=== PATIENT | female | born 1965 | race Caucasian/White ===

== ENCOUNTER 2022-08-04 10:36 | Outpatient (REF) | payer OTHER, SELFPAY ==
--- NOTE | ~2022-08-04 | XR_ITS ---
EXAMINATION: XR ELBOW, RIGHT XR ELBOW, LEFT CLINICAL INFORMATION: M06.9 - Rheumatoid arthritis, unspecified COMPARISON: None TECHNIQUE: Each elbow is imaged in 3 views. There are a total of 6 views. FINDINGS: Right: Bony mineralization within normal. No acute or healing fracture, dislocation, or elbow capsular effusion. No joint narrowing or erosive change. There is bulky spur from the lateral epicondyle. Left: Bony mineralization within normal. No acute or healing fracture, dislocation, or elbow capsular effusion. No joint narrowing or erosive change or chondrocalcinosis. Punctate epicondylar spurs. XR/XR elbow RT min 3V IMPRESSION: 1. No joint narrowing or erosive changes bilateral elbows. 2. Bulky right lateral epicondylar spur.
--- NOTE | ~2022-08-04 | XR_ITS ---
EXAMINATION: XR ELBOW, RIGHT XR ELBOW, LEFT CLINICAL INFORMATION: M06.9 - Rheumatoid arthritis, unspecified COMPARISON: None TECHNIQUE: Each elbow is imaged in 3 views. There are a total of 6 views. FINDINGS: Right: Bony mineralization within normal. No acute or healing fracture, dislocation, or elbow capsular effusion. No joint narrowing or erosive change. There is bulky spur from the lateral epicondyle. Left: Bony mineralization within normal. No acute or healing fracture, dislocation, or elbow capsular effusion. No joint narrowing or erosive change or chondrocalcinosis. Punctate epicondylar spurs. XR/XR elbow LT min 3V IMPRESSION: 1. No joint narrowing or erosive changes bilateral elbows. 2. Bulky right lateral epicondylar spur.
[2022-08-04 12:44] LABS: MANUAL DIFF FLAG NO
[2022-08-04 13:04] LABS: Basophils Absolute Auto 0.1 X10*3/uL (0.0-0.2); Basophils Percent Auto 0.6 % (0-2); Eosinophils Absolute Auto 0.3 X10*3/uL (0.0-0.4); Eosinophils Percent Auto 2.2 % (0-4); Hematocrit 43.1 % (37.0-47.0); Hemoglobin 13.7 g/dl (12.0-16.0); Imm Gran Abs Auto 0.09 X10*3/uL (0.00-0.03); Imm Gran Pct Auto 0.8 % (0.0-0.4); Lymphocytes Absolute Auto 1.8 X10*3/uL (1.2-4.9); Lymphocytes Percent Auto 16.1 % (20-40); Mean Corpuscular HGB Conc 31.8 g/dl (31.0-35.0); Mean Corpuscular Volume 91.1 fL (80.0-98.0); Mean Platelet Volume 11.1 fL (9.4-12.3); Monocytes Absolute Auto 0.6 X10*3/uL (0.1-1.2); Monocytes Percent Auto 5.1 % (2-11); Neutrophils Absolute Auto 8.5 x10*3/uL (2.0-8.3); Neutrophils Percent Auto 75.2 % (45-73); Platelet Count 244 X10*3/uL (160-400); Red Blood Count 4.73 X10*6/uL (4.20-5.50); Red Cell Distribution Width 14.6 % (11.0-16.0); White Blood Count 11.3 X10*3/uL (4.8-10.8)
[2022-08-04 13:48] LABS: Estimated Average Glucose 280 mg/dL; Hemoglobin A1c % 11.4 %
[2022-08-04 13:49] LABS: Erythrocyte Sedimentation Rate 34 MM/HR (0-20)
[2022-08-04 14:10] LABS: Alanine Aminotransferase 78 U/L (0-31); Albumin Level 4.1 g/dL (3.5-5.0); Blood Urea Nitrogen 12 mg/dL (9-16); Calcium 9.3 mg/dL (8.4-10.2); Chloride 101 mmol/L (96-108); Estimated Glomerular Filt Rate > 60; Potassium 3.9 mmol/L (3.3-5.1); Rheumatoid Factor < 13.0 IU/mL (<15.0); Sodium 138 mmol/L (135-145); Total Protein 7.1 g/dL (6.5-8.0); Uric Acid 4.2 mg/dL (2.4-5.7)
[2022-08-04 14:27] LABS: Alkaline Phosphatase 190 U/L (39-117); Anion Gap 18 (12-20); Aspartate Amino Transferase 85 U/L (5-31); Bilirubin Total 0.6 mg/dL (0.0-1.0); C Reactive Protein 3.48 mg/dL (< or = 0.50); Carbon Dioxide 23 mmol/L (22-29)
[2022-08-04 15:30] LABS: Glucose Random 404 mg/dL (60-115)
[2022-08-05 09:57] LABS: HBc Num1 0.17 S/CO (0.00-0.79); HBsAGNum1 0.26 S/CO (0.00-0.99); Hepatitis A Antibody IgM 0.57 Index (0-0.79); Hepatitis B Core Antibody Nonreactive (Nonreactive); Hepatitis B Surface Antigen Negative (Negative); ~Hepatitis A Antibody IgM Nonreactive (Nonreactive); ~Hepatitis B Surface Antibody REACTIVE (Nonreactive); ~Hepatitis C Antibody Nonreactive (Nonreactive)
[2022-08-07 05:49] LABS: TS Negative Control Passed; TS Panel A 0; TS Panel B 0; TS Positive Control Passed; TSpotTB Negative (Negative)
[2022-08-09 12:39] LABS: Cyclic Citrullinated Peptide <16 UNITS
[2022-08-09 13:39] LABS: Complement C3 227 mg/dL (83-193)
[2022-08-09 15:23] LABS: Anti Nuclear Antibody Screen NEGATIVE (NEGATIVE)
[2022-08-10 14:59] LABS: Prot Elec - Alpha1 0.3 g/dL (0.2-0.3); Prot Elec - Alpha2 0.8 g/dL (0.5-0.9); Prot Elec - Beta 1 0.5 g/dL (0.4-0.6); Prot Elec - Beta 2 0.4 g/dL (0.2-0.5); Prot Elec - Gamma 1.1 g/dL (0.8-1.7); Prot Elec - Total Protein 7.1 g/dL (6.1-8.1)
[2022-08-11 00:24] LABS: Beta-2 Glycoprotein IgA 2.7 U/mL (<20.0); Beta-2 Glycoprotein IgG 2.7 U/mL (<20.0); Beta-2 Glycoprotein IgM 12.9 U/mL (<20.0)
[2022-08-11 06:14] LABS: Hexagonal Phase Neutralization Negative (Negative); PTT (LAC) Screen 65 sec (<=40)
[2022-08-11 07:08] LABS: IgA 210 mg/dL (47-310); IgG 1153 mg/dL (600-1640); IgM 208 mg/dL (50-300)
[2022-08-11 13:13] LABS: Anti DNA DS Antibody 1 IU/mL; Antibody to SS-A Antigen <1.0 NEG AI (<1.0 NEG); Antibody to SS-B Antigen <1.0 NEG AI (<1.0 NEG); SM/Ribonucleoprotein Ab <1.0 NEG AI (<1.0 NEG); Smith Protein <1.0 NEG AI (<1.0 NEG)
[2022-08-12 22:24] LABS: HLA B27 Negative (Negative)
[2022-08-15 08:13] LABS: Cardiolipin IgG Ab 2.7 GPL-U/mL; Cardiolipin IgM Ab 8.5 MPL-U/mL
== END 2022-08-04 10:37 | disposition home or self-care (01) ==
LOC: HO.XRAY 10:36
PROVIDERS: PCP Internal Medicine; Visit Provider Student in an Organized Health Care Education/Training Program
DX: Z11.59 Encounter for screening for other viral diseases (principal); Z13.1 Encounter for screening for diabetes mellitus; Z11.7 Encounter for testing for latent tuberculosis infection; M06.9 Rheumatoid arthritis, unspecified; I82.409 Acute embolism and thrombosis of unspecified deep veins of unspecified lower extremity; M25.541 Pain in joints of right hand
CPT/HCPCS: 36415; 73080; 80053; 82784; 83036; 84165; 84550; 85025; 85597; 85613; 85652; 85730; 86038; 86039; 86140; 86146; 86147; 86160; 86200; 86225; 86235; 86334; 86431; 86481; 86704; 86706; 86709; 86803; 86812; 87340; 99202

== ENCOUNTER 2022-09-21 08:17 | Outpatient (REF) | payer OTHER, SELFPAY ==
[2022-09-21 08:57] LABS: Appearance Urine Clear; Color Urine Yellow; Glucose Urine UA Negative (Negative); Leukocyte Esterase Urine Trace (Negative); Nitrite Urine Negative (Negative); PH 5.5 (5.0-9.0); Specific Gravity - Urine <= 1.005 (1.005-1.025); UMIC TRIGGER UA YES; Urine Blood Negative (Negative); Urine Ketones Negative (Negative); Urine Protein 30 (1+) mg/dL (Neg-Trace)
[2022-09-21 09:00] LABS: Bacteria Urine None Seen (None Seen); Hyaline Casts Urine 0-2 /LPF (0-2)
[2022-09-21 09:30] LABS: Creatinine Urine 124.16 mg/dL; Total Protein Urine Random 37 mg/dL (<12)
== END 2022-09-21 08:18 | disposition home or self-care (01) ==
LOC: HO.LAB 08:17
PROVIDERS: PCP Internal Medicine; Visit Provider Student in an Organized Health Care Education/Training Program
DX: M06.9 Rheumatoid arthritis, unspecified (principal)
CPT/HCPCS: 81001; 84156

== ENCOUNTER 2024-05-20 14:32 | Outpatient (REF) | payer OTHER, SELFPAY ==
--- NOTE | ~2024-05-20 | XR_ITS ---
EXAMINATION: XR ANKLE LEFT 2 VIEWS CLINICAL INFORMATION: Rheumatoid arthritis, unspecified M06.9. COMPARISON: XR Left foot 05/20/2024 TECHNIQUE: AP, oblique views of the left ankle. FINDINGS: No fracture. Alignment is anatomic. No erosions. Joint spaces are maintained. Soft tissues are normal. There is moderate atherosclerotic disease. XR/XR ankle LT min 3V IMPRESSION: Moderate atherosclerotic disease. Electronically signed by: Suzy Razo MD 07/27/2024 12:06 PM [facility]
--- NOTE | ~2024-05-20 | XR_ITS ---
EXAMINATION: XR CHEST 2 VIEWS CLINICAL INFORMATION: Rheumatoid arthritis, unspecified M06.9. Hilar lymphadenopathy. COMPARISON: CT Abdomen and pelvis 02/18/2022 TECHNIQUE: 2 views of the chest were obtained. FINDINGS: No significant abnormality is noted involving the heart, lungs, mediastinum, bony thorax or soft tissues. XR/XR chest 2V IMPRESSION: Unremarkable examination. Electronically signed by: Suzy Razo MD 07/27/2024 12:04 PM [facility]
--- NOTE | ~2024-05-20 | XR_ITS ---
EXAMINATION: XR ANKLE RIGHT 2 VIEWS CLINICAL INFORMATION: Rheumatoid arthritis, unspecified M06.9. COMPARISON: XR Right foot 05/20/2024 TECHNIQUE: AP, oblique views of the right ankle. FINDINGS: No fracture. Alignment is anatomic. No erosions. Joint spaces are maintained. Soft tissues are normal. Post surgical changes in the mid foot. XR/XR ankle RT min 3V IMPRESSION: Normal right ankle. Electronically signed by: Suzy Razo MD 07/27/2024 02:04 PM [facility]
--- NOTE | ~2024-05-20 | XR_ITS ---
EXAMINATION: XR KNEE RIGHT 4 VIEWS CLINICAL INFORMATION: Rheumatoid arthritis, unspecified M06.9. COMPARISON: None available TECHNIQUE: Four views of the right knee. FINDINGS: Moderate joint effusion. There is lateral joint space narrowing with osteophyte formation. Alignment is anatomic. Joint spaces are maintained. Moderate atherosclerotic disease. XR/XR knee RT 4V IMPRESSION: Moderate joint effusion. Electronically signed by: Suzy Razo MD 07/27/2024 12:01 PM [facility]
--- NOTE | ~2024-05-20 | XR_ITS ---
EXAMINATION: XR FOOT RIGHT 3 VIEWS CLINICAL INFORMATION: Rheumatoid arthritis, unspecified M06.9. COMPARISON: XR Right ankle 05/20/2024 TECHNIQUE: AP, lateral, and oblique views of the right foot. FINDINGS: No acute fracture or dislocation. There is postsurgical change at the distal fifth metatarsal. There is mild overlying soft tissue swelling. Fusion of the tarsal-metatarsal joint at the first digit. XR/XR foot RT min 3V IMPRESSION: Postsurgical changes. Electronically signed by: Suzy Razo MD 07/27/2024 12:03 PM [facility]
--- NOTE | ~2024-05-20 | XR_ITS ---
EXAMINATION: XR KNEE LEFT 3 VIEWS CLINICAL INFORMATION: Rheumatoid arthritis, unspecified M06.9. COMPARISON: None available TECHNIQUE: Three views of the left knee. FINDINGS: No fracture or joint effusion. Alignment is anatomic. Joint spaces are maintained. Moderate atherosclerotic disease. XR/XR knee LT 4V IMPRESSION: Moderate atherosclerotic disease. Electronically signed by: Suzy Razo MD 07/27/2024 12:04 PM [facility]
--- NOTE | ~2024-05-20 | XR_ITS ---
EXAMINATION: XR HAND/WRIST RIGHT 3 VIEWS CLINICAL INFORMATION: Rheumatoid arthritis, unspecified M06.9. COMPARISON: None available TECHNIQUE: PA, lateral, and oblique views of the right hand and wrist. FINDINGS: The bones and soft tissues are normal. No fracture. Alignment is anatomic. There is a moderate joint space narrowing with osteophyte formation at the third metatarsal-phalangeal joint. No erosions or soft tissue calcifications. XR/XR hand wrist RT IMPRESSION: Moderate degenerative disease of the third metatarsal-phalangeal joint. Electronically signed by: Suzy Razo MD 07/27/2024 12:27 PM [facility]
--- NOTE | ~2024-05-20 | XR_ITS ---
EXAMINATION: XR FOOT LEFT 3 VIEWS CLINICAL INFORMATION: Rheumatoid arthritis, unspecified M06.9. COMPARISON: XR Left ankle 05/20/2024 TECHNIQUE: AP, lateral, and oblique views of the left foot. FINDINGS: There is moderate joint space narrowing with subluxation at the first metatarsal joint. Joint spaces are maintained. No acute fracture. XR/XR foot LT min 3V IMPRESSION: Moderate degenerative disease of the first metatarsophalangeal joint. Electronically signed by: Suzy Razo MD 07/27/2024 12:22 PM [facility]
--- NOTE | ~2024-05-20 | XR_ITS ---
EXAMINATION: XR HAND/WRIST LEFT 3 VIEWS CLINICAL INFORMATION: Rheumatoid arthritis, unspecified M06.9. COMPARISON: None available TECHNIQUE: PA, lateral, and oblique views of the left hand and wrist. FINDINGS: The bones and soft tissues are normal. No fracture. Alignment is anatomic. Joint space narrowing at the carpal-metacarpal joint. No erosions or soft tissue calcifications. XR/XR hand wrist LT IMPRESSION: Mild degenerative disease of the left wrist. Electronically signed by: Suzy Razo MD 07/27/2024 12:03 PM [facility]
[2024-05-20 15:36] LABS: MANUAL DIFF FLAG NO
[2024-05-20 17:04] LABS: Basophils Absolute Auto 0.1 X10*3/uL (0.0-0.2); Basophils Percent Auto 0.5 % (0-2); Eosinophils Absolute Auto 0.2 X10*3/uL (0.0-0.4); Eosinophils Percent Auto 1.8 % (0-4); Hematocrit 37.4 % (37.0-47.0); Hemoglobin 11.5 g/dl (12.0-16.0); Imm Gran Abs Auto 0.08 X10*3/uL (0.00-0.03); Imm Gran Pct Auto 0.7 % (0.0-0.4); Lymphocytes Absolute Auto 1.7 X10*3/uL (1.2-4.9); Lymphocytes Percent Auto 14.4 % (20-40); Mean Corpuscular HGB Conc 30.7 g/dl (31.0-35.0); Mean Corpuscular Hemoglobin 26.8 pg (27.0-33.0); Mean Corpuscular Volume 87.2 fL (80.0-98.0); Mean Platelet Volume 10.5 fL (9.4-12.3); Monocytes Absolute Auto 0.6 X10*3/uL (0.1-1.2); Monocytes Percent Auto 5.3 % (2-11); Neutrophils Absolute Auto 9.3 x10*3/uL (2.0-8.3); Neutrophils Percent Auto 77.3 % (45-73); Platelet Count 366 X10*3/uL (160-400); Red Blood Count 4.29 X10*6/uL (4.20-5.50); Red Cell Distribution Width 15.4 % (11.0-16.0)
[2024-05-20 17:31] LABS: Alanine Aminotransferase 19 U/L (0-31); Albumin Level 4.1 g/dL (3.5-5.0); Alkaline Phosphatase 113 U/L (39-117); Anion Gap 13 (12-20); Aspartate Amino Transferase 24 U/L (5-31); Bilirubin Total 0.4 mg/dL (0.0-1.0); Blood Urea Nitrogen 19 mg/dL (9-16); Calcium 9.3 mg/dL (8.4-10.2); Carbon Dioxide 26 mmol/L (22-29); Chloride 107 mmol/L (96-108); Estimated Glomerular Filt Rate 60; Glucose Random 149 mg/dL (60-115); Potassium 3.3 mmol/L (3.3-5.1); Sodium 143 mmol/L (135-145); Total Protein 7.6 g/dL (6.5-8.0)
[2024-05-21 04:41] LABS: HBc Num1 0.15 S/CO (0.00-0.79); HBsAGNum1 0.38 S/CO (0.00-0.99); Hepatitis A Antibody IgM 0.62 Index (0-0.79); Hepatitis B Core Antibody Nonreactive (Nonreactive); Hepatitis B Surface Antigen Negative (Negative); ~HepC Num1 0.09 S/CO (0.00-0.79); ~Hepatitis A Antibody IgM Nonreactive (Nonreactive); ~Hepatitis B Surface Antibody REACTIVE (Nonreactive); ~Hepatitis C Antibody Nonreactive (Nonreactive)
[2024-05-23 01:07] LABS: TS Negative Control Passed; TS Panel A 0; TS Panel B 0; TS Positive Control Passed; TSpotTB Negative (Negative)
[2024-05-23 16:34] LABS: Mitochondrial Antibodies NEGATIVE (NEGATIVE)
[2024-05-23 22:08] LABS: Liver Kidney Microsomal Ab <=20.0 U (<=20.0)
[2024-05-24 18:53] LABS: Angiotensin Converting Enzyme 32 U/L (9-67)
[2024-05-24 23:09] LABS: Smooth Muscle Antibody <20 U (<20)
[2024-05-26 02:14] LABS: HLA B27 Negative (Negative)
== END 2024-05-20 14:33 | disposition home or self-care (01) ==
LOC: HO.XRAY 14:32
PROVIDERS: PCP Internal Medicine; Visit Provider Student in an Organized Health Care Education/Training Program
DX: Z11.59 Encounter for screening for other viral diseases (principal); R74.01 Elevation of levels of liver transaminase levels; Z11.7 Encounter for testing for latent tuberculosis infection; M06.9 Rheumatoid arthritis, unspecified; M45.9 Ankylosing spondylitis of unspecified sites in spine; R06.9 Unspecified abnormalities of breathing
CPT/HCPCS: 36415; 71046; 73110; 73130; 73564; 73610; 73630; 80053; 82164; 85025; 86015; 86376; 86381; 86481; 86704; 86706; 86709; 86803; 86812; 87340; 99212

== ENCOUNTER 2024-05-20 14:32 | Outpatient (AMB) | payer OTHER, SELFPAY ==
--- NOTE | 2024-05-20 14:34 | A.OFFVIS_ITS ---
Vital Signs 05/20/24 14:41 Height 5 ft 2 in Weight 215 lb 9.793 oz BMI 39.4 BP 122/80 Blood Pressure Location Rt brachial Position Sitting Pulse 93 Pulse Source Pulse Oximeter Pulse Oximetry (%) 95 Oxygen Delivery Method Room Air Intake Visit Reasons: Rheumatoid Arthritis Intake Note: Patient presents for Rheumatoid Arthritis. Allergies No Known Allergies Allergy (Verified 05/20/24 14:37) Medication List - Last Reconciled 05/20/24 by Ilsa Ng MD albuterol sulfate 90 mcg/actuation (ProAir HFA) 2 puffs inhalation Q6H PRN calcium citrate-vitamin D3 200 mg-6.25 mcg (250 unit) 1 tab PO DAILY lansoprazole 30 mg PO DAILY levothyroxine 150 mcg PO DAILY HPI Comments Details: 59-year-old female with seronegative RA returns for follow-up. Patient was seen once by me 07/2022, diagnostic workup was ordered and patient did not return for follow-up. She states that she was evaluated by other specialists but it does not look like she was evaluated by a class a truck driver. She continues to have trouble joint pains including her hands, shoulders, knees, ankles. Over the last 2-3 weeks she has noticed painful reddish bumps in her right leg. Initial history: This is a 57-year-old morbidly obese female with complex past medical history including DVT and PE on warfarin who presents for evaluation of inflammatory arthritis. Condition started more than 5 years ago. Patient stated she used to see a class a truck driver in [place] but does not know their names. She stated that she was getting medications to treat pain and anxiety. She was most recently evaluated by Jose F Rainey last year. She used to get multiple courses of prednisone which help with joint pain. Patient mentions episodes of swelling of her wrists, knuckles, elbows which are improved with prednisone. About a month ago she had right foot bunionectomy and her right foot is currently in a cast. She develops intermittent bruising of her skin while on warfarin, she is currently taking duloxetine prescribed by Dr. Tapia for fibromyalgia which she mentions did help her symptoms. [facility] Medical History Bunion of right foot Esophageal dysmotility Hiatal hernia Constipation Dysphagia GERD (gastroesophageal reflux disease) DJD (degenerative joint disease) BPV (benign positional vertigo) Parathyroid adenoma Hx of thyroid cancer Rheumatoid arthritis G6PD deficiency Cholelithiases Hepatomegaly Liver cyst Pulmonary embolism DVT (deep venous thrombosis) LIN (obstructive sleep apnea) Depression Tension headache Sleep disturbance Fibromyalgia Migraines Obesity (BMI 30-39.9) Diverticulosis Surgical History S/P bunionectomy Stented coronary artery Hx of endoscopy Hx of tubal ligation H/O total thyroidectomy Hx of colonoscopy Family History Mother Glaucoma Father Glaucoma Cataract Diabetes Hypertension Myocardial infarct Maternal Grandmother Skin cancer Daughter Multiple sclerosis Social History Household Members: Spouse and Children Housing: House Patient Tobacco Use Status: Never used Tobacco service: No Current occupational status: employed Review of [employer] Reports arthralgias, Reports joint swelling and Reports stiffness Skin/Breast Reports new lesions and Reports skin pain Physical Exam Vital Signs: Last Vital Signs Pulse 93 05/20/24 14:41 BP 122/80 05/20/24 14:41 Pulse Ox 95 05/20/24 14:41 Oxygen Delivery Method Room Air 05/20/24 14:41 BMI result Body Mass Index 39.4 Const General: cooperative, healthy appearing, comfortable and no acute distress Nutritional Appearance: obese morbidly obese Orientation/consciousness: patient oriented x3 HEENT Head: Yes normocephalic and Yes atraumatic Resp Effort & Inspection: normal respiratory effort and able to speak in complete sentences Auscultation: clear to auscultation bilaterally Cardio Rate: regular rate Rhythm: regular rhythm GI Inspection: No distended Palpation (GI): Soft to palpation and nontender Neuro General: patient oriented x3 Extrem Other: Swelling and synovial thickening of right hand MCPs, right 3rd MCP swollen and tender Bilateral shoulder stiffness Bilateral knee swelling, more prominent on the right associated with warmth Bilateral ankle swelling and tenderness Multiple tender erythematous bumps on her right leg Results Reviewed Results Reviewed: X-RAY EXAM OF HAND, 3+ VIEWS ? Exam Date: 10/11/2016 ?4:09 PM Ordering Diagnosis: FibromyalgiaChronic pain of right knee ? ?? IMPRESSION: Degenerative change of the right hand. ? Unremarkable left hand.X-RAY EXAM OF ANKLE, COMPLETE Exam Date: 05/19/2022 11:26 AM Ordering Diagnosis: Right ankle swelling ? RIGHT ANKLE, 3 VIEWS ? HISTORY: Pain and swelling. ? PRIORS: None. ? FINDINGS: ? No fracture, malalignment, or foreign body is seen. ? There is mild soft tissue swelling overlying the ankle. ? The ankle mortise appears normally aligned. ? There is a moderate plantar spur. ? There is a tiny posterior calcaneal spur. ? There is advanced atherosclerosis. ? IMPRESSION IMPRESSION: Mild soft tissue swelling. ? Calcaneal spurs. X-RAY EXAM OF WRIST, COMPLETE Exam Date: 05/19/2022 11:26 AM Ordering Diagnosis: Pain and swelling of right wrist ? RIGHT WRIST ? VIEWS: 3 ? HISTORY: Pain and swelling. ? FINDINGS: There is mild degenerative change of the 1st MCP joint and 1st CMC joint. ? There is no acute fracture, malalignment, joint effusion, or radiopaque foreign body. ? There is soft tissue swelling overlying the dorsal aspect of the metacarpal heads. There is mild soft tissue swelling about the radial aspect of the wrist. ? The carpal bones are normally aligned. ? There is atherosclerosis. ? IMPRESSION IMPRESSION: Degenerative changes as described. ? Soft tissue swelling. ORTHO X-RAY FOOT (3 VIEWS) Exam Date: 01/19/2022 9:24 AM Ordering Diagnosis: Foot pain, bilateral ? Left foot weightbearing 3 views ? Findings Advanced bunion deformity of the left great toe with severe intermetatarsal angle greater than 18 degrees signs of sclerosis of second metatarsal consistent with hypermobility of the first ray and overloading of the second metatarsal head lateral view there is signs of increased dorsiflexion of the first ray tibial sesamoid position is in a 7 ? Impression Severe bunion deformity of the left foot with hypermobility based on thickening cortex of the second metatarsal ? Right foot weightbearing 3 views ? Findings Moderate to severe bunion deformity of the right great toe with increased mobility of the right great toe and elevatus of the first ray on lateral view ? Impression Moderate to severe bunion deformity of the right footX-RAY KNEE 3 VIEW - W/O INJURY Exam Date: 08/26/2020 11:18 AM Ordering Diagnosis: Chronic pain of right knee ? History: Bilateral knee pain. ? Bilateral knees, 3 views each: ? Prior: Bilateral knees 10/11/2016. ? FINDINGS: Bony structures are radiographically intact. ? There is spurring of the lateral femoral tibial compartment of the right knee.. ? There is no evidence of joint effusions. ? There is advanced atherosclerosis. ? IMPRESSION Mild osteoarthritis of the right knee. ? Unremarkable left knee. Assessment & Plan Assessment & Plan (1) Rheumatoid arthritis: Comment: -ve RF -ve CCP dx 07/2022 MTX not started due to transaminitis HCQ not tolerated Code(s): M06.9 - Rheumatoid arthritis, unspecified Category: Medical Qualifiers: Rheumatoid arthritis location: multiple sites Rheumatoid factor prese nce: unspecified presence Qualified Code(s): M06.9 - Rheumatoid arthritis, unspecified Plan: 59-year-old female with seronegative RA returns for follow-up. Patient initially came for consult 07/2022 and did not back for follow-up. On exam she continues to have active synovitis affecting multiple joints. We will need to start DMARDs Advised patient on the importance of compliance with medication and follow-up appointments. Methotrexate, leflunomide, sulfasalazine can not be started due to ongoing transaminitis. Hydroxychloroquine was not tolerated in the past and likely would not be effective given severity of her synovitis TNF inhibitors would be relatively contraindicated given positive family history of MS in her daughter. Interleukin 6 inhibitor such as Actemra and Kevzara would be relatively contraindicated due to ongoing transaminitis and her significant diverticular disease. Discussed risks and benefits of Orencia. Patient agreed to proceed. Will start prior authorization for Orencia Check labs and x-rays today The tender bumps on her right leg maybe erythema nodosum. I will check an SOL level and a chest x-ray Start prednisone 20 mg daily for 1 week then 10 mg daily for 1 week then stop Follow-up in 6-7 weeks Plan I spent 28 minutes reviewing patient's chart, evaluating patient, ordering diagnostic workup, counseling patient and documenting in the chart Orders: Orders Angiotensin Converting Enzyme Today M06.9 - Rheumatoid arthritis, unspecified Comprehensive Met. Panel Today M06.9 - Rheumatoid arthritis, unspecified Hepatitis A,B,C Profile Today Z11.59 - Encounter for screening for other viral diseases Liver Kidney Microsomal Ab Today R74.01 - Elevation of levels of liver transaminase levels XR ankle LT min 3V Today M06.9 - Rheumatoid arthritis, unspecified XR ankle RT min 3V Today M06.9 - Rheumatoid arthritis, unspecified XR foot LT min 3V Today M06.9 - Rheumatoid arthritis, unspecified Complete Blood Count Auto Diff Today M06.9 - Rheumatoid arthritis, unspecified T Spot TB Today Z11.7 - Encounter for testing for latent tuberculosis infection Mitochondrial Antibody Today R74.01 - Elevation of levels of liver transaminase levels Smooth Muscle Antibody Today R74.01 - Elevation of levels of liver transaminase levels HLA B27 Today M45.9 - Ankylosing spondylitis of unspecified sites in spine XR foot RT min 3V Today M06.9 - Rheumatoid arthritis, unspecified XR hand wrist LT Today M06.9 - Rheumatoid arthritis, unspecified XR hand wrist RT Today M06.9 - Rheumatoid arthritis, unspecified XR knee standing BI Today M06.9 - Rheumatoid arthritis, unspecified XR chest 2V Today M06.9 - Rheumatoid arthritis, unspecified Medications: New prednisone Take 2 tabs daily for 1 week then 1 tab daily for 1 week then stop 21 tabs 0RF Coding Level of Care Code Est Pt Level 5 (03397) Diagnoses Rheumatoid arthritis involving multiple sites, unspecified whether rheumatoid factor present M06.9 Rheumatoid arthritis location: multiple sites Rheumatoid factor presence: unspecified presence
[2024-05-20 14:41] VITALS: BP 122/80; PULSE 93; O2SAT 95; BMI 39.4
== END 2024-05-20 15:08 | disposition home or self-care (01) ==
PROVIDERS: PCP Internal Medicine; Visit Provider Student in an Organized Health Care Education/Training Program
DX: M06.9 Rheumatoid arthritis, unspecified (principal)
CPT/HCPCS: 99214

== ENCOUNTER 2024-07-03 12:21 | Outpatient (AMB) | payer OTHER, SELFPAY ==
--- NOTE | 2024-07-03 12:29 | A.OFFVIS_ITS ---
Vital Signs 07/03/24 12:33 Height 5 ft 2 in Weight 214 lb 11.684 oz BMI 39.3 BP 124/80 Blood Pressure Location Rt brachial Position Sitting Pulse 88 Pulse Source Pulse Oximeter Pulse Oximetry (%) 98 Oxygen Delivery Method Room Air Intake Visit Reasons: RA/sarcoid/CM APT Intake Note: Patient presents for RA. Allergies No Known Allergies Allergy (Verified 07/03/24 12:32) Medication List - Last Reconciled 07/03/24 by Ilsa Ng MD albuterol sulfate 90 mcg/actuation (ProAir HFA) 2 puffs inhalation Q6H PRN calcium citrate-vitamin D3 200 mg-6.25 mcg (250 unit) 1 tab PO DAILY lansoprazole 30 mg PO DAILY levothyroxine 150 mcg PO DAILY Orencia ClickJect (abatacept) 125 mg subcut QWEEK NS HPI Comments Details: 59-year-old female with seronegative RA returns for follow-up. She stated that the prednisone was quite helpful. It reduce the swelling of her joints. 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 She has diabetes. She states that she feels about the same. She continues to have pain and swelling in her hands, ankles, feet. Initial history: This is a 57-year-old morbidly obese female with complex past medical history including DVT and PE on warfarin who presents for evaluation of inflammatory arthritis. Condition started more than 5 years ago. Patient stated she used to see a peer specialist in [place] but does not know their names. She stated that she was getting medications to treat pain and anxiety. She was most recently evaluated by Jose F Rainey last year. She used to get multiple courses of prednisone which help with joint pain. Patient mentions episodes of swelling of her wrists, knuckles, elbows which are improved with prednisone. About a month ago she had right foot bunionectomy and her right foot is currently in a cast. She develops intermittent bruising of her skin while on warfarin, she is currently taking duloxetine prescribed by Dr. Tapia for fibromyalgia which she mentions did help her symptoms. [facility] Medical History Bunion of right foot Esophageal dysmotility Hiatal hernia Constipation Dysphagia GERD (gastroesophageal reflux disease) DJD (degenerative joint disease) BPV (benign positional vertigo) Parathyroid adenoma Hx of thyroid cancer Rheumatoid arthritis G6PD deficiency Cholelithiases Hepatomegaly Liver cyst Pulmonary embolism DVT (deep venous thrombosis) LIN (obstructive sleep apnea) Depression Tension headache Sleep disturbance Fibromyalgia Migraines Obesity (BMI 30-39.9) Diverticulosis Surgical History S/P bunionectomy Stented coronary artery Hx of endoscopy Hx of tubal ligation H/O total thyroidectomy Hx of colonoscopy Family History Mother Glaucoma Father Glaucoma Cataract Diabetes Hypertension Myocardial infarct Maternal Grandmother Skin cancer Daughter Multiple sclerosis Social History Household Members: Spouse and Children Housing: House Patient Tobacco Use Status: Never used Tobacco service: No Current occupational status: employed [employer] Reports arthralgias, Reports joint swelling and Reports stiffness Skin/Breast Reports new lesions and Reports skin pain Physical Exam Vital Signs: Last Vital Signs Pulse 88 07/03/24 12:33 BP 124/80 07/03/24 12:33 Pulse Ox 98 07/03/24 12:33 Oxygen Delivery Method Room Air 07/03/24 12:33 BMI result Body Mass Index 39.3 Const General: cooperative, healthy appearing, comfortable and no acute distress Nutritional Appearance: obese morbidly obese Orientation/consciousness: patient oriented x3 HEENT Head: Yes normocephalic and Yes atraumatic Resp Effort & Inspection: normal respiratory effort and able to speak in complete sentences Auscultation: clear to auscultation bilaterally Cardio Rate: regular rate Rhythm: regular rhythm GI Inspection: No distended Palpation (GI): Soft to palpation and nontender Neuro General: patient oriented x3 Extrem Other: Swelling and synovial thickening of right hand MCPs, right 3rd MCP swollen and tender Bilateral shoulder stiffness No knee swelling warmth or pain with full flexion-extension today Right ankle swelling and tenderness Multiple tender erythematous bumps on her right leg Results Reviewed Results Reviewed: X-RAY EXAM OF HAND, 3+ VIEWS ? Exam Date: 10/11/2016 ?4:09 PM Ordering Diagnosis: FibromyalgiaChronic pain of right knee ? ?? IMPRESSION: Degenerative change of the right hand. ? Unremarkable left hand.X-RAY EXAM OF ANKLE, COMPLETE Exam Date: 05/19/2022 11:26 AM Ordering Diagnosis: Right ankle swelling ? RIGHT ANKLE, 3 VIEWS ? HISTORY: Pain and swelling. ? PRIORS: None. ? FINDINGS: ? No fracture, malalignment, or foreign body is seen. ? There is mild soft tissue swelling overlying the ankle. ? The ankle mortise appears normally aligned. ? There is a moderate plantar spur. ? There is a tiny posterior calcaneal spur. ? There is advanced atherosclerosis. ? IMPRESSION IMPRESSION: Mild soft tissue swelling. ? Calcaneal spurs. X-RAY EXAM OF WRIST, COMPLETE Exam Date: 05/19/2022 11:26 AM Ordering Diagnosis: Pain and swelling of right wrist ? RIGHT WRIST ? VIEWS: 3 ? HISTORY: Pain and swelling. ? FINDINGS: There is mild degenerative change of the 1st MCP joint and 1st CMC joint. ? There is no acute fracture, malalignment, joint effusion, or radiopaque foreign body. ? There is soft tissue swelling overlying the dorsal aspect of the metacarpal heads. There is mild soft tissue swelling about the radial aspect of the wrist. ? The carpal bones are normally aligned. ? There is atherosclerosis. ? IMPRESSION IMPRESSION: Degenerative changes as described. ? Soft tissue swelling. ORTHO X-RAY FOOT (3 VIEWS) Exam Date: 01/19/2022 9:24 AM Ordering Diagnosis: Foot pain, bilateral ? Left foot weightbearing 3 views ? Findings Advanced bunion deformity of the left great toe with severe intermetatarsal angle greater than 18 degrees signs of sclerosis of second metatarsal consistent with hypermobility of the first ray and overloading of the second metatarsal head lateral view there is signs of increased dorsiflexion of the first ray tibial sesamoid position is in a 7 ? Impression Severe bunion deformity of the left foot with hypermobility based on thickening cortex of the second metatarsal ? Right foot weightbearing 3 views ? Findings Moderate to severe bunion deformity of the right great toe with increased mobility of the right great toe and elevatus of the first ray on lateral view ? Impression Moderate to severe bunion deformity of the right footX-RAY KNEE 3 VIEW - W/O INJURY Exam Date: 08/26/2020 11:18 AM Ordering Diagnosis: Chronic pain of right knee ? History: Bilateral knee pain. ? Bilateral knees, 3 views each: ? Prior: Bilateral knees 10/11/2016. ? FINDINGS: Bony structures are radiographically intact. ? There is spurring of the lateral femoral tibial compartment of the right knee.. ? There is no evidence of joint effusions. ? There is advanced atherosclerosis. ? IMPRESSION Mild osteoarthritis of the right knee. ? Unremarkable left knee. Assessment & Plan Assessment & Plan (1) Rheumatoid arthritis: Comment: -ve RF -ve CCP dx 07/2022 MTX not started due to transaminitis HCQ not tolerated Code(s): M06.9 - Rheumatoid arthritis, unspecified Category: Medical Qualifiers: Rheumatoid arthritis location: multiple sites Rheumatoid factor presence: unspecified presence Qualified Code(s): M06.9 - Rheumatoid arthritis, unspecified Plan: 59-year-old female with seronegative RA returns for follow-up. On exam she continues to have active synovitis affecting multiple joints. We will need to start DMARDs Advised patient on the importance of compliance with medication and follow-up appointments. Methotrexate, leflunomide, sulfasalazine can not be started due to ongoing transaminitis. Hydroxychloroquine was not tolerated in the past and likely would not be effective given severity of her synovitis TNF inhibitors would be relatively contraindicated given positive family history of MS in her daughter. Interleukin 6 inhibitor such as Actemra and Kevzara would be relatively contraindicated due to ongoing transaminitis and her significant diverticular disease. Discussed risks and benefits of Orencia. Patient agreed to proceed. Will start prior authorization for Orencia. It has been denied. The appeal is in process. Labs before next visit in 3 months (2) High risk medication use: Code(s): Z79.899 - Other group home (current) drug therapy Category: Medical Plan: Side effects of Orencia were discussed with the patient in detail including increased risk of infection, demyelinating disease, reactivation of latent TB, possible increased risk of solid and skin tumors. Patient fully aware. Advised patient to seek medical care [facility] if patient has an infection and advised patient to stop the medication until the infection is resolved. Plan I spent 28 minutes reviewing patient's chart, evaluating patient, ordering diagnostic workup, counseling patient and documenting in the chart Orders: Orders Comprehensive Met. Panel 3 Months M06.9 - Rheumatoid arthritis, unspecified C Reactive Protein 3 Months M06.9 - Rheumatoid arthritis, unspecified Erythrocyte Sedimentation Rate 3 Months M06.9 - Rheumatoid arthritis, unspecified Complete Blood Count Auto Diff 3 Months M06.9 - Rheumatoid arthritis, unspecified Coding Level of Care Code Est Pt Level 4 (35400) Diagnoses Rheumatoid arthritis involving multiple sites, unspecified whether rheumatoid factor present M06.9 Rheumatoid arthritis location: multiple sites Rheumatoid factor presence: unspecified presence High risk medication use Z79.899
[2024-07-03 12:33] VITALS: BP 124/80; PULSE 88; O2SAT 98; BMI 39.3
== END 2024-07-03 13:09 | disposition home or self-care (01) ==
PROVIDERS: PCP Internal Medicine; Visit Provider Student in an Organized Health Care Education/Training Program
DX: M06.9 Rheumatoid arthritis, unspecified (principal); Z79.899 Other long term (current) drug therapy
CPT/HCPCS: 99214

== ENCOUNTER → 2024-07-03 12:21 | Outpatient (BNVA) | payer OTHER, SELFPAY | PROVIDERS: PCP Internal Medicine; Visit Provider Student in an Organized Health Care Education/Training Program | DX: M06.9 Rheumatoid arthritis, unspecified (principal); E11.9 Type 2 diabetes mellitus without complications; M79.7 Fibromyalgia | CPT/HCPCS: 99212 ==

== ENCOUNTER 2024-08-06 11:37 | Outpatient (AMB) | payer OTHER, SELFPAY ==
[2024-08-06 11:38] VITALS: BP 126/74; PULSE 83; O2SAT 96; BMI 39.4
--- NOTE | 2024-08-06 11:38 | A.OFFVIS_ITS ---
Vital Signs 3 08/06/24 11:38 Height 5 ft 2 in Weight 215 lb 2.738 oz BMI 39.4 BP 126/74 Blood Pressure Location Lt brachial Position Sitting Pulse 83 Pulse Source Pulse Oximeter Pulse Oximetry (%) 96 Oxygen Delivery Method Room Air Intake Visit Reasons: RA Intake Note: Patient presents for follow up on RA. Allergies No Known Allergies Allergy (Verified 08/06/24 11:41) Medication List - Last Reconciled 08/06/24 by Ilsa Ng MD albuterol sulfate 90 mcg/actuation (ProAir HFA) 2 puffs inhalation Q6H PRN calcium citrate-vitamin D3 200 mg-6.25 mcg (250 unit) 1 tab PO DAILY lansoprazole 30 mg PO DAILY levothyroxine 150 mcg PO DAILY Orencia ClickJect (abatacept) 125 mg subcut QWEEK NS prednisone Take 2 tabs daily for 1 month then 1 tab daily for 1 month then stop HPI Comments Details: 59-year-old female with seronegative RA returns for follow-up. She has not been doing well recently. She started having painful bumps on both her legs about 10 days ago, this was associated with multiple joint pain and swelling especially her knees, ankles, hands. she went to the hospital and was prescribed a prednisone taper starting at 40 mg a day with significant relief. The bumps are significantly better now, the only joint pain that remains as her right ankle pain and swelling. Today is her last day of prednisone 10 mg once daily. Initial history: This is a 57-year-old morbidly obese female with complex past medical history including DVT and PE on warfarin who presents for evaluation of inflammatory arthritis. Condition started more than 5 years ago. Patient stated she used to see a director of materials management in [place] but does not know their names. She stated that she was getting medications to treat pain and anxiety. She was most recently evaluated by Jose F Rainey last year. She used to get multiple courses of prednisone which help with joint pain. Patient mentions episodes of swelling of her wrists, knuckles, elbows which are improved with prednisone. About a month ago she had right foot bunionectomy and her right foot is currently in a cast. She develops intermittent bruising of her skin while on warfarin, she is currently taking duloxetine prescribed by Dr. Tapia for fibromyalgia which she mentions did help her symptoms. [facility] Medical History Diabetes Hepatic steatosis Bunion of right foot Esophageal dysmotility Hiatal hernia Constipation Dysphagia GERD (gastroesophageal reflux disease) DJD (degenerative joint disease) BPV (benign positional vertigo) Parathyroid adenoma Hx of thyroid cancer Rheumatoid arthritis G6PD deficiency Cholelithiases Hepatomegaly Liver cyst Pulmonary embolism DVT (deep venous thrombosis) LIN (obstructive sleep apnea) Depression Tension headache Sleep disturbance Fibromyalgia Migraines Obesity (BMI 30-39.9) Diverticulosis Surgical History S/P bunionectomy Stented coronary artery Hx of endoscopy Hx of tubal ligation H/O total thyroidectomy Hx of colonoscopy Family History Mother Glaucoma Father Glaucoma Cataract Diabetes Hypertension Myocardial infarct Maternal Grandmother Skin cancer Daughter Multiple sclerosis Social History Household Members: Spouse and Children Housing: House Patient Tobacco Use Status: Never used Tobacco service: No Current occupational status: employed Review of Systems [facility] Reports arthralgias, Reports joint swelling and Reports stiffness Physical Exam Vital Signs: Last Vital Signs Pulse 83 08/06/24 11:38 BP 126/74 08/06/24 11:38 Pulse Ox 96 08/06/24 11:38 Oxygen Delivery Method Room Air 08/06/24 11:38 BMI result Body Mass Index 39.4 Const General: cooperative, healthy appearing, comfortable and no acute distress Nutritional Appearance: obese morbidly obese Orientation/consciousness: patient oriented x3 HEENT Head: Yes normocephalic and Yes atraumatic Resp Effort & Inspection: normal respiratory effort and able to speak in complete sentences Auscultation: clear to auscultation bilaterally Cardio Rate: regular rate Rhythm: regular rhythm GI Inspection: No distended Palpation (GI): Soft to palpation and nontender Neuro General: patient oriented x3 Extrem Other: synovial thickening of right hand MCPs Left 3rd MCP synovial thickening without swelling or tenderness Negative MCP squeeze test bilaterally Normal pain-free range of motion of elbows and shoulders No knee swelling warmth or pain with full flexion-extension today Right ankle swelling and tenderness Resolving erythematous subcutaneous bumps on left leg, on palpation she has rubbery nodular swelling subcutaneously Assessment & Plan Assessment & Plan (1) Rheumatoid arthritis: Comment: -ve RF -ve CCP dx 07/2022. Erythema nodisum started 05/2024 HCQ not tolerated Code(s): M06.9 - Rheumatoid arthritis, unspecified Category: Medical Qualifiers: Rheumatoid arthritis location: multiple sites Rheumatoid factor presence: unspecified presence Qualified Code(s): M06.9 - Rheumatoid arthritis, unspecified Plan: 59-year-old female with seronegative RA returns for follow-up. She continues to get flare-ups of RA, today she is doing better because she is on prednisone. We will need to start DMARDs. Methotrexate, leflunomide, sulfasalazine can not be started due to her history of fatty liver and intermittent transaminitis. Hydroxychloroquine was not tolerated in the past and likely would not be effective given severity of her synovitis TNF inhibitors would be relatively contraindicated given positive family history of MS in her daughter. Interleukin 6 inhibitor such as Actemra and Kevzara would be relatively contraindicated due to ongoing transaminitis and her history of diverticulitis. BRAYDON inhibitors such as Xeljanz, Rinvoq, Olumiant would all be contraindicated given her history of recurrent DVT, her atherosclerotic disease and multiple risk factors for cardiovascular events. It is also contraindicated given her history of diverticulitis. Last visit I discussed Orencia subcutaneous injections with patient, we discussed its risks and benefits. I tried to get a prior authorization, it was denied, I appeal the denial, it was denied again. Per patient's insurance company, patient has to try and fail to TNF inhibitors and 2 BRAYDON inhibitors. This response was despite me detailing all the contraindications associated with these 2 drugs We started prior authorization for Orencia infusions. Again it was denied. The response was patient was that patient has to try and fail Actemra, TNF inhibitors and BRAYDON inhibitors Patient keeps getting flare-ups of rheumatoid arthritis as well as flare-ups of erythema nodosum. I think given all of the above. It would be best to pick the DMARD which has the least likelihood of side effects. Demyelinating diseases have been linked with TNF inhibitors however the incidence is exceedingly rare. I think the benefit of treating her autoimmune condition with an effective DMARD such as a TNF inhibitor with very low risk of a demyelinating disorder outweighs the risks of poorly controlled rheumatoid arthritis which has multiple complications including joint damage, deformity, increased cardiovascular events and malignancy & may require repeated courses of prednisone which is known to cause numerous side effects especially in this patient who has diabetes mellitus & morbid obesity I discussed this with patient in detail and she is in agreement I will start the prior authorization for Enbrel injections Stay on prednisone 5 mg daily for 1 month then prednisone 2.5 mg daily then stop Labs before next visit in 2 months (2) High risk medication use: Code(s): Z79.899 - Other skilled nursing (current) drug therapy Category: Medical Plan: Side effects of Enbrel were discussed with the patient in detail including increased risk of infection, demyelinating disease, reactivation of latent TB, possible increased risk of solid and skin tumors. Patient fully aware. Advised patient to seek medical care [facility] if patient has an infection and advised patient to stop the medication until the infection is resolved. Plan I spent 28 minutes reviewing patient's chart, evaluating patient, ordering diagnostic workup, counseling patient and documenting in the chart Medications: New 2 prednisone Take 2 tabs daily for 1 month then 1 tab daily for 1 month then stop 90 tabs 0RF Coding Level of Care Code Est Pt Level 4 (71980) Diagnoses Rheumatoid arthritis involving multiple sites, unspecified whether rheumatoid factor present M06.9 Rheumatoid arthritis location: multiple sites Rheumatoid factor presence: unspecified presence High risk medication use Z79.899
== END 2024-08-06 12:05 | disposition home or self-care (01) ==
LOC: HO.RHE 11:37
PROVIDERS: PCP Internal Medicine; Visit Provider Student in an Organized Health Care Education/Training Program
DX: M06.9 Rheumatoid arthritis, unspecified (principal); Z79.899 Other long term (current) drug therapy
CPT/HCPCS: 99214

== ENCOUNTER → 2024-08-06 11:37 | Outpatient (BNVA) | payer OTHER, SELFPAY | PROVIDERS: PCP Internal Medicine; Visit Provider Student in an Organized Health Care Education/Training Program | DX: M06.9 Rheumatoid arthritis, unspecified (principal); Z79.899 Other long term (current) drug therapy | CPT/HCPCS: 99212 ==

== ENCOUNTER 2024-10-23 14:35 | Outpatient (REF) | payer OTHER, SELFPAY ==
[2024-10-23 16:16] LABS: MANUAL DIFF FLAG NO
[2024-10-23 17:14] LABS: Basophils Absolute Auto 0.1 X10*3/uL (0.0-0.2); Basophils Percent Auto 0.6 % (0-2); Eosinophils Absolute Auto 0.3 X10*3/uL (0.0-0.4); Hematocrit 37.7 % (37.0-47.0); Hemoglobin 11.5 g/dl (12.0-16.0); Imm Gran Abs Auto 0.07 X10*3/uL (0.00-0.03); Imm Gran Pct Auto 0.6 % (0.0-0.4); Lymphocytes Absolute Auto 1.6 X10*3/uL (1.2-4.9); Lymphocytes Percent Auto 12.6 % (20-40); Mean Corpuscular HGB Conc 30.5 g/dl (31.0-35.0); Mean Corpuscular Hemoglobin 26.9 pg (27.0-33.0); Mean Corpuscular Volume 88.1 fL (80.0-98.0); Mean Platelet Volume 10.5 fL (9.4-12.3); Monocytes Absolute Auto 0.7 X10*3/uL (0.1-1.2); Monocytes Percent Auto 5.5 % (2-11); Neutrophils Absolute Auto 9.7 x10*3/uL (2.0-8.3); Neutrophils Percent Auto 78.7 % (45-73); Platelet Count 350 X10*3/uL (160-400); Red Blood Count 4.28 X10*6/uL (4.20-5.50); White Blood Count 12.4 X10*3/uL (4.8-10.8)
[2024-10-23 17:19] LABS: Appearance Urine Clear; Color Urine Yellow; Glucose Urine UA Negative (Negative); Leukocyte Esterase Urine Trace (Negative); Nitrite Urine Negative (Negative); PH 5.5 (5.0-9.0); Specific Gravity - Urine 1.025 (1.005-1.025); UMIC TRIGGER UA YES; Urine Blood Negative (Negative); Urine Ketones Negative (Negative); Urine Protein Negative (Neg-Trace)
[2024-10-23 17:25] LABS: Bacteria Urine None Seen (None Seen); Hyaline Casts Urine 0-2 /LPF (0-2); RBC Urine 0-2 /HPF (0-2); Squamous Epithelial Cell Urine 0-2 /HPF (0-2); WBC Urine 0-5 /HPF (0-5)
[2024-10-23 17:53] LABS: Erythrocyte Sedimentation Rate 34 MM/HR (0-20)
[2024-10-23 17:54] LABS: Rheumatoid Factor < 13.0 IU/mL (<15.0)
[2024-10-23 17:56] LABS: Alanine Aminotransferase 34 U/L (0-31); Alkaline Phosphatase 118 U/L (39-117); Anion Gap 13 (12-20); Aspartate Amino Transferase 33 U/L (5-31); Bilirubin Total 0.2 mg/dL (0.0-1.0); Blood Urea Nitrogen 18 mg/dL (9-16); C Reactive Protein 2.81 mg/dL (< or = 0.50); Calcium 9.2 mg/dL (8.4-10.2); Carbon Dioxide 25 mmol/L (22-29); Chloride 108 mmol/L (96-108); Estimated Glomerular Filt Rate > 60; Glucose Random 111 mg/dL (60-115); Potassium 3.7 mmol/L (3.3-5.1); Sodium 142 mmol/L (135-145); Total Protein 7.9 g/dL (6.5-8.0)
--- OUTSIDE RECORDS SUMMARY | 2024-10-23 18:20 | XMS_ITS | Encounter Summary ---
Author Organization [facility] Address [address] [place] [address] Care Team Providers Care Land Surveyor Assistant Name Role Phone Wilner Murray MD Primary Care Provider Reason for Visit * Reason Onset Date Comments APPOINTMENT 01/04/2022 [facility] Encounter Details Date Type Department Care Team Description 01/04/2022 Telephone Vascular Surgery - [place] [address] [place] [phone] Jailyn Hong PA-C [address] [phone] APPOINTMENT ([facility]) Social History Tobacco [...] EDT All set * Telephone Encounter - Jasmyne Merchantnas Nicolea - 01/04/2022 11:01 AM EDT Please contact patient to inform them of their [facility] appointment on 02/09/2022@ 12:30PM Please schedule a follow up appointment in the office 1-2 weeks after images. documented in this encounter Plan of Treatment Not on file documented as of this encounter Visit Diagnoses Not on filedocumented in this encounter Care Teams Land Surveyor Assistant Relationship Specialty Start Date End Date Wilner Murray MD [address] [place] [address] PCP - General Internal Medicine 03/25/20 documented as of this encounter
--- OUTSIDE RECORDS SUMMARY | 2024-10-23 18:20 | XMS_ITS | Encounter Summary ---
Author Organization [facility] Address [address] [place] [address] Care Team Providers Care Production Line Solderer Name Role Phone Kevin Lechuga MD Primary Care Provider [facility] Wilner Murray MD Primary Care Provider [phone] Encounter Details Date Type Department Care Team Description 01/15/2018 Weathercaster Report Medical Records [address] [place] [address] Eliud Sherman NP Social History Tobacco Use [...] on filedocumented in this encounter Care Teams Production Line Solderer Relationship Specialty Start Date End Date Kevin Lechuga MD PCP - General 09/27/01 03/24/20 Wilner Murray MD [address] [place] [address] PCP - General Internal Medicine 03/25/20 documented as of this encounter
--- OUTSIDE RECORDS SUMMARY | 2024-10-23 18:20 | XMS_ITS | Encounter Summary ---
Author Organization [facility] Address [address] [place] [address] Care Team Providers Care Medical Biller Coder Name Role Phone Wilner Murray MD Primary Care Provider [phone] Reason for Visit * Reason Comments E-prescribe Rx Request Encounter Details Date Type Department Care Team Description 10/01/2022 Refill Gastroenterology - [address] [place] [phone] Amina Marte DScPAS E-prescribe Rx Request Social [...] on filedocumented in this encounter Care Teams Medical Biller Coder Relationship Specialty Start Date End Date Wilner Murray MD [address] [place] [address] PCP - General Internal Medicine 03/25/20 documented as of this encounter
--- OUTSIDE RECORDS SUMMARY | 2024-10-23 18:20 | XMS_ITS | Encounter Summary ---
Author Organization [facility] Address [address] [place] [address] Care Team Providers Care Drywall Sander Name Role Phone Wilner Murray MD Primary Care Provider [phone] Encounter Details Date Type Department Care Team Description 09/16/2022 SCAN [facility] [address] [phone] Ministerio Arora DPM [address] [address] Social History Tobacco Use Types Packs/Day Years [...] suspected to have Coronavirus/COVID-19? No / Unsure 09/19/2022 11:07 AM EST documented as of this encounter Plan of Treatment Not on file documented as of this encounter Visit Diagnoses Not on filedocumented in this encounter Care Teams Drywall Sander Relationship Specialty Start Date End Date Wilner Murray MD [address] [place] [address] PCP - General Internal Medicine 03/25/20 documented as of this encounter
--- OUTSIDE RECORDS SUMMARY | 2024-10-23 18:20 | XMS_ITS | Encounter Summary ---
Author Organization [facility] Address [address] [place] [address] Care Team Providers Care Industrial Gas Servicer Supervisor Name Role Phone Wilner Murray MD Primary Care Provider [phone] Encounter Details Date Type Department Care Team Description 08/11/2022 Chemistry Technician Report Medical Records [address] [place] [address] Abstract, Provider Social History Tobacco Use Types [...] on filedocumented in this encounter Care Teams Industrial Gas Servicer Supervisor Relationship Specialty Start Date End Date Wilner Murray MD [address] [place] [address] PCP - General Internal Medicine 03/25/20 documented as of this encounter
--- OUTSIDE RECORDS SUMMARY | 2024-10-23 18:20 | XMS_ITS | Encounter Summary ---
Author Organization [facility] Address [address] [place] [address] Care Team Providers Care Inventory Specialist Manager Name Role Phone Kevin Lechuga MD Primary Care Provider Unavail [facility] Wilner Murray MD Primary Care Provider [phone] Reason for Visit * Reason Onset Date Comments Form 06/26/2014 Encounter Details Date Type Department Care Team Description 06/26/2014 Telephone Podiatry - [place] [address] [place] [address] Ben Palacio DPM Form Social History Tobacco [...] for 2 different employers. Any questions call [phone] documented in this encounter Plan of Treatment Not on file documented as of this encounter Visit Diagnoses Not on filedocumented in this encounter Care Teams Inventory Specialist Manager Relationship Specialty Start Date End Date Kevin Lechuga MD PCP - General 09/27/01 03/24/20 Wilner Murray MD [address] [place] [address] PCP - General Internal Medicine 03/25/20 documented as of this encounter
--- OUTSIDE RECORDS SUMMARY | 2024-10-23 18:20 | XMS_ITS | Encounter Summary ---
Author Organization [facility] Address [address] [place] [address] Care Team Providers Care Leather Piece Inspector Name Role Phone Kevin Lechuga MD Primary Care Provider Unavail able Wilner Murray MD Primary Care Provider [phone] Encounter Details Date Type Department Care Team Description 11/30/2011 Release of Information Medical Records [address] [place] [address] Abstract, Provider Social History Tobacco Use Types [...] on filedocumented in this encounter Care Teams Leather Piece Inspector Relationship Specialty Start Date End Date Kevin Lechuga MD PCP - General 09/27/01 03/24/20 Wilner Murray MD [address] [place] [address] PCP - General Internal Medicine 03/25/20 documented as of this encounter
--- OUTSIDE RECORDS SUMMARY | 2024-10-23 18:20 | XMS_ITS | Encounter Summary ---
Author Organization [facility] Address [address] [place] [address] Care Team Providers Care Nursing Techn Name Role Phone Kevin Lechuga MD Primary Care Provider Unavail able Wilner Murray MD Primary Care Provider [phone] Encounter Details Date Type Department Care Team Description 09/19/2014 Mortgage Lender Report Medical Records [address] [place] [address] Paola Mathis MD Social History Tobacco Use [...] on filedocumented in this encounter Care Teams Nursing Techn Relationship Specialty Start Date End Date Kevin Lechuga MD PCP - General 09/27/01 03/24/20 Wilner Murray MD [address] [place] [address] PCP - General Internal Medicine 03/25/20 documented as of this encounter
--- OUTSIDE RECORDS SUMMARY | 2024-10-23 18:20 | XMS_ITS | Encounter Summary ---
Author Organization [facility] Address [address] [place] [address] Care Team Providers Care Table Games Manager Name Role Phone Kevin Lechuga MD Primary Care Provider Unavail able Wilner Murray MD Primary Care Provider [phone] Encounter Details Date Type Department Care Team Description 08/13/2018 Long Goods Drier Report Medical Records [address] [place] [address] Abstract, Provider Social History Tobacco Use Types [...] on filedocumented in this encounter Care Teams Table Games Manager Relationship Specialty Start Date End Date Kevin Lechuga MD PCP - General 09/27/01 03/24/20 Wilner Murray MD [address] [place] [address] PCP - General Internal Medicine 03/25/20 documented as of this encounter
--- OUTSIDE RECORDS SUMMARY | 2024-10-23 18:20 | XMS_ITS | Encounter Summary ---
Author Organization [facility] Address [address] [place] [address] Care Team Providers Care Fingerer Name Role Phone Kevin Lechuga MD Primary Care Provider Unavail able Wilner Murray MD Primary Care Provider [phone] Encounter Details Date Type Department Care Team Description 05/14/2018 [facility] Medical Records [address] [place], [place] [address] [place] [address] Social History Tobacco Use Types Packs/Day Years [...] on filedocumented in this encounter Care Teams Fingerer Relationship Specialty Start Date End Date Kevin Lechuga MD PCP - General 09/27/01 03/24/20 Wilner Murray MD [address] [place] [address] PCP - General Internal Medicine 03/25/20 documented as of this encounter
--- OUTSIDE RECORDS SUMMARY | 2024-10-23 18:20 | XMS_ITS | Encounter Summary ---
Author Organization [facility] Address [address] [place] [address] Care Team Providers Care Paint Stockman Name Role Phone Wilner Murray MD Primary Care Provider Encounter Details Date Type Department Care Team Description 07/06/2021 Functional Consultant Report Medical Records [address] [place] [address] Casey Solis MD Social History Tobacco Use [...] on filedocumented in this encounter Care Teams Paint Stockman Relationship Specialty Start Date End Date Wilner Murray MD [address] [place] [address] PCP - General Internal Medicine 03/25/20 documented as of this encounter
--- OUTSIDE RECORDS SUMMARY | 2024-10-23 18:20 | XMS_ITS | Encounter Summary ---
Author Organization [facility] Address [address] [place] [address] Care Team Providers Care Contamination Consultant Name Role Phone Wilner Murray MD Primary Care Provider [phone] Encounter Details Date Type Department Care Team Description 06/04/2021 [facility] Medical Records [address] [place] [address] Kayla Nichols NP Social History Tobacco Use Types Packs/Day [...] on filedocumented in this encounter Care Teams Contamination Consultant Relationship Specialty Start Date End Date Wilner Murray MD [address] [place] [address] PCP - General Internal Medicine 03/25/20 documented as of this encounter
--- OUTSIDE RECORDS SUMMARY | 2024-10-23 18:20 | XMS_ITS | Encounter Summary ---
Author Organization [facility] Address [address] [place] [address] Care Team Providers Care Kerrick Kleaner Operator Name Role Phone Kevin Lechuga MD Primary Care Provider [facility] Wilner Murray MD Primary Care Provider Encounter Details Date Type Department Care Team Description 05/24/2018 Wall Covering Contractor Report Medical Records [address] [place] [address] Eliud Sherman NP Social History Tobacco Use [...] on filedocumented in this encounter Care Teams Kerrick Kleaner Operator Relationship Specialty Start Date End Date Kevin Lechuga MD PCP - General 09/27/01 03/24/20 Wilner Murray MD [address] [place] [address] PCP - General Internal Medicine 03/25/20 documented as of this encounter
--- OUTSIDE RECORDS SUMMARY | 2024-10-23 18:20 | XMS_ITS | Encounter Summary ---
Author Organization [facility] Address [address] [place] [address] Care Team Providers Care Exhibits Coordinator Name Role Phone Kevin Lechuga MD Primary Care Provider [facility] Wilner Murray MD Primary Care Provider [phone] Encounter Details Date Type Department Care Team Description 04/18/2018 Lead Software Tester Report Medical Records [address] [place] [address] Tania Hinojosa MD Social History Tobacco Use [...] on filedocumented in this encounter Care Teams Exhibits Coordinator Relationship Specialty Start Date End Date Kevin Lechuga MD PCP - General 09/27/01 03/24/20 Wilner Murray MD [address] [place] [address] PCP - General Internal Medicine 03/25/20 documented as of this encounter
--- OUTSIDE RECORDS SUMMARY | 2024-10-23 18:20 | XMS_ITS | Encounter Summary ---
Author Organization [facility] Address [address] [place] [address] Care Team Providers Care Hazmat Technician Name Role Phone Wilner Murray MD Primary Care Provider [phone] Encounter Details Date Type Department Care Team Description 09/09/2022 SCAN [facility] [address] [phone] Ministerio Arora DPM [address] [address] Social History Tobacco Use Types Packs/Day Years [...] suspected to have Coronavirus/COVID-19? No / Unsure 09/07/2022 11:22 AM EST documented as of this encounter Plan of Treatment Not on file documented as of this encounter Visit Diagnoses Not on filedocumented in this encounter Care Teams Hazmat Technician Relationship Specialty Start Date End Date Wilner Murray MD [address] [place] [address] PCP - General Internal Medicine 03/25/20 documented as of this encounter
--- OUTSIDE RECORDS SUMMARY | 2024-10-23 18:20 | XMS_ITS | Encounter Summary ---
Author Organization [facility] Address [address] [place] [address] Care Team Providers Care Mechanical Shovel Operator Name Role Phone Wilner Murray MD Primary Care Provider [phone] Reason for Visit * Reason Onset Date Comments Form 10/07/2022 Encounter Details Date Type Department Care Team Description 10/07/2022 Telephone [facility] [address] [phone] Ministerio Arora DPM [address] [address] Form Social History Tobacco Use Types Packs/Day [...] encounter Miscellaneous Notes * Telephone Encounter - Lisa Cornejo - 10/07/2022 1:04 PM EST Patient's family member dropped off Disability paperwork. documented in this encounter Plan of Treatment Not on file documented as of this encounter Visit Diagnoses Not on filedocumented in this encounter Care Teams Mechanical Shovel Operator Relationship Specialty Start Date End Date Wilner Murray MD [address] [place] [address] PCP - General Internal Medicine 03/25/20 documented as of this encounter
--- OUTSIDE RECORDS SUMMARY | 2024-10-23 18:20 | XMS_ITS | Encounter Summary ---
Author Organization [facility] Address [address] [place] [address] Care Team Providers Care Linux Systems Administrator Name Role Phone Kevin Lechuga MD Primary Care Provider Unavail [facility] Wilner Murray MD Primary Care Provider Reason for Visit * Reason Onset Date Comments hospital follow up 05/15/2018 Encounter Details Date Type Department Care Team Description 05/15/2018 Telephone Adult Medicine [facility] [address] [place] [address] Kevin Lechuga MD hospital follow up Social History Tobacco Use Types Packs/Day Years [...] encounter Miscellaneous Notes * Telephone Encounter - Adia Rider M.A. - 05/16/2018 10:43 AM EDT Spoke with pt, appt booked for 05/28 @ 1:30pm with Dr Lechuga. * Telephone Encounter - Pavan Hernandez M.A. - 05/15/2018 2:19 PM EDT A message was left to have pt return call to [facility] #[phone] / or message can be routed to gardiner [phone] * Telephone Encounter - Devika Salcedo - 05/15/2018 12:49 PM EDT Hospital follow up appointment needed Hospital patient was treated at: [facility] Was this only an ER visit or was the patient admitted to the hospital? Admitted to hospital Date of visit if ER visit only: N/A If patient was admitted what was the date of discharge? 05/14/18 Reason/diagnosis for visit or stay: large intestine issues When was the patient told to follow up? Was visit or stay related to an injury? NO If yes, what was the date of injury (DOI)? N/A If yes, was the injury due to N/A documented in this encounter Plan of Treatment Not on file documented as of this encounter Visit Diagnoses Not on filedocumented in this encounter Care Teams Linux Systems Administrator Relationship Specialty Start Date End Date Kevin Lechuga MD PCP - General 09/27/01 03/24/20 Wilner Murray MD [address] [place] [address] PCP - General Internal Medicine 03/25/20 documented as of this encounter
--- OUTSIDE RECORDS SUMMARY | 2024-10-23 18:20 | XMS_ITS | Encounter Summary ---
Author Organization [facility] Address [address] [place] [address] Care Team Providers Care Design Teacher Name Role Phone Wilner Murray MD Primary Care Provider [phone] Reason for Visit * Reason Onset Date Comments Census Taker Feedback 06/29/2021 Rheumatology Encounter Details Date Type Department Care Team Description 06/29/2021 Telephone Rheumatology - [address] [address] Wilner Murray MD [address] [place] [address] Census Taker Feedback (Rheumatology ) Social History Tobacco Use [...] to arthritis treatment cent, appt booked 06/19 [facility] documented in this encounter Plan of Treatment Not on file documented as of this encounter Visit Diagnoses Not on filedocumented in this encounter Care Teams Design Teacher Relationship Specialty Start Date End Date Wilner Murray MD [address] [place] [address] PCP - General Internal Medicine 03/25/20 documented as of this encounter
--- OUTSIDE RECORDS SUMMARY | 2024-10-23 18:20 | XMS_ITS | Encounter Summary ---
Author Organization [facility] Address [address] [place] [address] Care Team Providers Care Control Electrician Name Role Phone Kevin Lechuga MD Primary Care Provider Unavail able Wilner Murray MD Primary Care Provider [phone] Encounter Details Date Type Department Care Team Description 11/30/2011 Orders Only OBGYN - [facility] [address] [place] [address] Galdino Horton MD Preoperative examination, unspecified; Screening [...] EDT) PT 13.1 12.7 - 15.7 [facility] INR 0.92 [facility] 01/27/2012 9:08 AM EDT 01/27/2012 9:09 AM EDT Galdino Horton MD LAB Performing Organization Address [facility] Co de Phone Number [address] * THROMBOPLASTIN TIME, PARTIAL (01/27/2012 9:08 AM EDT) PTT 26.3 21.6 - 34.6 [facility] Comment: Please note adjusted APTT (sec) reference range ?? effective 12/28/2009. 01/27/2012 9:08 AM EDT 01/27/2012 9:09 AM EDT Galdino Horton MD LAB Performing Organization Address [facility] de Phone Number [address] * (ABNORMAL) BASIC METABOLIC PANEL (01/27/2012 9:08 AM EDT) GLUCOSE 113(H) 70 - 100 mg/dL [facility] Comment: Reference range applicable to fasting specimens only Based on recommendations from the ADA and AACE, the fasting glucose reference range has been changed to 70-100 mg/dL. ??This change is effective December 28, 2009 BUN 11 5 - 25 mg/dL [facility] CREAT 0.6(L) 0.7 - 1.5 mg/dL [facility] GFR > 60 >60 [facility] Comment: If patient is -Lebanese, multiply result by 1.21 Chronic Kidney Disease: < 60 ml/min/1.73 square meters Kidney Failure: < 15 ml/min/1.73 square meters Sodium 139 133 - 145 mEq/L [facility] Potassium 4.1 3.5 - 5.2 mEq/L [facility] Chloride 105 96 - 108 mEq/L [facility] CO2 23.4 21.0 - 32.0 mEq/L [facility] CALCIUM 9.7 8.5 - 10.5 mg/dL [facility] 01/27/2012 9:08 AM EDT 01/27/2012 9:09 AM EDT Galdino Horton MD LAB Performing Organization Address [facility] de Phone Number [place] [address] [facility] * (ABNORMAL) CBC (AUTO DIFF PLATELET) (01/27/2012 9:08 AM EDT) WBC 8.7 4.8 - 10.8 x10-3 [facility] RBC 4.5 3.8 - 4.8 x10-6 [facility] HGB 13.5 11.5 - 16.0 g/dl [facility] HCT 42.1 35 - 47 % [facility] MCV 94.2 79 - 98 fl [facility] MCH 30.2 27 - 32 pg [facility] MCHC 32.1 32 - 37 g/dl [facility] RDW 13.7 11 - 15 % [facility] PLT COUNT 277 130 - 400 x10-3 [facility] MEAN PLATELET VOLUME 11.1(H) 7 [...] Galdino Horton MD LAB Performing Organization Address [facility] Co de Phone Number [id number] documented in this encounter Visit Diagnoses Diagnosis Preoperative examination, unspecified Screening for other and unspecified deficiency anemia half-way (current) use of anticoagulants Long-term (current) use of anticoagulants documented in this encounter Care Teams Control Electrician Relationship Specialty Start Date End Date Kevin Lechuga MD PCP - General 09/27/01 03/24/20 Wilner Murray MD [address] [place] [address] PCP - General Internal Medicine 03/25/20 documented as of this encounter
--- OUTSIDE RECORDS SUMMARY | 2024-10-23 18:20 | XMS_ITS | Encounter Summary ---
Author Organization [facility] Address [address] [place] [address] Care Team Providers Care Artillery Officer Name Role Phone Wilner Murray MD Primary Care Provider [phone] Encounter Details Date Type Department Care Team Description 10/25/2022 SCAN [facility] [address] [phone] Ministerio Arora DPM [address] [address] Social History Tobacco Use Types Packs/Day Years [...] on filedocumented in this encounter Care Teams Artillery Officer Relationship Specialty Start Date End Date Wilner Murray MD [address] [place] [address] PCP - General Internal Medicine 03/25/20 documented as of this encounter
--- OUTSIDE RECORDS SUMMARY | 2024-10-23 18:20 | XMS_ITS | Encounter Summary ---
Author Organization [facility] Address [address] [place] [address] Care Team Providers Care Injection Machine Operator Name Role Phone Wilner Murray MD Primary Care Provider [phone] Encounter Details Date Type Department Care Team Description 09/23/2022 SCAN [facility] [address] [phone] Ministerio Arora DPM [address] [address] Social History Tobacco Use Types Packs/Day Years [...] suspected to have Coronavirus/COVID-19? No / Unsure 09/21/2022 9:13 AM EST documented as of this encounter Plan of Treatment Not on file documented as of this encounter Visit Diagnoses Not on filedocumented in this encounter Care Teams Injection Machine Operator Relationship Specialty Start Date End Date Wilner Murray MD [address] [place] [address] PCP - General Internal Medicine 03/25/20 documented as of this encounter
--- OUTSIDE RECORDS SUMMARY | 2024-10-23 18:20 | XMS_ITS | Encounter Summary ---
Author Organization [facility] Address [address] [place] [address] Care Team Providers Care Phlebotomy Services Technician Name Role Phone Kevin Lechuga MD Primary Care Provider Unavail able Wilner Murray MD Primary Care Provider [phone] Encounter Details Date Type Department Care Team Description 05/24/2002 Orders Only Adult Medicine - [address] [address] Abril Finn Social History Tobacco Use Types Packs/Day Years Used Date Smoking Tobacco: Never Assessed Sex Assigned at Date Recorded Not on file Job Start Date Occupation Industry Not on file Not on file Not on file documented as of this encounter Plan of Treatment Not on file documented as of this encounter Visit Diagnoses Not on filedocumented in this encounter Care Teams Phlebotomy Services Technician Relationship Specialty Start Date End Date Kevin Lechuga MD PCP - General 09/27/01 03/24/20 Wilner Murray MD [address] [place] [address] PCP - General Internal Medicine 03/25/20 documented as of this encounter
--- OUTSIDE RECORDS SUMMARY | 2024-10-23 18:20 | XMS_ITS | Encounter Summary ---
Author Organization [facility] Address [address] [place] [address] Care Team Providers Care Lpn Or Medical Assistant Name Role Phone Kevin Lechuga MD Primary Care Provider Unavail [facility] Wilner Murray MD Primary Care Provider [phone] Reason for Visit * Reason Onset Date Comments Pre Op Visit 05/03/2018 Encounter Details Date Type Department Care Team Description 05/03/2018 Telephone Adult Medicine [address] [address] Kevin Lechuga MD Pre Op Visit Social History Tobacco Use Types Packs/Day Years [...] encounter Miscellaneous Notes * Telephone Encounter - Susanna Bustos - 05/03/2018 3:06 PM EDT Pre op appointment booked and letter sent to patient. * Telephone Encounter - Devika Salcedo - 05/03/2018 1:37 PM EDT Date of surgery:TBD What surgery is patient having (gall bladder, cataract, appendix, etc...)?: Eye lid surgery (eye lids are saggy) Surgeon's name: -[facility] [place] Office phone number of surgeon: [phone] Fax # for surgeons office: [phone] Where is surgery being performed? [place] Diagnosis/problem for surgery: Saggy eye lid PCP: Kevin Lechuga Did you verify that the insurance below is correct? YES Patients insurance: Payor: ASHN / Plan: CH/ASHN/$[id number]/F/PPO / Product Type: PPO [id number] documented in this encounter Plan of Treatment Not on file documented as of this encounter Visit Diagnoses Not on filedocumented in this encounter Care Teams Lpn Or Medical Assistant Relationship Specialty Start Date End Date Kevin Lechuga MD PCP - General 09/27/01 03/24/20 Wilner Murray MD [address] [place] [address] PCP - General Internal Medicine 03/25/20 documented as of this encounter
--- OUTSIDE RECORDS SUMMARY | 2024-10-23 18:20 | XMS_ITS | Encounter Summary ---
Author Organization [facility] Address [address] [place] [address] Care Team Providers Care Painter Plate Name Role Phone Kevin Lechuga MD Primary Care Provider [facility] Wilner Murray MD Primary Care Provider [phone] Encounter Details Date Type Department Care Team Description 10/09/2017 Corrugated Box Machine Operator Report Medical Records [address] [place] [address] Eliud Sherman NP Social History Tobacco Use [...] filedocumented in this encounter Care Teams Painter Plate Relationship Specialty Start Date End Date Kevin Lechuga MD PCP - General 09/27/01 03/24/20 Wilner Murray MD [address] [place] [address] PCP - General Internal Medicine 03/25/20 documented as of this encounter
--- OUTSIDE RECORDS SUMMARY | 2024-10-23 18:20 | XMS_ITS | Encounter Summary ---
Author Organization [facility] Address [address] [place] [address] Care Team Providers Care Data Reviewer Name Role Phone Kevin Lechuga MD Primary Care Provider Unavail able Wilner Murray MD Primary Care Provider [phone] Encounter Details Date Type Department Care Team Description 08/21/2014 Customs Port Director Report Medical Records [address] [place] [address] Paola Mathis MD Social History Tobacco Use [...] on filedocumented in this encounter Care Teams Data Reviewer Relationship Specialty Start Date End Date Kevin Lechuga MD PCP - General 09/27/01 03/24/20 Wilner Murray MD [address] [place] [address] PCP - General Internal Medicine 03/25/20 documented as of this encounter
--- OUTSIDE RECORDS SUMMARY | 2024-10-23 18:20 | XMS_ITS | Encounter Summary ---
Author Organization [facility] Address [address] [place] [address] Care Team Providers Care Topper Packer Name Role Phone Wilner Murray MD Primary Care Provider [phone] Reason for Visit * Reason Comments E-prescribe Rx Request Encounter Details Date Type Department Care Team Description 10/05/2021 Refill Gastroenterology [address] [place] [phone] Amina Marte DScPAS E-prescribe Rx Request Social [...] have Coronavirus / COVID-19? No / Unsure 10/06/2021 8:17 AM EST documented as of this encounter Plan of Treatment Not on file documented as of this encounter Visit Diagnoses Not on filedocumented in this encounter Care Teams Topper Packer Relationship Specialty Start Date End Date Wilner Murray MD [address] [place] [address] PCP - General Internal Medicine 03/25/20 documented as of this encounter
--- OUTSIDE RECORDS SUMMARY | 2024-10-23 18:20 | XMS_ITS | Encounter Summary ---
Author Organization [facility] Address [address] [place] [address] Care Team Providers Care High Worker Name Role Phone Wilner Murray MD Primary Care Provider [phone] Reason for Visit * Reason Onset Date Comments Work note 03/02/2021 Encounter Details Date Type Department Care Team Description 03/02/2021 Telephone Adult Medicine [address] [phone] Wilner Murray MD [address] [place] [address] Work note Social History Tobacco Use Types Packs/Day Years [...] have Coronavirus / COVID-19? No / Unsure 02/11/2021 2:20 PM EDT documented as of this encounter Miscellaneous Notes * Telephone Encounter - Kaitlin Moreno - 03/03/2021 12:02 PM EDT Vaccine list printed * Telephone Encounter - Diana Koch M.A. - 03/02/2021 4:15 PM EDT Letter is pended as requested NURSING; please print vaccine list to accompany this letter * Telephone Encounter - Leann Villarreal - 03/02/2021 4:06 PM EDT Letter requested for: Pt's work Reason for letter: Proof of vaccinations/what medication she is on, and her diagnosis's Specific notations needed in body of letter: Pt would like a letter for work stating what medications she is on and what diagnosis she has. Also a list of her vaccinations Date needed for completion: before 03/19/21 When completed: Will pickup driver-call when completed: documented in this encounter Plan of Treatment Not on file documented as of this encounter Visit Diagnoses Not on filedocumented in this encounter Care Teams High Worker Relationship Specialty Start Date End Date Wilner Murray MD [address] [place] [address] PCP - General Internal Medicine 03/25/20 documented as of this encounter
--- OUTSIDE RECORDS SUMMARY | 2024-10-23 18:21 | XMS_ITS | Encounter Summary ---
Author Organization [facility] Address [address] [place] [address] Care Team Providers Care Hand Glass Cutter Name Role Phone Wilner Murray MD Primary Care Provider [phone] Encounter Details Date Type Department Care Team Description 02/24/2022 Environmental Air Specialist Report Medical Records [address] [place] [address] Dar Amaya MD Social History Tobacco Use [...] on filedocumented in this encounter Care Teams Hand Glass Cutter Relationship Specialty Start Date End Date Wilner Murray MD [address] [place] [address] PCP - General Internal Medicine 03/25/20 documented as of this encounter
--- OUTSIDE RECORDS SUMMARY | 2024-10-23 18:21 | XMS_ITS | Encounter Summary ---
Author Organization [facility] Address [address] [place] [address] Care Team Providers Care College Counselor Name Role Phone Wilner Murray MD Primary Care Provider [phone] Encounter Details Date Type Department Care Team Description 09/21/2020 Telephone Adult Medicine [address] [phone] Wilner Murray MD [address] [place] [address] [id number] Social History Tobacco Use Types Packs/Day Years [...] on filedocumented in this encounter Care Teams College Counselor Relationship Specialty Start Date End Date Wilner Murray MD [address] [place] [address] PCP - General Internal Medicine 03/25/20 documented as of this encounter
--- OUTSIDE RECORDS SUMMARY | 2024-10-23 18:21 | XMS_ITS | Encounter Summary ---
Author Organization [facility] Address [address] [place] [address] Care Team Providers Care Microstrategy Developer Name Role Phone Wilner Murray MD Primary Care Provider Encounter Details Date Type Department Care Team Description 04/12/2022 Orders Only Medical Records [address] [place] [address] Kolton Justice MD [address] [place] [address] [place] [address] Social History Tobacco Use Types Packs/Day Years [...] suspected to have Coronavirus/COVID-19? No / Unsure 04/14/2022 1:47 PM EDT documented as of this encounter Plan of Treatment Not on file documented as of this encounter Procedures Procedure Name Priority Date/Time Associated Diagnosis Comments OUTSIDE PATHOLOGY Routine 04/06/2022 documented in this encounter Results * OUTSIDE PATHOLOGY (04/06/2022) Kolton Justice MD OUTSIDE LAB documented in this encounter Visit Diagnoses Not on filedocumented in this encounter Care Teams Microstrategy Developer Relationship Specialty Start Date End Date Wilner Murray MD [address] [place] [address] PCP - General Internal Medicine 03/25/20 documented as of this encounter
--- OUTSIDE RECORDS SUMMARY | 2024-10-23 18:21 | XMS_ITS | Encounter Summary ---
Author Organization [facility] Address [address] [place] [address] Care Team Providers Care Certified Detention Deputy Name Role Phone Wilner Murray MD Primary Care Provider [phone] Encounter Details Date Type Department Care Team Description 11/30/2020 Hospital Medical Records [address] [place] [address] Evelyn Trejo, DO [address] [place] [address] Social History Tobacco Use Types Packs/Day Years [...] on filedocumented in this encounter Care Teams Certified Detention Deputy Relationship Specialty Start Date End Date Wilner Murray MD [address] [place] [address] PCP - General Internal Medicine 03/25/20 documented as of this encounter
--- OUTSIDE RECORDS SUMMARY | 2024-10-23 18:21 | XMS_ITS | Encounter Summary ---
Author Organization [employer] Address [address] [place] [address] Care Team Providers Care Corduroy Cutter Operator Name Role Phone Wilner Murray MD Primary Care Provider [phone] Reason for Visit * Consultation (Routine) - Authorized Specialty Diagnoses / Procedures Referred By Delfino fernandez Referred To Contact Physical Therapy Diagnoses Benign paroxysmal positional vertigo, unspecified laterality Freida Lazo NP [address] [place] [address] Phone: tel: fax: Referral ID Status Reason Start Date Expiration Date Visits Requested Visits Authorized [id number] Authorized Specialty Services Required 08/30/2024 08/30/2025 21 21 Encounter Details Date Type Department Care Team (Latest Contact Info) Description 10/10/2024 4:00 PM EST Evaluation [facility] [address] [phone] Stephanie Javed PT Benign paroxysmal positional vertigo, [...] Javed PT - 10/10/2024 4:00 PM EST [facility] - Outpatient PHYSICAL THERAPY EVALUATION Date: 10/10/2024 Visit Number: 1 Patient Name: Vanessa Myers : 1965 Age: 59 y.o. Gender: female Diagnosis: ICD-10-CM ICD-9-CM 1. Benign paroxysmal positional vertigo, unspecified laterality H81.10 386.11 Ambulatory referral to Physical Therapy and Athletic Training Date of Onset/Surgery: 3-4 mo Referring Provider: Freida Lazo NP Insurance: Payor: Receept / Plan: infibond / Product Type: *No Product type* / Patient identified by: Stephanie Javed PT Language: Speaks and understands French as preferred language with no irb compliance coordinator required Chart Reviewed: Yes Medications: Current Outpatient [...] past medical history of Acute pulmonary embolism ([facility]), BPV (benign positional vertigo), BPV (benign positional vertigo) (01/08/2015), Cholelithiasis (03/15/2021), Class 3 severe obesity due to excess calories with serious comorbidity and body mass index (BMI) of 40.0 to 44.9 in adult ([facility]), Constipation, Constipation (05/28/2018), Depression, Depression (08/12/2008), Diabetes ([facility]) (08/26/2022), DJD (degenerative joint disease), DJD (degenerative joint disease) of knee (01/16/2015), DVT (deep venous thrombosis) ([facility]) (01/11/2021), Dysphagia (01/14/2016), Esophageal dysmotility ( 03/26/2018), Fibromyalgia, Fibromyalgia (08/12/2008), Former smoker (07/28/2011), GERD (gastroesophageal reflux disease), GERD (gastroesophageal reflux disease) (03/27/2015), Hepatomegaly (03/15/2021), Hiatal hernia, Hiatal hernia (03/26/2018), History of diverticulitis of colon (01/14/2006), History of thyroid cancer (07/04/2014), Hyperparathyroidism ([facility]) (09/12/2014), Migraine, Migraine (08/12/2008), Obesity (BMI 30-39.9) [...] saccades VOR x1 horizontal and vertical WNL Castor hallpike R: 2 trials completed. PT identifying [...] outcome Documentation completed by Stephanie Javed PT [facility] [address] [address] Dept: [phone] Dept PATIENT NAME: Vanessa Myers DOB: 1965 [...] 3:30 PM EDT Consult Vascular Surgery - [place] [address] [place] [phone] Rhona Egan PA 300 [facility] [address] [place] [address] 11/04/2024 4:00 PM EDT Treatment [facility] [place] 175 [facility] 350 [place] [phone] Stephanie Javed, PT 11/06/2024 3:20 PM EDT Office Visit Gastroenterology - [place] [address] [facility] [address] [place] [address] Amina Marte PA 175 [facility] 200 [place] [address] 11/28/2024 3:30 PM EDT Office Visit Orthopedic Surgery - [place] [address] [facility] 250 [place] [phone] Ministerio Arora, DPLidia [address] [place] [address] Scheduled Procedures Name Priority Associated Diagnoses Date/Ti [...] documented as of this encounter Care Teams Corduroy Cutter Operator Relationship Specialty Start Date End Date Wilner Murray MD [address] [place] [address] PCP - General Internal Medicine 03/25/20 documented as of this encounter
--- OUTSIDE RECORDS SUMMARY | 2024-10-23 18:21 | XMS_ITS | Encounter Summary ---
Author Organization [facility] Address [address] [place] [address] Care Team Providers Care Linen Room Houseperson Name Role Phone Wilner Murray MD Primary Care Provider Reason for Visit * Reason Onset Date Comments Prior Authorization 02/22/2024 Upper GI ruthy dy Encounter Details Date Type Department Care Team Description 02/22/2024 Telephone Adult Medicine [address] [address] Amina Marte DScPAS Prior Authorization (Upper GI [...] for her upper Gi study over at [facility] on - 03/04/2024 Arrival time is - 9:10am Patient is to have nothing to eat or drink after midnight, Patient is made aware we bumped up the appointment. * Telephone Encounter - Lety Celaya - 02/22/2024 10:03 AM EDT Wellsdonna bauman auth required Appt scheduled for 03/07/24 at 9:15 am at [facility]. Order faxed. Spoke to patient and gave appt details documented in this encounter Plan of Treatment Not on file documented as of this encounter Visit Diagnoses Not on filedocumented in this encounter Care Teams Linen Room Houseperson Relationship Specialty Start Date End Date Wilner Murray MD [address] [place] [address] PCP - General Internal Medicine 03/25/20 documented as of this encounter
--- OUTSIDE RECORDS SUMMARY | 2024-10-23 18:21 | XMS_ITS | Encounter Summary ---
Author Organization [facility] Address [address] [place] [address] Care Team Providers Care Service Desk Agent Name Role Phone Wilner Murray MD Primary Care Provider [phone] Encounter Details Date Type Department Care Team Description 04/12/2023 Race Board Attendant Report Medical Records [address] [place] [address] Reynaldo Mora PA-C Social History Tobacco Use [...] suspected to have Coronavirus/COVID-19? No / Unsure 04/11/2023 11:06 AM EDT documented as of this encounter Plan of Treatment Not on file documented as of this encounter Visit Diagnoses Not on filedocumented in this encounter Care Teams Service Desk Agent Relationship Specialty Start Date End Date Wilner Murray MD [address] [place] [address] PCP - General Internal Medicine 03/25/20 documented as of this encounter
--- OUTSIDE RECORDS SUMMARY | 2024-10-23 18:21 | XMS_ITS | Encounter Summary ---
Author Organization [facility] Address [address] [place] [address] Care Team Providers Care Dragger Out Name Role Phone Wilner Murray MD Primary Care Provider Reason for Visit * Reason Comments E-prescribe Rx Request Encounter Details Date Type Department Care Team Description 09/28/2023 Refill Endocrinology - [address] [address] [place]ly [place] PA-C [address] [place] [address] E-prescribe Rx Request Social History Tobacco Use [...] Primary documented in this encounter Care Teams Dragger Out Relationship Specialty Start Date End Date Wilner Murray MD [address] [place] [address] PCP - General Internal Medicine 03/25/20 documented as of this encounter
--- OUTSIDE RECORDS SUMMARY | 2024-10-23 18:21 | XMS_ITS | Encounter Summary ---
Author Organization [employer] Address [address] [place] [address] Care Team Providers Care Qual Field Manager Name Role Phone Wilner Murray MD Primary Care Provider [phone] Reason for Referral * Consultation (Routine) - Authorized Specialty Diagnoses / Procedures Referred By Delfino fernandez Referred To Contact Gastroenterology Diagnoses Esophageal dysmotility Wilner Murray MD [address] [place] [address] Phone: tel: fax: Amina Marte PA [address] [place] [address] Phone: tel: fax: Referral ID Status Reason Start Date Expiration Date Visits Requested Visits Authorized [id number] Authorized Specialty Services Required 10/01/2024 10/01/2025 1 1 Reason for Visit * Reason Onset Date Comments Referral 10/01/2024 Ambulatory / Gas to / [address] Encounter Details Date Type Department Care Team (Late Contact Info) Description 10/01/2024 [facility] [address] [place] [phone] Wilner Murray MD [address] [place] [address] Referral (Ambulatory / [place] / [address]) [...] care for your loved ones. For example, childcare provider or elderly care for an older adult? [...] being referred to: [facility] [address] FAX# [phone] Name of Specialist patient is seeing: Maurizio [...] 3:30 PM EDT Consult Vascular Surgery - [place] [address] [place] [phone] Rhoan Egan PA [address] [place] [address] 11/04/2024 4:00 PM EDT Treatment [facility] - [place] 175 [facility] [address] [place] [phone] Stephanie Javed, PT 11/06/2024 3:20 PM EDT Office Visit Gastroenterology - [place] [address] 175 [facility] [address] [place] [phone] Amina Marte PA [address] [place] [address] 11/28/2024 3:30 PM EDT Office Visit Orthopedic Surgery - [place] 250 175 [facility] 250 [place] [phone] Ministerio Arora, DPLidia 175 [facility] 250 [place] [address] Scheduled Procedures Name Priority Associated Diagnoses Date/Ti [...] documented as of this encounter Care Teams Qual Field Manager Relationship Specialty Start Date End Date Wilner Murray MD [address] [place] [address] PCP - General Internal Medicine 03/25/20 documented as of this encounter
--- OUTSIDE RECORDS SUMMARY | 2024-10-23 18:21 | XMS_ITS | Encounter Summary ---
Author Organization [facility] Address [address] [place] [address] Care Team Providers Care Lighting Equipment Operator Name Role Phone Wilner Murray MD Primary Care Provider Encounter Details Date Type Department Care Team Description 01/01/2024 [facility] Medical Records [address] [place], [place] [phone] [place] [address] Social History Tobacco Use Types Packs/Day Years [...] on filedocumented in this encounter Care Teams Lighting Equipment Operator Relationship Specialty Start Date End Date Wilner Murray MD [address] [place] [address] PCP - General Internal Medicine 03/25/20 documented as of this encounter
--- OUTSIDE RECORDS SUMMARY | 2024-10-23 18:21 | XMS_ITS | Clinical Summary ---
Author Organization [place] [address] Armand jules Formerly [facility] Building Address [address] [place] [address] Phone Care Team Providers Care Stenciler Name Role Phone Wilner Murray MD Primary Care Provider [phone] Allergies No known active allergies Medications levothyroxine [...] 10/21/2024 Telephone Internal Medicine - [facility] [place] [phone] Wilner Murray MD nodules 10/16/2024 3:30 PM EST Office Visit Orthopedic Surgery [facility] [address] [place] [address] [address] [place] [address] Ministerio Arora, DPLidia Soft tissue mass (Primary Dx); Peripheral venous insufficiency; Skin and subcutaneous tissue disease; Contracture of joint of right foot; Acquired hammer toe of right foot 10/14/2024 Telephone Internal Medicine - [facility] [address] [place], [place] [phone] Wilner Murray MD Migraine 10/10/2024 4:00 PM EST Evaluation [facility] [address] [phone] Stephanie Javed, PT Benign paroxysmal positional vertigo, unspecified laterality (Primary Dx) 10/01/2024 Telephone Endocrinology - [address] [phone] Heavenly [place] PA Medication Problem 10/01/2024 [facility]phone [facility] [address] [place], [place] [phone] Wilner Murray MD Referral (Ambulatory / [place]ast[place] / 299 [facility]) 09/16/2024 2:27 PM EST - 09/16/2024 11:59 PM EST Hospital Encounter [facility] Xray [address] [place] [phone] Calculus of kidney Discharge Disposition: Home or Self Care 09/09/2024 3:19 PM EST - 09/09/2024 11:59 PM EST Hospital Encounter Ultrasound - [address] [phone] Leg mass, left Discharge Disposition: Home or Self Care 09/07/2024 10:51 AM EST - 09/07/2024 11:59 PM EST Hospital Encounter [facility] MRI [address] [place] [phone] Soft tissue mass Discharge Disposition: Home or Self Care 09/03/2024 4:16 PM EST - 09/03/2024 11:59 PM EST Hospital Encounter Radiology Department - [address] [phone] Post-surgical hypothyroidism Discharge Disposition: Home or Self Care 09/03/2024 3:40 PM EST Office Visit Endocrinology - [address] [phone] Heavenly [place] PA Diabetes mellitus of other type without complication, unspecified whether detention insulin use ([facility]) (Primary Dx); Post-surgical hypothyroidism 08/31/2024 10:34 AM EST - 08/31/2024 11:59 PM EST Hospital Encounter [facility] [address] [place] [phone] Encounter for screening mammogram for breast cancer Discharge Disposition: Home or Self Care 08/30/2024 10:30 AM EST [facility] [phone] Freida Lazo NP Leg mass, left (Primary Dx); Chronic pain of right ankle; Benign paroxysmal positional vertigo, unspecified laterality 08/30/2024 Telephone Orthopedic Surgery [facility] [address] [phone] Ministerio Arora DPM 08/29/2024 3:30 PM EST Office Visit Orthopedic [facility] [address] [phone] Ministerio Arora, DPM Soft tissue mass (Primary Dx); Right ankle pain; Peripheral venous insufficiency 08/16/2024 2:33 PM EST - 08/16/2024 11:59 PM EST Hospital Encounter [facility] Ultrasound [address] [place] [phone] Calculus of kidney Discharge Disposition: Home or Self Care 07/25/2024 Telephone Endocrinology [address] [phone] Heavenly [place] PA Advice Only 07/25/2024 Telephone [facility] [phone] Wilner Murray MD Leg Pain from Last [...] TOTAL THYROIDECTOMY UPPER GASTROINTESTINAL ENDOSCOPY 03/07/2007 PROCEDURE: MA UPPER GI ENDOSCOPY PERFORMED; COMMENT: small hiatus hernia UPPER GASTROINTESTINAL ENDOSCOPY 10/29/2015 PROCEDURE: MA UPPER GI ENDOSCOPY PERFORMED; COMMENT: Hiatal hernia, ren erosions, duodenal polyp COLONOSCOPY 03/12/2010 PROCEDURE: HISTORICAL COLONOSCOPY; COMMENT: diverticulosis; repeat in 5 years OTHER SURGICAL HISTORY 02/01/2022 PROCEDURE: MA SLCTV CATH PLMT LINDA SYS 2ND ORDER/> SLCTV BRANC OTHER SURGICAL HISTORY 02/01/2022 PROCEDURE: MA INTRAVASCULAR US NONCORONARY RS&I INTIAL VESSEL OTHER SURGICAL HISTORY 02/01/2022 PROCEDURE: MA INTRAVASCULAR US NONCORONARY RS&I ADDL VESSEL; COMMENT: [...] 44.9 in adult (HCC) Acute pulmonary embolism ([facility]) DX:Acute pulmonary embolism (HCC) LIN (obstructive sleep [...] Brother Alive Daughter 1 Alive Daughter 2 Winona Alive Daughter 3 Alive Father Maternal Grandmother [...] for your loved ones. For example, child psychology teacher or elderly care for an older [...] 3:30 PM EDT Consult Vascular Surgery - [place] [address] [place] [address] Rhona Egan PA 300 [facility] [address] [place] [address] 11/04/2024 4:00 PM EDT Treatment [facility] - [place] 175 [facility] 350 [place] [phone] Stephanie Javed PT 11/06/2024 3:20 PM EDT Office Visit Gastroenterology - [place] [address] [place] [address] [facility] 200 [place] [phone] Amina Marte PA 175 [facility] 200 [place] [address] 11/28/2024 3:30 PM EDT Office Visit Orthopedic Surgery - [place] 250 175 [facility] 250 [place] [phone] Ministerio Arora DPM 175 [facility] 250 [place] [address] Scheduled Procedures Name Priority Associated Diagnoses Date/Ti [...] of other type without complication, unspecified whether medical terminologist insulin use (CMS/HCC) POC GLUCOSE Routine 09/03/2024 3:34 PM EST Diabetes mellitus of other type without complication, unspecified whether medical terminologist insulin use (CMS/HCC) MG MAMMO DIGITAL SCREENING [...] 1 mm left renal calculus. [place] PA ([id number]) -------- FINAL REPORT -------- Dictated By: Reba Adrian Dictated Date: 09/16/2024 16:11 ET Assigned Physician: Reba Adrian Reviewed and Electronically Signed By: Reba Adrian Signed Date: 09/16/2024 16:13 ET Workstation ID: [id number] Transcribed By: Self Edit Transcribed Date: 09/16/2024 [...] 1 mm left renal calculus. Teleeva FIGUEROA ([id number]) -------- FINAL REPORT -------- Dictated By: Reba Adrian Dictated Date: 09/16/2024 16:11 ET Assigned Physician: Reba Adrian Reviewed and Electronically Signed By: Reba Adrian Signed Date: 09/16/2024 16:13 ET Workstation ID: [id number] Transcribed By: Self Edit Transcribed Date: 09/16/2024 [...] Signed Date: 09/09/2024 16:27 ET Workstation ID: [id number] Transcribed By: Self Edit Transcribed Date: 09/09/2024 [...] Signed Date: 09/09/2024 16:27 ET Workstation ID: [id number] Transcribed By: Self Edit Transcribed Date: 09/09/2024 16:26 ET us Freida Lazo FRAME COVERER IMG US PROCEDURES Final Result * MR [...] Signed Date: 09/09/2024 10:35 ET Workstation ID: [id number] Transcribed By: Self Edit Transcribed Date: 09/09/2024 [...] signal abnormality and enhancement. ?? Procedure Note Rne Arora MD - 09/09/2024 PROCEDURE: MRI of [...] Signed Date: 09/09/2024 10:35 ET Workstation ID: [id number] Transcribed By: Self Edit Transcribed Date: 09/09/2024 10:19 ET us Ministerio Arora DPLidia IMG MRI PROCEDURES Final Result * US Head Neck Soft Tissue (09/03/2024 4:33 PM EST) Anatomical Region Laterality Modality Head and Neck Ultrasound 09/03/2024 7:11 PM EST Impressions 09/03/2024 7:17 PM EST Status post thyroidectomy. ??No abnormality in the thyroid bed. ??No cervical lymph nodes identified. POS - [id number] -------- FINAL REPORT -------- Dictated By: Patricia Estrada Dictated Date: 09/03/2024 19:11 ET Assigned Physician: Patricia Estrada Reviewed and Electronically Signed By: Patricia Estrada Signed Date: 09/03/2024 19:17 ET Workstation ID: [id number] Transcribed By: Self Edit Transcribed Date: 09/03/2024 [...] bed. Nocervical lymph nodes identified. POS - [id number] -------- FINAL REPORT -------- Dictated By: Patricia Estrada Dictated Date: 09/03/2024 19:11 ET Assigned Physician: Patricia Estrada Reviewed and Electronically Signed By: Patricia Estrada Signed Date: 09/03/2024 19:17 ET Workstation ID: [id number] Transcribed By: Self Edit Transcribed Date: 09/03/2024 19:11 ET us Heavenly FIGUEROA IMG US PROCEDURES Final Result * Thyroglobulin and thyroglobulin antibody panel (09/03/2024 4:12 PM EST) Thyroglobulin Antibody <2 <4 IU/mL 09/06/2024 3:25 PM EST [facility] Thyroglobulin 0.2 SeeBelow ng/mL 09/06/2024 3:[address] [facility] Comment: Thyroglobulin Reference Range: Intact thyroid: 1.6-50.0 ng/mL Athyrotic, post-thyroidectomy (tumor marker): <0.1 ng/mL Thyroglobulin antibodies can interfere with the determination of thyroglobulin. If the specimen contains thyroglobulin antibodies, please interpret the thyroglobulin result with caution. The Aveillant DXI chemiluminescent immunoassay is used. Results obtained with different assay methods or kits cannot be used interchangeably. Results cannot be interpreted as absolute evidence of the presence or absence of malignant disease. Test performed at [facility], [facility] [place], [place] ??[address] ? [phone] Mary Lou Ramirez MD, PhD - Tube Cutter Blood Venous blood specimen / Unknown Venipuncture / Unknown 09/03/2024 4:12 PM EST 09/03/2024 4:12 PM EST us Heavenly [facility] BLOOD ORDERABLES Final [place] [address] * Thyroid stimulating hormone (09/03/2024 4:12 PM EST) TSH 2.80 0.40 - 4.00 mcIU/mL LAB CHEMISTRY METHOD 09/03/2024 6:54 PM EST [facility] Blood Venous blood specimen / Unknown Venipuncture / Unknown 09/03/2024 4:12 PM EST 09/03/2024 4:12 PM EST us Heavenly FIGUEROA LAB BLOOD ORDERABLES Final Resul t Performing Organization Address [facility] [[email or web address]] de Phone Number [facility] [address] [place] [address], [place] [phone] * Thyroxine free (09/03/2024 4:12 PM EST) Free T4 1.15 0.70 - 1.80 ng/dL LAB CHEMISTRY METHOD 09/03/2024 6:53 PM EST [facility] Blood Venous blood specimen / Unknown Venipuncture / Unknown 09/03/2024 4:12 PM EST 09/03/2024 4:12 PM EST Heavenly FIGUEROA LAB BLOOD ORDERABLES Final Resul t Performing Organization Address City/[facility] [[email or web address]] de Phone Number [facility] [address] [place] [address], [place] [phone] * Hemoglobin A1c (09/03/2024 4:12 PM EST) Hemoglobin A1C 6.4 <6.5 % LAB CHEMISTRY METHOD 09/03/2024 9:39 PM EST [facility] Mean Bld Glu Estim. 137 mg/dL LAB CHEMISTRY METHOD 09/03/2024 9:39 PM EST [facility] Blood Venous blood specimen / Unknown Venipuncture / Unknown 09/03/2024 4:12 PM EST 09/03/2024 4:12 PM EST Heavenly [facility] BLOOD ORDERABLES Final Resul t [facility] [address] [place] [address], [place] [phone] * POC glucose manually resulted (09/03/2024 3:34 [...] for biopsy. PQRI CPT II 3342F Code 87620, 58201 PQRI 225 CPT II 7025F TISSUE DENSITY: The breasts are almost entirely fatty. (BI-RADS ??Category A) IMPRESSION: Benign. BI-RADS CATEGORY: 2 - BENIGN RECOMMENDATION: Screening bilateral mammogram is recommended in 1 year. Mammo Location: [facility], [address] [place] [address] -------- FINAL REPORT -------- Dictated By: Kev Olivarez Dictated Date: 09/03/2024 12:19 ET Assigned Physician: Kev Olivarez Reviewed and Electronically Signed By: Kev Olivarez Signed Date: 09/03/2024 12:28 ET Workstation ID: [id number] Transcribed By: Self Edit Transcribed Date: 09/03/2024 12:19 ET Narrative 09/03/2024 12:28 PM EST CLINICAL: The patient is a 59 years Female presenting for routine screening mammography. COMPARISON: Outside studies most recently 07/31/2023 and most remotely 11/15/2017 ?? TECHNIQUE: Full-field digital mammography of the breasts bilaterally consisting of tomosynthesis in MLO and CC projection is performed in the [employer] 2000-D unit. ??Computer aided detection utilizing the [...] MLO and CC projection is performed in theWemoLab 2000-D unit. Computer aided detection utilizing the [...] for biopsy. PQRI CPT II 3342F Code 97711, 19828 PQRI 225 CPT II 7025F TISSUE DENSITY: The breasts are almost entirely fatty. (BI-RADS CategoryA) IMPRESSION: Benign. BI-RADS CATEGORY: 2 - BENIGN RECOMMENDATION: Screening bilateral mammogram is recommended in 1 year. Mammo Location: [facility], [address] [place] [address] -------- FINAL REPORT -------- Dictated By: Kev Olivarez Dictated Date: 09/03/2024 12:19 ET Assigned Physician: Kev Olivarez Reviewed and Electronically Signed By: Kev Olivarez Signed Date: 09/03/2024 12:28 ET Workstation ID: [id number] Transcribed By: Self Edit Transcribed Date: 09/03/2024 [...] the absence of bladder perforation preparation. Code 96563 G9551 -------- FINAL REPORT -------- Dictated By: Kev Olivarez Dictated Date: 08/22/2024 11:15 ET Assigned Physician: Kev Olivarez Reviewed and Electronically Signed By: Kev Olivarez Signed Date: 08/22/2024 11:20 ET Workstation ID: [id number] Transcribed By: Self Edit Transcribed Date: 08/22/2024 [...] in the absence of bladderperforation preparation. Code 44653 G9551 -------- FINAL REPORT -------- Dictated By: Kev Olivarez Dictated Date: 08/22/2024 11:15 ET Assigned Physician: Kev Olivarez Reviewed and Electronically Signed By: Kev Olivarez Signed Date: 08/22/2024 11:20 ET Workstation ID: [id number] Transcribed By: Self Edit Transcribed Date: 08/22/2024 [...] mmol/L LAB CHEMISTRY METHOD 07/24/2024 11:[address] [facility] Potassium 4.0 3.5 - 5.5 mmol/L LAB CHEMISTRY METHOD 07/24/2024 11:[address] [facility] Chloride 105 96 - 110 mmol/L LAB CHEMISTRY METHOD 07/24/2024 11:[address] [facility] CO2 27 21 - 32 mmol/L LAB CHEMISTRY METHOD 07/24/2024 11:[address] [facility] Anion Gap 7 3 - 11 LAB CHEMISTRY METHOD 07/24/2024 11:[address] [facility] Glucose 116(H) 70 - 100 mg/dL LAB CHEMISTRY METHOD 07/24/2024 11:[address] [facility] BUN 16 5 - 25 mg/dL LAB CHEMISTRY METHOD 07/24/2024 11:[address] [facility] Creatinine 0.67 0.50 - 1.10 mg/dL LAB CHEMISTRY METHOD 07/24/2024 11:[address] [facility] eGFR 101 >=60 mL/min/1. 73m2 LAB CHEMISTRY METHOD 07/24/2024 11:[address] [facility] Comment:Calculation based on the??Chronic Kidney Disease Epidemiology Collaboration (CKD-EPI) equation refit??without adjustment for race. BUN/Creatinine Ratio 23.9 LAB CHEMISTRY METHOD 07/24/2024 11:[address] [facility] Calcium 9.6 8.5 - 10.5 mg/dL LAB CHEMISTRY METHOD 07/24/2024 11:[address] [facility] Blood Venous blood specimen / Unknown Venipuncture / Unknown 07/24/2024 10:40 AM EST 07/24/2024 11:16 AM EST us Dayanna FIG[facility]ER[facility] LAB BLOOD ORDERABLES Final Re sult [facility] [address] [place] [address], * (ABNORMAL) Lipid panel with reflex to direct LDL (07/15/2024 10:00 AM EST) Cholesterol 175 0 - 200 mg/dL LAB CHEMISTRY METHOD 07/15/2024 3:[address] [facility] Triglycerides 154(H) 0 - 150 mg/dL LAB CHEMISTRY METHOD 07/15/2024 3:[address] [facility] HDL 62 >=40 mg/dL LAB CHEMISTRY METHOD 07/15/2024 3:40 PM EST [facility] LDL Calculated 82 0 - 100 mg/dL LAB CHEMISTRY METHOD 07/15/2024 3:40 PM EST [facility] VLDL Cholesterol Molina 30.8 mg/dL LAB CHEMISTRY METHOD 07/15/2024 3:[address] [facility] Non HDL Chol. (LDL+VLDL) 113 <145 mg/dL LAB CHEMISTRY METHOD 07/15/2024 3:[address] [facility] Chol/HDL Ratio 2.8 0.0 - 4.4 LAB CHEMISTRY METHOD 07/15/2024 3:[address] [facility] Blood Venous blood specimen / Unknown Venipuncture / Unknown 07/15/2024 10:00 AM EST 07/15/2024 10:00 AM EST us Wilner Murray MD LAB BLOOD ORDERABLES Final Res ult [facility] [address] [place] [address], [place] [phone] * (ABNORMAL) Microalbumin creatinine urine ratio (07/15/2024 10:00 AM EST) Creatinine, Urine 138.0 mg/dL LAB CHEMISTRY METHOD 07/15/2024 3:[address] [facility] Microalb, Ur 61.7(H) 0.0 - 29.0 mg/L LAB CHEMISTRY METHOD 07/15/2024 3:[address] [facility] Microalb/Crea t Ratio 45(H) <30 mg/g creat LAB CHEMISTRY METHOD 07/15/2024 3:[address] [facility] Urine Urine specimen obtained by clean catch procedure / Unknown Non-blood Collection / Unknown 07/15/2024 10:00 AM EST 07/15/2024 10:00 AM EST us Wilner Murray MD LAB URINE ORDERABLES Final Res ult [facility] [address] [place] [address], [place] [phone] * Diabetes Eye Exam (12/25/2023) [facility] Diabetes: Annual Retina Eye Exam abstracted Historical Provider HEALTH MAINTENANCE Final Result * Depression Screening (05/31/2023) [facility] Depression Screening abstracted [facility] Provider MD HEALTH MAINTENANCE Final Result * Diabetes Foot Exam (05/31/2023) [facility] Diabetes: Annual Foot Exam abstracted [facility] Provider HEALTH MAINTENANCE Final Result * Colonoscopy (04/06/2022) [facility] Colonoscopy no interpretation , abstracted Anatomical Region Laterality Modality Other [facility] Provider HEALTH MAINTENANCE Final Result * Hepatitis C Screening (2021) [facility] Hepatitis C Screening abstracted [facility] Provider HEALTH MAINTENANCE Final Result * Pap smear (09/04/2020) 09/04/2020 Narrative HISTORICAL TESTING LAB RESULTING AGENCY - 09/08/2020 10:55 AM EST [id number] THINPREP PAP, IMAGED: NEGATIVE FOR SQUAMOUS INTRAEPITHELIAL [...] of Phone Billing Address Personal/Family Self 1965 [phone] (Work) [address] [place] [address] [facility] Advance Directives Documents on File Type Date Recorded Patient Tape Controlled Machine Stitcher Expl anation Health Care Decision (hx) 06/05/2021 [...] (hx) 06/05/2021 AD ZHAO DIRECTIVE Care Teams Stenciler Relationship Specialty Start Date End Date Wilner Murray MD [address] [place] [address] PCP - General Internal Medicine 03/25/20
--- OUTSIDE RECORDS SUMMARY | 2024-10-23 18:21 | XMS_ITS | Encounter Summary ---
Author Organization [facility] Address [address] [place] [address] Care Team Providers Care Plug Sorter Name Role Phone Wilner Murray MD Primary Care Provider [phone] Encounter Details Date Type Department Care Team Description 06/10/2022 SCAN [facility] [address] [phone] Ministerio Arora DPM [address] [address] Social History Tobacco Use Types Packs/Day Years [...] on filedocumented in this encounter Care Teams Plug Sorter Relationship Specialty Start Date End Date Wilner Murray MD [address] [place] [address] PCP - General Internal Medicine 03/25/20 documented as of this encounter
--- OUTSIDE RECORDS SUMMARY | 2024-10-23 18:21 | XMS_ITS | Encounter Summary ---
Author Organization [email or web address] Address [address] [place] [address] Care Team Providers Care Director Of Veterans Affairs Name Role Phone Wilner Murray MD Primary Care Provider [phone] Encounter Details Date Type Department Care Team Description 12/18/2023 Orders Only Gastroenterology - [address] [place] [phone] Amina Marte DScPAS History of diverticulitis; Diverticulosis; [...] obstruction documented in this encounter Care Teams Director Of Veterans Affairs Relationship Specialty Start Date End Date Wilner Murray MD [address] [place] [address] PCP - General Internal Medicine 03/25/20 documented as of this encounter
--- OUTSIDE RECORDS SUMMARY | 2024-10-23 18:21 | XMS_ITS | Encounter Summary ---
Author Organization [facility] Address [address] [place] [address] Care Team Providers Care Precision Grinder Name Role Phone Wilner Murray MD Primary Care Provider [phone] Reason for Visit * Reason Onset Date Comments TEST RESULTS 08/29/2020 Encounter Details Date Type Department Care Team Description 08/29/2020 Telephone Adult Urgent Care - [address] [address] Wilner Murray MD [address] [place] [address] TEST RESULTS Social History Tobacco Use Types [...] I would wait and see what the duty engineer says about the bruises tomorrow. If she [...] to wait * Telephone Encounter - Wilton Bneito MD - 08/29/2020 2:21 PM EST Ok to wait * Telephone Encounter - Rubia Kaur R.N. - 08/29/2020 2:13 PM EST Labs have not been reviewed yet Please advise * Telephone Encounter - Christel Sanchez - 08/29/2020 2:00 PM EST Inform patient: ANY URGENT OR ABNORMAL RESULTS WIILL RESULT IN A CALL BACK TO THE PATIENT WINSTON. Type of test: :blood and xrays Date [...] on filedocumented in this encounter Care Teams Precision Grinder Relationship Specialty Start Date End Date Wilner Murray MD [address] [place] [address] PCP - General Internal Medicine 03/25/20 documented as of this encounter
--- OUTSIDE RECORDS SUMMARY | 2024-10-23 18:21 | XMS_ITS | Encounter Summary ---
Author Organization [facility] Address [address] [place] [address] Care Team Providers Care Transportation Engineering Technician Name Role Phone Kevin Lechuga MD Primary Care Provider [facility] Wilner Murray MD Primary Care Provider [phone] Encounter Details Date Type Department Care Team Description 09/19/2016 Vp Of Product Report Medical Records [address] [place] [address] Shabbir Mcnamara MD Social History Tobacco Use Types Packs/Day [...] on filedocumented in this encounter Care Teams Transportation Engineering Technician Relationship Specialty Start Date End Date Kevin Lechuga MD PCP - General 09/27/01 03/24/20 Wilner Murray MD [address] [place] [address] PCP - General Internal Medicine 03/25/20 documented as of this encounter
--- OUTSIDE RECORDS SUMMARY | 2024-10-23 18:21 | XMS_ITS | Encounter Summary ---
Author Organization [facility] Address [address] [place] [address] Care Team Providers Care Software Configuration Engineer Name Role Phone Wilner Murray MD Primary Care Provider Reason for Visit * Reason Comments E-prescribe Rx Request Encounter Details Date Type Department Care Team Description 11/11/2020 Refill Gastroenterology - [address] [place] [phone] Amina Marte DScPAS E-prescribe Rx Request Social [...] have Coronavirus / COVID-19? No / Unsure 11/10/2020 10:25 AM EDT documented as of this encounter Miscellaneous Notes * Telephone Encounter - Adriana Lewis M.A. - 11/11/2020 8:46 AM EDT [place]ant[place] - 08/20/2020 documented in this encounter Plan of Treatment Not on file documented as of this encounter Visit Diagnoses Not on filedocumented in this encounter Care Teams Software Configuration Engineer Relationship Specialty Start Date End Date Wilner Murray MD [address] [place] [address] PCP - General Internal Medicine 03/25/20 documented as of this encounter
--- OUTSIDE RECORDS SUMMARY | 2024-10-23 18:21 | XMS_ITS | Encounter Summary ---
Author Organization [facility] Address [address] [place] [address] Care Team Providers Care Process Supervisor Name Role Phone Wilner Murray MD Primary Care Provider [phone] Encounter Details Date Type Department Care Team Description 08/04/2023 Rn Eligibility Report Medical Records [address] [place] [address] Renan Tapia DO Social History Tobacco Use [...] on filedocumented in this encounter Care Teams Process Supervisor Relationship Specialty Start Date End Date Wilner Murray MD [address] [place] [address] PCP - General Internal Medicine 03/25/20 documented as of this encounter
--- OUTSIDE RECORDS SUMMARY | 2024-10-23 18:21 | XMS_ITS | Clinical Summary ---
Author Organization [facility] Address [address] [place] [address] Care Team Providers Care Racebook Writer Name Role Phone Wilner Murray MD Primary Care Provider [phone] Allergies No known active allergies Medications Medication [...] age to complete this topic Care Teams Racebook Writer Relationship Specialty Start Date End Date Wilner Murray MD PCP - General Internal Medicine 02/02/21
--- OUTSIDE RECORDS SUMMARY | 2024-10-23 18:21 | XMS_ITS | Encounter Summary ---
Author Organization [facility] Address [address] [place] [address] Care Team Providers Care Hazard Mitigation Officer Name Role Phone Wilner Murray MD Primary Care Provider [phone] Reason for Visit * Reason Onset Date Comments Medication Problem 10/01/2024 Encounter Details Date Type Department Care Team (Late st Contact Info) Description 10/01/2024 Telephone Endocrinology - [place] [address] [place] [phone] [facility] PA [address] [place] [address] Medication Problem Social History Tobacco Use Types [...] for your loved ones. For example, child and family therapist or elderly care for an older adult? [...] Who prescribed this medication for the patient? [facility] Who is patients PCP?: Wilner Murray MD Payor: [employer] PLAN / [facility] / Product Type: *No Product type* / documented in this encounter Plan of Treatment Upcoming Encounters Date Type Department Care Team (Late st Contact Info) Description 10/30/2024 3:30 PM EDT Consult Vascular Surgery - [place] [address] [place] [address] Rhona Egan PA [address] [place] [address] 11/04/2024 4:00 PM EDT Treatment [facility] Outpatient Rehabilitation - [place] 175 [facility] 350 [place] [phone] Stephanie Javed PT 11/06/2024 3:20 PM EDT Office Visit Gastroenterology - [place] [address] 175 [facility] [address] [place] [phone] Amina Marte PA 175 [facility] 200 [place], [place] [phone] 11/28/2024 3:30 PM EDT Office Visit Orthopedic Surgery - [place] 250 175 [facility] 250 [place] [phone] Ministerio Arora DPM 175 [facility] 250 [place] [address] Scheduled Procedures Name Priority Associated Diagnoses Date/Ti [...] documented as of this encounter Care Teams Hazard Mitigation Officer Relationship Specialty Start Date End Date Wilner Murray MD [address] [place] [address] PCP - General Internal Medicine 03/25/20 documented as of this encounter
--- OUTSIDE RECORDS SUMMARY | 2024-10-23 18:21 | XMS_ITS | Encounter Summary ---
Author Organization [facility] Address [address] [place] [address] Care Team Providers Care Medical Science Liaison Name Role Phone Wilner Murray MD Primary Care Provider [phone] Reason for Visit * Reason Onset Date Comments Scientist Electronics Feedback 05/27/2024 [facility] Encounter Details Date Type Department Care Team Description 05/27/2024 Telephone Adult Medicine [address] [address] Wilner Murray MD [address] [place] [address] Scientist Electronics Feedback ([facility] Network) Social History Tobacco Use Types Packs/Day Years [...] encounter Miscellaneous Notes * Telephone Encounter - Diana Correia - 05/29/2024 10:50 AM EDT Please complete smart text (referral request) and send msg back to [facility] once all information is obtained. Unable to submit a out of network authorization with info provided below, not sufficient. * Telephone Encounter - Diana Correia - 05/27/2024 4:51 PM EDT I actually believe this is for a out of network authorization. [place] dept please disregard msg. * Telephone Encounter - Diana Correia - 05/27/2024 4:49 PM EDT [facility] dept does not handle sleep studies, fowarding to PA dept. Thanks. * Telephone Encounter - Clover Cash R.N. - 05/27/2024 4:07 PM EDT Spoke with Rubi, pt was seen at sleep study clinic today she has been going therm Rubi states they received an email last week and [facility] with [facility] need a prior authorization to be seen a sleep clinic. Fax authorization to above number If not the correct pool , please forward to correct pool * Telephone Encounter - Naya Mcclure - 05/27/2024 3:46 PM EDT Caller requesting call back from provider: Is the caller the patient? NO If caller is not the patient, what is the callers name? Miranda Callers relationship to patient? [facility] If person calling is not the patient themselves, is there a verbal release in FYI or permanent comments for this person: NO Reason for call back: Needs a prior auth for next visit on 08-27-24 for Neuro Diagnostic and Sleep f/u. Caller offered to speak with the nurse for assistance: NO Response: Patient offered to speak with nurse for assistance and patient agreed. Message forwarded to nurse. documented in this encounter Plan of Treatment Not on file documented as of this encounter Visit Diagnoses Not on filedocumented in this encounter Care Teams Medical Science Liaison Relationship Specialty Start Date End Date Wilner Murray MD [address] [place] [address] PCP - General Internal Medicine 03/25/20 documented as of this encounter
--- OUTSIDE RECORDS SUMMARY | 2024-10-23 18:21 | XMS_ITS | Encounter Summary ---
Author Organization [facility] Address [address] [place] [address] Care Team Providers Care Distribution Tech Name Role Phone Kevin Lechuga MD Primary Care Provider Unavail able Wilner Murray MD Primary Care Provider [phone] Reason for Visit * Reason Onset Date Comments Prior Authorization 10/09/2015 Encounter Details Date Type Department Care Team Description 10/09/2015 Telephone Gastroenterology - [address] [address] Kit Ibarra MD Prior Authorization Social History [...] for an Endoscopy on 10/29/15 Patients insurance: [facility] PPO/POS and MEDICAID Appointment is with Kit Ibarra MD Code to process pre-auth for: [id number] Location of procedure: [facility] documented in this encounter Plan of Treatment Not on file documented as of this encounter Visit Diagnoses Not on filedocumented in this encounter Care Teams Distribution Tech Relationship Specialty Start Date End Date Kevin Lechuga MD PCP - General 09/27/01 03/24/20 Wilner Murray MD [address] [place] [address] PCP - General Internal Medicine 03/25/20 documented as of this encounter
--- OUTSIDE RECORDS SUMMARY | 2024-10-23 18:21 | XMS_ITS | Encounter Summary ---
Author Organization [facility] Address [address] [place] [address] Care Team Providers Care Physicist Solid State Name Role Phone Wilner Murray MD Primary Care Provider [phone] Reason for Visit * Reason Onset Date Comments Medication 03/23/2022 Encounter Details Date Type Department Care Team Description 03/23/2022 Refill Gastroenterology - [place] 175 [facility] [address] [place] [phone] Kolton Justice MD 175 [facility] [address] [place] [address] Medication Social History Tobacco Use Types Packs/Day [...] suspected to have Coronavirus/COVID-19? No / Unsure 03/23/2022 10:12 AM EDT documented as of this encounter Plan of Treatment Not on file documented as of this encounter Visit Diagnoses Not on filedocumented in this encounter Care Teams Physicist Solid State Relationship Specialty Start Date End Date Wilner Murray MD [address] [place] [address] PCP - General Internal Medicine 03/25/20 documented as of this encounter
--- OUTSIDE RECORDS SUMMARY | 2024-10-23 18:21 | XMS_ITS | Encounter Summary ---
Author Organization [facility] Address [address] [place] [address] Care Team Providers Care Reactor Fueling Supervisor Name Role Phone Kevin Lechuga MD Primary Care Provider Unavail [facility] Wilner Murray MD Primary Care Provider [phone] Reason for Visit * Reason Onset Date Comments Provider Call Back 07/21/2014 Encounter Details Date Type Department Care Team Description 07/21/2014 Telephone Adult Medicine [facility] [address] [place] [address] Kevin Lechuga MD Provider Call Back Social [...] on filedocumented in this encounter Care Teams Reactor Fueling Supervisor Relationship Specialty Start Date End Date Kevin Lechuga MD PCP - General 09/27/01 03/24/20 Wilner Murray MD [address] [place] [address] PCP - General Internal Medicine 03/25/20 documented as of this encounter
--- OUTSIDE RECORDS SUMMARY | 2024-10-23 18:21 | XMS_ITS | Encounter Summary ---
Author Organization [facility] Address [address] [place] [address] Care Team Providers Care Acetone Recovery Worker Name Role Phone Wilner Murray MD Primary Care Provider [phone] Reason for Visit * Reason Onset Date Comments Provider Call Back 12/20/2023 Encounter Details Date Type Department Care Team Description 12/20/2023 Telephone [facility] [address] [address] Ministerio Arora DPM [address] [address] Provider Call Back Social History Tobacco Use [...] Please advise. Please call patient back @ [phone]. Thanks. documented in this encounter Plan of Treatment Not on file documented as of this encounter Visit Diagnoses Not on filedocumented in this encounter Care Teams Acetone Recovery Worker Relationship Specialty Start Date End Date Wilner Murray MD [address] [place] [address] PCP - General Internal Medicine 03/25/20 documented as of this encounter
--- OUTSIDE RECORDS SUMMARY | 2024-10-23 18:21 | XMS_ITS | Clinical Summary ---
Author Organization [facility] Address [address] [place] [address] Care Team Providers Care Director Of Enterprise Strategy Name Role Phone Wilner Murray MD Primary Care Provider [phone] Allergies No known active allergies Medications Medication Sig Dispensed Refills Start Date End Date Status Calcium Citrate-Vitamin D (CALCIUM CITRATE + D3) 200-250 MG-UNIT Tab 200-250 Each. 0 12/25/2017 Active glucose monitoring kit (FREESTYLE) monitoring kitIndications:Type 2 diabetes mellitus with hyperglycemia, without long-term current use of insulin ([facility]) To check sugars twice daily. E11.65 1 Kit 0 08/30/2022 Active FreeStyle Lancets MiscIndications:Type 2 diabetes mellitus with hyperglycemia, without long-term current use of insulin ([facility]) To check sugars twice daily. E11.65 100 Each 2 08/30/2022 Active Blood Glucose Calibration (FreeStyle Control Solution) LiquidIndications:Ty pe 2 diabetes mellitus with hyperglycemia, without long-term current use of insulin ([facility]) E11.65. to use with glucometer. 1 [...] History of pulmonary embolism 05/31/2023 Overview: S/p [employer] PROFESSIONAL procedure; on AC for 3y (only shouldve [...] done, negative for malignant cells. Following with [facility] endocrinology. Class 2 obesity 05/25/2022 05/31/2023 Obstructive [...] 03/02/2021 COVID-19 (Pfizer) Pt Reported 02/05/2021 Hepatitis C-Zavun-Vfaiyvun + 10/05/2009 Influenza (> 6 Months) 06/04/2024,2016,05/14/2011,05/15 Influenza Flu (PT Reported) 05/14/2020 Influenza H1N1 Pandemic Flu Vaccine 06/26/2009 Influenza Vaccine-preservati ve Free-quadrivalent 4 Years 05/31/2023,05/19/2022,04/24/2018 Pneumoccoccal(Adult) Polysac charide PPSV23 09/17/2020 TETANUS/DIPTHERIA (ADULT) 03/02/2005 Tdap 05/31/2023,02/07/2013 Family History Medical History Relation Name Comments [place] Breast Aunt m. aunt mother's side Thyroid Disorder Brother No Known Problems Daughter 1 Multiple Sclerosis Daughter 2 [place] diverticulosis Daughter 2 [place] No Known Problems Daughter 3 Cataract Father Diabetes Father Glaucoma Father Hypertension Father MS Father Dementia Maternal Grandmother Other Dermatoloical Disorders Maternal Grandmother skin cancer on face x 3 ...... specifics unknown Glaucoma Mother No Known Problems Sister Relation Name Status Comments Aunt m. aunt Alive Brother Alive Daughter 1 Alive Daughter 2 [place] Alive Daughter 3 Alive Father Maternal Grandmother [...] 05/14, 05/19/2022, Additional history exists Care Teams Director Of Enterprise Strategy Relationship Specialty Start Date End Date Wilner Murray MD [address] [place] [address] PCP - General Internal Medicine 03/25/20
--- OUTSIDE RECORDS SUMMARY | 2024-10-23 18:21 | XMS_ITS | Encounter Summary ---
Author Organization [facility] Address [address] [place] [address] Care Team Providers Care Cushion Filler Name Role Phone Wilner Murray MD Primary Care Provider [phone] Reason for Visit * Reason Onset Date Comments Migraine 10/14/2024 Encounter Details Date Type Department Care Team (Late st Contact Info) Description 10/14/2024 Telephone Internal Medicine - [place] [address] [place] [phone] Wilner Murray MD [address] [place] [address] Migraine Social History Tobacco Use Types Packs/Day [...] your loved ones. For example, child care supervisor or elderly care for an older adult? [...] traveled recently to another state outside of [place], [place], [place], [place], [place], [place], [place]? no o If yes, did you quarantine [...] of accident/Injury: No If yes, gather 3rd constitution party insurance information Third Green Party Information: not applicable PCP: Wilner Murray MD Payor: [employer] PLAN / Plan: [employer] / Product Type: *No Product type* / documented in this encounter Plan of Treatment Upcoming Encounters Date Type Department Care Team (Late st Contact Info) Description 10/30/2024 3:30 PM EDT Consult Vascular Surgery - [place] [address] [place] [address] Rhona Egan PA [address] [facility] 210 [address] 11/04/2024 4:00 PM EDT Treatment [facility] Outpatient Rehabilitation - [place] 175 [facility] 350 [place] [phone] Stephanie Javed PT 11/06/2024 3:20 PM EDT Office Visit Gastroenterology - [place] [address] 175 [facility] 200 [phone] Amina Marte PA 175 [facility] 200 [place] [address] 11/28/2024 3:30 PM EDT Office Visit Orthopedic Surgery - [place] 250 175 [facility] 250 [place] [phone] Ministerio Arora, DPM 175 [facility] 250 [place] [address] Scheduled Procedures Name Priority Associated Diagnoses Date/Ti me REVISION SCAR Skin and subcutaneous tissue disease 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 hammer toe of right foot documented as of this encounter Visit Diagnoses Not on filedocumented in this encounter Additional Health Concerns Assessment Noted Time PHQ-9 Depression Total Score: 12 025 6:12 PM EST documented as of this encounter Care Teams Cushion Filler Relationship Specialty Start Date End Date Wilner Murray MD [address] [place] [address] PCP - General Internal Medicine 03/25/20 documented as of this encounter
--- OUTSIDE RECORDS SUMMARY | 2024-10-23 18:21 | XMS_ITS | Encounter Summary ---
Author Organization [facility] Address [address] [place] [address] Care Team Providers Care Interface Developer Name Role Phone Wilner Murray MD Primary Care Provider [phone] Encounter Details Date Type Department Care Team Description 11/09/2023 Security Business Analyst Report Medical Records [address] [place] [address] Sepideh Morales PA-C Social History Tobacco Use [...] on filedocumented in this encounter Care Teams Interface Developer Relationship Specialty Start Date End Date Wilner Murray MD [address] [place] [address] PCP - General Internal Medicine 03/25/20 documented as of this encounter
--- OUTSIDE RECORDS SUMMARY | 2024-10-23 18:21 | XMS_ITS | Encounter Summary ---
Author Organization [facility] Address [address] [place] [address] Care Team Providers Care Web Press Operator Assistant Name Role Phone Wilner Murray MD Primary Care Provider [phone] Encounter Details Date Type Department Care Team Description 07/14/2023 Contractor Buyer Report Medical Records [address] [place] [address] Renan Tapia DO Social History Tobacco Use [...] on filedocumented in this encounter Care Teams Web Press Operator Assistant Relationship Specialty Start Date End Date Wilner Murray MD [address] [place] [address] PCP - General Internal Medicine 03/25/20 documented as of this encounter
--- OUTSIDE RECORDS SUMMARY | 2024-10-23 18:21 | XMS_ITS | Encounter Summary ---
Author Organization [facility] Address [address] [place] [address] Care Team Providers Care Oil Recovery Unit Operator Name Role Phone Wilner Murray MD Primary Care Provider Encounter Details Date Type Department Care Team Description 05/20/2024 Business Lawyer Report Medical Records [address] [place] [address] Ilsa Ng MD Social History Tobacco Use [...] on filedocumented in this encounter Care Teams Oil Recovery Unit Operator Relationship Specialty Start Date End Date Wilner Murray MD [address] [place] [address] PCP - General Internal Medicine 03/25/20 documented as of this encounter
--- OUTSIDE RECORDS SUMMARY | 2024-10-23 18:21 | XMS_ITS | Encounter Summary ---
Author Organization [facility] Address [address] [place] [address] Care Team Providers Care Shoe Maker Name Role Phone Wilner Murray MD Primary Care Provider [phone] Encounter Details Date Type Department Care Team Description 06/05/2024 Orders Only Medical Records [address] [place] [address] Marino Garrett PA-C Social History Tobacco Use Types Packs/Day [...] Name Priority Date/Time Associated Diagnosis Comments OUTSIDE ULTRASOUND Routine 06/04/2024 documented in this encounter Results * OUTSIDE ULTRASOUND (06/04/2024) Marino Garrett PA-C RADIOLOGY documented in this encounter Visit Diagnoses Not on filedocumented in this encounter Care Teams Shoe Maker Relationship Specialty Start Date End Date Wilner Murray MD [address] [place] [address] PCP - General Internal Medicine 03/25/20 documented as of this encounter
--- OUTSIDE RECORDS SUMMARY | 2024-10-23 18:21 | XMS_ITS | Encounter Summary ---
Author Organization [facility] Address [address] [place] [address] Care Team Providers Care Plumbing Manager Name Role Phone Wilner Murray MD Primary Care Provider [phone] Encounter Details Date Type Department Care Team Description 2024 Orders Only Medical Records [address] [place], [place] [address] [place] [address] Social History Tobacco Use Types Packs/Day Years [...] Date/Time Associated Diagnosis Comments OUTSIDE CT Routine 03/10/2024 documented in this encounter Results * OUTSIDE CT (03/10/2024) [facility] RADIOLOGY documented in this encounter Visit Diagnoses Not on filedocumented in this encounter Care Teams Plumbing Manager Relationship Specialty Start Date End Date Wilner Murray MD [address] [place] [address] PCP - General Internal Medicine 03/25/20 documented as of this encounter
--- OUTSIDE RECORDS SUMMARY | 2024-10-23 18:21 | XMS_ITS | Clinical Summary ---
Author Organization [facility] Address [address] [place] [address] Care Team Providers Care Bundle Breaker Name Role Phone Wilner Murray MD Primary [...] age to complete this topic Care Teams Bundle Breaker Relationship Specialty Start Date End Date Wilner Murray MD PCP - General
--- OUTSIDE RECORDS SUMMARY | 2024-10-23 18:21 | XMS_ITS | Encounter Summary ---
Author Organization [facility] Address [address] [place] [address] Care Team Providers Care Solar Energy System Installer Name Role Phone Wilner Murray MD Primary Care Provider [phone] Reason for Visit * Reason Onset Date Comments Medication 07/22/2020 Encounter Details Date Type Department Care Team Description 07/22/2020 Refill Gastroenterology - [place] 175 [facility] [address] [place] [address] Kolton Justice MD 175 [facility] [address] [place] [address] Medication Social History Tobacco Use Types Packs/Day [...] on filedocumented in this encounter Care Teams Solar Energy System Installer Relationship Specialty Start Date End Date Wilner Murray MD [address] [place] [address] PCP - General Internal Medicine 03/25/20 documented as of this encounter
--- OUTSIDE RECORDS SUMMARY | 2024-10-23 18:21 | XMS_ITS | Encounter Summary ---
Author Organization [facility] Address [address] [place] [address] Care Team Providers Care Steam Table Worker Name Role Phone Kevin Lechuga MD Primary Care Provider Unavail able Wilner Murray MD Primary Care Provider [phone] Encounter Details Date Type Department Care Team Description 12/25/2014 Electronic Prepress System Operator Report Medical Records [address] [place] [address] Paola Mathis MD Social History Tobacco Use [...] on filedocumented in this encounter Care Teams Steam Table Worker Relationship Specialty Start Date End Date Kevin Lechuga MD PCP - General 09/27/01 03/24/20 Wilner Murray MD [address] [place] [address] PCP - General Internal Medicine 03/25/20 documented as of this encounter
--- OUTSIDE RECORDS SUMMARY | 2024-10-23 18:21 | XMS_ITS | Encounter Summary ---
Author Organization [facility] Address [address] [place] [address] Care Team Providers Care Chemical Plant Technical Director Name Role Phone Wilner Murray MD Primary Care Provider [phone] Encounter Details Date Type Department Care Team Description 06/17/2022 [facility] [address] [phone] Ministerio Arora DPM [address] [address] Social History Tobacco Use Types Packs/Day Years [...] on filedocumented in this encounter Care Teams Chemical Plant Technical Director Relationship Specialty Start Date End Date Wilner Murray MD [address] [place] [address] PCP - General Internal Medicine 03/25/20 documented as of this encounter
--- OUTSIDE RECORDS SUMMARY | 2024-10-23 18:21 | XMS_ITS | Encounter Summary ---
Author Organization [facility] Address [address] [place] [address] Care Team Providers Care Baggagemaster Name Role Phone Kevin Lechuga MD Primary Care Provider Unavail [facility] Wilner Murray MD Primary Care Provider [phone] Reason for Visit * Reason Onset Date Comments Hand Tool Lapper Feedback 12/10/2015 Barium Swallow Encounter Details Date Type Department Care Team Description 12/10/2015 Telephone Adult Medicine [address] [address] Kevin Lechuga MD Hand Tool Lapper Feedback (Barium Swallow) Social History Tobacco Use [...] PM EDT Order faxed to Jm at [phone], notification letter mailed to patient. documented in this encounter Plan of Treatment Not on file documented as of this encounter Visit Diagnoses Not on filedocumented in this encounter Care Teams Baggagemaster Relationship Specialty Start Date End Date Kevin Lechuga MD PCP - General 09/27/01 03/24/20 Wilner Murray MD [address] [place] [address] PCP - General Internal Medicine 03/25/20 documented as of this encounter
--- OUTSIDE RECORDS SUMMARY | 2024-10-23 18:21 | XMS_ITS | Encounter Summary ---
Author Organization [facility] Address [address] [place] [address] Care Team Providers Care Senior Design Engineering Specialist Name Role Phone Wilner Murray MD Primary Care Provider [phone] Encounter Details Date Type Department Care Team Description 12/10/2020 Telephone Adult Medicine [address] [address] Wilner Murray MD [address] [place] [address] [phone] Social History Tobacco Use Types Packs/Day Years [...] have Coronavirus / COVID-19? No / Unsure 12/11/2020 12:51 PM EDT documented as of this encounter Plan of Treatment Not on file documented as of this encounter Visit Diagnoses Not on filedocumented in this encounter Care Teams Senior Design Engineering Specialist Relationship Specialty Start Date End Date Wilner Murray MD [address] [place] [address] PCP - General Internal Medicine 03/25/20 documented as of this encounter
--- OUTSIDE RECORDS SUMMARY | 2024-10-23 18:21 | XMS_ITS | Encounter Summary ---
Author Organization [facility] Address [address] [place] [address] Care Team Providers Care Kraft Digester Operator Name Role Phone Wilner Murray MD Primary Care Provider [phone] Encounter Details Date Type Department Care Team Description 08/24/2023 Orders Only Medical Records [address] [place] [address] Ron Murrieta MD Social History Tobacco Use [...] Date/Time Associated Diagnosis Comments OUTSIDE ULTRASOUND Routine 10/10/2022 documented in this encounter Results * OUTSIDE ULTRASOUND (10/10/2022) Ron Murrieta MD RADIOLOGY documented in this encounter Visit Diagnoses Not on filedocumented in this encounter Care Teams Kraft Digester Operator Relationship Specialty Start Date End Date Wilner Murray MD [address] [place] [address] PCP - General Internal Medicine 03/25/20 documented as of this encounter
--- OUTSIDE RECORDS SUMMARY | 2024-10-23 18:21 | XMS_ITS | Encounter Summary ---
Author Organization [facility] Address [address] [place] [address] Care Team Providers Care Terminal Make Up Operator Name Role Phone Kevin Lechuga MD Primary Care Provider [facility] Wilner Murray MD Primary Care Provider [phone] Encounter Details Date Type Department Care Team Description 06/13/2017 [facility] Medical Records [address] [place] [id number] Abstract, Provider Social History Tobacco Use Types [...] on filedocumented in this encounter Care Teams Terminal Make Up Operator Relationship Specialty Start Date End Date Kevin Lechuga MD PCP - General 09/27/01 03/24/20 Wilner Murray MD [address] [place] [address] PCP - General Internal Medicine 03/25/20 documented as of this encounter
--- OUTSIDE RECORDS SUMMARY | 2024-10-23 18:21 | XMS_ITS | Encounter Summary ---
Author Organization [facility] Address [address] [place] [address] Care Team Providers Care Research Pharmacist Name Role Phone Wilner Murray MD Primary Care Provider [phone] Encounter Details Date Type Department Care Team Description 06/17/2022 Hospital Medical Records [address] [place] [address] Ministerio Arora, TALIAT [address] [address] Social History Tobacco Use Types Packs/Day Years [...] on filedocumented in this encounter Care Teams Research Pharmacist Relationship Specialty Start Date End Date Wilner Murray MD [address] [place] [address] PCP - General Internal Medicine 03/25/20 documented as of this encounter
--- OUTSIDE RECORDS SUMMARY | 2024-10-23 18:21 | XMS_ITS | Encounter Summary ---
Author Organization [facility] Address [address] [place] [address] Care Team Providers Care Chemistry Specialist Name Role Phone Wilner Murray MD Primary Care Provider Unavail able Reason for Visit * Reason Comments Medication Refill Encounter Details Date Type Department Care Team (Late st Contact Info) Description 04/14/2022 Refill [facility] Endocrinology [address] [address] Kelly Frost MD [address] [address] Social History Tobacco Use Types Packs/Day Years [...] on filedocumented in this encounter Care Teams Chemistry Specialist Relationship Specialty Start Date End Date Wilner Murray MD PCP - General documented as of this encounter
--- OUTSIDE RECORDS SUMMARY | 2024-10-23 18:21 | XMS_ITS | Encounter Summary ---
Author Organization [facility] Address [address] [place] [address] Care Team Providers Care Appliance Worker Name Role Phone Wilner Murray MD Primary Care Provider [phone] Encounter Details Date Type Department Care Team Description 02/01/2022 [facility] Vascular Surgery [facility] [address] [facility] [address] [place] [phone] Ramy Clinton MD [address] [address] Social History Tobacco Use Types [...] on filedocumented in this encounter Care Teams Appliance Worker Relationship Specialty Start Date End Date Wilner Murray MD [address] [place] [address] PCP - General Internal Medicine 03/25/20 documented as of this encounter
--- OUTSIDE RECORDS SUMMARY | 2024-10-23 18:21 | XMS_ITS | Encounter Summary ---
Author Organization [facility] Address [address] [place] [address] Care Team Providers Care Junior Qa Analyst Name Role Phone Kevin Lechuga MD Primary Care Provider Unavail [facility] Wilner Murray MD Primary Care Provider [phone] Encounter Details Date Type Department Care Team Description 09/23/2016 [facility] Report Medical Records [address] [place] [address] Sarina Rivero PA-C Social History Tobacco Use [...] on filedocumented in this encounter Care Teams Junior Qa Analyst Relationship Specialty Start Date End Date Kevin Lechuga MD PCP - General 09/27/01 03/24/20 Wilner Murray MD [address] [place] [address] PCP - General Internal Medicine 03/25/20 documented as of this encounter
--- OUTSIDE RECORDS SUMMARY | 2024-10-23 18:21 | XMS_ITS | Encounter Summary ---
Author Organization [facility] Address [address] [place] [address] Care Team Providers Care Journalism Teacher Name Role Phone Wilner Murray MD Primary Care Provider [phone] Encounter Details Date Type Department Care Team Description 03/21/2023 Bolt Maker Report Medical Records [address] [place] [phone] [place] [address] Social History Tobacco Use Types Packs/Day Years [...] on filedocumented in this encounter Care Teams Journalism Teacher Relationship Specialty Start Date End Date Wilner Murray MD [address] [place] [address] PCP - General Internal Medicine 03/25/20 documented as of this encounter
--- OUTSIDE RECORDS SUMMARY | 2024-10-23 18:21 | XMS_ITS | Encounter Summary ---
Author Organization [facility] Address [address] [place] [address] Care Team Providers Care Voice Engineer Name Role Phone Wilner Murray MD Primary Care Provider [phone] Reason for Visit * Reason Comments Follow-up Bump right ankle Encounter Details Date Type Department Care Team (Late st Contact Info) Description 10/16/2024 3:30 PM EST Office Visit Orthopedic Surgery [facility] [address] [phone] Ministerio Arora, DPM [address] [address] Soft tissue mass (Primary Dx); Peripheral venous [...] for your loved ones. For example, children's program coordinator or elderly care for an older adult? [...] 3:30 PM EDT Consult Vascular Surgery - [place] [address] [place] [address] Rhona Egan PA 300 [facility] [address] [place] [address] 11/04/2024 4:00 PM EDT Treatment [facility] [place] [address] [facility] 350 [place] [phone] Stephanie Javed PT 11/06/2024 3:20 PM EDT Office Visit Gastroenterology - [place] [address] 175 [facility] 200 [place] [phone] Amina Marte PA [address] [facility] 200 [place] [address] 11/28/2024 3:30 PM EDT Office Visit Orthopedic Surgery - [place] 250 175 [facility] 250 [place] [phone] Ministerio Arora DPM 175 [facility] 250 [place] [address] Scheduled Procedures Name Priority Associated Diagnoses Date/Ti [...] documented as of this encounter Care Teams Voice Engineer Relationship Specialty Start Date End Date Wilner Murray MD [address] [place] [address] PCP - General Internal Medicine 03/25/20 documented as of this encounter
--- OUTSIDE RECORDS SUMMARY | 2024-10-23 18:21 | XMS_ITS | Encounter Summary ---
Author Organization [facility] Address [address] [place] [address] Care Team Providers Care Rehabilitation Services Coordinator Name Role Phone Kevin Lechuga MD Primary Care Provider Unavail able Wilner Murray MD Primary Care Provider [phone] Encounter Details Date Type Department Care Team Description 02/18/2015 Applications Programmer Report Medical Records [address] [place] [address] Abstract, Provider Social History Tobacco Use Types [...] on filedocumented in this encounter Care Teams Rehabilitation Services Coordinator Relationship Specialty Start Date End Date Kevin Lechuga MD PCP - General 09/27/01 03/24/20 Wilner Murray MD [address] [place] [address] PCP - General Internal Medicine 03/25/20 documented as of this encounter
--- OUTSIDE RECORDS SUMMARY | 2024-10-23 18:21 | XMS_ITS | Encounter Summary ---
Author Organization [facility] Address [address] [place] [address] Care Team Providers Care Metal Work Duct Installer Name Role Phone Wilner Murray MD Primary Care Provider [phone] Reason for Referral * Consultation (Urgent) - Authorized Specialty Diagnoses / Procedures Referred By Delfino fernandez Referred To Contact Dermatology Diagnoses Leg mass, left Freida Lazo NP [address] [place] [address] Phone: tel: fax: Adriel Amato MD [address] [place] [phone] Phone: tel: fax: Referral ID Status Reason Start Date Expiration Date Visits Requested Visits Authorized [id number] Authorized Specialty Services Required 10/21/2024 10/21/2025 1 1 Reason for Visit * Reason Onset Date Comments nodules 10/21/2024 Encounter Details Date Type Department Care Team ([facility] Contact Info) Description 10/21/2024 Telephone Internal Medicine - [address] [phone] Wilner Murray MD [address] [place] [address] nodules Social History Tobacco Use Types Packs/Day [...] care for your loved ones. For example, director of child welfare services or elderly care for an older adult? [...] is a skin concern and that the circulating process inspector can better help her. She is asking [...] traveled recently to another state outside of [place], [place], [place], [place], [place], [place], [place]? no o If yes, did you [...] of accident/Injury: No If yes, gather 3rd alliance party insurance information Third Democrat Information: not applicable PCP: Wilner Murray MD Payor: [employer] PLAN / Plan: ByRead [facility] / Product Type: *No Product type* / documented in this encounter Plan of Treatment Upcoming Encounters Date Type Department Care Team (Late st Contact Info) Description 10/30/2024 3:30 PM EDT Consult Vascular Surgery - [place] [address] [place] [address] Rhona Egan PA [address] [place] [address] 11/04/2024 4:00 PM EDT Treatment [facility] Outpatient Rehabilitation - [place] [address] [place] [phone] Stephanie Javed PT 11/06/2024 3:20 PM EDT Office Visit Gastroenterology - [place] [address] [facility] [address] [place] [phone] Amina Marte PA [address] [facility] [address] [place] [address] 11/28/2024 3:30 PM EDT Office Visit Orthopedic Surgery - [place] [address] [facility] [address] [place] [phone] Ministerio Arora, DPM [address] [facility] [address] [place] [address] Scheduled Procedures Name Priority Associated Diagnoses Date/Ti [...] as of this encounter Care Teams Metal Work Duct Installer Relationship Specialty Start Date End Date Wilner Murray MD [address] [place] [address] PCP - General Internal Medicine 03/25/20 documented as of this encounter
--- OUTSIDE RECORDS SUMMARY | 2024-10-23 18:21 | XMS_ITS | Encounter Summary ---
Author Organization [facility] Address [address] [place] [address] Care Team Providers Care Audio Production Engineer Name Role Phone Wilner Murray MD Primary Care Provider [phone] Encounter Details Date Type Department Care Team Description 10/16/2020 Tie Cutter Report Medical Records [address] [place] [address] Cathi Holland Social History Tobacco Use Types Packs/Day Years [...] have Coronavirus / COVID-19? No / Unsure 10/16/2020 10:51 AM EST documented as of this encounter Plan of Treatment Not on file documented as of this encounter Visit Diagnoses Not on filedocumented in this encounter Care Teams Audio Production Engineer Relationship Specialty Start Date End Date Wilner Murray MD [address] [place] [address] PCP - General Internal Medicine 03/25/20 documented as of this encounter
--- OUTSIDE RECORDS SUMMARY | 2024-10-23 18:22 | XMS_ITS | Encounter Summary ---
Author Organization [facility] Address [address] [place] [address] Care Team Providers Care Structural Steel Detailer Name Role Phone Kevin Lechuga MD Primary Care Provider [facility] Wilner Murray MD Primary Care Provider Encounter Details Date Type Department Care Team Description 06/07/2017 Rail Grinder Report Medical Records [address] [place] [address] Ginny Rincon Social History Tobacco Use Types Packs/Day Years [...] on filedocumented in this encounter Care Teams Structural Steel Detailer Relationship Specialty Start Date End Date Kevin Lechuga MD PCP - General 09/27/01 03/24/20 Wilner Murray MD [address] [place] [address] PCP - General Internal Medicine 03/25/20 documented as of this encounter
--- OUTSIDE RECORDS SUMMARY | 2024-10-23 18:22 | XMS_ITS | Encounter Summary ---
Author Organization [facility] Address [address] [place] [address] Care Team Providers Care Audiovisual Production Specialist Name Role Phone Wilner Murray MD Primary Care Provider [phone] Reason for Visit * Reason Comments E-prescribe Rx Request Encounter Details Date Type Department Care Team Description 02/19/2024 Refill Adult Medicine [facility] [address] [place] [address] Heavenly [place] PA-C [address] [place] [address] E-prescribe Rx Request Social History Tobacco Use [...] ear documented in this encounter Care Teams Audiovisual Production Specialist Relationship Specialty Start Date End Date Wilner Murray MD [address] [place] [address] PCP - General Internal Medicine 03/25/20 documented as of this encounter
[2024-10-23 18:57] LABS: Creatinine Urine 85.81 mg/dL; Protein/Creatinine Ratio, Ur 0.16 (<0.2); Total Protein Urine Random 14 mg/dL (<12)
[2024-10-24 04:13] LABS: HBc Num1 0.11 S/CO (0.00-0.79); HBsAGNum1 0.24 S/CO (0.00-0.99); Hepatitis A Antibody IgM 0.45 Index (0-0.79); Hepatitis B Core Antibody Nonreactive (Nonreactive); Hepatitis B Surface Antigen Negative (Negative); ~HepC Num1 0.11 S/CO (0.00-0.79); ~Hepatitis A Antibody IgM Nonreactive (Nonreactive); ~Hepatitis B Surface Antibody REACTIVE (Nonreactive); ~Hepatitis C Antibody Nonreactive (Nonreactive)
[2024-10-24 13:24] LABS: Immunoglobulin G Subclass 1 707 mg/dL (382-929); Immunoglobulin G Subclass 2 376 mg/dL (241-700); Immunoglobulin G Subclass 3 54 mg/dL (22-178); Immunoglobulin G Subclass 4 18.3 mg/dL (4-86); Immunoglobulin G Total 1106 mg/dL (600-1640)
[2024-10-24 16:09] LABS: Myeloperoxidase Antibody <1.0 AI
[2024-10-24 22:27] LABS: Complement C3 200 mg/dL (83-193); IgA 171 mg/dL (47-310); IgG 1287 mg/dL (600-1640); IgM 207 mg/dL (50-300)
[2024-10-25 21:19] LABS: TS Negative Control Passed; TS Panel A 0; TS Panel B 0; TS Positive Control Passed; TSpotTB Negative (Negative)
[2024-10-27 05:24] LABS: Angiotensin Converting Enzyme 33 U/L (9-67)
[2024-10-28 13:19] LABS: Neutrophil Cyto Ab Screen NEGATIVE (NEGATIVE)
== END 2024-10-23 14:36 | disposition home or self-care (01) ==
LOC: HO.LAB 14:35
PROVIDERS: PCP Internal Medicine; Visit Provider Student in an Organized Health Care Education/Training Program
DX: L95.8 Other vasculitis limited to the skin (principal); M06.9 Rheumatoid arthritis, unspecified
CPT/HCPCS: 36415; 80053; 81001; 82164; 82570; 82595; 82784; 84156; 85025; 85652; 86021; 86036; 86140; 86160; 86334; 86431; 86481; 86704; 86706; 86709; 86803; 87340; 99212

== ENCOUNTER 2024-10-23 14:35 | Outpatient (AMB) | payer OTHER, SELFPAY ==
[2024-10-23 14:39] VITALS: BP 126/72; PULSE 98; O2SAT 98; BMI 40.1
--- NOTE | 2024-10-23 14:39 | A.OFFVIS_ITS ---
Vital Signs 3 10/23/24 14:39 Height 5 ft 2 in Weight 219 lb 2.232 oz BMI 40.1 BP 126/72 Blood Pressure Location Lt brachial Position Sitting Pulse 98 Pulse Source Pulse Oximeter Pulse Oximetry (%) 98 Oxygen Delivery Method Room Air Intake Visit Reasons: leg nodules/ per MD approval Intake Note: Patient presents today for Enbrel shot possible side effect with nodules(?) on her legs since she has been injecting herself, on the second day after the shot, she gets a huge welt on her arm. Allergies No Known Allergies Allergy (Verified 10/23/24 14:45) Medication List - Last Reconciled 10/23/24 by Lindsey Onofre MD albuterol sulfate 90 mcg/actuation (ProAir HFA) 2 puffs inhalation Q6H PRN calcium citrate-vitamin D3 200 mg-6.25 mcg (250 unit) 1 tab PO DAILY etanercept (Enbrel SureClick) 50 mg subcut QWEEK lansoprazole 30 mg PO DAILY levothyroxine 150 mcg PO DAILY HPI Comments Details: Patient is a 59-year-old female with hypothyroidism, history of DVT, fibromyalgia, polyarticular osteoarthritis and rheumatoid arthritis here today for an urgent visit Interval History: Patient last seen 08/06/[address] Ng. At that time she was following up for her seronegative rheumatoid arthritis. She was also complaining of having painful bumps on her both her legs that started about 2 weeks prior to that visit which was associated with joint pain and swelling. This responded to prednisone taper. She was started on Enbrel injections after the last visit. Today she is here for an urgent visit for painful nodules. 1-2 months of painful nodules on the legs associated with bilateral LE swelling Rheumatologic History: Initial history: This is a 57-year-old morbidly obese female with complex past medical history including DVT and PE on warfarin who presents for evaluation of inflammatory arthritis. Condition started more than 5 years ago. Patient stated she used to see a barker peeler in [place] but does not know their names. She stated that she was getting medications to treat pain and anxiety. She was most recently evaluated by Jose F Rainey last year. She used to get multiple courses of prednisone which help with joint pain. Patient mentions episodes of swelling of her wrists, knuckles, elbows which are improved with prednisone. About a month ago she had right foot bunionectomy and her right foot is currently in a cast. She develops intermittent bruising of her skin while on warfarin, she is currently taking duloxetine prescribed by Dr. Tapia for fibromyalgia which she mentions did help her symptoms. Current Rheumatology Medication(s): Enbrel 50mg SC weekly PFSH Medical History Diabetes Hepatic steatosis Bunion of right foot Esophageal dysmotility Hiatal hernia Constipation Dysphagia GERD (gastroesophageal reflux disease) DJD (degenerative joint disease) BPV (benign positional vertigo) Parathyroid adenoma Hx of thyroid cancer Rheumatoid arthritis G6PD deficiency Cholelithiases Hepatomegaly Liver cyst Pulmonary embolism DVT (deep venous thrombosis) LIN (obstructive sleep apnea) Depression Tension headache Sleep disturbance Fibromyalgia Migraines Obesity (BMI 30-39.9) Diverticulosis Surgical History S/P bunionectomy Stented coronary artery Hx of endoscopy Hx of tubal ligation H/O total thyroidectomy Hx of colonoscopy Family History Mother Glaucoma Father Glaucoma Cataract Diabetes Hypertension Myocardial infarct Maternal Grandmother Skin cancer Daughter Multiple sclerosis Social History Household Members: Spouse and Children Housing: House Patient Tobacco Use Status: Never used Tobacco service: No Current occupational status: employed Review of Systems Const Details: Review of Systems Constitutional: Denies fever, chills, weight loss ENT: Denies vision changes, eye pain or eye redness, dental caries, dry mouth GI: Denies nausea, vomiting, diarrhea, abdominal pain, change in BM Pulm: Denies SOB, MOREIRA, hemoptysis, wheezing Cards: Denies chest pain, palpitations Skin: Denies Raynaud's, nail changes, photosensitivity, FURNACE REPAIR MECHANIC: Denies headaches, weakness, paresthesias, recurrent falls MSK: as per HPI All other systems reviewed and are unremarkable except noted above Physical Exam Vital Signs: Last Vital Signs Pulse 98 10/23/24 14:39 BP 126/72 10/23/24 14:39 Pulse Ox 98 10/23/24 14:39 Oxygen Delivery Method Room Air 10/23/24 14:39 BMI result Body Mass Index 40.1 Vital signs reviewed Physical Examination CONSTITUITIONAL Patient alert and cooperative. Well appearing and in no apparent painful distress HEENT Conjunctiva and sclera clear. ?Pupils equal round and reactive to light. ?No lymphadenopathy. ? CHEST/RESPIRATORY SYSTEM Normal respiratory effort and able to speak in complete sentences. ?Clear to auscultation bilaterally. ?No crackles, rales, rhonchi, wheezes heard. CARDIAC SYSTEM Regular rate and rhythm. ?S1 and S2 heard no murmurs. ?Radial pulses intact bilaterally SKIN Scattered nodules over bilateral lower extremities. Some areas were blanching other areas were nonblanching. No ulcerating lesions noted. The nodules were firm but exquisitely tender. 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 Differentials for this include nodular vasculitis in the setting of Enbrel use (reference 1), infectious causes such as TB, malignancy, erythema nodosum Patient without any other symptoms such as fever, weight loss, respiratory symptoms or abdominal pain. We will send for an urgent dermatology referral for biopsy. Prednisone taper prescribed however told patient to hold off on starting the prednisone until after the Dermatology visit and biopsy. Stop Enbrel Plan - Stop Enbrel - Urgent Derm Referral for biopsy - Prednisone taper: 40 mg for 7 days then 30 mg for 7 days then 20 mg for 7 days then 15 mg for 7 days then 10 mg for 7 days then 5 mg for 7 days then stop - Labs today: CBC, CMP, ESR, CRP, cryo, rheumatoid factor, CCP, IgG subclasses, UA, upc, ANCA titers, SPEP, hepatitis panel, T spot, immunoglobulins - RTC 4 weeks Plan I spent 45 minutes reviewing the record and labs, taking a history, examining the patient, discussing the treatment plan, ordering diagnostic work up, contacting derm for urgent appt and documenting in the medical record Orders: Orders 2 Complete Blood Count Auto Diff Today . - Other vasculitis limited to the skin Complement C3 Today .8 - Other vasculitis limited to the skin Cryoglobulin Today .8 - Other vasculitis limited to the skin Rheumatoid Factor Today .8 - Other vasculitis limited to the skin Immunoglobulin G Subclasses Today .8 - Other vasculitis limited to the skin Angiotensin Converting Enzyme Today .8 - Other vasculitis limited to the skin Protein Creatinine Ratio, Ur Today .8 - Other vasculitis limited to the skin Comprehensive Met. Panel Today .8 - Other vasculitis limited to the skin C Reactive Protein Today .8 - Other vasculitis limited to the skin Erythrocyte Sedimentation Rate Today .8 - Other vasculitis limited to the skin Neutrophil Cytoplasma Ab Today .8 - Other vasculitis limited to the skin Complement C4 Today .8 - Other vasculitis limited to the skin Myeloperoxidase Antibody Today .8 - Other vasculitis limited to the skin Hepatitis A,B,C Profile Today .8 - Other vasculitis limited to the skin UA w Microscopic Today .8 - Other vasculitis limited to the skin Immunofixation Pnl, Serum Today .8 - Other vasculitis limited to the skin Immunoglobulins,IgG IgA IgM Today .8 - Other vasculitis limited to the skin T Spot TB Today M06.9 - Rheumatoid arthritis, unspecified Referrals 2 Dermatology Referral .8 - Other vasculitis limited to the skin Medications: New 2 prednisone Take 2 tablets in the AM 2 tablets in the PM for 7 days then 2 tablets in the AM 1 tablet in the PM for 7 days, then 1 tablet in the AM 1 tablet in the PM for 7 days then 1 tablet in the AM 1/2 tablet in the PM for 7 days then 1/2 tablet in the AM 1/2 tablet in the PM for 7 days, then 1/2 tablet daily for 7 days then stop 10 mg PO DIRECTED 90 tabs 0RF 5.8 - Other vasculitis limited to the skin Discontinued 2 prednisone Discontinued Reason: Doctor's Order Take 2 tabs daily for 1 month then 1 tab daily for 1 month then stop 90 tabs 0RF etanercept (Enbrel SureClick) Discontinued Reason: Doctor's Order 50 mg subcut QWEEK 4 mL 2RF M06.9 - Rheumatoid arthritis, unspecified Coding Level of Care Code Est Pt Level 5 (47518) Complex EM visit Add On G2211 Diagnoses Nodular vasculitis L95.8
--- OUTSIDE RECORDS SUMMARY | 2024-10-23 17:12 | XMS_ITS | Encounter Summary ---
Author Organization [facility] Address [address] [place] [address] Care Team Providers Care Fixed Income Manager Name Role Phone Kevin Lechuga MD Primary Care Provider Unavail Wilner Quan MD Primary Care Provider [phone] Reason for Referral * Non LOREE (Routine) - Closed Specialty Diagnoses / Procedures Referred By Contgia t Referred To Contact Oncology/Hematology Procedures REFERRAL TO ONCOLOGY/HEMATOLOGY Kaitlin Galindo PA-C [address] [place] [address] Onc/[address] [address] Referral ID Status Reason Start Date Expiration Date Visits Re quested Visits Authorized [id number] Closed 09/21/2017 09/21/2018 1 1 Encounter Details Date Type Department Care Team Description 09/21/2017 Orders Only Adult Medicine [address] [address] Kaitlin Galindo PA-C Social History Tobacco Use Types Packs/Day Years Used Date Smoking Tobacco: Former Cigarettes 15 0 1996 - 08/14/2010 Smokeless Tobacco: Former Comments:1 cig twice a mo Alcohol Use Standard Drinks/Week Comments Yes 0 (1 standard drink = 0.6 oz pur e alcohol) 3-4 drinks per yr Sex Assigned at Date Recorded Not on file Job Start Date Occupation Industry Not on file Not on file Not on file documented as of this encounter Plan of Treatment Not on file documented as of this encounter Visit Diagnoses Not on filedocumented in this encounter Care Teams Fixed Income Manager Relationship Specialty Start Date End Date Kevin Lechuga MD PCP - General 09/27/01 03/24/20 Wilner Murray MD [address] [place] [address] PCP - General Internal Medicine 03/25/20 documented as of this encounter
--- OUTSIDE RECORDS SUMMARY | 2024-10-23 17:12 | XMS_ITS | Encounter Summary ---
Author Organization [facility] Address [address] [place] [address] Care Team Providers Care Bioinformatics Analyst Name Role Phone Wilner Murray MD Primary Care Provider [phone] Reason for Visit * Reason Comments E-prescribe Rx Request Encounter Details Date Type Department Care Team Description 03/31/2021 Refill Gastroenterology - [address] [place] [phone] Amina Marte DScPAS E-prescribe Rx Request Social History Tobacco Use Types Packs/Day Years Used Date Smoking Tobacco: Former Cigarettes 15 0 1996 - 08/14/2010 Smokeless Tobacco: Never Comments:1 cig twice a mo Alcohol Use Standard Drinks/Week Comments No 0 (1 standard drink = 0.6 oz pur e alcohol) Sex Assigned at Date Recorded Not on file Job Start Date Occupation Industry Not on file Not on file Not on file COVID-19 Exposure Response Date Recorded In the last month, have you been in contact with someone who was confirmed or suspected to have Coronavirus / COVID-19? No / Unsure 03/19/2021 12:13 PM EDT documented as of this encounter Miscellaneous Notes * Telephone Encounter - Adriana Lewis M.A. - 03/31/2021 1:30 PM EDT [place] 01/13/2021 documented in this encounter Plan of Treatment Not on file documented as of this encounter Visit Diagnoses Not on filedocumented in this encounter Care Teams Bioinformatics Analyst Relationship Specialty Start Date End Date Wilner Murray MD [address] [place] [id number] PCP - General Internal Medicine 03/25/20 documented as of this encounter
--- OUTSIDE RECORDS SUMMARY | 2024-10-23 17:12 | XMS_ITS | Encounter Summary ---
Author Organization [facility] Address [address] [place] [address] Care Team Providers Care Diesel Power Mechanic Name Role Phone Wilner Murray MD Primary Care Provider [phone] Reason for Visit * Reason Comments E-prescribe Rx Request Encounter Details Date Type Department Care Team Description 10/01/2022 Refill Gastroenterology - [address] [place] [address] [phone] Amina Marte DScPAS E-prescribe Rx Request Social [...] Exposure Response Date Recorded In the last 10 days, have yo u been in contact with someone who was confirmed or suspected to have Coronavirus/COVID-19? No / Unsure 10/04/2022 1:53 PM EST documented as of this encounter Miscellaneous Notes * Telephone Encounter - Libby Groves M.A. - 10/03/2022 1:19 PM EST I don't see this med on meds list. Is she to be taking it? documented in this encounter Plan of Treatment Not on file documented as of this encounter Visit Diagnoses Not on filedocumented in this encounter Care Teams Diesel Power Mechanic Relationship Specialty Start Date End Date Wilner Murray MD [address] [place] [phone] PCP - General Internal Medicine 03/25/20 documented as of this encounter
--- OUTSIDE RECORDS SUMMARY | 2024-10-23 17:12 | XMS_ITS | Encounter Summary ---
Author Organization [facility] Address [address] [place] [address] Care Team Providers Care Brush Filler Hand Name Role Phone Kevin Lechuga MD Primary Care Provider [facility] Wilner Murray MD Primary Care Provider [phone] Encounter Details Date Type Department Care Team Description 10/16/2017 Aerodynamicist Report Medical Records [address] [place] [address] Rehab., [place] Social History Tobacco Use Types Packs/Day Years [...] on filedocumented in this encounter Care Teams Brush Filler Hand Relationship Specialty Start Date End Date Kevin Lechuga MD PCP - General 09/27/01 03/24/20 Wilner Murray MD [address] [place] [address] PCP - General Internal Medicine 03/25/20 documented as of this encounter
--- OUTSIDE RECORDS SUMMARY | 2024-10-23 17:12 | XMS_ITS | Encounter Summary ---
Author Organization [facility] Address [address] [place] [address] Care Team Providers Care Card Hanger Name Role Phone Wilner Murray MD Primary Care Provider [phone] Reason for Visit * Reason Onset Date Comments Executive Legal Secretary Feedback 06/29/2021 Rheumatology Encounter Details Date Type Department Care Team Description 06/29/2021 Telephone Rheumatology - [address] [address] Wilner Murray MD [address] [place] [address] Executive Legal Secretary Feedback (Rheumatology ) Social History Tobacco Use Types Packs/Day Years [...] have Coronavirus / COVID-19? No / Unsure 06/30/2021 9:59 AM EST documented as of this encounter Miscellaneous Notes * Telephone Encounter - Leslie Mcclure - 06/29/2021 2:07 PM EST No problem I have documented on the referral and Auth/Booked it as well. * Telephone Encounter - Libby Wan - 06/29/2021 2:02 PM EST Yes today and yes she is aware * Telephone Encounter - Leslie Mcclure - 06/29/2021 10:38 AM EST I can document on the pt's referral. Does the patient have an appointment and are they aware? * Telephone Encounter - Libby Wan - 06/29/2021 10:24 AM EST Kenneth signed and sent to scanning All records/demos sent to [facility] treatment cent, appt booked 06/19 [facility] documented in this encounter Plan of Treatment Not on file documented as of this encounter Visit Diagnoses Not on filedocumented in this encounter Care Teams Card Hanger Relationship Specialty Start Date End Date Wilner Murray MD [address] [place] [id number] PCP - General Internal Medicine 03/25/20 documented as of this encounter
--- OUTSIDE RECORDS SUMMARY | 2024-10-23 17:12 | XMS_ITS | Encounter Summary ---
Author Organization [facility] Address [address] [place] [address] Care Team Providers Care Dev Ops Engineer Name Role Phone Wilner Murray MD Primary Care Provider [phone] Encounter Details Date Type Department Care Team Description 10/25/2022 SCAN [facility] [address] [phone] Ministerio Arora DPM [address] [address] Social History Tobacco Use Types Packs/Day Years [...] suspected to have Coronavirus/COVID-19? No / Unsure 10/26/2022 8:05 AM EDT documented as of this encounter Plan of Treatment Not on file documented as of this encounter Visit Diagnoses Not on filedocumented in this encounter Care Teams Dev Ops Engineer Relationship Specialty Start Date End Date Wilner Murray MD [address] [place] [address] PCP - General Internal Medicine 03/25/20 documented as of this encounter
--- OUTSIDE RECORDS SUMMARY | 2024-10-23 17:12 | XMS_ITS | Encounter Summary ---
Author Organization [facility] Address [address] [place] [address] Care Team Providers Care Forestry Technical Officer Name Role Phone Wilner Murray MD Primary Care Provider [phone] Encounter Details Date Type Department Care Team Description 06/08/2021 [facility] Medical Records [address] [place] [address] Laura Cisse MD Social History Tobacco Use Types Packs/Day Years Used Date Smoking Tobacco: Former Cigarettes 15 0 1996 - 08/14/2010 Smokeless Tobacco: Never Alcohol Use Standard Drinks/Week Comments No 0 [...] have Coronavirus / COVID-19? No / Unsure 06/10/2021 9:16 AM EDT documented as of this encounter Plan of Treatment Not on file documented as of this encounter Visit Diagnoses Not on filedocumented in this encounter Care Teams Forestry Technical Officer Relationship Specialty Start Date End Date Wilner Murray MD [address] [place] [phone] PCP - General Internal Medicine 03/25/20 documented as of this encounter
--- OUTSIDE RECORDS SUMMARY | 2024-10-23 17:12 | XMS_ITS | Encounter Summary ---
Author Organization [facility] Address [address] [place] [address] Care Team Providers Care Dominatrix Name Role Phone Wilner Murray MD Primary Care Provider [phone] Reason for Visit * Reason Onset Date Comments Provider Call Back 12/20/2021 Encounter Details Date Type Department Care Team Description 12/20/2021 Telephone Gastroenterology - [address] [place] [phone] Amina Marte DScPAS Provider Call Back Social History Tobacco Use Types Packs/Day Years [...] suspected to have Coronavirus/COVID-19? No / Unsure 12/22/2021 10:51 AM EDT documented as of this encounter Miscellaneous Notes * Telephone Encounter - Tim Quiñonez - 12/21/2021 9:33 AM EDT I already send it. TY * Telephone Encounter - Martha Quiles M.A. - 12/21/2021 9:30 AM EDT Patient would like abx. * Telephone Encounter - Tim Quiñonez - 12/20/2021 1:25 PM EDT If experiencing flare now, I will be more than happy to give her more antibiotics ,so I will send it now to her pharmacy. TY * Telephone Encounter - Amrita Branch - 12/20/2021 12:59 PM EDT Patient states she is a patient of [employer] and is experiencing a diverticulitis flare. She is on Coumadin and knows a colonoscopy cannot be done now, but is wondering what course of treatment she would suggest. Vanessa can be reached at [phone]. documented in this encounter Plan of Treatment Not on file documented as of this encounter Visit Diagnoses Not on filedocumented in this encounter Care Teams Dominatrix Relationship Specialty Start Date End Date Wilner Murray MD [address] [place] [id number] PCP - General Internal Medicine 03/25/20 documented as of this encounter
--- OUTSIDE RECORDS SUMMARY | 2024-10-23 17:12 | XMS_ITS | Encounter Summary ---
Author Organization [facility] Address [address] [place] [address] Care Team Providers Care Cloth Cutting Inspector Name Role Phone Kevin Lechuga MD Primary Care Provider Unavail able Wilner Murray MD Primary Care Provider [phone] Encounter Details Date Type Department Care Team Description 05/11/2018 [facility] Medical Records [address] [place] [address] Willy Ames PA-C Social History Tobacco Use Types Packs/Day [...] on filedocumented in this encounter Care Teams Cloth Cutting Inspector Relationship Specialty Start Date End Date Kevin Lechuga MD PCP - General 09/27/01 03/24/20 Wilner Murray MD [address] [place] [id number] PCP - General Internal Medicine 03/25/20 documented as of this encounter
--- OUTSIDE RECORDS SUMMARY | 2024-10-23 17:12 | XMS_ITS | Encounter Summary ---
Author Organization [facility] Address [address] [place] [address] Care Team Providers Care Radio Frequency Design Engineer Name Role Phone Wilner Murray MD Primary Care Provider Encounter Details Date Type Department Care Team Description 06/05/2021 [facility] Medical Records [address] [place] [address] Sharee Christianson MD [address] [phone] Social History Tobacco Use Types Packs/Day Years [...] on filedocumented in this encounter Care Teams Radio Frequency Design Engineer Relationship Specialty Start Date End Date Wilner Murray MD [address] [place] [address] PCP - General Internal Medicine 03/25/20 documented as of this encounter
--- OUTSIDE RECORDS SUMMARY | 2024-10-23 17:12 | XMS_ITS | Encounter Summary ---
Author Organization [facility] Address [address] [place] [address] Care Team Providers Care Retail Sales Director Name Role Phone Wilner Murray MD Primary Care Provider [phone] Reason for Visit * Reason Onset Date Comments refill request 08/10/2022 Encounter Details Date Type Department Care Team Description 08/10/2022 Refill Adult Medicine [address] [address] Wilner Murray MD [address] [place] [address] refill request Social History Tobacco Use Types Packs/Day Years [...] suspected to have Coronavirus/COVID-19? No / Unsure 08/09/2022 12:41 PM EST documented as of this encounter Miscellaneous Notes * Telephone Encounter - Melvi Gutierrez PA-C - 08/11/2022 3:31 PM EST Okay to wait for PCP review upon return to office. Please forward for review. * Telephone Encounter - Sugar Griffin - 08/11/2022 3:12 PM EST Pt states she was getting this script drom Dr PASTRANA who no longer is in the practice, she was advised to call PCP for a refill. Pt was getting this med for fibromyalgia. * Telephone Encounter - Melvi Gutierrez PA-C - 08/11/2022 3:05 PM EST Listed as historic med. I do not see that it has been filled by PCP/team before. It was also not listed on last visit with PCP 05/24/22 in medication list in progress note. * Telephone Encounter - Adia Rider M.A. - 08/11/2022 1:47 PM EST Last office visit: 05.24.22 Lab Results Component Value Date NA 139 11/26/2020 K 3.9 11/26/2020 CO2 30 11/26/2020 CL 103 11/26/2020 BUN 11 11/26/2020 CREAT 0.76 2021 GLU 71 11/26/2020 CA 9.3 11/26/2020 GFR > 60 2021 * Telephone Encounter - Catarina Boothe - 08/10/2022 12:22 PM EST Patient would like script to be: E-PRESCRIBED/FAXED TO PHARMACY ?? WHEN WAS THE PATIENT'S LAST APPOINTMENT IN ADULT MEDICINE? 05/24/2022 ?? WHEN WAS THE LAST TIME THE PATIENT SAW THEIR PCP? Same as above ?? Does patient have an upcoming appointment? No ?? (THE MEDICATION REQUESTED IS ON THE MED LIST ABOVE) All of the medications requested were on the CURRENT MEDS list ?? Did you check the Pharmacy information above?: YES ?? Patient wants: 90 -day supply ?? Is this a mail order prescription request ? NO ?? If the refill is from a FAXED refill request what is the RX # listed on the fax? N/A ?? Patients current insurance carrier is: Payor: [facility] / Plan: [employer] / Product Type: OTHER ?? documented in this encounter Plan of Treatment Not on file documented as of this encounter Visit Diagnoses Not on filedocumented in this encounter Care Teams Retail Sales Director Relationship Specialty Start Date End Date Wilner Murray MD [address] [place] [address] PCP - General Internal Medicine 03/25/20 documented as of this encounter
--- OUTSIDE RECORDS SUMMARY | 2024-10-23 17:12 | XMS_ITS | Encounter Summary ---
Author Organization [facility] Address [address] [place] [address] Care Team Providers Care Garland Maker Name Role Phone Kevin Lechuga MD Primary Care Provider Unavail able Wilner Murray MD Primary Care Provider [phone] Encounter Details Date Type Department Care Team Description 11/30/2011 Release of Information Medical Records [address] [place] [id number] Abstract, Provider Social History Tobacco Use Types Packs/Day Years Used Date Smoking Tobacco: Some Days Cigarettes Last attempted to quit: 06/10/2010 Smokeless Tobacco: Never Alcohol Use Standard Drinks/Week Comments Yes 0 (1 standard drink = 0.6 oz pur e alcohol) socially Sex Assigned at Date Recorded Not on file Job Start Date Occupation Industry Not on file Not on file Not on file documented as of this encounter Plan of Treatment Not on file documented as of this encounter Visit Diagnoses Not on filedocumented in this encounter Care Teams Garland Maker Relationship Specialty Start Date End Date Kevin Lechuga MD PCP - General 09/27/01 03/24/20 Wilner Murray MD [address] [place] [address] PCP - General Internal Medicine 03/25/20 documented as of this encounter
--- OUTSIDE RECORDS SUMMARY | 2024-10-23 17:12 | XMS_ITS | Encounter Summary ---
Author Organization [facility] Address [address] [place] [address] Care Team Providers Care Lead Programmer Analyst Name Role Phone Wilner Murray MD Primary Care Provider [phone] Reason for Visit * Reason Onset Date Comments refill request 10/20/2022 Encounter Details Date Type Department Care Team Description 10/20/2022 Refill Endocrinology - [address] [address] Heavenly East PA-C [address] [place] [address] refill request Social History Tobacco Use Types [...] suspected to have Coronavirus/COVID-19? No / Unsure 10/12/2022 8:59 AM EST documented as of this encounter Miscellaneous Notes * Telephone Encounter - Heavenly East PA-C - 10/20/2022 2:19 PM EST No records of thyroid labs in the last 2 years. Refill needs to come from [facility] endocrinology. * Telephone Encounter - Indra Schaefer - 10/20/2022 1:30 PM EST [place] 09/19/22 Ov 11/22/22 Lab Results Component Value Date TSH 0.30 09/17/2020 * Telephone Encounter - Dameon Rodriguez - 10/20/2022 12:23 PM EST Patient would like script to be: E-PRESCRIBED/FAXED TO PHARMACY All of the medications requested were on the CURRENT MEDS list Did you check the Pharmacy information above?: YES Patient wants: 90 -day supply Is this a mail order prescription request ? NO If the refill is from a FAXED refill request what is the RX # listed on the fax? N/A Patients current insurance carrier is: Payor: [facility] / Plan: [facility] / Product Type: MEDICAID RISK documented in this encounter Plan of Treatment Not on file documented as of this encounter Visit Diagnoses Not on filedocumented in this encounter Care Teams Lead Programmer Analyst Relationship Specialty Start Date End Date Wilner Murray MD [address] [place] [address] PCP - General Internal Medicine 03/25/20 documented as of this encounter
--- OUTSIDE RECORDS SUMMARY | 2024-10-23 17:12 | XMS_ITS | Encounter Summary ---
Author Organization [facility] Address [address] [place] [address] Care Team Providers Care Water Purifier Operator Name Role Phone Wilner Murray MD Primary Care Provider [phone] Reason for Visit * Reason Comments E-prescribe Rx Request Encounter Details Date Type Department Care Team Description 11/04/2022 Refill Adult Medicine - [address] [address] Gautam Bravo, [place] [address] [place] [address] E-prescribe Rx Request Social History Tobacco Use [...] encounter Miscellaneous Notes * Telephone Encounter - Kinga Zambrano M.A. - 11/04/2022 2:10 PM EDT Last Office Visit 10/26/2022, no pending appt Lab Results Component Value Date TSH 0.30 09/17/2020 * Telephone Encounter - Petrona Hong - 11/04/2022 2:08 PM EDT Patient would like script to be: E-PRESCRIBED/FAXED TO PHARMACY WHEN WAS THE PATIENT'S LAST APPOINTMENT IN ADULT MEDICINE? 10/26/22 WHEN WAS THE LAST TIME THE PATIENT SAW THEIR PCP? 08/24/22 Does patient have an upcoming appointment? No (THE MEDICATION REQUESTED IS ON THE MED [...] N/A Patients current insurance carrier is: Payor: [facility] FFS / Plan: [facility] / Product Type: MEDICAID RISK documented in this encounter Plan of Treatment Not on file documented as of this encounter Visit Diagnoses Diagnosis Benign paroxysmal positional vertigo, unspecified laterality documented in this encounter Care Teams Water Purifier Operator Relationship Specialty Start Date End Date Wilner Murray MD [address] [place] [address] PCP - General Internal Medicine 03/25/20 documented as of this encounter
--- OUTSIDE RECORDS SUMMARY | 2024-10-23 17:12 | XMS_ITS | Encounter Summary ---
Author Organization [facility] Address [address] [place] [address] Care Team Providers Care Moisture Conditioner Operator Name Role Phone Wilner Murray MD Primary Care Provider [phone] Encounter Details Date Type Department Care Team Description 09/15/2022 Hydrogen Braze Furnace Operator Report Medical Records [address] [place] [address] Ron Murrieta MD Social History Tobacco Use Types Packs/Day [...] Recorded In the last 10 days, have orlin alcocer been in contact with someone who was confirmed or suspected to have Coronavirus/COVID-19? No / Unsure 09/14/2022 11:37 AM EST documented as of this encounter Plan of Treatment Not on file documented as of this encounter Visit Diagnoses Not on filedocumented in this encounter Care Teams Moisture Conditioner Operator Relationship Specialty Start Date End Date Wilner Murray MD [address] [place] [address] PCP - General Internal Medicine 03/25/20 documented as of this encounter
--- OUTSIDE RECORDS SUMMARY | 2024-10-23 17:12 | XMS_ITS | Encounter Summary ---
Author Organization [facility] Address [address] [place] [address] Care Team Providers Care Retrimmer Name Role Phone Kevin Lechuga MD Primary Care Provider Unavail able Wilner Murray MD Primary Care Provider [phone] Encounter Details Date Type Department Care Team Description 02/21/2011 Refill OBGYN - [address] [address] Galdino Horton MD Social History Tobacco Use Types Packs/Day [...] on filedocumented in this encounter Care Teams Retrimmer Relationship Specialty Start Date End Date Kevin Lechuga MD PCP - General 09/27/01 03/24/20 Wilner Murray MD [address] [place] [address] PCP - General Internal Medicine 03/25/20 documented as of this encounter
--- OUTSIDE RECORDS SUMMARY | 2024-10-23 17:12 | XMS_ITS | Encounter Summary ---
Author Organization [facility] Address [address] [place] [address] Care Team Providers Care Acquisition Associate Name Role Phone Wilner Murray MD Primary Care Provider [phone] Reason for Visit * Reason Comments E-prescribe Rx Request Encounter Details Date Type Department Care Team Description 10/01/2022 Refill Endocrinology - [address] [address] Heavenly East PA-C [address] [place] [address] E-prescribe Rx Request Social History Tobacco Use [...] encounter Miscellaneous Notes * Telephone Encounter - Bethany Del Cid M.A. - 10/01/2022 8:10 PM EST Last ov 09/19/22 Upcoming mark 11/22/22 with endo Last ref 09/19/22 Lab Results Component Value Date HGB 12.9 05/19/2022 HGB 13.2 2021 HGB 13.5 11/26/2020 HGB 14.1 11/10/2020 HGB 13.4 09/17/2020 documented in this encounter Plan of Treatment Not on file documented as of this encounter Visit Diagnoses Not on filedocumented in this encounter Care Teams Acquisition Associate Relationship Specialty Start Date End Date Wilner Murray MD [address] [place] [address] PCP - General Internal Medicine 03/25/20 documented as of this encounter
--- OUTSIDE RECORDS SUMMARY | 2024-10-23 17:12 | XMS_ITS | Encounter Summary ---
Author Organization [facility] Address [address] [place] [address] Care Team Providers Care Biostatistics Teacher Name Role Phone Wilner Murray MD Primary Care Provider [phone] Reason for Visit * Reason Comments E-prescribe Rx Request Encounter Details Date Type Department Care Team Description 11/04/2022 Refill Gastroenterology [address] [place] [phone] Amina Marte DScPAS E-prescribe Rx Request Social [...] on filedocumented in this encounter Care Teams Biostatistics Teacher Relationship Specialty Start Date End Date Wilner Murray MD [address] [place] [address] PCP - General Internal Medicine 03/25/20 documented as of this encounter
--- OUTSIDE RECORDS SUMMARY | 2024-10-23 17:12 | XMS_ITS | Encounter Summary ---
Author Organization [facility] Address [address] [place] [address] Care Team Providers Care Cab Driver Name Role Phone Wilner Murray MD Primary Care Provider [phone] Encounter Details Date Type Department Care Team Description 07/28/2021 Hat Brusher Machine Report Medical Records [address] [place] [address] Casey Solis MD Social History Tobacco Use Types Packs/Day [...] have Coronavirus / COVID-19? No / Unsure 07/14/2021 10:02 AM EST documented as of this encounter Plan of Treatment Not on file documented as of this encounter Visit Diagnoses Not on filedocumented in this encounter Care Teams Cab Driver Relationship Specialty Start Date End Date Wilner Murray MD [address] [place] [address] PCP - General Internal Medicine 03/25/20 documented as of this encounter
--- OUTSIDE RECORDS SUMMARY | 2024-10-23 17:12 | XMS_ITS | Encounter Summary ---
Author Organization [facility] Address [address] [place] [address] Care Team Providers Care Human Resources Talent Manager Name Role Phone Kevin Lechuga MD Primary Care Provider Unavail able Wilner Murray MD Primary Care Provider [phone] Encounter Details Date Type Department Care Team Description 02/24/2012 [facility] Medical Records [address] [place] [address] Galdino Horton MD Social History Tobacco Use [...] on filedocumented in this encounter Care Teams Human Resources Talent Manager Relationship Specialty Start Date End Date Kevin Lechuga MD PCP - General 09/27/01 03/24/20 Wilner Murray MD [address] [place] [address] PCP - General Internal Medicine 03/25/20 documented as of this encounter
--- OUTSIDE RECORDS SUMMARY | 2024-10-23 17:12 | XMS_ITS | Encounter Summary ---
Author Organization [facility] Address [address] [place] [address] Care Team Providers Care Environmental Health Technician Name Role Phone Kevin Lechuga MD Primary Care Provider [facility] Wilner Murray MD Primary Care Provider [phone] Encounter Details Date Type Department Care Team Description 05/24/2018 Director Market Intelligence Report Medical Records [address] [place] [address] Eliud Sherman NP Social History Tobacco Use Types Packs/Day Years [...] on filedocumented in this encounter Care Teams Environmental Health Technician Relationship Specialty Start Date End Date Kevin Lechuga MD PCP - General 09/27/01 03/24/20 Wilner Murray MD [address] [place] [address] PCP - General Internal Medicine 03/25/20 documented as of this encounter
--- OUTSIDE RECORDS SUMMARY | 2024-10-23 17:12 | XMS_ITS | Encounter Summary ---
Author [facility] Address [address] [place] [address] Care Team Providers Care Plaster Mechanic Name Role Phone Wilner Murray MD Primary Care Provider [phone] Encounter Details Date Type Department Care Team Description 07/06/2021 Dining Host Report Medical Records [address] [place] [address] Casey Solis MD Social History Tobacco Use [...] on filedocumented in this encounter Care Teams Plaster Mechanic Relationship Specialty Start Date End Date Wilner Murray MD [address] [place] [address] PCP - General Internal Medicine 03/25/20 documented as of this encounter
--- OUTSIDE RECORDS SUMMARY | 2024-10-23 17:12 | XMS_ITS | Encounter Summary ---
Author Organization [facility] Address [address] [place] [address] Care Team Providers Care Renal Nurse Name Role Phone Wilner Murray MD Primary Care Provider [phone] Reason for Visit * Reason Comments E-prescribe Rx Request Encounter Details Date Type Department Care Team Description 11/04/2022 Refill Adult Medicine B - [address] [address] José Manuel Townsend PA-C E-prescribe Rx Request Social History Tobacco Use [...] Encounter - Kinga Zambrano M.A. - 11/04/2022 2:08 PM EDT Last Office Visit: 10/26/2022, no pending appt Lab Results Component Value Date INR 3.0 10/26/2022 INR 2.3 10/12/2022 INR 1.6 10/05/2022 INR 2.0 09/21/2022 INR 2.0 09/14/2022 * Telephone Encounter - Petrona Hong - 11/04/2022 2:06 PM EDT Patient would like script to [...] N/A Patients current insurance carrier is: Payor: [facility] FFS / Plan: [facility] / Product Type: MEDICAID RISK documented in this encounter Plan of Treatment Not on file documented as of this encounter Visit Diagnoses Not on filedocumented in this encounter Care Teams Renal Nurse Relationship Specialty Start Date End Date Wilner Murray MD [address] [place] [address] PCP - General Internal Medicine 03/25/20 documented as of this encounter
--- OUTSIDE RECORDS SUMMARY | 2024-10-23 17:12 | XMS_ITS | Encounter Summary ---
Author Organization [facility] Address [address] [place] [address] Care Team Providers Care Supervisor Wet Room Name Role Phone Wilner Murray MD Primary Care Provider [phone] Encounter Details Date Type Department Care Team Description 08/04/2022 Ec Teacher Report Medical Records [address] [place] [address] Ilsa Ng MD Social History Tobacco Use Types Packs/Day [...] suspected to have Coronavirus/COVID-19? No / Unsure 08/02/2022 1:55 PM EST documented as of this encounter Plan of Treatment Not on file documented as of this encounter Visit Diagnoses Not on filedocumented in this encounter Care Teams Supervisor Wet Room Relationship Specialty Start Date End Date Wilner Murray MD [address] [place] [address] PCP - General Internal Medicine 03/25/20 documented as of this encounter
--- OUTSIDE RECORDS SUMMARY | 2024-10-23 17:13 | XMS_ITS | Encounter Summary ---
Author Organization [facility] Address [address] [place] [address] Care Team Providers Care Dance Historian Name Role Phone Kevin Lechuga MD Primary Care Provider Unavail able Wilner Murray MD Primary Care Provider [phone] Encounter Details Date Type Department Care Team Description 08/21/2014 Metal Burnisher Report Medical Records [address] [place] [address] Paola Mathis MD Social History Tobacco Use Types Packs/Day Years Used Date Smoking Tobacco: Former Cigarettes Smokeless Tobacco: Never Alcohol Use Standard Drinks/Week [...] on filedocumented in this encounter Care Teams Dance Historian Relationship Specialty Start Date End Date Kevin Lechuga MD PCP - General 09/27/01 03/24/20 Wilner Murray MD [address] [place] [address] PCP - General Internal Medicine 03/25/20 documented as of this encounter
--- OUTSIDE RECORDS SUMMARY | 2024-10-23 17:13 | XMS_ITS | Clinical Summary ---
Author Organization [place] [address] [address] [facility] Address [address] [place] [address] Phone Care Team Providers Care Day Care Supervisor Name Role Phone Wilner Murray MD Primary Care Provider [phone] Allergies No known active allergies Medications levothyroxine (SYNTHROID, LEVOTHROID) 150 mcg tablet Take 1 tablet (150 mcg total) by mouth 1 (one) time each day before breakfast. 02/19/20 24 Active blood sugar diagnostic (FreeStyle Lite Strips) test strip USE TWICE A DAY 07/04/20 23 Active lansoprazole (PREVACID) [address] capsule Take 1 Capsule by mouth daily. 12/08/19 23 Active blood-glucose meter kit To check sugars twice daily. E11.65 08/30/19 23 Active FREESTYLE LANCETS MISC To check sugars twice daily. E11.65 08/30/19 23 Active blood glucose control high,low (FreeStyle Control) solution E11.65. to use with glucometer. 08/30/19 23 Active predniSONE (DELTASONE) 2.5 mg tablet Take 1 tablet (2.5 mg total) by mouth 1 (one) time each day. 08/06/20 24 Active etanercept (ENBREL) 25 mg/0.5 mL (0.5) injection Inject 0.5 mL (25 mg total) under the skin 1 (one) time per week. Active Ventolin HFA 90 mcg/actuation inhaler INHALE 2 PUFFS INTO THE LUNGS EVERY 6 HOURS NEEDED FOR COUGH OR WHEEZING. 18 each 1 09/24/19 25 Active calcium citrate-vitami n D3 200 mg-6.25 mcg (250 unit) tablet Take 1 tablet by mouth 1 (one) time each day. 90 tablet 1 10/01/19 25 Active metFORMIN XR (GLUCOPHAGE-XR ) 500 mg 24 hr tablet Do not crush, chew, or split.TAKE 1 TABLETS TWICE DAILY WITH FOOD. 60 tablet 3 10/01/19 25 Active metFORMIN XR (GLUCOPHAGE-XR ) 500 mg 24 hr tablet TAKE 1 TABLETS TWICE DAILY WITH FOOD. 01/10/20 24 025 Discontinued(Re order) albuterol HFA (PROAIR HFA ; PROVENTIL HFA ; VENTOLIN HFA) 90 mcg/actuation inhaler Inhale 2 Puffs into the lungs every 6 hours as needed for Cough or Wheezing. 03/21/20 23 025 Discontinued calcium citrate-vitami n D3 200 mg-6.25 mcg (250 unit) tablet 200-250 Each. 12/26/19 18 025 Discontinued(Re order) Hospital, Clinic, or Other Facility Administered Medication Ordered Dose Route Frequency Start Date End Date Status lidocaine (PF) (XYLOCAINE-MPF) 1 % injection 0.5 mLIndications:Soft tissue mass .5 mL inj Once PRN Procedure 10/16/2024 10/16/2024 Ended triamcinolone acetonide (KENALOG-40) 40 mg/mL injection 20 mgIndications:Soft tissue mass 20 mg IAtc Once PRN Procedure 10/16/2024 10/16/2024 Ended Active Problems Problem Noted Date Diagnosed Date Skin and subcutaneous tissue disease 10/16/2024 Contracture of joint of right foot 10/16/2024 Acquired hammer toe of right foot 10/16/2024 Post-surgical hypothyroidism 09/03/2024 Stress incontinence (female) (male) 05/31/2023 Diabetes 08/26/2022 Rheumatoid arthritis involvi ng right hand with positive rheumatoid factor 06/23/2021 G6PD deficiency 03/15/2021 Liver cyst 03/15/2021 Overview (05/29/2024): 03/2021-previously incidental finding on chest CT, abdominal ultrasound confirmed presence of multiple septated cysts, MRI with contrast recommended and ordered, already following with gastroenterology. Hepatomegaly 03/15/2021 Overview (05/29/2024): 03/2021-incidental finding on sono abdomen, likely related to hepatic steatosis, following with gastroenterology Cholelithiasis 03/15/2021 Overview (05/29/2024): 03/2021-incidental finding on sono abdomen, no abdominal pain, no evidence of obstruction. Declined general surgery. LIN (obstructive sleep apnea) 05/23/2019 Right-sided low back pain without sciatica 08/28 Constipation 05/28/2018 Esophageal dysmotility 03/26/2018 Hiatal hernia 03/26/2018 Dysphagia 01/14/2016 Overview (05/29/2024): Ba swallow and speech pathology evaluation completed. Swallow and lifestyle modifications recommended. GERD (gastroesophageal reflux disease) 5 DJD (degenerative joint disease) of knee 015 BPV (benign positional vertigo) 01/08/2015 Parathyroid adenoma 11/27/2014 Overview (05/29/2024): Right and left superior--s/p excision 12/2014 Hyperparathyroidism 09/12/2014 Migraine 08/12/2008 Fibromyalgia 08/12/2008 Sleep disturbance 08/12/2008 Tension headache 08/12/2008 Depression 08/12/2008 Obesity (BMI 30-39.9) 10/13/2006 Encounters Date Type Department Care Team Description 10/21/2024 Telephone Internal Medicine - [facility] [address] [facility] [place] [phone] Wilner Murray MD nodules 10/16/2024 3:30 PM EST Office Visit Orthopedic Surgery [facility] [address] [place] [address] [address] [place] [address] Ministerio Arora, DPLidia Soft tissue mass (Primary Dx); Peripheral venous insufficiency; Skin and subcutaneous tissue disease; Contracture of joint of right foot; Acquired hammer toe of right foot 10/14/2024 Telephone Internal Medicine - [facility] [address] [facility] [place], [place] [phone] Wilner Murray MD Migraine 10/10/2024 4:00 PM EST Evaluation [facility] [address] [phone] Stephanie Javed, PT Benign paroxysmal positional vertigo, unspecified laterality (Primary Dx) 10/01/2024 Telephone Endocrinology - [address] [phone] [facility] [place] Medication Problem 10/01/2024 [facility]phone [facility] [address] [place], [place] [phone] Wilner Murray MD Referral (Ambulatory / [place] / [address] [facility]) 09/16/2024 2:27 PM EST - 09/16/2024 11:59 PM EST Hospital Encounter [facility] Xray [address] [place] [phone] Calculus of kidney Discharge Disposition: Home or Self Care 09/09/2024 3:19 PM EST - 09/09/2024 11:59 PM EST Hospital Encounter Ultrasound - [address] [phone] Leg mass, left Discharge Disposition: Home or Self Care 09/07/2024 10:51 AM EST - 09/07/2024 11:59 PM EST Hospital Encounter [facility] MRI [address] [place] [phone] Soft tissue mass Discharge Disposition: Home or Self Care 09/03/2024 4:16 PM EST - 09/03/2024 11:59 PM EST Hospital Encounter Radiology Department - [address] [phone] Post-surgical hypothyroidism Discharge Disposition: Home or Self Care 09/03/2024 3:40 PM EST Office Visit Endocrinology - [address] [phone] [facility] [place] Diabetes mellitus of other type without complication, unspecified whether fdc insulin use ([facility]) (Primary Dx); Post-surgical hypothyroidism 08/31/2024 10:34 AM EST - 08/31/2024 11:59 PM EST Hospital Encounter [facility] [address] [place] [phone] Encounter for screening mammogram for breast cancer Discharge Disposition: Home or Self Care 08/30/2024 10:30 AM EST [facility] [phone] Freida Lazo NP Leg mass, left (Primary Dx); Chronic pain of right ankle; Benign paroxysmal positional vertigo, unspecified laterality 08/30/2024 Telephone Orthopedic Surgery [facility] [address] [phone] Ministerio Arora DPM 08/29/2024 3:30 PM EST Office Visit Orthopedic [facility] [address] [phone] Ministerio Arora, DPM Soft tissue mass (Primary Dx); Right ankle pain; Peripheral venous insufficiency 08/16/2024 2:33 PM EST - 08/16/2024 11:59 PM EST Hospital Encounter [facility] Ultrasound [address] [place] [phone] Calculus of kidney Discharge Disposition: Home or Self Care 07/25/2024 Telephone Endocrinology [address] [phone] [facility] Advice Only 07/25/2024 [facility] [phone] Wilner Murray MD Leg Pain from Last 3 Months Immunizations Name Administration Dates Next Due H1N1 Inj Preservative Free 06/26/2009 Influenza Quadravalent, MDCK , 0.5ml, preservative free (Flucelvax) 6mo and older 05/31/2023,05/19/2022,04/24/2018 Influenza trivalent, 0.5mL, preservative free (Fluarix; FluLaval; Fluzone) ages 6mo and older (Afluria) 3 years and older 05/28/2017,05/14/2011,05/15/2010 Influenza, Unspecified 05/14/2020 Pfizer SARS-CoV-2 COVID-19, mRNA, LNP-S, preservative free 03/02/2021,02/05/2021 Pneumococcal polysaccharide 23 valent (Pneumovax 23) 2yo and older 09/17/2020 Td, Unspecified 03/02/2005 Tdap Tetanus diptheria acell ular pertussis (Boostrix; Adacel) 7yo and older 05/31/2023,02/07/2013 Surgical History Surgery Date Site/Laterality Comments COLONOSCOPY 03/07/2007 PROCEDURE:COLONOSCOPY COLONOSCOPY 04/24/2015 PROCEDURE:COLONOSCOPY COLONOSCOPY 03/12/2010 PROCEDURE:COLONOSCOPY TOTAL THYROIDECTOMY 02/2015 PROCEDURE:TOTAL THYROIDECTOMY TUBAL LIGATION 2020 PROCEDURE:TUBAL LIGATION UPPER GASTROINTESTINAL ENDOSCOPY 10/29/2015 PROCEDURE:UPPER GASTROINTESTINAL ENDOSCOPY COLONOSCOPY 03/07/2007 PROCEDURE: HISTORICAL COLONOSCOPY; COMMENT: adenoma; repeat in three years. TUBAL LIGATION 2011 PROCEDURE: HISTORICAL TUBAL LIGATION COLONOSCOPY 04/24/2015 PROCEDURE: HISTORICAL COLONOSCOPY; COMMENT: Diverticulosis, otherwise normal. RPt in 10 years THYROIDECTOMY 02/2015 PROCEDURE: HISTORICAL TOTAL THYROIDECTOMY UPPER GASTROINTESTINAL ENDOSCOPY 03/07/2007 PROCEDURE: AL UPPER GI ENDOSCOPY PERFORMED; COMMENT: small hiatus hernia UPPER GASTROINTESTINAL ENDOSCOPY 10/29/2015 PROCEDURE: AL UPPER GI ENDOSCOPY PERFORMED; COMMENT: Hiatal hernia, ren erosions, duodenal polyp COLONOSCOPY 03/12/2010 PROCEDURE: HISTORICAL COLONOSCOPY; COMMENT: diverticulosis; repeat in 5 years OTHER SURGICAL HISTORY 02/01/2022 PROCEDURE: AL SLCTV CATH PLMT LINDA SYS 2ND ORDER/> SLCTV BRANC OTHER SURGICAL HISTORY 02/01/2022 PROCEDURE: AL INTRAVASCULAR US NONCORONARY RS&I INTIAL VESSEL OTHER SURGICAL HISTORY 02/01/2022 PROCEDURE: AL INTRAVASCULAR US NONCORONARY RS&I ADDL VESSEL; COMMENT: x3 iliocaval venogram with vascular SECTION PROCEDURE: HISTORICAL DELIVERY; COMMENT: x1 Medical History Medical History Date Comments DVT (deep venous thrombosis) (CMS/HCC) DX:DVT (deep venous thrombosis) (HCC) Class 3 severe obesity due t o excess calories with serious comorbidity and body mass index (BMI) of 40.0 to 44.9 in adult (CMS/HCC) DX:Class 3 severe obesity du e to excess calories with serious comorbidity and body mass index (BMI) of 40.0 to 44.9 in adult (HCC) Acute pulmonary embolism ([facility]) DX:Acute pulmonary embolism (HCC) LIN (obstructive sleep apnea) DX :LIN (obstructive sleep apnea) Right low back pain DX:Right low back pain Constipation DX:Constipation Hiatal hernia DX:Hiatal hernia GERD (gastroesophageal reflux disease) DX:GERD (gastroesophageal reflux disease) DJD (degenerative joint disease) DX:DJD (degenerative joint disease) BPV (benign positional vertigo) DX:BPV (benign positional vertigo) Migraine DX:Migraine Fibromyalgia DX:Fibromyalgia Depression DX:Depression BPV (benign positional vertigo) 01/08/2015 DX:BPV (benign positional vertigo) Constipation 05/28/2018 DX:Constipation Depression 08/12/2008 DX:Depression DJD (degenerative joint dise ase) of knee 01/16/2015 DX:DJD (degenerative joint d isease) of knee Dysphagia 01/14/2016 DX:Dysphagia; CO MMENT: Ba swallow and speech pathology evaluation completed. Swallow and lifestyle modifications recommended. Esophageal dysmotility 03/26/2018 DX:Esopha geal dysmotility Fibromyalgia 08/12/2008 DX:Fibromyalgia Former smoker 07/28/2011 DX:Former smoker GERD (gastroesophageal reflux disease) 03/27/2015 DX:GERD (gastroesophageal reflux disease) Hiatal hernia 03/26/2018 DX:Hiatal hernia History of diverticulitis of colon 01/14/2006 DX:History of diverticulitis of colon; COMMENT: With abscess 05/2018, did not require surgery History of thyroid cancer 07/04/2014 DX:His tory of thyroid cancer; COMMENT: Papillary cancer, S/p thyroidectomy 12/2014 Migraine 08/12/2008 DX:Migraine Obesity (BMI 30-39.9) 10/13/2006 DX:Obesity (BMI 30-39.9) Parathyroid adenoma 11/27/2014 DX:Parathyro id adenoma; COMMENT: Right and left superior--s/p excision 12/2014 Sleep disturbance 08/12/2008 DX:Sleep distu rbance Tension headache 08/12/2008 DX:Tension head ache Diabetes (CMS/HCC) 08/26/2022 DX:Diabetes ( HCC) Hyperparathyroidism (CMS/HCC) 09/12/2014 DX :Hyperparathyroidism (HCC) Cholelithiasis 03/15/2021 DX:Cholelithiasi s; COMMENT: 03/2021-incidental finding on sono abdomen, no abdominal pain, no evidence of obstruction. Declined general surgery. Hepatomegaly 03/15/2021 DX:Hepatomegaly; COMMENT: 03/2021-incidental finding on sono abdomen, likely related to hepatic steatosis, following with gastroenterology Family History Medical History Relation Name Comments Breast cancer Aunt m. aunt mother's side Thyroid disease Brother No Known Problems Daughter 1 Multiple sclerosis Daughter 2 Marquita Other: diverticulosis Daughter 2 Marquita No Known Problems Daughter 3 Cataracts Father Diabetes Father Glaucoma Father Heart attack Father Hypertension Father Cancer Maternal Grandmother Dementia Maternal Grandmother Other Dermatological Disorders Maternal Grandmother skin cancer on face x 3 ...... specifics unknown Glaucoma Mother Cancer Mother's Sister No Known Problems Sister Relation Name Status Comments Aunt m. aunt Alive Brother Alive Daughter 1 Alive Daughter 2 [place] Alive Daughter 3 Alive Father Maternal Grandmother Mother Alive Mother's Sister Sister Alive Social History Tobacco Use Types Packs/Day Years Used Date Smoking Tobacco: Former Cigarettes 0 1996 - 08/14/2010 Smokeless Tobacco: Never Tobacco Cessation:Counseling Given: Not Answered Alcohol Use Standard Drinks/Week Comments No 0 (1 standard drink = 0.6 oz pur e alcohol) Housing Instability Answer Date Recorde d Are you worried that in the next 2 months you may not have stable housing? No 08/28/2024 Food Access & Nutrition Answer Date Rec orded Do you have access to a vari ety of food including fruits and vegetables? No 08/28/2024 Access to Healthcare Answer Date Record ed Within the last 3 months, ho w many times did you visit the emergency department for your medical care? 2 08/28/2024 Health Literacy Answer Date Recorded How often do you need to hav e someone help you when you read instructions, pamphlets, or other written material from your doctor or pharmacy? Rarely 08/28/2024 Caregiver: How often do you need to have someone help you when you read instructions, pamphlets, or other written material from your doctor or pharmacy? Not on file 08/28/2024 Financial Risk Answer Date Recorded How hard is it for you to pa y for the very basics like food, housing, medical care, and air conditioning / heating? Hard 08/28/2024 Transportation Answer Date Recorded Has the lack of transportati on kept you from meetings, work, or from getting things needed for daily living? No Has the lack of transportati on kept you from medical appointments or from getting medications? No 08/28/2024 Social Isolation Answer Date Recorded How often do you feel lonely or isolated from th ose around you? Never 08/28/2024 Food Risk Answer Date Recorded Within the past 12 months we worried whether our food would run out before we got money to buy more. Often true 025 Within the past 12 months th e food we bought just didn't last and we didn't have money to get more. Sometimes true 08/28/2024 Dependent Care Answer Date Recorded Do you need help finding or paying for care for your loved ones. For example, child abuse worker or elderly care for an older adult? No 08/28/2024 Education Answer Date Recorded Do you think completing more education or training, like finishing a GED, going to college, or learning a trade, would be helpful for you? No 08/28/2024 Employment and Income Answer Date Recor ded During the last four weeks, have you been actively looking for work? No 08/28/2024 Living Situation Answer Date Recorded What is your living situation? 0 08/28/2024 Comments No Sex and Gender Information Value Date Recorded Sex Assigned at Female 06/17/2024 10:07 AM EST Legal Sex Female 3:13 PM EST Gender Identity Female 06/17/2024 10:07 AM EST Sexual Orientation Straight 06/17/2024 10 :07 AM EST Obstetrics History Para Term AB IAB SAB Ectopic Multiple Livin g Live Births 3 Last Filed Vital Signs Vital Sign Reading Time Taken Comments Blood Pressure 132/86 09/03/2024 3:26 PM EST Pulse 80 09/03/2024 3:26 PM EST Temperature 36.2 ??C (97.2 ??F) 09/03/2024 3:26 PM ES T Respiratory Rate 16 07/24/2024 2:13 PM EST Oxygen Saturation 98% 09/03/2024 3:26 PM EST Inhaled Oxygen Concentration - - Weight 97.1 kg (214 lb) 10/16/2024 3:21 PM EST Height 157.5 cm (5' 2.01 ) 10/16/2024 3:21 PM ES T Body Mass Index 39.13 10/16/2024 3:21 PM EST Plan of Treatment Upcoming Encounters Date Type Department Care Team (Late st Contact Info) Description 10/30/2024 3:30 PM EDT Consult Vascular Surgery - [place] [address] [place] [phone] Rhona Egan PA 300 [facility] [address] [place] [address] 11/04/2024 4:00 PM EDT Treatment [facility] Outpatient Rehabilitation - [place] 175 [facility] [address] [place] [phone] Stephanie Javed PT 11/06/2024 3:20 PM EDT Office Visit Gastroenterology - [place] 175 [place] [address] [facility] [address] [place] [phone] Amina Marte PA 175 [facility] 200 [place] [address] 11/28/2024 3:30 PM EDT Office Visit Orthopedic Surgery - [place] [address] 175 [facility] 250 [place] [phone] Ministerio Arora DPM 175 [facility] 250 [place] [address] Scheduled Procedures Name Priority Associated Diagnoses Date/Ti me REVISION SCAR Skin and subcutaneous tissue disease 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 hammer toe of right foot Health Maintenance Due Date Last Done Comments Hepatitis B Vaccines (1 of 3 - 19+ 3-dose series) 1985 Zoster Vaccines (1 of 2) 1985 COVID-19 Vaccine (3 - Pfizer risk series) 03/30/2021 03/02/2021, 02/05/2021 Pneumococcal Vaccine: 50+ Years (2 of 2 - PCV) 09/17/2021 09/17/2020 Pneumococcal Vaccine: Pediatrics (0 to 5 Years) and At-Risk Patients (6 to 64 Years) (2 of 2 - PCV) 09/17/2021 09/17/2020 HIV Screening 07/22/2022 Cervical Cancer Screening: Pap Smear 09/04/2023 09/04/2020, 09/04/2020, 03/17/2016 Diabetes: Annual Foot Exam 05/31/2024 05/31/2023 Diabetes: Annual Retina Eye Exam 12/24/2024 12/25/2023 Diabetes: Blood Sugar Control Test (HGBA1C) 03/03/2025 09/03/2024, 07/15/2024, 01/10/2024, Additional history exists Diabetes: Annual Urine Albumin-Creatinine Ratio (uACR) 07/15/2025 07/15/2024, 01/10/2024 Diabetes: Annual GFR (Glomerular Filtration Rate) 07/24/2025 07/24/2024, 07/15/2024, 01/10/2024, Additional history exists Depression Screening 08/28/2025 08/28/2024, 05/31/20 23 Social Influencers of Health Screening 08/28/2025 08/28/2024 Breast Cancer Screening 08/31/2026 08/31/19, 07/31/2023, 12/18/2021, Additional history exists Colorectal Cancer Screening: Colonoscopy 04/06/2027 04/06/2022 Cholesterol Screening (Lipid Panel) 07/15/2029 07/15/2024, 01/10/2024, 01/10/2024 DTaP,Tdap,and Td Vaccines (4 - Td or Tdap) 05/31/2033 05/31/2023, 02/07/2013, 03/02/2005 Hepatitis C Screening Completed 2021 Influenza Vaccine Completed 06/04/2024, , 05/19/2022, Additional history exists HIB Vaccines Aged Out No longer eligi ble based on patient's age to complete this topic HPV Vaccines Aged Out No longer eligi ble based on patient's age to complete this topic Hepatitis A Vaccines Aged Out No long er eligible based on patient's age to complete this topic IPV Vaccines Aged Out No longer eligi ble based on patient's age to complete this topic MMR Vaccines Aged Out No longer eligi ble based on patient's age to complete this topic Meningococcal ACWY Vaccine Aged Out N o longer eligible based on patient's age to complete this topic Meningococcal B Vacine Aged Out No lo nger eligible based on patient's age to complete this topic RSV Immunization Patients Under 20 months Aged Out No longer eligible based on patient's age to complete this topic Varicella Vaccines Aged Out No longer eligible based on patient's age to complete this topic Procedures Procedure Name Priority Date/Time Associated Diagnosis Comments INJECTION TENDON OR LIGAMENT Routine 10/16/2024 3:30 PM EST Soft tissue mass XR ABDOMEN 1 VIEW Routine 09/16/2024 2:3 8 PM EST Calculus of kidney US EXTREMITY NONVASCULAR LIMITED LEFT Routine 09/09/2024 3:42 PM EST Leg mass, left MR ANKLE WO AND W CONTRAST RIGHT Routine 09/07/2024 12:54 PM EST Soft tissue mass US HEAD NECK SOFT TISSUE Routine 09/03/2024 4:33 PM EST Post-surgical hypothyroidism THYROGLOBULIN AND THYROGLOBULIN ANTIBODY PANEL Routine 09/03/2024 4:12 PM EST Post-surgical hypothyroidism THYROXINE FREE Routine 09/03/2024 4:12 PM EST Post-surgical hypothyroidism THYROID STIMULATING HORMONE Routine 09/03/2024 4:12 PM EST Post-surgical hypothyroidism HEMOGLOBIN A1C Routine 09/03/2024 4:12 PM EST Diabetes mellitus of other type without complication, 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 (CMS/HCC) POC GLUCOSE Routine 09/03/2024 3:34 PM EST Diabetes mellitus of other type without complication, 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 (CMS/HCC) MG MAMMO DIGITAL SCREENING W SANTOS BILAT Routine 08/31/2024 10:50 AM EST Encounter for screening mammogram for breast cancer XR ANKLE 3+ VIEWS RIGHT Routine 08/29/2024 4:28 PM EST Right ankle pain US RETROPERITONEAL COMPLETE Routine 08/16/2024 3:11 PM EST Calculus of kidney EXTERNAL XRAY REPORT 07/27/2024 EXTERNAL XRAY REPORT 07/27/2024 EXTERNAL XRAY REPORT 07/27/2024 EXTERNAL XRAY REPORT 07/27/2024 EXTERNAL XRAY REPORT 07/27/2024 EXTERNAL XRAY REPORT 07/27/2024 EXTERNAL XRAY REPORT 07/27/2024 EXTERNAL XRAY REPORT 07/27/2024 EXTERNAL XRAY REPORT 07/27/2024 BASIC METABOLIC PANEL STAT 07/24/2024 10:40 AM EST MICROALBUMIN CREATININE URINE RATIO Routine 07/15/2024 10:00 AM EST Type 2 diabetes mellitus with other specified complication, without long-term current use of insulin (CMS/HCC) LIPID PANEL WITH REFLEX TO DIRECT LDL Routine 07/15/2024 10:00 AM EST Type 2 diabetes mellitus with other specified complication, without long-term current use of insulin (CMS/HCC) DIABETES EYE EXAM Routine 12/25/2023 DEPRESSION SCREENING Routine 05/31/2023 DIABETES FOOT EXAM Routine 05/31/2023 COLONOSCOPY Routine 04/06/2022 HEPATITIS C SCREENING Routine 2021 PAP SMEAR Routine 09/04/2020 from Last 3 Months or Most Recently Relevant to Health Maintenance Results * Injection tendon or ligament (10/16/2024 3:30 PM EST) Narrative Ministerio Arora DPM - 10/16/2024 3:30 PM EST Ministerio Arora DPM ? 10/16/2024 ??5:21 PM Injection tendon or ligament Indications: pain Details: 25 G needle Medications: 0.5 mL lidocaine (PF) 1 %; 20 mg triamcinolone acetonide 40 mg/mL Informed Consent: ??Site: ??Foot ligament tendon us Ministerio Arora DPM IN CLINIC/BEDSIDE ORDERAB LES Final Result * XR Abdomen 1 View (09/16/2024 2:38 PM EST) Anatomical Region Laterality Modality Body Radiographic Kailey ging 09/16/2024 4:11 PM EST Impressions 09/16/2024 4:13 PM EST Impression: 1 mm left renal calculus[place] ([id number]) -------- FINAL REPORT -------- Dictated By: Reba Adrian Dictated Date: 09/16/2024 16:11 ET Assigned Physician: Reba Adrian Reviewed and Electronically Signed By: Reba Adrian Signed Date: 09/16/2024 16:13 ET Workstation ID: [id number] Transcribed By: Self Edit Transcribed Date: 09/16/2024 16:11 ET Narrative 09/16/2024 4:13 PM EST History: Calculus of kidney. Comparison: CT abdomen/pelvis 03/10/24 Findings: AP supine views of abdomen and pelvis. A 1 mm calcification projects over the left renal shadow suspicious for nonobstructing calculus, with CT correlation. The right renal shadow is largely obscured by overlying bowel contents. Cholecystectomy clips are demonstrated. Arterial and venous calcifications are seen within the pelvis. High attenuation material along the course of the distal colon may represent inspissated barium. The regional skeleton is intact. Procedure Note Reba Adrian MD - 09/16/2024 History: Calculus of kidney. Comparison: CT abdomen/pelvis 03/10/24 Findings: AP supine views of abdomen and pelvis. A 1 mm calcification projects overthe left renal shadow suspicious for nonobstructing calculus, with CTcorrelation. The right renal shadow is largely obscured by overlying bowelcontents. Cholecystectomy clips are demonstrated. Arterial and venous calcificationsare seen within the pelvis. High attenuation material along the course ofthe distal colon may represent inspissated barium. The regional skeleton is intact. IMPRESSION: Impression: 1 mm left renal calculus. Teleeva FIGUEROA ([id number]) -------- FINAL REPORT -------- Dictated By: Reba Adrian Dictated Date: 09/16/2024 16:11 ET Assigned Physician: Reba Adrian Reviewed and Electronically Signed By: Reba Adrian Signed Date: 09/16/2024 16:13 ET Workstation ID: [id number] Transcribed By: Self Edit Transcribed Date: 09/16/2024 16:11 ET us Marino FIGUEROA IMG XR PROCEDURES Final Result * US Extremity Nonvascular Limited Left (09/09/2024 3:42 PM EST) Anatomical Region Laterality Modality Extremity Left Ultrasound 09/09/2024 4:26 PM EST Narrative 09/09/2024 4:27 PM EST Limited ultrasound of the left lower extremity. History 2 soft tissue lumps. Examination was directed by the patient to the area of concern in the medial leg. No cystic or solid masses or focal fluid collections were identified. CONCLUSIONS: No ultrasonographic abnormalities in the region of concern. Please correlate clinically. -------- FINAL REPORT -------- Dictated By: Naa Bhatia Dictated Date: 09/09/2024 16:26 ET Assigned Physician: Naa Bhatia Reviewed and Electronically Signed By: Naa Bhatia Signed Date: 09/09/2024 16:27 ET Workstation ID: [id number] Transcribed By: Self Edit Transcribed Date: 09/09/2024 16:26 ET Procedure Note Naa Bhatia MD - 09/09/2024 Limited ultrasound of the left lower extremity. History 2 soft tissue lumps. Examination was directed by the patient to the area of concern in themedial leg. No cystic or solid masses or focal fluid collections were identified. CONCLUSIONS: No ultrasonographic abnormalities in the region of concern.Please correlate clinically. -------- FINAL REPORT -------- Dictated By: Naa Bhatia Dictated Date: 09/09/2024 16:26 ET Assigned Physician: Naa Bhatia Reviewed and Electronically Signed By: Naa Bhatia Signed Date: 09/09/2024 16:27 ET Workstation ID: [id number] Transcribed By: Self Edit Transcribed Date: 09/09/2024 16:26 ET us Freida Lazo ANIMAL CARE GIVER IMG US PROCEDURES Final Result * MR Ankle wo and w Contrast Right (09/07/2024 12:54 PM EST) Anatomical Region Laterality Modality Lower Extremities Right Magnetic Reson ance 09/09/2024 10:1 9 AM EST Impressions 09/09/2024 10:35 AM EST Ill-defined enhancement, edema, and thickening of the subcutaneous fat at the site of palpable concern and pain along the anterolateral upper ankle without a discrete mass or fluid collection. ??The findings are suggestive of an inflammatory process, likely a rheumatoid nodule given the patient's history of rheumatoid arthritis. -------- FINAL REPORT -------- Dictated By: Ren Arora Dictated Date: 09/09/2024 10:19 ET Assigned Physician: Ren Arora Reviewed and Electronically Signed By: Ren Arora Signed Date: 09/09/2024 10:35 ET Workstation ID: [id number] Transcribed By: Self Edit Transcribed Date: 09/09/2024 10:19 ET Narrative 09/09/2024 10:35 AM EST PROCEDURE: MRI of the right ankle with intravenous contrast. HISTORY: Ankle pain, neg xray. ??Right ankle soft tissue mass overlying the lateral ankle ligament ATFL. ??History of rheumatoid arthritis. COMPARISON: Radiographs dated 07/24/2024. TECHNIQUE: Multiplanar multisequence MRI of the right ankle with and without intravenous contrast administration. IV contrast dose: 19.5 mm Dotarem from a 20 mL vial with 0.5 mL discarded. FINDINGS: Tendons: The Achilles tendon is normal in caliber, contour, and signal. ??The peroneal tendons are normal. ??There is a small amount of fluid in the tibialis posterior tendon sheath. ??The tibialis posterior, flexor hallucis longus, and flexor digitorum tendons are normal. ??The extensor tendons are normal. Ligaments: The anterior and posterior tibiofibular and talofibular ligaments are normal. ??Calcaneofibular ligament is normal. ??Deltoid complex and spring ligaments are normal. Plantar fascia: Normal. Bones: Mild diffuse degenerative changes of the midfoot and the tarsometatarsal articulations. ??Fusion of the 1st tarsometatarsal joint with susceptibility artifact from sideplate and fixation screw hardware. ??Bony irregularity at the tip of the lateral malleolus. ??Moderate plantar calcaneal spur. Soft tissues: A marker was placed on the skin surface overlying the high anterolateral ankle to indicate a site of palpable concern. ??There is prominence of the underlying subcutaneous fat, with ill-defined T2 signal abnormality and enhancement. ?? Procedure Note Ren Arora MD - 09/09/2024 PROCEDURE: MRI of the right ankle with intravenous contrast. HISTORY: Ankle pain, neg xray. Right ankle soft tissue mass overlying thelateral ankle ligament ATFL. History of rheumatoid arthritis. COMPARISON: Radiographs dated 07/24/2024. TECHNIQUE: Multiplanar multisequence MRI of the right ankle with andwithout intravenous contrast administration. IV contrast dose: 19.5 mm Dotarem from a 20 mL vial with 0.5 mLdiscarded. FINDINGS: Tendons: The Achilles tendon is normal in caliber, contour, and signal.The peroneal tendons are normal. There is a small amount of fluid in thetibialis posterior tendon sheath. The tibialis posterior, flexor hallucislongus, and flexor digitorum tendons are normal. The extensor tendons arenormal. Ligaments: The anterior and posterior tibiofibular and talofibularligaments are normal. Calcaneofibular ligament is normal. Deltoidcomplex and spring ligaments are normal. Plantar fascia: Normal. Bones: Mild diffuse degenerative changes of the midfoot and thetarsometatarsal articulations. Fusion of the 1st tarsometatarsal jointwith susceptibility artifact from sideplate and fixation screw hardware.Bony irregularity at the tip of the lateral malleolus. Moderate plantarcalcaneal spur. Soft tissues: A marker was placed on the skin surface overlying the highanterolateral ankle to indicate a site of palpable concern. There isprominence of the underlying subcutaneous fat, with ill-defined T2 signalabnormality and enhancement. IMPRESSION: Ill-defined enhancement, edema, and thickening of the subcutaneous fat atthe site of palpable concern and pain along the anterolateral upper anklewithout a discrete mass or fluid collection. The findings are suggestiveof an inflammatory process, likely a rheumatoid nodule given the patient'shistory of rheumatoid arthritis. -------- FINAL REPORT -------- Dictated By: Ren Arora Dictated Date: 09/09/2024 10:19 ET Assigned Physician: Ren Arroa Reviewed and Electronically Signed By: Ren Arora Signed Date: 09/09/2024 10:35 ET Workstation ID: [id number] Transcribed By: Self Edit Transcribed Date: 09/09/2024 10:19 ET us Ministerio Arora DPLidia IMG MRI PROCEDURES Final Result * US Head Neck Soft Tissue (09/03/2024 4:33 PM EST) Anatomical Region Laterality Modality Head and Neck Ultrasound 09/03/2024 7:11 PM EST Impressions 09/03/2024 7:17 PM EST Status post thyroidectomy. ??No abnormality in the thyroid bed. ??No cervical lymph nodes identified. POS - [id number] -------- FINAL REPORT -------- Dictated By: Patricia Estrada Dictated Date: 09/03/2024 19:11 ET Assigned Physician: Patricia Estrada Reviewed and Electronically Signed By: Patricia Estrada Signed Date: 09/03/2024 19:17 ET Workstation ID: [id number] Transcribed By: Self Edit Transcribed Date: 09/03/2024 19:11 ET Narrative 09/03/2024 7:17 PM EST EXAM: Thyroid ultrasound HISTORY: Postsurgical hypothyroidism. ??History of thyroid cancer status post thyroidectomy in 2014. COMPARISON: 07/31/2023 FINDINGS: Thyroid gland is surgically absent. ??No abnormality identified in the thyroid bed. ??No cervical lymph nodes identified. Procedure Note Patricia Estrada MD - 09/03/2024 EXAM: Thyroid ultrasound HISTORY: Postsurgical hypothyroidism. History of thyroid cancer statuspost thyroidectomy in 2014. COMPARISON: 07/31/2023 FINDINGS: Thyroid gland is surgically absent. No abnormality identified in thethyroid bed. No cervical lymph nodes identified. IMPRESSION: Status post thyroidectomy. No abnormality in the thyroid bed. Nocervical lymph nodes identified. POS - [id number] -------- FINAL REPORT -------- Dictated By: Patricia Estrada Dictated Date: 09/03/2024 19:11 ET Assigned Physician: Patricia Estrada Reviewed and Electronically Signed By: Patricia Estrada Signed Date: 09/03/2024 19:17 ET Workstation ID: [id number] Transcribed By: Self Edit Transcribed Date: 09/03/2024 19:11 ET us Heavenly FIGUEROA IMG US PROCEDURES Final Result * Thyroglobulin and thyroglobulin antibody panel (09/03/2024 4:12 PM EST) Thyroglobulin Antibody <2 <4 IU/mL 09/06/2024 3:25 PM EST [facility] Thyroglobulin 0.2 SeeBelow ng/mL 09/06/2024 3:25 PM EST [facility] Comment: Thyroglobulin Reference Range: Intact thyroid: 1.6-50.0 ng/mL Athyrotic, post-thyroidectomy (tumor marker): <0.1 ng/mL Thyroglobulin antibodies can interfere with the determination of thyroglobulin. If the specimen contains thyroglobulin antibodies, please interpret the thyroglobulin result with caution. The [employer] DXI chemiluminescent immunoassay is used. Results obtained with different assay methods or kits cannot be used interchangeably. Results cannot be interpreted as absolute evidence of the presence or absence of malignant disease. Test performed at [facility], [facility] [place] ??[address] ? [phone] Mary Lou Ramirez MD, PhD - Transport Medic Blood Venous blood specimen / Unknown Venipuncture / Unknown 09/03/2024 4:12 PM EST 09/03/2024 4:12 PM EST us Heavenly FIGUEROA LAB BLOOD ORDERABLES Final Resul [place] [address] * Thyroid stimulating hormone (09/03/2024 4:12 PM EST) TSH 2.80 0.40 - 4.00 mcIU/mL LAB CHEMISTRY METHOD 09/03/2024 6:54 PM EST [facility] Blood Venous blood specimen / Unknown Venipuncture / Unknown 09/03/2024 4:12 PM EST 09/03/2024 4:12 PM EST us Heavenly FIGUEROA LAB BLOOD ORDERABLES Final Resul t Performing Organization Address [facility] de Phone Number [facility] [address] [place] [address], [place] [phone] * Thyroxine free (09/03/2024 4:12 PM EST) Free T4 1.15 0.70 - 1.80 ng/dL LAB CHEMISTRY METHOD 09/03/2024 6:53 PM EST [facility] Blood Venous blood specimen / Unknown Venipuncture / Unknown 09/03/2024 4:12 PM EST 09/03/2024 4:12 PM EST Heavenly FIGUEROA LAB BLOOD ORDERABLES Final Resul t Performing Organization Address City/[facility] de Phone Number [facility] [address] [place] [address], [place] [phone] * Hemoglobin A1c (09/03/2024 4:12 PM EST) Hemoglobin A1C 6.4 <6.5 % LAB CHEMISTRY METHOD 09/03/2024 9:39 PM EST [facility] Mean Bld Glu Estim. 137 mg/dL LAB CHEMISTRY METHOD 09/03/2024 9:39 PM EST [facility] Blood Venous blood specimen / Unknown Venipuncture / Unknown 09/03/2024 4:12 PM EST 09/03/2024 4:12 PM EST Heavenly FIGUEROA LAB BLOOD ORDERABLES Final Resul t [facility] [address] [place] [address], [place] [phone] * POC glucose manually resulted (09/03/2024 3:34 PM EST) Glucose POC 131 mg/dL Comment:non fasting Blood Capillary blood specimen / Unknown 09/03/2024 3:34 PM EST Heavenly FIGUEROA POINT OF CARE TEST ENTER/EDIT OR DERABLES Final Result * MG Mammo Digital Screening w Santos bilat (08/31/2024 10:50 AM EST) Anatomical Region Laterality Modality Breast Bilateral Mammography 09/03/2024 12:1 9 PM EST Impressions 09/03/2024 12:28 PM EST No mammographic evidence of malignancy. A negative mammogram in the presence of a clinically suspicious palpable abnormality does not preclude the possibility of malignancy or alter the indications for biopsy. PQRI CPT II 3342F Code 84091, 91080 PQRI 225 CPT II 7025F TISSUE DENSITY: The breasts are almost entirely fatty. (BI-RADS ??Category A) IMPRESSION: Benign. BI-RADS CATEGORY: 2 - BENIGN RECOMMENDATION: Screening bilateral mammogram is recommended in 1 year. Mammo Location: [facility], [address] [place] [id number] -------- FINAL REPORT -------- Dictated By: Kev Olivarez Dictated Date: 09/03/2024 12:19 ET Assigned Physician: Kev Olivarez Reviewed and Electronically Signed By: Kev Olivarez Signed Date: 09/03/2024 12:28 ET Workstation ID: [id number] Transcribed By: Self Edit Transcribed Date: 09/03/2024 12:19 ET Narrative 09/03/2024 12:28 PM EST CLINICAL: The patient is a 59 years Female presenting for routine screening mammography. COMPARISON: Outside studies most recently 07/31/2023 and most remotely 11/15/2017 ?? TECHNIQUE: Full-field digital mammography of the breasts bilaterally consisting of tomosynthesis in MLO and CC projection is performed in the [employer] 2000-D unit. ??Computer aided detection utilizing the iCAD system was utilized. FINDINGS: The breasts are again seen to be largely fatty replaced. ??Multiple rim calcifications in the axillae bilaterally, likely representing calcified lymph nodes, are present on previous outside mammograms dating back to 11/15/2017. ??A few scattered benign punctate calcifications are again seen bilaterally. ??An 1.3 x 0.7 cm nodular density anteriorly in the upper outer quadrant of the right breast is stable over many years and is therefore again regarded as being benign. ??There is no suspicious cluster of microcalcifications, suspicious mass, or area of architectural distortion. There is no skin thickening or nipple retraction. Procedure Note Kev Olivarez MD - 09/03/2024 CLINICAL: The patient is a 59 years Female presenting for routinescreening mammography. COMPARISON: Outside studies most recently 07/31/2023 and most remotely11/15/2017 TECHNIQUE: Full-field digital mammography of the breasts bilaterallyconsisting of tomosynthesis in MLO and CC projection is performed in the[employer] 2000-D unit. Computer aided detection utilizing the [employer]CADsystem was utilized. FINDINGS: The breasts are again seen to be largely fatty replaced.Multiple rim calcifications in the axillae bilaterally, likelyrepresenting calcified lymph nodes, are present on previous outsidemammograms dating back to 11/15/2017. A few scattered benign punctatecalcifications are again seen bilaterally. An 1.3 x 0.7 cm nodulardensity anteriorly in the upper outer quadrant of the right breast isstable over many years and is therefore again regarded as being benign.There is no suspicious cluster of microcalcifications, suspicious mass, orarea of architectural distortion. There is no skin thickening or nippleretraction. IMPRESSION: No mammographic evidence of malignancy. A negative mammogram in the presence of a clinically suspicious palpableabnormality does not preclude the possibility of malignancy or alter theindications for biopsy. PQRI CPT II 3342F Code 63590, 76429 PQRI 225 CPT II 7025F TISSUE DENSITY: The breasts are almost entirely fatty. (BI-RADS CategoryA) IMPRESSION: Benign. BI-RADS CATEGORY: 2 - BENIGN RECOMMENDATION: Screening bilateral mammogram is recommended in 1 year. Mammo Location: [facility], [address] [place] [id number] -------- FINAL REPORT -------- Dictated By: Kev Olivarez Dictated Date: 09/03/2024 12:19 ET Assigned Physician: Kev Olivarez Reviewed and Electronically Signed By: Kev Olivarez Signed Date: 09/03/2024 12:28 ET Workstation ID: [id number] Transcribed By: Self Edit Transcribed Date: 09/03/2024 12:19 ET us Self Referral Sppl IMG BI PROCEDURES Final Resul t * XR Ankle 3+ Views Right (08/29/2024 4:28 PM EST) Anatomical Region Laterality Modality Lower Extremities, Ankle Right Compute d Radiography Narrative 08/29/2024 5:25 PM EST Right ankle 3 views Normal ankle radiographs us Ministerio Arora DPLidia IMG XR PROCEDURES Final R esult * US Retroperitoneal Complete (08/16/2024 3:11 PM EST) Anatomical Region Laterality Modality Body Ultrasound 08/22/2024 11:1 5 AM EST Impressions 08/22/2024 11:20 AM EST Normal examination the kidneys. None of the renal calculi seen on CT scan of the abdomen and pelvis performed 03/10/2024 are visualized. Mild right hydronephrosis seen at that time is not demonstrated currently. Evaluation of the urinary bladder is extremely limited in the absence of bladder perforation preparation. Code 57093 G9551 -------- FINAL REPORT -------- Dictated By: Kev Olivarez Dictated Date: 08/22/2024 11:15 ET Assigned Physician: Kev Olivarez Reviewed and Electronically Signed By: Kev Olivarez Signed Date: 08/22/2024 11:20 ET Workstation ID: [id number] Transcribed By: Self Edit Transcribed Date: 08/22/2024 11:15 ET Narrative 08/22/2024 11:20 AM EST HISTORY: The patient is a 59-year-old female. CT scan of the abdomen and pelvis performed 03/10/2024 demonstrated an obstructing calculus in the distal right ureter, as well is small bilateral nonobstructing renal calculi. The patient now presents for follow-up. FINDINGS: Real-time ultrasonography of the kidneys is performed. The right kidney is normal in size and appearance, measuring 11.9 cm in length. There is normal cortical thickness and no mass, calculus, or hydronephrosis is seen. Mild right hydronephrosis seen on the CT scan performed 03/10/2024 has resolved. The left kidney is also normal in size and appearance, measuring 11.6 cm in length. There is normal cortical thickness and no mass, calculus, or hydronephrosis is seen. Evaluation of the urinary bladder is quite limited as it is nearly collapsed in the absence of preparation. Neither ureteral jet was unable to be visualized. Procedure Note Kev Olivarez MD - 08/22/2024 HISTORY: The patient is a 59-year-old female. CT scan of the abdomen andpelvis performed 03/10/2024 demonstrated an obstructing calculus in thedistal right ureter, as well is small bilateral nonobstructing renalcalculi. The patient now presents for follow-up. FINDINGS: Real-time ultrasonography of the kidneys is performed. The rightkidney is normal in size and appearance, measuring 11.9 cm in length.There is normal cortical thickness and no mass, calculus, orhydronephrosis is seen. Mild right hydronephrosis seen on the CT scanperformed 03/10/2024 has resolved. The left kidney is also normal in sizeand appearance, measuring 11.6 cm in length. There is normal corticalthickness and no mass, calculus, or hydronephrosis is seen. Evaluation of the urinary bladder is quite limited as it is nearlycollapsed in the absence of preparation. Neither ureteral jet was unableto be visualized. IMPRESSION: Normal examination the kidneys. None of the renal calculi seen on CT scanof the abdomen and pelvis performed 03/10/2024 are visualized. Mild righthydronephrosis seen at that time is not demonstrated currently. Evaluationof the urinary bladder is extremely limited in the absence of bladderperforation preparation. Code 44969 G9551 -------- FINAL REPORT -------- Dictated By: Kev Olivarez Dictated Date: 08/22/2024 11:15 ET Assigned Physician: Kev Olivarez Reviewed and Electronically Signed By: Kev Olivarez Signed Date: 08/22/2024 11:20 ET Workstation ID: [id number] Transcribed By: Self Edit Transcribed Date: 08/22/2024 11:15 ET us Marino FIGUEROA IMG US PROCEDURES Final Result * External Xray Report (07/27/2024) Only the most recent of9 resultswithin the time period is included. Anatomical Region Laterality Modality Radiographic Kailey ging us Provider [facility] IMG XR PROCEDURES Final Result * (ABNORMAL) Basic metabolic panel (07/24/2024 10:40 AM EST) Sodium 139 133 - 145 mmol/L LAB CHEMISTRY METHOD 07/24/2024 11:50 AM [facility] Potassium 4.0 3.5 - 5.5 mmol/L LAB CHEMISTRY METHOD 07/24/2024 11:50 AM [facility] Chloride 105 96 - 110 mmol/L LAB CHEMISTRY METHOD 07/24/2024 11:50 AM [facility] CO2 27 21 - 32 mmol/L LAB CHEMISTRY METHOD 07/24/2024 11:50 AM [facility] Anion Gap 7 3 - 11 LAB CHEMISTRY METHOD 07/24/2024 11:50 AM [facility] Glucose 116(H) 70 - 100 mg/dL LAB CHEMISTRY METHOD 07/24/2024 11:50 AM [facility] BUN 16 5 - 25 mg/dL LAB CHEMISTRY METHOD 07/24/2024 11:50 AM [facility] Creatinine 0.67 0.50 - 1.10 mg/dL LAB CHEMISTRY METHOD 07/24/2024 11:50 AM [facility] eGFR 101 >=60 mL/min/1. 73m2 LAB CHEMISTRY METHOD 07/24/2024 11:50 AM [facility] Comment:Calculation based on the??Chronic Kidney Disease Epidemiology Collaboration (CKD-EPI) equation refit??without adjustment for race. BUN/Creatinine Ratio 23.9 LAB CHEMISTRY METHOD 07/24/2024 11:50 AM [facility] Calcium 9.6 8.5 - 10.5 mg/dL LAB CHEMISTRY METHOD 07/24/2024 11:50 AM [facility] Blood Venous blood specimen / Unknown Venipuncture / Unknown 07/24/2024 10:40 AM EST 07/24/2024 11:16 AM EST us Dayanna FIGUEROA LAB BLOOD ORDERABLES Final Re sult [facility] [address] [place] [address], * (ABNORMAL) Lipid panel with reflex to direct LDL (07/15/2024 10:00 AM EST) Cholesterol 175 0 - 200 mg/dL LAB CHEMISTRY METHOD 07/15/2024 3:40 PM [facility] Triglycerides 154(H) 0 - 150 mg/dL LAB CHEMISTRY METHOD 07/15/2024 3:40 PM [facility] HDL 62 >=40 mg/dL LAB CHEMISTRY METHOD 07/15/2024 3:40 PM EST [facility] LDL Calculated 82 0 - 100 mg/dL LAB CHEMISTRY METHOD 07/15/2024 3:40 PM EST [facility] VLDL Cholesterol Molina 30.8 mg/dL LAB CHEMISTRY METHOD 07/15/2024 3:40 PM [facility] Non HDL Chol. (LDL+VLDL) 113 <145 mg/dL LAB CHEMISTRY METHOD 07/15/2024 3:40 PM [facility] Chol/HDL Ratio 2.8 0.0 - 4.4 LAB CHEMISTRY METHOD 07/15/2024 3:40 PM [facility] Blood Venous blood specimen / Unknown Venipuncture / Unknown 07/15/2024 10:00 AM EST 07/15/2024 10:00 AM EST us Wilner Murray MD LAB BLOOD ORDERABLES Final Res ult [facility] [address] [place] [address], [place] [phone] * (ABNORMAL) Microalbumin creatinine urine ratio (07/15/2024 10:00 AM EST) Creatinine, Urine 138.0 mg/dL LAB CHEMISTRY METHOD 07/15/2024 3:04 PM [facility] Microalb, Ur 61.7(H) 0.0 - 29.0 mg/L LAB CHEMISTRY METHOD 07/15/2024 3:04 PM [facility] Microalb/Crea t Ratio 45(H) <30 mg/g creat LAB CHEMISTRY METHOD 07/15/2024 3:04 PM [facility] Urine Urine specimen obtained by clean catch procedure / Unknown Non-blood Collection / Unknown 07/15/2024 10:00 AM EST 07/15/2024 10:00 AM EST us Wilner Murray MD LAB URINE ORDERABLES Final Res ult [facility] ([facility]) [facility] [address] [place] [address], [place] [phone] * Diabetes Eye Exam (12/25/2023) [facility] Diabetes: Annual Retina Eye Exam abstracted Historical Provider HEALTH MAINTENANCE Final Result * Depression Screening (05/31/2023) [facility] Depression Screening abstracted [facility] Provider MD HEALTH MAINTENANCE Final Result * Diabetes Foot Exam (05/31/2023) [facility] Diabetes: Annual Foot Exam abstracted [facility] Provider HEALTH MAINTENANCE Final Result * Colonoscopy (04/06/2022) [facility] Colonoscopy no interpretation , abstracted Anatomical Region Laterality Modality Other [facility] Provider HEALTH MAINTENANCE Final Result * Hepatitis C Screening (2021) [facility] Hepatitis C Screening abstracted [facility] Provider HEALTH MAINTENANCE Final Result * Pap smear (09/04/2020) 09/04/2020 Narrative HISTORICAL TESTING LAB RESULTING AGENCY - 09/08/2020 10:55 AM EST [id number] THINPREP PAP, IMAGED: NEGATIVE FOR SQUAMOUS INTRAEPITHELIAL LESION AND MALIGNANCY . ABUNDANT PARTIALLY OBSCURING ACUTE INFLAMMATORY CELLS ARE PRESENT. GAYLE COE(ASCP) (CASE ELECTRONICALLY SIGNED 09 08 2020) RESULT OF APTIMA HIGH RISK HPV ASSAY: HIGH RISK HPV: ??NEGATIVE (SEROTYPES 16,18,31,33,35,39,45,51,52,56,58,59,66,68) COMPLETED ON 2020-09-08 ADEQUACY: SATISFACTORY ENDOCERVICAL/TRANSFORMATION ZONE COMPONENT PRESENT. SOURCE: THINPREP PAP HPV ANY DX: ??REFLEX 16 AND 18, CERVICAL, IMAGED CLINICAL INFORMATION: HPV ANY DIAGNOSIS. HORMONES, PAP HX NEG, LMP 11/26/2008 [Z12.4, Z01.419] Trini Kennedy DO LAB CYTOLOGY ORDERABLES Final Result HISTORICAL TESTING LAB RESULTING AGENCY from Last 3 Months or Most Recently Relevant to Health Maintenance Insurance * Guarantor: Vanessa Myers Account Type Relation to Patient Date of Phone Billing Address Personal/Family Self 1965 [phone] (Work) [address] [place] [address] [facility] Advance Directives Documents on File Type Date Recorded Patient Electrolysis Investigator Expl anation Health Care Decision (hx) 06/05/2021 AD ZHAO DIRECTIVE Health Care Decision (hx) 06/05/2021 AD ZHAO DIRECTIVE Health Care Decision (hx) 06/05/2021 AD ZHAO DIRECTIVE Health Care Decision (hx) 06/05/2021 AD ZHAO DIRECTIVE Health Care Decision (hx) 06/05/2021 AD ZHAO DIRECTIVE Health Care Decision (hx) 06/05/2021 AD ZHAO DIRECTIVE Health Care Decision (hx) 06/05/2021 AD ZHAO DIRECTIVE Health Care Decision (hx) 06/05/2021 AD ZHAO DIRECTIVE Health Care Decision (hx) 06/05/2021 AD ZHAO DIRECTIVE Health Care Decision (hx) 06/05/2021 AD ZHAO DIRECTIVE Health Care Decision (hx) 06/05/2021 AD ZHAO DIRECTIVE Health Care Decision (hx) 06/05/2021 AD ZHAO DIRECTIVE Health Care Decision (hx) 06/05/2021 AD ZHAO DIRECTIVE Health Care Decision (hx) 06/05/2021 AD ZHAO DIRECTIVE Health Care Decision (hx) 06/05/2021 AD ZHAO DIRECTIVE Health Care Decision (hx) 06/05/2021 AD ZHAO DIRECTIVE Health Care Decision (hx) 06/05/2021 AD ZHAO DIRECTIVE Health Care Decision (hx) 06/05/2021 AD ZHAO DIRECTIVE Health Care Decision (hx) 06/05/2021 AD ZHAO DIRECTIVE Health Care Decision (hx) 06/05/2021 AD ZHAO DIRECTIVE Health Care Decision (hx) 06/05/2021 AD ZHAO DIRECTIVE Care Teams Day Care Supervisor Relationship Specialty Start Date End Date Wilner Murray MD [address] [place] [address] PCP - General Internal Medicine 03/25/20
--- OUTSIDE RECORDS SUMMARY | 2024-10-23 17:13 | XMS_ITS | Encounter Summary ---
Author Organization [employer] Address [address] [place] [address] Care Team Providers Care Scheduling Coordinator Name Role Phone Wilner Murray MD Primary Care Provider [phone] Reason for Visit * Consultation (Routine) - Authorized Specialty Diagnoses / Procedures Referred By Delfino fernandez Referred To Contact Physical Therapy Diagnoses Benign paroxysmal positional vertigo, unspecified laterality Freida Lazo NP [address] [place] [address] Phone: tel: fax: Referral ID Status Reason Start Date Expiration Date Visits Requested Visits Authorized [id number] Authorized Specialty Services Required 08/30/2024 08/30/2025 21 21 Encounter Details Date Type Department Care Team (Latest Contact Info) Description 10/10/2024 4:00 PM EST Evaluation [facility] [address] [phone] Stephanie Javed PT Benign paroxysmal positional vertigo, unspecified laterality (Primary Dx) Social History Tobacco Use Types Packs/Day Years [...] care for your loved ones. For example, children teacher or elderly care for an older adult? [...] Orientation Straight 06/17/2024 10 :07 AM EST documented as of this encounter Progress Notes * Stephanie Javed PT - 10/10/2024 4:00 PM EST [facility] - Outpatient PHYSICAL THERAPY EVALUATION Date: 10/10/2024 Visit Number: 1 Patient Name: Vanessa Myers : 1965 Age: 59 y.o. Gender: female Diagnosis: ICD-10-CM ICD-9-CM 1. Benign paroxysmal positional vertigo, unspecified laterality H81.10 386.11 Ambulatory referral to Physical Therapy and Athletic Training Date of Onset/Surgery: 3-4 mo Referring Provider: Freida Lazo NP Insurance: Payor: [employer] / Plan: [place] / Product Type: *No Product type* / Patient identified by: Stephanie Javed PT Language: Speaks and understands Dutch as preferred language with no electric meter repairer apprentice required Chart Reviewed: Yes Medications: Current Outpatient Medications on File Prior to Visit Medication Sig Dispense Refill blood glucose control high,low (FreeStyle Control) solution E11.65. to use with glucometer. blood sugar diagnostic (FreeStyle Lite Strips) test strip USE TWICE A DAY blood-glucose meter kit To check sugars twice daily. E11.65 calcium citrate-vitamin D3 200 mg-6.25 mcg (250 unit) tablet Take 1 tablet by mouth 1 (one) time each day. 90 tablet 1 etanercept (ENBREL) 25 mg/0.5 mL (0.5) injection Inject 0.5 mL (25 mg total) under the skin 1 (one)time per week. FREESTYLE LANCETS MISC To check sugars twice daily. E11.65 lansoprazole (PREVACID) [address] capsule Take 1 Capsule by mouth daily. levothyroxine (SYNTHROID, LEVOTHROID) 150 mcg tablet Take 1 tablet (150 mcg total) by mouth 1 (one)time each day before breakfast. metFORMIN XR (GLUCOPHAGE-XR) 500 mg 24 hr tablet Do not crush, chew, or split.TAKE 1 TABLETS TWICE DAILY WITH FOOD. 60 tablet 3 predniSONE (DELTASONE) 2.5 mg tablet Take 1 tablet (2.5 mg total) by mouth 1 (one) time each day. Ventolin HFA 90 mcg/actuation inhaler INHALE 2 PUFFS INTO THE LUNGS EVERY 6 HOURS NEEDED FOR COUGH OR WHEEZING. 18 each 1 No current facility-administered medications on file prior to visit. Discussed current medications that may impact therapy. Medication list obtained and reviewed. Referto document in medical record. Advised Patient to contact MD with any questions regarding medications and importance of managing medication information. has a past medical history of Acute pulmonary embolism ([facility]), BPV (benign positional vertigo), BPV (benign positional vertigo) (01/08/2015), Cholelithiasis (03/15/2021), Class 3 severe obesity due to excess calories with serious comorbidity and body mass index (BMI) of 40.0 to 44.9 in adult ([facility]), Constipation, Constipation (05/28/2018), Depression, Depression (08/12/2008), Diabetes ([facility]) (08/26/2022), DJD (degenerative joint disease), DJD (degenerative joint disease) of knee (01/16/2015), DVT (deep venous thrombosis) ([facility]) (01/11/2021), Dysphagia (01/14/2016), Esophageal dysmotility ( 03/26/2018), Fibromyalgia, Fibromyalgia (08/12/2008), Former smoker (07/28/2011), GERD (gastroesophageal reflux disease), GERD (gastroesophageal reflux disease) (03/27/2015), Hepatomegaly (03/15/2021), Hiatal hernia, Hiatal hernia (03/26/2018), History of diverticulitis of colon (01/14/2006), History of thyroid cancer (07/04/2014), Hyperparathyroidism ([facility]) (09/12/2014), Migraine, Migraine (08/12/2008), Obesity (BMI 30-39.9) (10/13/2006), LIN (obstructive sleep apnea), Parathyroid adenoma (11/27/2014), Right low back pain, Sleep disturbance (08/12/2008), and Tension headache (08/12/2008). has a past surgical history that includes Colonoscopy (03/07/2007); Colonoscopy (04/24/2015); Colonoscopy (03/12/2010); Total thyroidectomy (02/2015); Tubal ligation (2020); Upper gastrointestinal endoscopy (10/29/2015); Colonoscopy (03/07/2007); Tubal ligation (2011); Colonoscopy (04/24/2015); Thyroidectomy (02/2015); Upper gastrointestinal endoscopy (03/07/2007); Upper gastrointestinal endoscopy (10/29/2015); Colonoscopy (03/12/2010); Other surgical history (02/01/2022); Other surgical history (02/01/2022); Other surgical history (02/01/2022); and Section. has No Known Allergies. Precautions: History of low back pain, history of blood clots. Concurrent Services: No Concurrent Services Previous Medical Care/Therapy: referred by PCP. SUBJECTIVE History of Present Illness/Subjective Report: Pt notes 3-4 mo history of dizziness with getting up too fast, looking down to adjust burner on stove, rolling in bed, sitting up on edge of bed. Pt however then noted some instances in which she can be sitting still with emergence of dizziness, (pt unclear if she may have moved her head). Pt notes the dizziness feels like spinning . Pt notes the dizziness lasts < 30 seconds in duration. Pt reports nausea during instances. Pt denies vomiting. Pt denies vision changes. Pt does however note occasional ear ringing (unclear if its bilateral or unilateral) that is high pitch. Pt denying all other neuro symptoms. Of note, pt noting history of BPPV in the past. Current Functional Limitations: Reported by Patient able to carry out normal activities however dizziness noted. Is the patient at Risk for Falls: No Pain: VAS: 0/10 OBJECTIVE General Observations/Comments: pleasant and agreeable to participate. Vitals: BP: sitting 144/84, standin/81, post in sitting 124/80 Cervical with 10 second holds Rotation: WNL Ext: 55 Flexion: 50 Sidebend R : 40 Sidebend L: 35 No dizziness noted Vision Intact neri WNL saccades WNL smooth pursuits WNL saccades VOR x1 horizontal and vertical WNL [place] hallpike R: 2 trials completed. PT identifying very slight and brief moment of counterclockwiserotary nystagmus with (+) vertigo noted by pt on first trial. This lasted approximately 5 seconds and again nystagmus very subtle. No nystagmus noted on second trial in position. However it is worth noting nystagmus noted with return to sitting position on both trials. Nystagmus was rotary in counterclockwise direction (did not reverse directions), lasting <10 seconds Dixhallpike L: no dizziness or nystagmus identified. Mild dizziness with return to upright. Supine roll test: (-) ASSESSMENT/Response to Treatment: Vanessa Myers is a 59 y.o. female presenting for outpatient physical therapy evaluation with complaints of intermittent vertigo lasting seconds with nausea associated. Significant clinical findings include: ? Positive david hallpike to R side with more apparent symptoms with return to upright. Patients progress may be limited by none. Skilled Physical therapy is medically necessary to reduce dizziness. Rehabilitation Potential: Rehab Potential: Condition Has Potential to Improve Motivation for Rehab: Good Support Structure: Good Learning Needs: Were Patient Learning needs assessed: Yes Learning Preferences: Explanation Barriers to Learning: No Barriers to Learning Patient Education: [x] Discussed, with patient and/or caregiver, the recommended plan of care/goals, the importance oftherapy and appointment compliance in order to achieve goals in a timely manner. Education provided: HEP: educated on and completed 1 repetition of antony daroff exercise. Education Provided To: Patient utilizing Explanation as mode(s) of education. Response to Education: Applied Knowledge, Verbal Understanding, and Demonstrated Skills GOALS Resolution in dizziness PLAN POC Development/Review: Initial Evaluation; Participants: Patient Skilled Therapy Plan Required: YES- Reasons for Rehab and Medical Necessity -- Additional Comments:reduce dizziness Planned Therapy Interventions: Neuromuscular Re-education and Patient / Family Education Recommended Consults: none Equipment Recommended: none; Equipment Provided: none Frequency/Duration: 3 visits. BILLING TOTAL TREATMENT TIME: 50 Minutes Evaluation Medium Complexity Justification ::: A history of present problem with 1 - 2 personal factors and/or co-morbidities that impact the plan of care, An examination of body systems using standardized tests and measures in addressing a total of 3 or more elements from any of the following bodystructures and functions, activity limitations, and/or participation restrictions, and Clinical decision making of moderate complexity using standardized patient assessment instrument and/or measurable assessment of functional outcome Documentation completed by Stephanie Javed PT [facility] [address] [address] Dept: [phone] Dept PATIENT NAME: Vanessa Myers DOB: 1965 Certification: This is to certify that the above named patient, who is under my care, requires skilled Therapy services as described in the above treatment plan. I further certify that the services outlined in this plan are skilled and medically necessary. I have reviewed this plan for rehabilitation services, and I recommend that these services continue to meet the above stated goals and plan. SIGNATURE: DATE Freida Lazo NP Referring provider documented in this encounter Plan of Treatment Upcoming Encounters Date Type Department Care Team (Late st Contact Info) Description 10/30/2024 3:30 PM EDT Consult Vascular Surgery - [place] [address] [place] [phone] Rhona Egan PA [address] [facility] [address] [place] [address] 11/04/2024 4:00 PM EDT Treatment [facility] [place] 175 [facility] 350 [place] [phone] Stephanie Javed, PT 11/06/2024 3:20 PM EDT Office Visit Gastroenterology - [place] [address] [facility] [address] [place] [address] Amina Marte PA 175 [facility] 200 [place] [address] 11/28/2024 3:30 PM EDT Office Visit Orthopedic Surgery - [place] 250 175 [facility] 250 [place] [phone] Ministerio Arora, DPLidia [address] [place] [address] Scheduled Procedures Name Priority Associated Diagnoses Date/Ti me REVISION SCAR Skin and subcutaneous tissue disease 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 hammer toe of right foot documented as of this encounter Visit Diagnoses Diagnosis Benign paroxysmal positional vertigo, unspecified laterality- Primary documented in this encounter Orders Outpatient Referral Count Last Ordered Date Fir st Ordered Date AMB REFERRAL TO [facility]ICAL [facility] 1 10/10/2024 documented in this encounter Additional Health Concerns Assessment Noted Time PHQ-9 Depression Total Score: 12 025 6:12 PM EST documented as of this encounter Care Teams Scheduling Coordinator Relationship Specialty Start Date End Date Wilner Murray MD [address] [place] [address] PCP - General Internal Medicine 03/25/20 documented as of this encounter
--- OUTSIDE RECORDS SUMMARY | 2024-10-23 17:13 | XMS_ITS | Encounter Summary ---
Author Organization [facility] Address [address] [place] [address] Care Team Providers Care Utility System Operator Name Role Phone Wilner Murray MD Primary Care Provider [phone] Encounter Details Date Type Department Care Team Description 09/12/2023 Stock Preparation Supervisor Report Medical Records [address] [place] [address] Renan Tapia DO Social History Tobacco Use Types Packs/Day Years [...] on filedocumented in this encounter Care Teams Utility System Operator Relationship Specialty Start Date End Date Wilner Murray MD [address] [place] [address] PCP - General Internal Medicine 03/25/20 documented as of this encounter
--- OUTSIDE RECORDS SUMMARY | 2024-10-23 17:13 | XMS_ITS | Encounter Summary ---
Author Organization [facility] Address [address] [place] [address] Care Team Providers Care Turfgrass Management Professor Name Role Phone Kevin Lechuga MD Primary Care Provider [facility] Wilner Murray MD Primary Care Provider [phone] Encounter Details Date Type Department Care Team Description 04/18/2018 Buildings And Grounds Director Report Medical Records [address] [place] [address] Tania Hinojosa MD Social History Tobacco Use Types Packs/Day [...] on filedocumented in this encounter Care Teams Turfgrass Management Professor Relationship Specialty Start Date End Date Kevin Lechuga MD PCP - General 09/27/01 03/24/20 Wilner Murray MD [address] [place] [address] PCP - General Internal Medicine 03/25/20 documented as of this encounter
--- OUTSIDE RECORDS SUMMARY | 2024-10-23 17:13 | XMS_ITS | Encounter Summary ---
Author Organization [facility] Address [address] [place] [address] Care Team Providers Care Digital Strategy Manager Name Role Phone Kevin Lechuga MD Primary Care Provider [facility] Wilner Murray MD Primary Care Provider [phone] Reason for Visit * Reason Onset Date Comments Provider Call Back 07/21/2014 Encounter Details Date Type Department Care Team Description 07/21/2014 Telephone Adult Medicine [facility] [address] [place] [address] Kevin Lechuga MD Provider Call Back Social History Tobacco Use Types Packs/Day Years Used Date Smoking Tobacco: Former Cigarettes Smokeless Tobacco: Never Alcohol Use Standard Drinks/Week Comments Yes 0 (1 standard drink = 0.6 oz pur e alcohol) socially Sex Assigned at Date Recorded Not on file Job Start Date Occupation Industry Not on file Not on file Not on file documented as of this encounter Miscellaneous Notes * Telephone Encounter - Elizabeth Mackay - 07/21/2014 3:06 PM EST Spoke with pt advised that we will call her if we receive any consults cancellations and also patient to call as well, patient understands and agree's * Telephone Encounter - Dian Rice L.P.N. - 07/21/2014 2:20 PM EST Spoke to pt ,states she is very anxious,crying all the time and worried about her abnormal stress test,cannot get in to see Cardiology until 08/15/14 (Dr Guzman). Pt is asking for a sooner appt.I called Cardiology and they are going to call pt this afternoon . They are very booked and do not have anything much sooner except 08/13. They are going to put her on a cancellation list.FYI to Dr Lechuga. * Telephone Encounter - Dian Rice L.P.N. - 07/21/2014 1:11 PM EST Called above number,rang several times and no answer,no machine. * Telephone Encounter - Ibeth Palacios - 07/21/2014 10:14 AM EST Caller requesting call back from provider: Is the caller the patient? YES If caller is not the patient, what is the callers name? N/A Callers relationship to patient? N/A If person calling is not the patient themselves, is there a verbal release in FYI or permanent comments for this person: NO Reason for call back: PT WAS GIVEN AN APPT IN CARDIOLOGY ON 08/15/14, SHE STATES SHE IS NOT DOING WELL, VERY STRESSED, CRYING CANNOT SLEEP, SHE WANTS TO KNOW IF PCP CAN CALL TO GET A SOONER APPT? PLEASE ADVISE. Caller offered to speak with the nurse for assistance: YES Response: Patient offered to speak with nurse for assistance and patient agreed. Message forwarded to nurse. documented in this encounter Plan of Treatment Not on file documented as of this encounter Visit Diagnoses Not on filedocumented in this encounter Care Teams Digital Strategy Manager Relationship Specialty Start Date End Date Kevin Lechuga MD PCP - General 09/27/01 03/24/20 Wilner Murray MD [address] [place] [address] PCP - General Internal Medicine 03/25/20 documented as of this encounter
--- OUTSIDE RECORDS SUMMARY | 2024-10-23 17:13 | XMS_ITS | Encounter Summary ---
Author Organization [facility] Address [address] [place] [address] Care Team Providers Care Taximeter Repairer Name Role Phone Wilner Murray MD Primary Care Provider [phone] Reason for Visit * Reason Onset Date Comments refill request 02/10/2023 Encounter Details Date Type Department Care Team Description 02/10/2023 Telephone Adult Medicine [address] [address] Wilner Murray MD [address] [place] [address] refill request Social History Tobacco Use Types [...] suspected to have Coronavirus/COVID-19? No / Unsure 01/31/2023 3:33 PM EDT documented as of this encounter Miscellaneous Notes * Telephone Encounter - Saranya Wilfredo - 02/10/2023 11:47 AM EDT .Message below was given to patient. NORAH RMA * Telephone Encounter - Diana Wan - 02/10/2023 10:32 AM EDT Last office visit 01/18/23 See pt message Lab Results Component Value Date NA 143 12/14/2022 K 4.0 12/14/2022 CO2 29 12/14/2022 CL 107 12/14/2022 BUN 16 12/14/2022 CREAT 0.58 12/14/2022 GLU 99 12/14/2022 CA 8.9 12/14/2022 GFR 106 12/14/2022 * Telephone Encounter - Adia Hayes - 02/10/2023 10:09 AM EDT Who is calling? The patient Name of the medication Tramadol What is the specific problem or interaction? Pt saw lithograph press feeder yesterday who told her to ask for a refill of the tramadol since that was working and that he would also get in touch with Dr. Murray to discuss refilling the prescription. Please advise. If the patient is having a problem with taking the med - how long has the problem been going on? N/A documented in this encounter Plan of Treatment Not on file documented as of this encounter Visit Diagnoses Not on filedocumented in this encounter Care Teams Taximeter Repairer Relationship Specialty Start Date End Date Wilner Murray MD [address] [place] [address] PCP - General Internal Medicine 03/25/20 documented as of this encounter
--- OUTSIDE RECORDS SUMMARY | 2024-10-23 17:13 | XMS_ITS | Encounter Summary ---
Author Organization [facility] Address [address] [place] [address] Care Team Providers Care Laundry Manager Name Role Phone Wilner Murray MD Primary Care Provider [phone] Encounter Details Date Type Department Care Team Description 03/21/2023 Goat Driver Report Medical Records [address] [place] [phone] [place] [address] Social History Tobacco Use Types Packs/Day Years [...] In the last 10 days, have orlin u been in contact with someone who was confirmed or suspected to have Coronavirus/COVID-19? No / Unsure 03/22/2023 3:37 PM EDT documented as of this encounter Plan of Treatment Not on file documented as of this encounter Visit Diagnoses Not on filedocumented in this encounter Care Teams Laundry Manager Relationship Specialty Start Date End Date Wilner Murray MD [address] [place] [address] PCP - General Internal Medicine 03/25/20 documented as of this encounter
--- OUTSIDE RECORDS SUMMARY | 2024-10-23 17:13 | XMS_ITS | Encounter Summary ---
Author Organization [employer] Address [address] [place] [address] Care Team Providers Care Carbon Blocks Press Operator Name Role Phone Wilner Murray MD Primary Care Provider [phone] Reason for Visit * Reason Onset Date Comments Medication Problem 10/01/2024 Encounter Details Date Type Department Care Team (Late st Contact Info) Description 10/01/2024 Telephone Endocrinology - [place] [address] [place] [phone] [facility] [address] [place] [address] Medication Problem Social History Tobacco Use Types Packs/Day Years [...] Record ed Within the last 3 months, derick w many times did you visit the [...] care for your loved ones. For example, exceptional children teacher or elderly care for an [...] AM EST documented as of this encounter Ordered Prescriptions Prescription Sig Dispense Quantity Refills Last Filled Start Date End Date metFORMIN XR (GLUCOPHAGE-XR) 500 mg 24 hr tablet Do not crush, chew, or split.TAKE 1 TABLETS TWICE DAILY WITH FOOD. 60 tablet 3 10/01/2024 documented in this encounter Progress Notes * Clare Quinones MA - 10/01/2024 3:48 PM EST Called pt to inform her no answer made. * HENRY Bazan - 10/01/2024 3:42 PM EST Current dose is 500 mg twice daily: Please inform patient. * Clare Quinones MA - 10/01/2024 3:35 PM EST Re message below, how should the pt really be taking her metformin, maybe we should re send with the dosage it should be so pt isnt throwing out pills * Dameon Rodriguez - 10/01/2024 12:13 PM EST Medication Problem: What is the name of the medication patient is having a problem with?: Metformin What is the problem?: Pt says pharmacy gave her too many pills, she had to throw multiple bottles of medication away because they , on their end the dose says take 2 pills 2 times a day. Pt advised on our end it says TAKE 1 TABLETS TWICE DAILY WITH FOOD. Who is calling about the problem? : The patient Is this a NEW medication?: no How long has the patient been taking this medication? N/A Who prescribed this medication for the patient? [facility] Who is patients PCP?: Wilner Murray MD Payor: [employer] PLAN / [facility] [facility] Product Type: *No Product type* / documented in this encounter Plan of Treatment Upcoming Encounters Date Type Department Care Team (Late st Contact Info) Description 10/30/2024 3:30 PM EDT Consult Vascular Surgery - [place] [address] [place] [address] Rhona Egan PA [address] [place] [address] 11/04/2024 4:00 PM EDT Treatment [facility] - [facility] 175 [facility] 350 [place] [phone] Stephanie Javed PT 11/06/2024 3:20 PM EDT Office Visit Gastroenterology - [facility] [address] [place] 175 [facility] [address] [place] [phone] Amina Marte PA 175 [facility] 200 [place], [place] [phone] 11/28/2024 3:30 PM EDT Office Visit Orthopedic Surgery - [facility] 250 175 [facility] 250 [place] [phone] Ministerio Arora DPM 175 [facility] 250 [place] [address] Scheduled Procedures Name Priority Associated Diagnoses Date/Ti me REVISION SCAR Skin and subcutaneous tissue disease 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 hammer toe of right foot documented as of this encounter Visit Diagnoses Not on filedocumented in this encounter Discontinued Medications Medication Sig Discontinue Reason Start Date End Da te metFORMIN XR (GLUCOPHAGE-XR) 500 mg 24 hr tablet TAKE 1 TABLETS TWICE DAILY WITH FOOD. Reorder 01/10/2024 10/01/2024 documented as of this encounter Additional Health Concerns Assessment Noted Time PHQ-9 Depression Total Score: 12 025 6:12 PM EST documented as of this encounter Care Teams Carbon Blocks Press Operator Relationship Specialty Start Date End Date Wilner Murray MD [address] [place] [address] PCP - General Internal Medicine 03/25/20 documented as of this encounter
--- OUTSIDE RECORDS SUMMARY | 2024-10-23 17:13 | XMS_ITS | Encounter Summary ---
Author Organization [facility] Address [address] [place] [address] Care Team Providers Care Charge Rn Name Role Phone Kevin Lechuga MD Primary Care Provider Unavail able Wilner Murray MD Primary Care Provider [phone] Encounter Details Date Type Department Care Team Description 04/13/2015 Zyglo Technician Report Medical Records [address] [place] [address] Tonya Ness MD [address] [place] [address] Diabetes [place] [address] Social History Tobacco Use Types Packs/Day Years Used Date Smoking Tobacco: Former Cigarettes Smokeless Tobacco: Former Alcohol Use Standard Drinks/Week Comments Yes 0 [...] on filedocumented in this encounter Care Teams Charge Rn Relationship Specialty Start Date End Date Kevin Lechuga MD PCP - General 09/27/01 03/24/20 Wilner Murray MD [address] [place] [address] PCP - General Internal Medicine 03/25/20 documented as of this encounter
--- OUTSIDE RECORDS SUMMARY | 2024-10-23 17:13 | XMS_ITS | Encounter Summary ---
Author Organization [facility] Address [address] [place] [address] Care Team Providers Care Acid Patroller Name Role Phone Wilner Murray MD Primary Care Provider [phone] Encounter Details Date Type Department Care Team Description 07/31/2023 [employer] Dried Salt Report Medical Records [address] [place] [address] Reynaldo Mora PA-C Social History Tobacco Use Types Packs/Day [...] on filedocumented in this encounter Care Teams Acid Patroller Relationship Specialty Start Date End Date Wilner Murray MD [address] [place] [address] PCP - General Internal Medicine 03/25/20 documented as of this encounter
--- OUTSIDE RECORDS SUMMARY | 2024-10-23 17:13 | XMS_ITS | Encounter Summary ---
Author Organization [facility] Address [address] [place] [address] Care Team Providers Care Viscosity Tester Name Role Phone Wilner Murray MD Primary Care Provider [phone] Encounter Details Date Type Department Care Team Description 02/24/2022 Committee Member Report Medical Records [address] [place] [address] Dar Amaya MD Social History Tobacco Use Types Packs/Day [...] suspected to have Coronavirus/COVID-19? No / Unsure 02/25/2022 2:34 PM EDT documented as of this encounter Plan of Treatment Not on file documented as of this encounter Visit Diagnoses Not on filedocumented in this encounter Care Teams Viscosity Tester Relationship Specialty Start Date End Date Wilner Murray MD [address] [place] [address] PCP - General Internal Medicine 03/25/20 documented as of this encounter
--- OUTSIDE RECORDS SUMMARY | 2024-10-23 17:13 | XMS_ITS | Encounter Summary ---
Author Organization [facility] Address [address] [place] [address] Care Team Providers Care Intern Name Role Phone Kevin Lechuga MD Primary Care Provider Unavail able Wilner Murray MD Primary Care Provider [phone] Encounter Details Date Type Department Care Team Description 07/12/2018 Transfer Records Medical Records [address] [place] [address] Abstract, Provider Social History Tobacco Use Types [...] on filedocumented in this encounter Care Teams Intern Relationship Specialty Start Date End Date Kevin Lechuga MD PCP - General 09/27/01 03/24/20 Wilner Murray MD [address] [place] [address] PCP - General Internal Medicine 03/25/20 documented as of this encounter
--- OUTSIDE RECORDS SUMMARY | 2024-10-23 17:13 | XMS_ITS | Encounter Summary ---
Author Organization [employer] Address [address] [place] [address] Care Team Providers Care Machine Fixer Name Role Phone Wilner Murray MD Primary Care Provider [phone] Reason for Referral * Consultation (Routine) - Authorized Specialty Diagnoses / Procedures Referred By Delfino fernandez Referred To Contact Gastroenterology Diagnoses Esophageal dysmotility Wilner Murray MD [address] [place] [address] Phone: tel: fax: Amina Marte PA [address] [place] [address] Phone: tel: fax: Referral ID Status Reason Start Date Expiration Date Visits Requested Visits Authorized [id number] Authorized Specialty Services Required 10/01/2024 10/01/2025 1 1 Reason for Visit * Reason Onset Date Comments Referral 10/01/2024 Ambulatory / Gas to / [address] Encounter Details Date Type Department Care Team (Late Contact Info) Description 10/01/2024 [facility] [address] [place] [phone] Wilner Murray MD [address] [place] [address] Referral (Ambulatory / [facility] / [address]) Social History Tobacco Use Types Packs/Day Years [...] care for your loved ones. For example, school childcare attendant or elderly care for an older adult? [...] as of this encounter Progress Notes * Cesar Krause - 10/01/2024 11:53 AM EST Request for a referral to a [facility] Specialist for a patient with a [facility] PCP. If patient does NOT have a [facility] PCP they must obtain a referral from their PCP before being seen-do not submit request to Referrals department-contact patient. Specialty patient is being referred to: [facility] [address] FAX# [phone] Name of Specialist patient is seeing: Maurizio Salamanca MD Reason/diagnosis for visit: Pt received letter that it was time to schedule routine colonoscopy Date of appoinment: TBD If retro, date referral needs to start: n/a Dr Murray Payor: Javier documented in this encounter Plan of Treatment Upcoming Encounters Date Type Department Care Team (Late st Contact Info) Description 10/30/2024 3:30 PM EDT Consult Vascular Surgery - [place] [address] [place] [phone] hRona Egan PA [address] [place] [address] 11/04/2024 4:00 PM EDT Treatment [facility] - [place] [address] [facility] [address] [place] [phone] Stephanie Javed, PT 11/06/2024 3:20 PM EDT Office Visit Gastroenterology - [place] [address] [facility] [address] [place] [phone] Amina Marte PA [address] [place] [address] 11/28/2024 3:30 PM EDT Office Visit Orthopedic Surgery - [place] 250 175 [facility] 250 [place] [phone] Ministerio Arora, DPLidia 175 [facility] [address] [place] [address] Scheduled Procedures Name Priority Associated Diagnoses Date/Ti me REVISION SCAR Skin and subcutaneous tissue disease 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 hammer toe of right foot Scheduled Referrals Name Type Priority Associated Diagnoses Order Schedule Ambulatory referral to Gastroenterology Outpatient Referral Routine Esophageal dysmotility Expected: 10/01/2024, Expires: 10/01/2025 documented as of this encounter Visit Diagnoses Diagnosis Esophageal dysmotility- Primary Dyskinesia of esophagus documented in this encounter Additional Health Concerns Assessment Noted Time PHQ-9 Depression Total Score: 12 025 6:12 PM EST documented as of this encounter Care Teams Machine Fixer Relationship Specialty Start Date End Date Wilner Murray MD [address] [place] [address] PCP - General Internal Medicine 03/25/20 documented as of this encounter
--- OUTSIDE RECORDS SUMMARY | 2024-10-23 17:13 | XMS_ITS | Encounter Summary ---
Author Organization [facility] Address [address] [place] [address] Care Team Providers Care Computerized Table Cutter Name Role Phone Kevin Lechuga MD Primary Care Provider Unavail able Wilner Murray MD Primary Care Provider [phone] Encounter Details Date Type Department Care Team Description 05/24/2002 Orders Only Adult Medicine - [address] [address] Abril Finn Social History Tobacco Use Types Packs/Day Years Used Date Smoking Tobacco: Never Assessed Sex Assigned at Date Recorded Not on file Job Start Date Occupation Industry Not on file Not on file Not on file documented as of this encounter Plan of Treatment Not on file documented as of this encounter Visit Diagnoses Not on filedocumented in this encounter Care Teams Computerized Table Cutter Relationship Specialty Start Date End Date Kevin Lechuga MD PCP - General 09/27/01 03/24/20 Wilner Murray MD [address] [place] [address] PCP - General Internal Medicine 03/25/20 documented as of this encounter
--- OUTSIDE RECORDS SUMMARY | 2024-10-23 17:13 | XMS_ITS | Encounter Summary ---
Author Organization [facility] Address [address] [place] [address] Care Team Providers Care Quality Assurance Supervisor Name Role Phone Wilner Murray MD Primary Care Provider Unavail able Reason for Visit * Reason Comments Medication Refill Encounter Details Date Type Department Care Team (Late st Contact Info) Description 04/14/[address] [facility] Endocrinology [address] [address] Kelly Frost MD [address] [address] Social History Tobacco Use Types Packs/Day Years Used Date Smoking Tobacco: Never Assessed Sex and Gender Information Value Date Recorded Sex Assigned at Not on file Gender Identity Not on file Sexual Orientation Not on file documented as of this encounter Miscellaneous Notes * Telephone Encounter - Kelly Frost MD - 04/14/2022 1:22 PM EDT Lansoprazole as prescribed by PCP I believe. documented in this encounter Plan of Treatment Not on file documented as of this encounter Visit Diagnoses Not on filedocumented in this encounter Care Teams Quality Assurance Supervisor Relationship Specialty Start Date End Date Wilner Murray MD PCP - General documented as of this encounter
--- OUTSIDE RECORDS SUMMARY | 2024-10-23 17:13 | XMS_ITS | Encounter Summary ---
Author Organization [facility] Address [address] [place] [address] Care Team Providers Care Painter Airbrush Name Role Phone Wilner Murray MD Primary Care Provider [phone] Reason for Visit * Reason Onset Date Comments Anticoagulation 01/25/2022 Colonoscopy 04/06 Dr Justice @ [facility] Encounter Details Date Type Department Care Team Description 01/25/2022 Telephone Gastroenterology - [place] 175 [facility] [address] [place] [phone] Kolton Justice MD 175 [facility] [address] [place] [address] Anticoagulation (Colonoscopy 04/06/2022 Dr Justice @ [facility]) Social History Tobacco Use Types Packs/Day Years [...] suspected to have Coronavirus/COVID-19? No / Unsure 01/26/2022 10:39 AM EDT documented as of this encounter Miscellaneous Notes * Telephone Encounter - May Nazario L.P.N. - 02/15/2022 2:46 PM EDT 02/15/2022 Called patient message left with instructions & letter mailed./dg * Telephone Encounter - Jailyn Hong PA-C - 02/15/2022 10:25 AM EDT Her most recent DVT was in May 2021, > 6 months ago. She can hold coumadin and no bridging is indicated leading up to colonoscopy * Telephone Encounter - May Nazario L.P.N. - 01/25/2022 9:43 AM EDT Patient scheduled for Colonoscopy Monday04/06/[address] @ [facility]. Patient is on Coumadin. Jailyn Alegria, Please determine if this patient can hold her coumadin for 5 days prior to her colonoscopy and is Lovenox Bridge needed? Please advise. Thanks./dayan documented in this encounter Plan of Treatment Not on file documented as of this encounter Visit Diagnoses Not on filedocumented in this encounter Care Teams Painter Airbrush Relationship Specialty Start Date End Date Wilner Murray MD [address] [place] [address] PCP - General Internal Medicine 03/25/20 documented as of this encounter
--- OUTSIDE RECORDS SUMMARY | 2024-10-23 17:13 | XMS_ITS | Encounter Summary ---
Author Organization [facility] Address [address] [place] [address] Care Team Providers Care Tire Buffer Name Role Phone Wilner Murray MD Primary Care Provider [phone] Encounter Details Date Type Department Care Team Description 06/01/2023 Orders Only Adult Medicine [address] [address] Rachel Cowan NP [address] [place], [place] Social History Tobacco Use Types Packs/Day Years [...] suspected to have Coronavirus/COVID-19? No / Unsure 05/31/2023 3:36 PM EDT documented as of this encounter Plan of Treatment Not on file documented as of this encounter Visit Diagnoses Not on filedocumented in this encounter Care Teams Tire Buffer Relationship Specialty Start Date End Date Wilner Murray MD [address] [place] [phone] PCP - General Internal Medicine 03/25/20 documented as of this encounter
--- OUTSIDE RECORDS SUMMARY | 2024-10-23 17:13 | XMS_ITS | Encounter Summary ---
Author Organization [facility] Address [address] [place] [address] Care Team Providers Care Lumber Trimmer Name Role Phone Kevin Lechuga MD Primary Care Provider [facility] Wilner Murray MD Primary Care Provider [phone] Encounter Details Date Type Department Care Team Description 01/15/2018 Service Station Helper Report Medical Records [address] [place] [address] Eliud Sherman NP Social History Tobacco Use [...] on filedocumented in this encounter Care Teams Lumber Trimmer Relationship Specialty Start Date End Date Kevin Lechuga MD PCP - General 09/27/01 03/24/20 Wilner Murray MD [address] [place] [address] PCP - General Internal Medicine 03/25/20 documented as of this encounter
--- OUTSIDE RECORDS SUMMARY | 2024-10-23 17:13 | XMS_ITS | Encounter Summary ---
Author Organization [facility] Address [address] [place] [address] Care Team Providers Care Crotch Piece Baster Name Role Phone Wilner Murray MD Primary Care Provider [phone] Reason for Visit * Reason Onset Date Comments Medication 07/22/2020 Encounter Details Date Type Department Care Team Description 07/22/2020 Refill Gastroenterology - [place] 175 [facility] [address] [place] [address] Kolton Justice MD 175 [facility] [address] [place] [address] Medication Social History Tobacco Use Types Packs/Day Years [...] on filedocumented in this encounter Care Teams Crotch Piece Baster Relationship Specialty Start Date End Date Wilner Murray MD [address] [place] [address] PCP - General Internal Medicine 03/25/20 documented as of this encounter
--- OUTSIDE RECORDS SUMMARY | 2024-10-23 17:13 | XMS_ITS | Encounter Summary ---
Author Organization [facility] Address [address] [place] [address] Care Team Providers Care Compounder Helper Name Role Phone Kevin Lechuga MD Primary Care Provider [facility] Wilner Murray MD Primary Care Provider [phone] Reason for Visit * Reason Onset Date Comments Form 06/26/2014 Encounter Details Date Type Department Care Team Description 06/26/2014 Telephone Podiatry - [place] [address] [place] [address] Ben Palacio DPM Form Social History Tobacco Use Types Packs/Day Years [...] encounter Miscellaneous Notes * Telephone Encounter - Linette Bonner - 06/26/2014 12:43 PM EST Patient dropped off 2 forms for fml works for 2 different employers. Any questions call [phone] documented in this encounter Plan of Treatment Not on file documented as of this encounter Visit Diagnoses Not on filedocumented in this encounter Care Teams Compounder Helper Relationship Specialty Start Date End Date Kevin Lechuga MD PCP - General 09/27/01 03/24/20 Wilner Murray MD [address] [place] [address] PCP - General Internal Medicine 03/25/20 documented as of this encounter
--- OUTSIDE RECORDS SUMMARY | 2024-10-23 17:13 | XMS_ITS | Encounter Summary ---
Author Organization [facility] Address [address] [place] [address] Care Team Providers Care Lobster Catcher Name Role Phone Wilner Murray MD Primary Care Provider [phone] Encounter Details Date Type Department Care Team Description 02/01/2022 [facility] Vascular Surgery [facility] [address] [facility] [address] [place] [address] Ramy Clinton MD [address] [address] Social History Tobacco Use Types Packs/Day [...] suspected to have Coronavirus/COVID-19? No / Unsure 01/31/2022 3:31 PM EDT documented as of this encounter Plan of Treatment Not on file documented as of this encounter Visit Diagnoses Not on filedocumented in this encounter Care Teams Lobster Catcher Relationship Specialty Start Date End Date Wilner Murray MD [address] [place] [address] PCP - General Internal Medicine 03/25/20 documented as of this encounter
--- OUTSIDE RECORDS SUMMARY | 2024-10-23 17:13 | XMS_ITS | Encounter Summary ---
Author Organization [facility] Address [address] [place] [address] Care Team Providers Care Real Estate Job Titles Name Role Phone Wilner Murray MD Primary Care Provider [phone] Encounter Details Date Type Department Care Team Description 08/17/2023 Button Buttonhole Marker Report Medical Records [address] [place] [address] Sepideh Morales PA-C Social History Tobacco Use Types Packs/Day [...] on filedocumented in this encounter Care Teams Real Estate Job Titles Relationship Specialty Start Date End Date Wilner Murray MD [address] [place] [address] PCP - General Internal Medicine 03/25/20 documented as of this encounter
--- OUTSIDE RECORDS SUMMARY | 2024-10-23 17:13 | XMS_ITS | Encounter Summary ---
Author Organization [facility] Address [address] [place] [address] Care Team Providers Care Farm Machine Tender Name Role Phone Wilner Murray MD Primary Care Provider [phone] Reason for Visit * Reason Onset Date Comments APPOINTMENT 01/04/2022 [facility] Encounter Details Date Type Department Care Team Description 01/04/2022 Telephone Vascular Surgery - [place] [address] [place] [phone] Jailyn Hong PA-C [address] [address] APPOINTMENT ([facility]) Social History Tobacco Use Types Packs/Day Years [...] suspected to have Coronavirus/COVID-19? No / Unsure 01/03/2022 3:31 PM EDT documented as of this encounter Miscellaneous Notes * Telephone Encounter - Edgar Dent - 01/17/2022 11:29 AM EDT All set * Telephone Encounter - Jasymne Merchantnas Nicolea - 01/04/2022 11:01 AM EDT Please contact patient to inform them of their [facility] appointment on 02/09/2022@ 12:30PM Please schedule a follow up appointment in the office 1-2 weeks after images. documented in this encounter Plan of Treatment Not on file documented as of this encounter Visit Diagnoses Not on filedocumented in this encounter Care Teams Farm Machine Tender Relationship Specialty Start Date End Date Wilner Murray MD [address] [place] [address] PCP - General Internal Medicine 03/25/20 documented as of this encounter
--- OUTSIDE RECORDS SUMMARY | 2024-10-23 17:13 | XMS_ITS | Encounter Summary ---
Author Organization [facility] Address [address] [place] [address] Care Team Providers Care Food Photographer Name Role Phone Kevin Lechuga MD Primary Care Provider Unavail able Wilner Murray MD Primary Care Provider [phone] Reason for Visit * Reason Onset Date Comments Prior Authorization 10/09/2015 Encounter Details Date Type Department Care Team Description 10/09/2015 Telephone Gastroenterology - [address] [address] Kit Ibarra MD Prior Authorization Social History Tobacco Use Types Packs/Day Years Used Date Smoking Tobacco: Former Cigarettes 1 0 1996 - 08/14/2010 Smokeless Tobacco: Never Alcohol Use Standard Drinks/Week Comments Yes 0 (1 standard drink = 0.6 oz pur e alcohol) 3 -4 drinks per yr Sex Assigned at Date Recorded Not on file Job Start Date Occupation Industry Not on file Not on file Not on file documented as of this encounter Miscellaneous Notes * Telephone Encounter - Erica Long - 10/09/2015 3:11 PM EST BCBS No auth Required * Telephone Encounter - Stacey Koch - 10/09/2015 1:48 PM EST Pre-auth needed Patient is scheduled for an Endoscopy on 10/29/15 Patients insurance: [facility] PPO/POS and MEDICAID Appointment is with Kit Ibarra MD Code to process pre-auth for: [id number] Location of procedure: [facility] documented in this encounter Plan of Treatment Not on file documented as of this encounter Visit Diagnoses Not on filedocumented in this encounter Care Teams Food Photographer Relationship Specialty Start Date End Date Kevin Lechuga MD PCP - General 09/27/01 03/24/20 Wilner Murray MD [address] [place] [address] PCP - General Internal Medicine 03/25/20 documented as of this encounter
--- OUTSIDE RECORDS SUMMARY | 2024-10-23 17:13 | XMS_ITS | Encounter Summary ---
Author Organization [facility] Address [address] [place] [address] Care Team Providers Care Frame Nailer Name Role Phone Wilner Murray MD Primary Care Provider [phone] Encounter Details Date Type Department Care Team Description 11/09/2023 Hot Die Press Operator Report Medical Records [address] [place] [id number] Sepideh Morales PA-C Social History Tobacco Use [...] on filedocumented in this encounter Care Teams Frame Nailer Relationship Specialty Start Date End Date Wilner Murray MD [address] [place] [address] PCP - General Internal Medicine 03/25/20 documented as of this encounter
--- OUTSIDE RECORDS SUMMARY | 2024-10-23 17:13 | XMS_ITS | Clinical Summary ---
Author Organization [facility] Address [address] [place] [address] Care Team Providers Care Rn Triage Name Role Phone Wilner Murray MD Primary Care Provider [phone] Allergies No known active allergies Medications Medication Sig Dispensed Refills Start Date End Date Status lansoprazole (PREVACID) 30 MG capsule Take 1 capsule (30 mg total) by mouth daily. 0 Active Calcium Citrate-Vitamin D (Calcium Citrate Petite/Vit D) 200-250 MG-UNIT TABS Take by mouth. 0 Active levothyroxine (SYNTHROID) tablet 150 mcg Take 1 tablet (150 mcg total) by mouth every morning on an empty stomach. 0 Active hydroxychloroquine (PLAQUENIL) 200 MG tablet Take 200 mg by mouth daily. 0 Active Eliquis 5 MG TABS tablet TAKE 1 TABLET BY MOUTH EVERY 12 HOURS 60 tablet 2 06/17/2021 Active senna (SENOKOT) 8.6 MG tablet Take 1 tablet by mouth 3 (three) times a day. 0 Active warfarin (COUMADIN) 5 MG tablet Take 1 tablet (5 mg total) by mouth daily. 0 Active metFORMIN (GLUCOPHAGE) tablet 500 mg Take 1 tablet (500 mg total) by mouth 2 (two) times a day with meals. 0 Active Active Problems No known active problems Family History Medical History Relation Name Comments Cancer Maternal Aunt Cancer Maternal Grandmother Relation Name Status Comments Father Maternal Aunt Maternal Grandmother Mother Alive Social History Tobacco Use Types Packs/Day Years Used Date Smoking Tobacco: Former Cigarettes 15 Smokeless Tobacco: Never Alcohol Use Standard Drinks/Week Comments Not Currently 0 (1 standard drink = 0.6 oz pur e alcohol) Sex and Gender Information Value Date Recorded Sex Assigned at Not on file Gender Identity Not on file Sexual Orientation Not on file Job Start Date Occupation Industry Not on file Not on file Not on file Last Filed Vital Signs Vital Sign Reading Time Taken Comments Blood Pressure 125/69 02/28/2023 3:56 PM EDT Pulse 85 02/28/2023 3:56 PM EDT Temperature 36.5 ??C (97.7 ??F) 02/28/2023 3:56 PM ED T Respiratory Rate - - Oxygen Saturation 94% 02/28/2023 3:56 PM EDT Inhaled Oxygen Concentration - - Weight 90.4 kg (199 lb 6.4 oz) 02/28/2023 3:56 P M EDT Height 157.5 cm (5' 2 ) 02/28/2023 3:56 PM EDT Body Mass Index 36.47 02/28/2023 3:56 PM EDT Plan of Treatment Health Maintenance Due Date Last Done Comments Hepatitis B Vaccines (1 of 3 - 3-dose series) 1966 Hepatitis C Screening 1966 Depression Screening 1978 Preventative Health Evaluation 1984 Cervical Cancer Screening (Pap Smear) 1987 Colon Cancer Screening (Colonoscopy) 2011 Breast Cancer Screening (Mammogram) 2016 Shingrix-Zoster Vaccine (1 of 2) 2016 DTap / Tdap / Td (2 - Td or Tdap) 02/07/2023 02/07/2013 COVID-19 Vaccine ( season) 2024 03/02/2021, 02/05/2021 Influenza Vaccine (#1) 2024 2, 04/24/2018, 05/28/2017, Additional history exists Pneumococcal Vaccine Aged Out 09/17/2020 No long er eligible based on patient's age to complete this topic RSV Ped < 20 months Aged Out No longe r eligible based on patient's age to complete this topic Care Teams Rn Triage Relationship Specialty Start Date End Date Wilner Murray MD PCP - General Internal Medicine 02/02/21
--- OUTSIDE RECORDS SUMMARY | 2024-10-23 17:13 | XMS_ITS | Encounter Summary ---
Author Organization [facility] Address [address] [place] [address] Care Team Providers Care Loans Officer Name Role Phone Wilner Murray MD Primary Care Provider [phone] Reason for Visit * Reason Comments E-prescribe Rx Request Encounter Details Date Type Department Care Team Description 06/15/2022 Refill Gastroenterology - [address] [place] [phone] Amina Marte DScPAS E-prescribe Rx Request Social [...] suspected to have Coronavirus/COVID-19? No / Unsure 06/09/2022 3:22 PM EDT documented as of this encounter Miscellaneous Notes * Telephone Encounter - Adriana Lewis M.A. - 06/15/2022 10:24 AM EDT RASHAD 04/27/22 NOV 08/22/2022 documented in this encounter Plan of Treatment Not on file documented as of this encounter Visit Diagnoses Not on filedocumented in this encounter Care Teams Loans Officer Relationship Specialty Start Date End Date Wilner Murray MD [address] [place] [address] PCP - General Internal Medicine 03/25/20 documented as of this encounter
--- OUTSIDE RECORDS SUMMARY | 2024-10-23 17:13 | XMS_ITS | Encounter Summary ---
Author Organization [facility] Address [address] [place] [address] Care Team Providers Care Marriage And Family Social Worker Name Role Phone Wilner Murray MD Primary Care Provider Encounter Details Date Type Department Care Team Description 12/18/2023 Orders Only Gastroenterology - [address] [place] [phone] Amina Marte DScPAS History of diverticulitis; Diverticulosis; Calculus of gallbladder without cholecystitis without obstruction Social History Tobacco Use Types Packs/Day Years [...] as of this encounter Visit Diagnoses Diagnosis History of diverticulitis Diverticulosis Diverticulosis of colon (without mention of hemorrhage) Calculus of gallbladder without cholecystitis without obstruction Calculus of gallbladder without mention of cholecystitis or obstruction documented in this encounter Care Teams Marriage And Family Social Worker Relationship Specialty Start Date End Date Wilner Murray MD [address] [place] [address] PCP - General Internal Medicine 03/25/20 documented as of this encounter
--- OUTSIDE RECORDS SUMMARY | 2024-10-23 17:13 | XMS_ITS | Encounter Summary ---
Author Organization [facility] Address [address] [place] [address] Care Team Providers Care Lead Radiation Therapist Name Role Phone Wilner Murray MD Primary Care Provider [phone] Reason for Visit * Reason Comments Follow-up Bump right ankle Encounter Details Date Type Department Care Team (Late st Contact Info) Description 10/16/2024 3:30 PM EST Office Visit Orthopedic Surgery [facility] [address] [phone] Ministerio Arora, DPM [address] [address] Soft tissue mass (Primary Dx); Peripheral venous insufficiency; Skin and subcutaneous tissue disease; Contracture of joint of right foot; Acquired hammer toe of right foot Social History Tobacco Use Types Packs/Day Years [...] ed Within the last 3 months, derick morton many times did you visit the emergency [...] care for your loved ones. For example, children's ministry director or elderly care for an older adult? [...] AM EST documented as of this encounter Last Filed Vital Signs Vital Sign Reading Time Taken Comments Blood Pressure - - Pulse - - Temperature - - Respiratory Rate - - Oxygen Saturation - - Inhaled Oxygen Concentration - - Weight 97.1 kg (214 lb) 10/16/2024 3:21 PM EST Height 157.5 cm (5' 2.01 ) 10/16/2024 3:21 PM ES T Body Mass Index 39.13 10/16/2024 3:21 PM EST documented in this encounter Progress Notes * Ministerio Arora DPM - 10/16/2024 3:30 PM ESTAssociated Order(s): Injection tendon or ligament Post-Procedure Diagnose(s): Soft tissue mass S Presents today multiple complaints that she has intense right ankle pain is gone for last 2 months she feels like she has a swelling soft tissue mass growing in that area states that she is not because it is a 7-10 out of 10 also she has left calf pain she states she has 2 areas that are very firm swollen and distended has been for months 6 months or longer patient to get MRI prior to his appointment does not her pain is slowly been improving she does note that her right fifth toe still bothersher and she is wonder if it can be fixed she has pain discomfort is chronic achy she states had a recent surgery with a contractural pulled the digit out ROS: GENERAL: Pt denies nausea, fever, vomiting, chills, or shortness of breath. Pt in NAD. CARDIOLOGY: pt denies chest pain, palpitations LUNGS: pt denies shortness of breath MUSCULOSKELETAL: See HPI, otherwise no joint pain or swelling, back pain, or muscle pain. SKIN: see HPI, otherwise no lesions, rash or itching NEURO: No persistent headache, weakness or numbness The remainder of the review of systems is noncontributory PAST MEDICAL HISTORY: Patient Active Problem List Diagnosis Obesity (BMI 30-39.9) Migraine Fibromyalgia Sleep disturbance Tension headache Depression Parathyroid adenoma BPV (benign positional vertigo) DJD (degenerative joint disease) of knee G6PD deficiency Dysphagia Constipation Esophageal dysmotility Hiatal hernia Right-sided low back pain without sciatica LIN (obstructive sleep apnea) Liver cyst Hepatomegaly Cholelithiasis GERD (gastroesophageal reflux disease) 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 18 each 1 ALLERGIES: No Known Allergies PHYSICAL EXAM: Visit Vitals Ht 1.575 m (62.01 ) Wt 97.1 kg (214 lb) BMI 39.13 kg/m?? OB Status Postmenopausal Smoking Status Former BSA 1.97 m?? PODIATRIC EXAMINATION: GENERAL: Patient appears well nourished, with NAD. VASCULAR: Dorsalis pedis pulses are 2/4 bilaterally and Posterior tibial pulses are 2/4 bilaterally. Capillary filling time within normal limits the digits. No pallor on elevation or rubor on dependency. Positive hair growth. No varicosities. Denies rest pain or claudication pain. NEUROLOGICAL: Sharp/dull sensation intact, protective sensation intact 10/10 with 5.07 semmes matthias bilaterally, vibratory sensation with tuning fork intact to the tibial tuberosity. ORTHOPEDIC: Good muscle strength 5/5 of all flexors and extensors. Dorsi flexion of ankle ,10 degrees, plantar flexion WNL. No muscle atrophy. Sharp pain palpation of the right lateral ankle ATFL andlocalized area with swelling irritation of the right ankle Left leg has varicose distended veins with 2 palpable nodules DERMATOLOGICAL:.No masses or skin lesions noted. Normal skin temperature, normal skin turgor. BIOMECHANICS: Ankle ROM WNL, STJ ROM wnl, MTJ ROM wnl, 1st MPJ ROM wnl. Residual contracture of right fifth digit with skin contracture proximal to the MPJ metatarsophalangeal contracture as well as hammertoe contracture deformity right fifth IMAGING: IMPRESSION: 1. Soft tissue mass 2. Peripheral venous insufficiency 3. Skin and subcutaneous tissue disease 4. Contracture of joint of right foot PLAN: Pt was seen and examined, history reviewed. Referral placed to vascular surgery evaluation of left leg varicosities with palpable nodules right ankle discussed and reviewed and soft tissue mass x-rays reviewed patient negative for Acute findings Given the patient having significant pain no history of trauma uncertain diagnosis been going for 2months with history of rheumatoid MRI reviewed consistent with rheumatoid nodule discussed treatment options given chronic pain discomfort including steroid injection patient would like to pursue Severe soft tissue contracture deformity of the right fifth digit discussed and reviewed treatment options including contracture release with soft tissue rearrangement discussed and reviewed patient states like to pursue X-ray ordered right foot 3 views Injection of right ankle soft tissue mass was performed after consent was obtained. Risks and benefits discussed in detail with patient and include but are not limited to risk of infection risk of recurrence . Injection given of half cc 1% lidocaine half cc of Kenalog 40 During today???s visit we discussed at great length the etiology, prognosis, and treatment options for the patient???s condition. Risks and benefits of operative and non operative treatment options were discussed. Treatment options for right fifth digit skin rearrangement contracture release hammertoe repair correction were discussed, non-operative treatment would involve tapping, strapping, adjustments in shoe gear, orthotics insoles, rest, bracing and edema control. There is potential for the deformities to stabilize without surgery yet there may still be a need for delayed surgery and distructive procedures. There is potential for non-union with surgery and non- operative care would avoid incision problems and anesthesia risks. Surgery has added risks including but not limited to infection, incision pain, neuritis or numbness reoccurance of deformity, scar tissue contracture, worsening of deformityand loss of limb or life. right fifth digit skin rearrangement contracture release hammertoe repairhealing was discussed in relation to operative treatment. Recovery and post operative immobilization was discussed based on the various treatment options. A decision was made to pursue right fifth digit skin rearrangement contracture release hammertoe repair surgery. Patient voices understanding of the risks and benefits and would like to proceed with surgery. Weight bearing status: NWB x 2 weeks followed by progressive WB x 10 weeks in a below the knee boot. Work&Activity restrictions: Impact of undergoing surgery to work and daily activity was discussed today Pain management: Postoperative pain regiment were discussed in great detail with the patient. The patient was also encouraged to aggressively elevate and ice postoperatively to help with swelling andpain control. The patient was in agreement with this plan. The patient will be prescribed Tylenol Oxycodone for postoperative pain management. VTE Risk assessment: Risk of DVT/ PE were discussed in relation to immobilization, inactivity, injury, surgery, medication and personal risk factors. Signs and symptoms of a blood clot were discussedincluding action plan if the patient experiences these signs or symptoms. Methods of prevention and risk reduction were explained. Mechanical prophylaxis including ROM and mobilization is encouraged as much as possible. The patient???s risk for deep vein thrombosis was also assessed today. In regards to major risk factors they: Do not have personal history of DVT Do not have known active cancer Do not have known clotting disorder Do not have family history of DVT Pending foot surgery and current level of immobilization are risk factors. Measure taken to decrease their risk of deep vein thrombosis will consist of detailed education, as well as lower extremity range of motion. Chemical prophylaxis is not recommended based on patients history, procedure and postoperative plan. Planned procedure(s): right fifth digit skin rearrangement contracture release hammertoe repair surgery WB status: NWB x 2 weeks followed by progressive WB x 10 weeks in a below the knee boot. Pain medication: Tylenol Oxycodone Injection tendon or ligament Indications: pain Details: 25 G needle Medications: 0.5 mL lidocaine (PF) 1 %; 20 mg triamcinolone acetonide 40 mg/mL Informed Consent: Site: Foot ligament tendon Ministerio Arora DPM documented in this encounter Plan of Treatment Upcoming Encounters Date Type Department Care Team (Late st Contact Info) Description 10/30/2024 3:30 PM EDT Consult Vascular Surgery - [place] [address] [place] [address] Rhona Egan PA [address] [facility] [address] [place] [address] 11/04/2024 4:00 PM EDT Treatment [facility] [place] 175 [facility] [address] [place] [phone] Stephanie Javed PT 11/06/2024 3:20 PM EDT Office Visit Gastroenterology - [place] [address] 175 [facility] [address] [place] [phone] Amina Marte PA 175 [facility] 200 [place] [address] 11/28/2024 3:30 PM EDT Office Visit Orthopedic Surgery - [place] [address] [facility] [address] [place] [phone] Ministerio Arora DPM 175 [facility] [address] [place] [address] Scheduled Procedures Name Priority Associated Diagnoses Date/Ti me REVISION SCAR Skin and subcutaneous tissue disease 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 hammer toe of right foot documented as of this encounter Procedures Procedure Name Priority Date/Time Associated Diagnosis Comments INJECTION TENDON OR LIGAMENT Routine 10/16/2024 3:30 PM EST Soft tissue mass documented in this encounter Results * Injection tendon or ligament (10/16/2024 3:30 PM EST) Narrative Ministerio Arora DPM - 10/16/2024 3:30 PM EST Ministerio Arora DPM ? 10/16/2024 ??5:21 PM Injection tendon or ligament Indications: pain Details: 25 G needle Medications: 0.5 mL lidocaine (PF) 1 %; 20 mg triamcinolone acetonide 40 mg/mL Informed Consent: ??Site: ??Foot ligament tendon Ministerio Arora DPM IN CLINIC/BEDSIDE ORDERAB LES Final Result documented in this encounter Visit Diagnoses Diagnosis Soft tissue mass- Primary Disorders of soft tissue, unspecified Peripheral venous insufficiency Unspecified venous (peripheral) insufficiency Skin and subcutaneous tissue disease Unspecified disorder of skin and subcutaneous tissue 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 hammer toe of right foot documented in this encounter Administered Medications Inactive Administered Medications - up to 3 most recent administrations Medication Order MAR Action Action Date Dose Rate Site lidocaine (PF) (XYLOCAINE-MPF) 1 % injection 0.5 mL 0.5 mL, injection, Once PRN Procedure, Starting on Mon10/16/24 at 1530, For 1 doseIndications:Soft tissue mass Given 10/16/2024 3:30 PM EST 0.5 mL triamcinolone acetonide (KENALOG-40) 40 mg/mL injection 20 mg 20 mg, intra-articular, Once PRN Procedure, Starting on Mon10/16/24 at 1530, For 1 doseIndications:Soft tissue mass Given 10/16/2024 3:30 PM EST 20 mg documented in this encounter Orders Case Request Count Last Ordered Date First Orde red Date CASE REQUEST OPERATING ROOM 1 10/16/2024 documented in this encounter Additional Health Concerns Assessment Noted Time PHQ-9 Depression Total Score: 12 025 6:12 PM EST documented as of this encounter Care Teams Lead Radiation Therapist Relationship Specialty Start Date End Date Wilner Murray MD [address] [place] [address] PCP - General Internal Medicine 03/25/20 documented as of this encounter
--- OUTSIDE RECORDS SUMMARY | 2024-10-23 17:13 | XMS_ITS | Encounter Summary ---
Author Organization [employer] Address [address] [place] [address] Care Team Providers Care Metal Furniture Repairer Name Role Phone Wilner Murray MD Primary Care Provider [phone] Reason for Referral * Consultation (Urgent) - Authorized Specialty Diagnoses / Procedures Referred By Delfino fernandez Referred To Contact Dermatology Diagnoses Leg mass, left Freida Lazo NP [address] [place] [address] Phone: tel: fax: Adriel Amato MD [address] [place] [phone] Phone: tel: fax: Referral ID Status Reason Start Date Expiration Date Visits Requested Visits Authorized [id number] Authorized Specialty Services Required 10/21/2024 10/21/2025 1 1 Reason for Visit * Reason Onset Date Comments nodules 10/21/2024 Encounter Details Date Type Department Care Team ([facility] [address] Contact Info) Description 10/21/2024 Telephone Internal Medicine - [address] [phone] Wilner Murray MD [address] [place] [address] nodules Social History Tobacco Use Types Packs/Day Years [...] for your loved ones. For example, child care team lead or elderly care for an older adult? [...] as of this encounter Progress Notes * Mercy Kerr RN - 10/21/2024 11:32 AM EDT Spoke to pt-reports of needing a sooner appt with Dr Lima rincon. clinic for ongoing bilat. inner calf nodules x few mos. Recent 09/09/24 u/s is unremarkable for cyst/mass or focal fluid collecns./ She has coming appt with him in 03/2025.Pt also has coming vasc.surg. appt next wk but kept on saying that she knows her body and feels it is not related to it but that it is a skin concern and that the program aide can better help her. She is asking if the office can make the ref. more immed. The ref placed was urgent. That way she can have a sooner appt. fyi * Jessica Camacho - 10/21/2024 9:41 AM EDT Patient call requires triage: Symptoms patient is presenting: nodules on both leg getting worse. State she has one that is black and painful. How long has patient had these symptoms?: 6 months For ALL patients calling to schedule any appointment (routine, sick visit, follow up, consult, etc.) in the outpatient setting please ask the following questions: Do you have fever of higher than 101, sore throat with difficulty swallowing or severe shortness ofbreath? no If YES to any of these above symptoms, send a message to triage and do not book. Red dot. If no, an audio or video visit should be booked. Have you had close contact with someone with Coronavirus in the last 14 days? no Have you traveled abroad? no Have you traveled recently to another state outside of [place], [place], [place], [place], [place], [place], [place]? no o If yes, did you quarantine for 14 days or have a negative covid test? no If yes to any of the above, patient is not to be scheduled in office until after 14 day quarantine or negative covid test. If pain or injury related was it due to an accident at work or from a motor vehicle accident? If yes, date of accident/Injury: No If yes, gather 3rd libertarian insurance information Third Green Party Information: not applicable PCP: Wilner Murray MD Payor: [employer] PLAN / Plan: [employer] [facility] / Product Type: *No Product type* / documented in this encounter Plan of Treatment Upcoming Encounters Date Type Department Care Team (Late st Contact Info) Description 10/30/2024 3:30 PM EDT Consult Vascular Surgery - [place] [address] [place] [address] Rhona Egan PA [address] [place] [address] 11/04/2024 4:00 PM EDT Treatment [facility] - [place] [address] [place] [phone] Stephanie Javed PT 11/06/2024 3:20 PM EDT Office Visit Gastroenterology - [place] [address] [facility] [address] [place] [phone] Amina Marte PA [address] [facility] [address] [place] [address] 11/28/2024 3:30 PM EDT Office Visit Orthopedic Surgery - [place] [address] [facility] [address] [place] [phone] Ministerio Arora, DPM [address] [facility] [address] [place] [address] Scheduled Procedures Name Priority Associated Diagnoses Date/Ti me REVISION SCAR Skin and subcutaneous tissue disease 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 hammer toe of right foot Scheduled Referrals Name Type Priority Associated Diagnoses Order Schedule Ambulatory referral to Dermatology Outpatient Referral Routine Leg mass, left 1 Occurrences starting 10/21/2024 until 10/21/2025 documented as of this encounter Visit Diagnoses Diagnosis Leg mass, left- Primary documented in this encounter Additional Health Concerns Assessment Noted Time PHQ-9 Depression Total Score: 12 025 6:12 PM EST documented as of this encounter Care Teams Metal Furniture Repairer Relationship Specialty Start Date End Date Wilner Murray MD [address] [place] [address] PCP - General Internal Medicine 03/25/20 documented as of this encounter
--- OUTSIDE RECORDS SUMMARY | 2024-10-23 17:13 | XMS_ITS | Encounter Summary ---
Author Organization [facility] Address [address] [place] [address] Care Team Providers Care Taximeter Repairer Name Role Phone Kevin Lechuga MD Primary Care Provider Unavail able Wilner Murray MD Primary Care Provider [phone] Encounter Details Date Type Department Care Team Description 11/30/2011 Orders Only [facility]BGYN - [facility] [address] [place] [address] Galdino Horton MD Preoperative examination, unspecified; Screening for other and unspecified deficiency anemia; Encounter for long-term (current) use of anticoagulants Social History Tobacco Use Types Packs/Day Years [...] on file documented as of this encounter Results * PROTHROMBIN TIME (01/27/2012 9:08 AM EDT) PT 13.1 12.7 - 15.7 SEC [facility] INR 0.92 [facility] 01/27/2012 9:08 AM EDT 01/27/2012 9:09 AM EDT Galdino Horton MD LAB Performing Organization Address [facility] Co de Phone Number [address] * THROMBOPLASTIN TIME, PARTIAL (01/27/2012 9:08 AM EDT) PTT 26.3 21.6 - 34.6 SEC [facility] Comment: Please note adjusted APTT (sec) reference range ?? effective 12/28/2009. 01/27/2012 9:08 AM EDT 01/27/2012 9:09 AM EDT Galdino Horton MD LAB Performing Organization Address [facility] de Phone Number [address] * (ABNORMAL) BASIC METABOLIC PANEL (01/27/2012 9:08 AM EDT) GLUCOSE 113(H) 70 - 100 mg/dL [facility] Comment: Reference range applicable to fasting specimens only Based on recommendations from the ADA and AACE, the fasting glucose reference range has been changed to 70-100 mg/dL. ??This change is effective December 28, 2009 BUN 11 5 - 25 mg/dL [facility] CREAT 0.6(L) 0.7 - 1.5 mg/dL [facility] GFR > 60 >60 [facility] Comment: If patient is -Kittitian, multiply result by 1.21 Chronic Kidney Disease: < 60 ml/min/1.73 square meters Kidney Failure: < 15 ml/min/1.73 square meters Sodium 139 133 - 145 mEq/L [facility] Potassium 4.1 3.5 - 5.2 mEq/L [facility] Chloride 105 96 - 108 mEq/L [facility] CO2 23.4 21.0 - 32.0 mEq/L [facility] CALCIUM 9.7 8.5 - 10.5 mg/dL [facility] 01/27/2012 9:08 AM EDT 01/27/2012 9:09 AM EDT Galdino Horton MD LAB Performing Organization Address [facility] de Phone Number [place] [id number] [facility] * (ABNORMAL) CBC (AUTO DIFF PLATELET) (01/27/2012 9:08 AM EDT) WBC 8.7 4.8 - 10.8 x10-3 [facility] RBC 4.5 3.8 - 4.8 x10-6 [facility] HGB 13.5 11.5 - 16.0 g/dl [facility] HCT 42.1 35 - 47 % [facility] MCV 94.2 79 - 98 fl [facility] MCH 30.2 27 - 32 pg [facility] MCHC 32.1 32 - 37 g/dl [facility] RDW 13.7 11 - 15 % [facility] PLT COUNT 277 130 - 400 x10-3 [facility] MEAN PLATELET VOLUME 11.1(H) 7 - 11 fl [facility] NEUT % 74.8 41 - 85 % [facility] LYMPH % 16.9 15 - 48 % [facility] MONO % 6.4 0 - 12 % [facility] EOS % 1.6 0 - 5 % [facility] BASO % 0.3 0 - 2 % [facility] 01/27/2012 9:08 AM EDT 01/27/2012 9:09 AM EDT Galdino Horton MD LAB Performing Organization Address [facility] Co de Phone Number [id number] documented in this encounter Visit Diagnoses Diagnosis Preoperative examination, unspecified Screening for other and unspecified deficiency anemia senior living (current) use of anticoagulants Long-term (current) use of anticoagulants documented in this encounter Care Teams Taximeter Repairer Relationship Specialty Start Date End Date Kevin Lechuga MD PCP - General 09/27/01 03/24/20 Wilner Murray MD [address] [place] [address] PCP - General Internal Medicine 03/25/20 documented as of this encounter
--- OUTSIDE RECORDS SUMMARY | 2024-10-23 17:13 | XMS_ITS | Encounter Summary ---
Author Organization [facility] Address [address] [place] [address] Care Team Providers Care Office Manager Receptionist Name Role Phone Wilner Murray MD Primary Care Provider [phone] Encounter Details Date Type Department Care Team Description 03/17/2023 Orders Only Medical Records [address] [place] [address] Abstract, Provider Social History Tobacco Use Types [...] suspected to have Coronavirus/COVID-19? No / Unsure 03/20/2023 1:26 PM EDT documented as of this encounter Plan of Treatment Not on file documented as of this encounter Procedures Procedure Name Priority Date/Time Associated Diagnosis Comments OUTSIDE VASCULAR STUDY Routine 03/16/2023 OUTSIDE PLAIN FILM Routine 03/16/2023 documented in this encounter Results * OUTSIDE PLAIN FILM (03/16/2023) Provider Abstract RADIOLOGY * OUTSIDE VASCULAR STUDY (03/16/2023) Provider Abstract CARDIOLOGY documented in this encounter Visit Diagnoses Not on filedocumented in this encounter Care Teams Office Manager Receptionist Relationship Specialty Start Date End Date Wilner Murray MD [address] [place] [address] PCP - General Internal Medicine 03/25/20 documented as of this encounter
--- OUTSIDE RECORDS SUMMARY | 2024-10-23 17:13 | XMS_ITS | Encounter Summary ---
Author Organization [facility] Address [address] [place] [address] Care Team Providers Care Pattern Shop Supervisor Name Role Phone Wilner Murray MD Primary Care Provider [phone] Reason for Visit * Reason Onset Date Comments Provider Call Back 12/20/2023 Encounter Details Date Type Department Care Team Description 12/20/2023 Telephone [facility] [address] [address] Ministerio Arora DPM [address] [address] Provider Call Back Social History Tobacco Use [...] encounter Miscellaneous Notes * Telephone Encounter - Freida Lisa Estrada - 12/20/2023 10:13 AM EDT Tried calling patient back to get some more information and schedule appt with Dr. Arora. If she calls back- There are two openings in Dr. Arora's schedule for tomorrow 12/20 in the afternoon. * Telephone Encounter - Lisa M Clemente - 12/20/2023 9:53 AM EDT Received call from patient stating that she has 2 Hard Lumps that are Hot and Red, one in her Rightankle area, the other just above her ankle .She states they are painful and getting bigger. She first noticed them on Monday.She was last seen 04/12/23 had Sx for a Bunionectomy and hammertoe with Leanne. Please advise. Please call patient back @ [phone]. Thanks. documented in this encounter Plan of Treatment Not on file documented as of this encounter Visit Diagnoses Not on filedocumented in this encounter Care Teams Pattern Shop Supervisor Relationship Specialty Start Date End Date Wilner Murray MD [address] [place] [address] PCP - General Internal Medicine 03/25/20 documented as of this encounter
--- OUTSIDE RECORDS SUMMARY | 2024-10-23 17:13 | XMS_ITS | Encounter Summary ---
Author Organization [employer] Address [address] [place] [address] Care Team Providers Care Associate Principal Name Role Phone Wilner Murray MD Primary Care Provider [phone] Reason for Visit * Reason Onset Date Comments Migraine 10/14/2024 Encounter Details Date Type Department Care Team (Late st Contact Info) Description 10/14/2024 Telephone Internal Medicine - [facility] [address] [place] [phone] Wilner Murray MD [address] [place] [address] Migraine Social History Tobacco Use Types Packs/Day Years [...] as of this encounter Progress Notes * Zulema Borrero RN - 10/14/2024 4:52 PM EST Spoke with the patient stated she has been experiencing migraines, thought it was her eyes but was seen today by eye doctor and told it wasn't from her eyes but got drops , had migraines in the past this is different. Unable to book appt in the office or UC gave number to call UC in the am to see if she can get an appt . * Maciel Lucas - 10/14/2024 4:23 PM EST Patient call requires triage: Symptoms patient is presenting: migraines, entire right side of face pain How long has patient had these symptoms?: 2 weeks For ALL patients calling to schedule any [...] traveled recently to another state outside of [place], [place], [place], [place], [place], [place], [place]? no o If yes, did you quarantine [...] of accident/Injury: No If yes, gather 3rd democrat insurance information Third Republican Information: not applicable PCP: Wilner Murray MD Payor: [employer] PLAN / Plan: [employer] / Product Type: *No Product type* / documented in this encounter Plan of Treatment Upcoming Encounters Date Type Department Care Team (Late st Contact Info) Description 10/30/2024 3:30 PM EDT Consult Vascular Surgery - [place] [address] [place] [address] Rhona Egan PA [address] [facility] [address] [place] [address] 11/04/2024 4:00 PM EDT Treatment [facility] - [place] 175 [facility] [address] [place] [phone] Stephanie Jaevd PT 11/06/2024 3:20 PM EDT Office Visit Gastroenterology - [place] [address] [facility] [address] [place] [phone] Amina Marte PA 175 [facility] 200 [place] [address] 11/28/2024 3:30 PM EDT Office Visit Orthopedic Surgery - [place] [address] 175 [facility] [address] [place] [phone] Ministerio Arora, DPM 175 [facility] [address] [place] [address] Scheduled Procedures Name Priority Associated Diagnoses Date/Ti me REVISION SCAR Skin and subcutaneous tissue disease 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 hammer toe of right foot documented as of this encounter Visit Diagnoses Not on filedocumented in this encounter Additional Health Concerns Assessment Noted Time PHQ-9 Depression Total Score: 12 025 6:12 PM EST documented as of this encounter Care Teams Associate Principal Relationship Specialty Start Date End Date Wilner Murray MD [address] [place] [address] PCP - General Internal Medicine 03/25/20 documented as of this encounter
--- OUTSIDE RECORDS SUMMARY | 2024-10-23 17:13 | XMS_ITS | Encounter Summary ---
Author Organization [facility] Address [address] [place] [address] Care Team Providers Care Manufacturing Quality Manager Name Role Phone Wilner Murray MD Primary Care Provider [phone] Reason for Visit * Reason Comments E-prescribe Rx Request Encounter Details Date Type Department Care Team Description 09/28/2023 Refill Endocrinology - [address] [address] [place] PA-C [address] [place] [address] E-prescribe Rx Request Social History Tobacco Use [...] as of this encounter Visit Diagnoses Diagnosis Type 2 diabetes mellitus with hyperglycemia, without long-term current use of insulin (HCC)- Primary documented in this encounter Care Teams Manufacturing Quality Manager Relationship Specialty Start Date End Date Wilner Murray MD [address] [place] [address] PCP - General Internal Medicine 03/25/20 documented as of this encounter
--- OUTSIDE RECORDS SUMMARY | 2024-10-23 17:13 | XMS_ITS | Encounter Summary ---
Author Organization [employer] [facility] Address [address] [place] [address] Care Team Providers Care Back Hoe Operator Name Role Phone Wilner Murray MD Primary Care Provider [phone] Encounter Details Date Type Department Care Team Description 12/01/2023 Orders Only Medical Records [address] [place] [address] Freida Blackmon PA-C Social History Tobacco Use Types Packs/Day [...] Name Priority Date/Time Associated Diagnosis Comments OUTSIDE CT Routine 11/30/2023 documented in this encounter Results * OUTSIDE CT (11/30/2023) Freida Blackmon PA-C RADIOLOGY documented in this encounter Visit Diagnoses Not on filedocumented in this encounter Care Teams Back Hoe Operator Relationship Specialty Start Date End Date Wilner Murray MD [address] [place] [address] PCP - General Internal Medicine 03/25/20 documented as of this encounter
--- OUTSIDE RECORDS SUMMARY | 2024-10-23 17:13 | XMS_ITS | Clinical Summary ---
Author Organization [facility] Address [address] [place] [address] Care Team Providers Care Business Education Teacher Name Role Phone Wilner Murray MD Primary Care Provider Unavail able Social History Tobacco Use Types Packs/Day Years Used Date Smoking Tobacco: Never Assessed Sex and Gender Information Value Date Recorded Sex Assigned at Not on file Gender Identity Not on file Sexual Orientation Not on file Plan of Treatment Health Maintenance Due Date Last Done Comments Hepatitis C Virus Screening 1966 HIV Screening 1979 DTaP/Tdap/Td Vaccines (1 - Tdap) 1985 Hepatitis B Vaccines (1 of 3 - 19+ 3-dose series) 1985 Pneumococcal Vaccines 50+ (1 of 1 - PCV) 2016 Zoster (Shingles) Vaccine (1 of 2) 2016 COVID-19 Vaccine (2023-2 5 season) 2024 Pneumococcal Vaccine: Pediat michelle (0-5 Years) and At-Risk Patients (6 to 49 Years) Aged Out No longer eligible b ased on patient's age to complete this topic Care Teams Business Education Teacher Relationship Specialty Start Date End Date Wilner Murray MD PCP - General
--- OUTSIDE RECORDS SUMMARY | 2024-10-23 17:14 | XMS_ITS | Clinical Summary ---
Author Organization [facility] Address [address] [place] [address] Care Team Providers Care Solderer Assembly Repair Name Role Phone Wilner Murray MD Primary Care Provider [phone] Allergies No known active allergies Medications Medication Sig Dispensed Refills Start Date End Date Status Calcium Citrate-Vitamin D (CALCIUM CITRATE + D3) 200-250 MG-UNIT Tab 200-250 Each. 0 12/25/2017 Active glucose monitoring kit (FREESTYLE) monitoring kitIndications:Type 2 diabetes mellitus with hyperglycemia, without long-term current use of insulin ([facility]) To check sugars twice daily. E11.65 1 Kit 0 08/30/2022 Active FreeStyle Lancets MiscIndications:Type 2 diabetes mellitus with hyperglycemia, without long-term current use of insulin ([facility]) To check sugars twice daily. E11.65 100 Each 2 08/30/2022 Active Blood Glucose Calibration (FreeStyle Control Solution) LiquidIndications:Ty pe 2 diabetes mellitus with hyperglycemia, without long-term current use of insulin ([facility]) E11.65. to use with glucometer. 1 Each 0 08/30/2022 Active ALBUTEROL SULFATE (Ventolin HFA) 108 (90 Base) MCG/ACT Aero Soln Inhale 2 Puffs into the lungs every 6 hours as needed for Cough or Wheezing. 18.5 g 0 03/21/2023 Active Glucose Blood (FREESTYLE LITE) StripIndications:Typ e 2 diabetes mellitus with hyperglycemia, without long-term current use of insulin ([facility]) USE TWICE A DAY 100 Strip 2 07/04/2023 Active docusate sodium (COLACE) 100 MG capsule 2 times daily. 0 12/01/2023 Active metformin (GLUCOPHAGE-XR) 500 MG 24 hr tabletIndications:Ty pe 2 diabetes mellitus with hyperglycemia, without long-term current use of insulin (HCC) TAKE 1 TABLETS TWICE DAILY WITH FOOD. 360 Tablet 2 01/10/2024 Active Sennosides (Senna) 8.6 MG Cap Take 8.6 mg by mouth 2 times daily. 180 Capsule 1 01/10/2024 Active levothyroxine (SYNTHROID, LEVOTHROID) 150 MCG tabletIndications:Be nign paroxysmal vertigo, unspecified ear TAKE 1 TABLET BY MOUTH DAILY. TAKE 2 TABLETS ON SUNDAYS. 102 Tablet 1 02/19/2024 Active lansoprazole (PREVACID) 30 MG capsuleIndications:G astroesophageal reflux disease, unspecified whether esophagitis present Take 1 Capsule by mouth daily. 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 Hepatomegaly 03/15/2021 Overview: 03/2021-incidental finding on sono abdomen, likely related to hepatic steatosis, following with gastroenterology Cholelithiasis 03/15/2021 Overview: 03/2021-incidental finding on sono abdomen, no abdominal pain, no evidence of obstruction. Declined general surgery. G6PD deficiency 03/15/2021 LIN (obstructive sleep apnea) 05/23/2019 Right-sided low back pain without sciati ca 08/28/2018 Constipation 05/28/2018 Esophageal dysmotility 03/26/2018 Hiatal hernia 03/26/2018 Dysphagia 01/14/2016 Overview: Ba swallow and speech pathology evaluation completed. Swallow and lifestyle modifications recommended. GERD (gastroesophageal reflux disease) 0 03/27/2015 DJD (degenerative joint disease) of knee 01/16/2015 BPV (benign positional vertigo) 01/09/20 Parathyroid adenoma 11/27/2014 Overview: Right and left superior--s/p excision 12/2014 Hyperparathyroidism 09/12/2014 History of thyroid cancer 07/04/2014 Overview: Papillary cancer, S/p thyroidectomy 12/2014 Former smoker 07/28/2011 Migraine 08/12/2008 Fibromyalgia 08/12/2008 Sleep disturbance 08/12/2008 Tension headache 08/12/2008 Depression 08/12/2008 Obesity (BMI 30-39.9) 10/13/2006 History of diverticulitis of colon 01/14 Overview: With abscess 05/2018, did not require surgery. Recurrence 06/2018 without abscess. Resolved Problems Problem Noted Date Resolved Date Malignant neoplasm of thyroid gland 05/25/2022 05/31/2023 Overview: Incidental finding of thyroid nodule 2 cm in 2014. FNA revealed papillary thyroid cancer, underwent total thyroidectomy. 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 Patient did not have any extrathyroidal invasion. Lymph nodes were negative. Given her mutation, she underwent radioactive ablation in 2014 now on levothyroxine. She had a whole-body nuclear uptake scan in December 2017 which did not reveal any metastatic disease. She had a neck ultrasound in September 2021 which showed some irregular lymph nodes at level 4. FNA biopsy was done, negative for malignant cells. Following with [facility] endocrinology. Class 2 obesity 05/25/2022 05/31/2023 Obstructive sleep apnea syndrome 05/25/2022 05/31/2023 Class 3 severe obesity due t o excess calories with serious comorbidity and body mass index (BMI) of 40.0 to 44.9 in adult 01/11/2021 05/31/2023 DVT, lower extremity, distal, acute, left 202005/31/2023 Acute pulmonary embolism without acute cor pulmo nale 01/11/2021 05/31/2023 Overweight 08/12/2008 06/15/2010 Encounters Date Type Specialty Care Team Description 08/09/2024 Orders Only Ilsa Ng MD from Last 3 Months Immunizations Name Administration Dates Next Due COVID-19 (Pfizer) 03/02/2021 COVID-19 (Pfizer) Pt Reported 02/05/2021 Hepatitis U-Wikwo-Hycwqaug + 10/05/2009 Influenza (> 6 Months) 06/04/2024,2016,05/14/2011,05/15 Influenza Flu (PT Reported) 05/14/2020 Influenza H1N1 Pandemic Flu Vaccine 06/26/2009 Influenza Vaccine-preservati ve Free-quadrivalent 4 Years 05/31/2023,05/19/2022,04/24/2018 Pneumoccoccal(Adult) Polysac charide PPSV23 09/17/2020 TETANUS/DIPTHERIA (ADULT) 03/02/2005 Tdap 05/31/2023,02/07/2013 Family History Medical History Relation Name Comments CA Breast Aunt m. aunt mother's side Thyroid Disorder Brother No Known Problems Daughter 1 Multiple Sclerosis Daughter 2 Real diverticulosis Daughter 2 Real No Known Problems Daughter 3 Cataract Father Diabetes Father Glaucoma Father Hypertension Father [place] Father Dementia Maternal Grandmother Other Dermatoloical Disorders Maternal Grandmother skin cancer on face x 3 ...... specifics unknown Glaucoma Mother No Known Problems Sister Relation Name Status Comments Aunt m. aunt Alive Brother Alive Daughter 1 Alive Daughter 2 Real Alive Daughter 3 Alive Father Maternal Grandmother Mother Alive Sister Alive Social History Tobacco Use Types [...] Sign Reading Time Taken Comments Blood Pressure 126/78 06/04/2024 8:45 AM EDT Pulse 92 06/04/2024 8:45 AM EDT Temperature 36.8 ??C (98.3 ??F) 02/12/2024 1 0:25 AM EDT Respiratory Rate 14 07/03/2023 3:29 PM EST Oxygen Saturation 96% 02/21/2024 9:11 AM EDT Inhaled Oxygen Concentration - - Weight 94.8 kg (208 lb 14.4 oz) 06/04/2024 8:45 AM EDT Height 157.5 cm (5' 2 ) 04/02/2024 9:51 AM EDT Body Mass Index 38.21 04/02/2024 9:51 AM EDT Plan of Treatment Health Maintenance Due Date Last Done Comments SHINGLES VACCINE (1 of 2) 2016 CERVICAL CANCER SCREENING 09/04/20232020, 03/17/2016, 02/07/2013, Additional history exists DIABETES: BLOOD SUGAR CONTRO L TEST (HGBA1C) 04/11/2024 01/10/2024, 07/24/2023, 03/20/2023, Additional history exists Covid-19 Vaccine (2022-2 4 season) 2024 03/02/2021, 02/05/2021 DIABETES: ANNUAL FOOT EXAM 05/31/2024 05/31/2023 MAMMOGRAM 07/31/2024 07/31/2023, 05/02/2022, 09/08/2020, Additional history exists BMI CHECK/ADVISE 08/14/2024 01/10/2024, 06/2023, 05/31/2023, Additional history exists DEPRESSION SCREENING/FOLLOWUP 08/14/2024 (Completed), 07/13/2022, 03/10/2021 (Completed), Additional history exists SOCIAL NEEDS SCREENING 08/14/2024 (Completed), 03/10/2021 (Completed) DIABETES: ANNUAL EYE EXAM 12/24/20242023 (External Completion of test per patient (Patient reports normal results)), 11/18/2022, 12/13/2017 DIABETES/HEART DISEASE: JULIAN MAYORGA CHOLESTEROL (LDL) 01/09/2025 01/10/2024, 03/20/2023, 08/24/2022, Additional history exists DIABETES: ANNUAL URINE PROTE IN TEST (MICROALBUMIN) 01/09/2025 01/10/2024, 03/20/2023, 12/14/2022, Additional history exists BASELINE HEALTH EXAM 40-64 05/31/202505/31, 05/31/2023, 03/10/2021, Additional history exists COLON CANCER SCREENING 04/06/2027 , 07/28/2020, 04/24/2015, Additional history exists PNEUMOCOCCAL VACCINE FOR HIG H RISK PATIENTS (#2) 2031 09/17/2020 DTAP/TDAP/TD (3 - Td or Tdap) 05/31/2033 05/31/2023, 02/07/2013 HEPATITIS C SCREENING Completed 2021, 015 INFLUENZA Completed 06/04/2024, 05/14, 05/19/2022, Additional history exists Care Teams Solderer Assembly Repair Relationship Specialty Start Date End Date Wilner Murray MD [address] [place] [address] PCP - General Internal Medicine 03/25/20
--- OUTSIDE RECORDS SUMMARY | 2024-10-23 17:14 | XMS_ITS | Encounter Summary ---
Author Organization [facility] Address [address] [place] [address] Care Team Providers Care High Pressure Kettle Operator Name Role Phone Wilner Murray MD Primary Care Provider [phone] Encounter Details Date Type Department Care Team Description 11/26/2020 Telephone Internal Medicine [address], [address] [place] [address] Amina Marte DScPAS Social History Tobacco Use Types Packs/Day Years [...] have Coronavirus / COVID-19? No / Unsure 11/26/2020 1:47 PM EDT documented as of this encounter Plan of Treatment Not on file documented as of this encounter Visit Diagnoses Not on filedocumented in this encounter Care Teams High Pressure Kettle Operator Relationship Specialty Start Date End Date Wilner Murray MD [address] [place] [address] PCP - General Internal Medicine 03/25/20 documented as of this encounter
--- OUTSIDE RECORDS SUMMARY | 2024-10-23 17:14 | XMS_ITS | Encounter Summary ---
Author Organization [facility] Address [address] [place] [address] Care Team Providers Care Pediatric Acute Care Unit Nurse Name Role Phone Wilner Murray MD Primary Care Provider [phone] Reason for Visit * Reason Onset Date Comments Swelling 03/07/2024 Joint Pain 03/07/2024 Encounter Details Date Type Department Care Team Description 03/07/2024 Telephone Adult Medicine [address] [address] Wilner Murray MD [address] [place] [address] Swelling; Joint Pain Social History Tobacco Use Types Packs/Day Years [...] encounter Miscellaneous Notes * Telephone Encounter - Rain Langford M.A. - 03/07/2024 4:44 PM EDT Spoke with pt, pt stated if symptoms gets worse will go to ER, other elizabeth she will keep appt for 03/26 * Telephone Encounter - Tami Bahena NP - 03/07/2024 4:31 PM EDT Please schedule with pcp only and request [facility] consult notes for that appt for his review. * Telephone Encounter - Mercy Kerr R.N. - 03/07/2024 4:16 PM EDT Pls advise Spoke to pt (denies any difficulty breathing and is talking in sentences)-reports of bilat. feet/leg/ankle swelling recurring for few wks. Pt feels sl tightness/ very sl. swelling to her lips as well. Advised to go to the ER if having much swelling to lips/throat/tongue. She [facility] and there was only conversation but was told they cant prescribe anything; and to reach out to her PCP. She states the prednisone ordered fr o.v. on 02/12/24 resolved the s/x after completing tx. * Telephone Encounter - Cesar Krause - 03/07/2024 3:56 PM EDT Symptoms patient is presenting: pt was c/o swollen and painful joints. [facility] was told by treating provoder that notes and recommended meds would be sent to Dr Murray. Pt was on predniSONE (DELTASONE) 20 MG tablet, which privided some relief butnow pain & swelling is back For ALL patients calling to schedule any appointment (routine, sick visit, follow up, consult, etc.) in the outpatient setting please ask the following questions: ?? Do you have fever of higher than 101, sore throat with difficulty swallowing or severe shortnessof breath? NO If YES to any of these above symptoms, send a message to triage and do not book. Red dot. If no, an audio or video visit should be booked. ?? Have you had close contact with someone with Coronavirus in the last 14 days? NO ?? Have you traveled abroad? NO ?? Have you traveled recently to another state outside of [place], [place], [place], [place], [place], [place], [place]? NO o If yes, did you quarantine for 14 days or have a negative covid test? NO If yes to any of the above, patient is not to be scheduled in office until after 14 day quarantine or negative covid test. If pain or injury related was it due to an accident at work or from a motor vehicle accident? NO If yes, gather 3rd republican insurance information Date of accident/Injury: n/a How long has patient had these symptoms?: n/a PCP: Wilner Murray Payor: [facility] [employer] [facility] FFS / Plan: [facility] / Product Type: MEDICAID RISK documented in this encounter Plan of Treatment Not on file documented as of this encounter Visit Diagnoses Not on filedocumented in this encounter Care Teams Pediatric Acute Care Unit Nurse Relationship Specialty Start Date End Date Wilner Murray MD [address] [place] [id number] PCP - General Internal Medicine 03/25/20 documented as of this encounter
--- OUTSIDE RECORDS SUMMARY | 2024-10-23 17:14 | XMS_ITS | Encounter Summary ---
Author Organization [facility] Address [address] [place] [address] Care Team Providers Care Reworker Name Role Phone Wilner Murray MD Primary Care Provider [phone] Encounter Details Date Type Department Care Team Description 08/09/2024 Orders Only Medical Records [address] [place] [address] Ilsa Ng MD Social History Tobacco Use [...] Name Priority Date/Time Associated Diagnosis Comments OUTSIDE LAB Routine 05/20/2024 documented in this encounter Results * OUTSIDE LAB (05/20/2024) Ilsa Ng MD LAB documented in this encounter Visit Diagnoses Not on filedocumented in this encounter Care Teams Reworker Relationship Specialty Start Date End Date Wilner Murray MD [address] [place] [address] PCP - General Internal Medicine 03/25/20 documented as of this encounter
--- OUTSIDE RECORDS SUMMARY | 2024-10-23 17:14 | XMS_ITS | Encounter Summary ---
Author Organization [facility] Address [address] [place] [address] Care Team Providers Care Glue Sprayer Name Role Phone Kevin Lechuga MD Primary Care Provider Unavail Wilner Quan MD Primary Care Provider [phone] Reason for Visit * Reason Onset Date Comments refill request 07/28/2016 Encounter Details Date Type Department Care Team Description 07/28/2016 Refill Gastroenterology - [address] [address] Tan Swartz MD refill request Social History Tobacco Use Types Packs/Day Years Used Date Smoking Tobacco: Former Cigarettes 1 0 1996 - 08/14/2010 Smokeless Tobacco: Former [...] encounter Miscellaneous Notes * Telephone Encounter - Gypsy Landaverde - 07/29/2016 10:20 AM EST Message relayed to patient, she will contact her pcp going forward to get refills. * Telephone Encounter - Gypsy Landaverde - 07/29/2016 8:38 AM EST Called pt and got her daughter on the line instead, she will let her mother know to call us back. * Telephone Encounter - Tan Swartz MD - 07/28/2016 4:44 PM EST Prescribed. Please tell patient that in the future this would need to be prescribed with Dr. Lechuga, as she is not actively following with GI. * Telephone Encounter - Gypsy Landaverde - 07/28/2016 4:33 PM EST Pharmacy calling for a refill request, can it be filled or does pt need to be seen? She was last seen on 02/04/[address] Ibarra, please advise, thank you! documented in this encounter Plan of Treatment Not on file documented as of this encounter Visit Diagnoses Not on filedocumented in this encounter Care Teams Glue Sprayer Relationship Specialty Start Date End Date Kevin Lechuga MD PCP - General 09/27/01 03/24/20 Wilner Murray MD [address] [place] [id number] PCP - General Internal Medicine 03/25/20 documented as of this encounter
--- OUTSIDE RECORDS SUMMARY | 2024-10-23 17:14 | XMS_ITS | Encounter Summary ---
Author Organization [facility] Address [address] [place] [address] Care Team Providers Care Director Payer Name Role Phone Kevin Lechuga MD Primary Care Provider Unavail able Wilner Murray MD Primary Care Provider [phone] Encounter Details Date Type Department Care Team Description 12/09/2014 [facility] Medical Records [address] [place] [address] Paola Mathis MD Social History Tobacco Use [...] on filedocumented in this encounter Care Teams Director Payer Relationship Specialty Start Date End Date Kevin Lechuga MD PCP - General 09/27/01 03/24/20 Wilner Murray MD [address] [place] [id number] PCP - General Internal Medicine 03/25/20 documented as of this encounter
--- OUTSIDE RECORDS SUMMARY | 2024-10-23 17:14 | XMS_ITS | Encounter Summary ---
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
--- OUTSIDE RECORDS SUMMARY | 2024-10-23 17:14 | XMS_ITS | Encounter Summary ---
Author Organization [facility] Address [address] [place] [address] Care Team Providers Care Cartography Supervisor Name Role Phone Wilner Murray MD Primary Care Provider [phone] Reason for Visit * Reason Onset Date Comments TEST RESULTS 08/29/2020 Encounter Details Date Type Department Care Team Description 08/29/2020 Telephone Adult Urgent Care - [address] [address] Wilner Murray MD [address] [place] [id number] TEST RESULTS Social History Tobacco Use Types Packs/Day Years [...] have Coronavirus / COVID-19? No / Unsure 08/26/2020 9:24 AM EST documented as of this encounter Miscellaneous Notes * Telephone Encounter - Rivera Johnson M.A. - 09/04/2020 9:14 AM EST 2x Left voicemail asking to return call. * Telephone Encounter - Rivera Johnson M.A. - 09/02/2020 9:28 AM EST Left voicemail asking to return call. * Telephone Encounter - Jose F Tee PA-C - 09/01/2020 5:26 PM EST She should not be taking the nabumetone and ibuprofen together. It would be okay for her to take the nabumetone and Tylenol together. She should follow-up with dermatology, they may consider biopsying one of the bruises to better define what is causing it. Her recent red blood cell counts and platelet levels were normal. She had some mild elevation in 2 of the inflammatory markers, we can monitor this for now. Her x-rays did not suggest any erosive disease, which is reassuring, only osteoarthritis. I would wait and see what the manager floral says about the bruises tomorrow. If she continues to experience ongoing bruising symptoms, I would recommend follow- up with the PCP care team to address this. * Telephone Encounter - Rivera Johnson M.A. - 09/01/2020 2:51 PM EST Patient has been notified. Patient states she has been brusing easily for years. Patient states her leg pain is not getting any better. She is seeing derm tomorrow for the bump on the leg . She'd like to know if anything elsecan be given. She has been taking Nabumetone BID, Ibuprofen, Tylenol. She admits stopping Tylenol due to not liking to take medications. Please advise. Last seen 08/26/20. * Telephone Encounter - Rivera Johnson M.A. - 08/31/2020 1:21 PM EST Left voicemail asking to return call. * Telephone Encounter - Jose F Tee PA-C - 08/31/2020 12:47 PM EST Please let patient know that her inflammatory markers remain slightly elevated. She has a borderline iron deficiency, please make sure she is not having any easy bleeding or bruising. She does not have an anemia. It looks like she is up-to-date with her colonoscopy last done in 2014. She is also following with gastroenterology and should continue to do so. The remaining blood work was satisfactory. We can continue to monitor for now. We can review further at her scheduled follow-up visit with me on 09/28/2020. * Telephone Encounter - Wilner Murray MD - 08/31/2020 12:32 PM EST Ok to wait * Telephone Encounter - Wilton Benito MD - 08/29/2020 2:21 PM EST Ok to wait * Telephone Encounter - Rubia Kaur R.N. - 08/29/2020 2:13 PM EST Labs have not been reviewed yet Please advise * Telephone Encounter - Christel Sanchez - 08/29/2020 2:00 PM EST Inform patient: ANY URGENT OR ABNORMAL RESULTS WIILL RESULT IN A CALL BACK TO THE PATIENT [place]. Type of test: :blood and xrays Date test was performed: 08/26/2020 Where was the test performed: Who ordered this test?: Wilner Murray Is the doctor here today?: NO Can the message wait until the doctor returns?: NO IF PATIENT'S PCP IS NOT IN INSTRUCT PATIENT THAT THEY WILL RECEIVE A CALL BACK WHEN THE PCP IS IN THE OFFICE NEXT. documented in this encounter Plan of Treatment Not on file documented as of this encounter Visit Diagnoses Not on filedocumented in this encounter Care Teams Cartography Supervisor Relationship Specialty Start Date End Date Wilner Murray MD [address] [place] [id number] PCP - General Internal Medicine 03/25/20 documented as of this encounter
--- OUTSIDE RECORDS SUMMARY | 2024-10-23 17:14 | XMS_ITS | Encounter Summary ---
Author Organization [facility] Address [address] [place] [address] Care Team Providers Care Reinforcing Rod Layer Name Role Phone Kevin Lechuga MD Primary Care Provider [facility] Wilner Murray MD Primary Care Provider [phone] Encounter Details Date Type Department Care Team Description 12/25/2016 Release of Information Medical Records [address] [place] [id number] Abstract, Provider Social History Tobacco Use Types [...] on filedocumented in this encounter Care Teams Reinforcing Rod Layer Relationship Specialty Start Date End Date Kevin Lechuga MD PCP - General 09/27/01 03/24/20 Wilner Murray MD [address] [place] [phone] PCP - General Internal Medicine 03/25/20 documented as of this encounter
--- OUTSIDE RECORDS SUMMARY | 2024-10-23 17:14 | XMS_ITS | Encounter Summary ---
Author Organization [facility] Address [address] [place] [address] Care Team Providers Care Almond Cutting Machine Tender Name Role Phone Wilner Mruray MD Primary Care Provider [phone] Encounter Details Date Type Department Care Team Description 09/21/2020 Telephone Adult Medicine [address] [id number] Wilner Murray MD [address] [place] [id number] Social History Tobacco Use Types Packs/Day Years [...] have Coronavirus / COVID-19? No / Unsure 09/17/2020 10:58 AM EST documented as of this encounter Plan of Treatment Not on file documented as of this encounter Visit Diagnoses Not on filedocumented in this encounter Care Teams Almond Cutting Machine Tender Relationship Specialty Start Date End Date Wilner Murray MD [address] [place] [id number] PCP - General Internal Medicine 03/25/20 documented as of this encounter
--- OUTSIDE RECORDS SUMMARY | 2024-10-23 17:14 | XMS_ITS | Encounter Summary ---
Author Organization [facility] Address [address] [place] [address] Care Team Providers Care Screedman Name Role Phone Wilner Murray MD Primary Care Provider [phone] Encounter Details Date Type Department Care Team Description 05/20/2024 Animal Biologist Report Medical Records [address] [place] [address] Ilsa Ng MD Social History Tobacco Use [...] on filedocumented in this encounter Care Teams Screedman Relationship Specialty Start Date End Date Wilner Murray MD [address] [place] [address] PCP - General Internal Medicine 03/25/20 documented as of this encounter
--- OUTSIDE RECORDS SUMMARY | 2024-10-23 17:14 | XMS_ITS | Encounter Summary ---
Author Organization [facility] Address [address] [place] [address] Care Team Providers Care Bi Developer Name Role Phone Kevin Lechuga MD Primary Care Provider [facility] Wilner Murray MD Primary Care Provider [phone] Encounter Details Date Type Department Care Team Description 01/01/2016 Entry Level Receptionist Report Medical Records [address] [place] [address] Rehab., [place] Social History Tobacco Use Types Packs/Day Years Used Date Smoking Tobacco: Former Cigarettes 1 0 1996 - 08/14/2010 Smokeless Tobacco: Former Comments:1 cig twice a mo Alcohol Use Standard Drinks/Week Comments Yes 0 (1 standard drink = 0.6 oz pur e alcohol) 3 4 drinks per yr Sex Assigned at Date Recorded Not on file Job Start Date Occupation Industry Not on file Not on file Not on file documented as of this encounter Plan of Treatment Not on file documented as of this encounter Visit Diagnoses Not on filedocumented in this encounter Care Teams Bi Developer Relationship Specialty Start Date End Date Kevin Lechuga MD PCP - General 09/27/01 03/24/20 Wilner Murray MD [address] [place] [address] PCP - General Internal Medicine 03/25/20 documented as of this encounter
--- OUTSIDE RECORDS SUMMARY | 2024-10-23 17:14 | XMS_ITS | Encounter Summary ---
Author Organization [facility] Address [address] [place] [address] Care Team Providers Care Alarm Service Technician Name Role Phone Kevin Lechuga MD Primary Care Provider [facility] Wilner Murray MD Primary Care Provider [phone] Encounter Details Date Type Department Care Team Description 06/13/2017 [facility] Medical Records [address] [place] [address] Abstract, Provider Social History Tobacco Use Types [...] on filedocumented in this encounter Care Teams Alarm Service Technician Relationship Specialty Start Date End Date Kevin Lechuga MD PCP - General 09/27/01 03/24/20 Wilner Murray MD [address] [place] [address] PCP - General Internal Medicine 03/25/20 documented as of this encounter
--- OUTSIDE RECORDS SUMMARY | 2024-10-23 17:14 | XMS_ITS | Encounter Summary ---
Author Organization [facility] Address [address] [place] [address] Care Team Providers Care Fire Fighting Equipment Specialist Name Role Phone Wilner Murray MD Primary Care Provider Reason for Visit * Reason Comments E-prescribe Rx Request Encounter Details Date Type Department Care Team Description 02/19/2024 Refill Adult Medicine [facility] [address] [place] [address] Heavenly [place] PA-C [address] [place] [address] E-prescribe Rx Request Social History Tobacco Use [...] encounter Miscellaneous Notes * Telephone Encounter - Chase Yanes R.N. - 02/19/2024 10:23 AM EDT RASHAD 07/24/23 OV None documented in this encounter Plan of Treatment Not on file documented as of this encounter Visit Diagnoses Diagnosis Benign paroxysmal vertigo, unspecified ear documented in this encounter Care Teams Fire Fighting Equipment Specialist Relationship Specialty Start Date End Date Wilner Murray MD [address] [place] [address] PCP - General Internal Medicine 03/25/20 documented as of this encounter
--- OUTSIDE RECORDS SUMMARY | 2024-10-23 17:14 | XMS_ITS | Encounter Summary ---
Author Organization [facility] Address [address] [place] [address] Care Team Providers Care Senior Hr Generalist Name Role Phone Wilner Murray MD Primary Care Provider Encounter Details Date Type Department Care Team Description 12/04/2020 Telephone Medical Records [address] [place] [address] Abstract, Provider Social History Tobacco Use Types [...] on filedocumented in this encounter Care Teams Senior Hr Generalist Relationship Specialty Start Date End Date Wilner Murray MD [address] [place] [address] PCP - General Internal Medicine 03/25/20 documented as of this encounter
--- OUTSIDE RECORDS SUMMARY | 2024-10-23 17:14 | XMS_ITS | Encounter Summary ---
Author Organization [facility] Address [address] [place] [address] Care Team Providers Care Network Security Engineer Name Role Phone Wilner Murray MD Primary Care Provider [phone] Reason for Visit * Reason Onset Date Comments Prior Authorization 02/22/2024 Upper GI ruthy dy Encounter Details Date Type Department Care Team Description 02/22/2024 Telephone Adult Medicine [address] [address] Amina Marte DScPAS Prior Authorization (Upper GI study ) Social History Tobacco Use Types Packs/Day [...] Notes * Telephone Encounter - Adriana Lewis C.M.A. - 02/22/2024 10:23 AM EDT Patient is scheduled for her upper Gi study over at [facility] on - 03/04/2024 Arrival time is - 9:10am Patient is to have nothing to eat or drink after midnight, Patient is made aware we bumped up the appointment. * Telephone Encounter - Lety Celaya - 02/22/2024 10:03 AM EDT Wellsdonna bauman auth required Appt scheduled for 03/07/24 at 9:[address] [facility]. Order faxed. Spoke to patient and gave appt details documented in this encounter Plan of Treatment Not on file documented as of this encounter Visit Diagnoses Not on filedocumented in this encounter Care Teams Network Security Engineer Relationship Specialty Start Date End Date Wilner Murray MD [address] [place] [address] PCP - General Internal Medicine 03/25/20 documented as of this encounter
--- OUTSIDE RECORDS SUMMARY | 2024-10-23 17:14 | XMS_ITS | Encounter Summary ---
Author Organization [facility] Address [address] [place] [address] Care Team Providers Care Winder Contort Operator Name Role Phone Kevin Lechuga MD Primary Care Provider Unavail [facility] Wilner Murray MD Primary Care Provider [phone] Reason for Visit * Reason Onset Date Comments Supervisor Cell Maintenance Feedback 12/10/2015 Barium Swallow Encounter Details Date Type Department Care Team Description 12/10/2015 Telephone Adult Medicine [address] [address] Kevin Lechuga MD Supervisor Cell Maintenance Feedback (Barium Swallow) Social History Tobacco Use Types Packs/Day Years [...] encounter Miscellaneous Notes * Telephone Encounter - Joe Dover - 12/10/2015 4:05 PM EDT Order faxed to Jm at [phone], notification letter mailed to patient. documented in this encounter Plan of Treatment Not on file documented as of this encounter Visit Diagnoses Not on filedocumented in this encounter Care Teams Winder Contort Operator Relationship Specialty Start Date End Date Kevin Lechuga MD PCP - General 09/27/01 03/24/20 Wilner Murray MD [address] [place] [address] PCP - General Internal Medicine 03/25/20 documented as of this encounter
--- OUTSIDE RECORDS SUMMARY | 2024-10-23 17:14 | XMS_ITS | Encounter Summary ---
Author Organization [facility] Address [address] [place] [address] Care Team Providers Care Fire Protection Equipment Technician Name Role Phone Wilner Murray MD Primary Care Provider [phone] Reason for Visit * Reason Onset Date Comments Prior Authorization 02/21/2024 Upper GI ruthy dy Encounter Details Date Type Department Care Team Description 02/21/2024 Telephone Adult Medicine [address] [address] Amina Marte DScPAS Prior Authorization (Upper GI [...] encounter Miscellaneous Notes * Telephone Encounter - Lety Celaya - 02/21/2024 11:17 AM EDT Javier hamilton required Order faxed to CCC dept at [facility]. They will contact patient and schedule appt. Notification letter sent documented in this encounter Plan of Treatment Not on file documented as of this encounter Visit Diagnoses Not on filedocumented in this encounter Care Teams Fire Protection Equipment Technician Relationship Specialty Start Date End Date Wilner Murray MD [address] [place] [address] PCP - General Internal Medicine 03/25/20 documented as of this encounter
--- OUTSIDE RECORDS SUMMARY | 2024-10-23 17:14 | XMS_ITS | Encounter Summary ---
Author Organization [facility] Address [address] [place] [address] Care Team Providers Care Instrumental Musician Name Role Phone Wilner Murray MD Primary Care Provider Reason for Visit * Reason Onset Date Comments Provider Call Back 02/21/2024 Encounter Details Date Type Department Care Team Description 02/21/2024 Telephone Gastroenterology - [address] [place] [phone] Amina Marte DScPAS Provider Call Back [...] encounter Miscellaneous Notes * Telephone Encounter - Amelia Guallpa - 02/21/2024 1:09 PM EDT Patient calling, states received call from [facility] to set up Upper GI, but was told nothing open until May. Was advised only way for sooner appointment is if we call and schedule as urgent. Please advise. documented in this encounter Plan of Treatment Not on file documented as of this encounter Visit Diagnoses Not on filedocumented in this encounter Care Teams Instrumental Musician Relationship Specialty Start Date End Date Wilner Murray MD [address] [place] [address] PCP - General Internal Medicine 03/25/20 documented as of this encounter
--- OUTSIDE RECORDS SUMMARY | 2024-10-23 17:14 | XMS_ITS | Encounter Summary ---
Author Organization [facility] Address [address] [place] [address] Care Team Providers Care Sheep Herder Name Role Phone Wilner Murray MD Primary Care Provider [phone] Encounter Details Date Type Department Care Team Description 12/03/2020 Orders Only Medical Records [address] [place] [address] Evelyn Trejo, DO [address] [place] [address] Social History Tobacco Use Types Packs/Day Years [...] Name Priority Date/Time Associated Diagnosis Comments OUTSIDE PATHOLOGY Routine 11/30/2020 documented in this encounter Results * OUTSIDE PATHOLOGY (11/30/2020) Evelyn Trejo DO OUTSIDE LAB documented in this encounter Visit Diagnoses Not on filedocumented in this encounter Care Teams Sheep Herder Relationship Specialty Start Date End Date Wilner Murray MD [address] [place], [place] [id number] PCP - General Internal Medicine 03/25/20 documented as of this encounter
== END 2024-10-23 15:22 | disposition home or self-care (01) ==
LOC: HO.RHE 14:35
PROVIDERS: PCP Internal Medicine; Visit Provider Student in an Organized Health Care Education/Training Program
DX: L95.8 Other vasculitis limited to the skin (principal)
CPT/HCPCS: 99215; G2211

== ENCOUNTER 2024-12-03 12:30 | Outpatient (AMB) | payer OTHER, SELFPAY ==
--- NOTE | 2024-12-03 12:32 | MHC.OFFVIS ---
Vital Signs 12/03/24 12:33 Height 5 ft 2 in Weight 211 lb 13.828 oz BMI 38.7 BP 120/74 Blood Pressure Location Lt brachial Position Sitting Pulse 89 Pulse Source Pulse Oximeter Pulse Oximetry (%) 99 Oxygen Delivery Method Room Air Intake Visit Reasons: leg nodules Intake Note: Patient presents for follow up on leg nodules, and lab review. She was last seen in the office by Dr. Onofre on 10/23/24. Patient states she is here for follow up from hospital, her legs kept swelling up. Allergies No Known Allergies Allergy (Verified 12/03/24 12:37) Medication List - Last Reconciled 12/03/24 by Lindsey Onofre MD albuterol sulfate 90 mcg/actuation (ProAir HFA) 2 puffs inhalation Q6H PRN calcium citrate-vitamin D3 200 mg-6.25 mcg (250 unit) 1 tab PO DAILY lansoprazole 30 mg PO DAILY levothyroxine 150 mcg PO DAILY prednisone 10 mg PO DIRECTED prednisone mg PO HPI Comments Details: Patient is a 59-year-old female with hypothyroidism, history of DVT, fibromyalgia, polyarticular osteoarthritis and rheumatoid arthritis here today for follow up Interval History: Patient last seen 10/23/2024 with me for an urgent visit 2 month history of painful nodules on the legs associated with bilateral lower extremity swelling. Enbrel was stopped out of concern of worsening nodules She was given a prednisone taper and referred to derm for biopsy. Derm at that time that a shave biopsy which was inconclusive. She was started on prednisone however this was not beneficial and she ended up hospitalized in [facility]. She subsequently had punch biopsy done at [facility] which revealed septal panniculitis with granulomatous inflammation consistent with erythema nodosum Today she continues to complain of lower extremity pain with nodules Rheumatologic History: Initial history: This is a 57-year-old morbidly obese female with complex past medical history including DVT and PE on warfarin who presents for evaluation of inflammatory arthritis. Condition started more than 5 years ago. Patient stated she used to see a mink rancher in [place] but does not know their names. She stated that she was getting medications to treat pain and anxiety. She was most recently evaluated by Jose F Rainey last year. She used to get multiple courses of prednisone which help with joint pain. Patient mentions episodes of swelling of her wrists, knuckles, elbows which are improved with prednisone. About a month ago she had right foot bunionectomy and her right foot is currently in a cast. She develops intermittent bruising of her skin while on warfarin, she is currently taking duloxetine prescribed by Dr. Tapia for fibromyalgia which she mentions did help her symptoms. Current Rheumatology Medication(s): Prednisone 20 mg [facility] Medical History Diabetes Hepatic steatosis Bunion of right foot Esophageal dysmotility Hiatal hernia Constipation Dysphagia GERD (gastroesophageal reflux disease) DJD (degenerative joint disease) BPV (benign positional vertigo) Parathyroid adenoma Hx of thyroid cancer Rheumatoid arthritis G6PD deficiency Cholelithiases Hepatomegaly Liver cyst Pulmonary embolism DVT (deep venous thrombosis) LIN (obstructive sleep apnea) Depression Tension headache Sleep disturbance Fibromyalgia Migraines Obesity (BMI 30-39.9) Diverticulosis Surgical History S/P bunionectomy Stented coronary artery Hx of endoscopy Hx of tubal ligation H/O total thyroidectomy Hx of colonoscopy Family History Mother Glaucoma Father Glaucoma Cataract Diabetes Hypertension Myocardial infarct Maternal Grandmother Skin cancer Daughter Multiple sclerosis Social History Household Members: Spouse and Children Housing: House Patient Tobacco Use Status: Never used Tobacco service: No Current occupational status: employed Review of Systems Const Details: Review of Systems Constitutional: Denies fever, chills, weight loss ENT: Denies vision changes, eye pain or eye redness, dental caries, dry mouth GI: Denies nausea, vomiting, diarrhea, abdominal pain, change in BM Pulm: Denies SOB, MOREIRA, hemoptysis, wheezing Cards: Denies chest pain, palpitations Skin: Denies Raynaud's, nail changes, photosensitivity, MARINE ELECTRONICS TECHNICIAN: Denies headaches, weakness, paresthesias, recurrent falls MSK: as per HPI All other systems reviewed and are unremarkable except noted above Physical Exam Vital Signs: Last Vital Signs Pulse 89 12/03/24 12:33 BP 120/74 12/03/24 12:33 Pulse Ox 99 12/03/24 12:33 Oxygen Delivery Method Room Air 12/03/24 12:33 BMI result Body Mass Index 38.7 Vital signs reviewed Physical Examination CONSTITUITIONAL Patient alert and cooperative. Well appearing and in no apparent painful distress HEENT Conjunctiva and sclera clear. ?Pupils equal round and reactive to light. ?No lymphadenopathy. ? CHEST/RESPIRATORY SYSTEM Normal respiratory effort and able to speak in complete sentences. ?Clear to auscultation bilaterally. ?No crackles, rales, rhonchi, wheezes heard. CARDIAC SYSTEM Regular rate and rhythm. ?S1 and S2 heard no murmurs. ?Radial pulses intact bilaterally MSK Hands: ?Good residential team leader strength bilaterally. No deformities noted. ?No synovitis noted to the MCPs, PIPs or DIPs. ?No tenderness to palpation of these joints. Wrists: ?Full range of motion at the wrists without pain. ?No tenderness to palpation or synovitis noted to the wrists. Elbows: Full range of motion without pain. No tenderness, weakness, swelling, increased warmth or erythema. Shoulders: Full range of motion without pain. No tenderness, weakness, swelling, increased warmth or erythema. Hips: Full range of motion without pain. Hip bursa: No tenderness to palpation Knees: ?Full range of motion. ?No tenderness, swelling, increased warmth or erythema.?No effusion or crepitations Ankles: Full range of motion. ?No tenderness, swelling, increased warmth or erythema.? Feet: ?Negative squeeze test. ?No tenderness to palpation or swelling of the MTPs. Tender points:?No tenderness to palpation of the bilateral trapezius, supraspinatus, greater trochanters, anterior costochondral junctions, bilateral gluteal areas, bilateral suboccipital muscle insertions SKIN Scattered nodules with varying degrees of healing and hyperpigmentation as well as overlying scale Results Reviewed Results Reviewed: Laboratory Tests 05/20/24 10/23/24 15:34 16:10 WBC 12.4 H RBC 4.28 Hgb 11.5 L Hct 37.7 Plt Count 350 ESR 34 H Sodium 143 142 Potassium 3.3 3.7 Chloride 107 108 Carbon Dioxide 26 25 BUN 19 H 18 H Creatinine 0.96 0.71 Calcium 9.2 Total Bilirubin 0.2 AST 33 H ALT 34 H C-Reactive Protein 2.81 H Angiotensin Convert Enz 33 Laboratory Tests 10/23/24 16:10 IgG Total 1287 IgG Subclass 1 707 IgG Subclass 2 376 IgG Subclass 3 54 IgG Subclass 4 18.3 IgA Total 171 IgM 207 Rheumatoid Factor < 13.0 ANCA Immunofluorescen NEGATIVE Complement C3 200 H Complement C4 26 Skin, left calf, punch biopsy 11/28/24 Septal panniculitis with granulomatous inflammation consistent with erythema nodosum At the base of the biopsy is a lobular panniculitis manifested by fibrosis of the septa with adjacent fat necrosis. Within the fibrous septa are small granulomas. In the context of the clinical impression of the findings are most consistent with erythema nodosum. Changes to specifically suggest a vasculitis are not present Assessment & Plan Assessment & Plan (1) Rheumatoid arthritis: Comment: -ve RF -ve CCP dx 07/2022. Erythema nodisum started 05/2024 HCQ not tolerated Code(s): M06.9 - Rheumatoid arthritis, unspecified Category: Medical Qualifiers: Rheumatoid arthritis location: multiple sites Rheumatoid factor presence: unspecified presence Qualified Code(s): M06.9 - Rheumatoid arthritis, unspecified Plan: #Seronegative RA Patient is a 59-year-old female with seronegative rheumatoid arthritis complicated by erythema nodosum here today for follow up. No improvement on the prednisolone taper and her Enbrel was stopped after concern of worsening disease on the Enbrel. Discussed with patient and daughter both the risks and benefits of Humira and they are in agreement with proceeding with Humira for the treatment of her RA as well as her nodules. I will also add colchicine which is well known to cover erythema nodosum Plan - Humira 40mg SC every other week - Colchicine 0.6mg bid - complete prednisone taper: Finish 1 week of 20 mg then decrease to 10 mg for 1 week then 5 mg for 1 week then stop - RTC 3 months - Labs before visit: CBC, CMP, ESR, CRP, hepatitis panel, T spot (2) Encounter for monitoring of adalimumab therapy: Code(s): Z51.81 - Encounter for therapeutic drug level monitoring; Z79.620 - custodial (current) use of immunosuppressive biologic Plan: #Long-term Use of TNF Inhibitors: Humira Discussed with the patient the benefits and risks of TNF inhibitors for the management of the rheumatic condition Benefits include reduce pain, maintenance of remission and reduction of flares as well as ?progression of the disease Risks include injection sites/infusion reactions, serious infections (such as bacterial infections, opportunistic infections), malignancy, delaminating syndromes, autoimmune phenomena, CHF exacerbations, palmar plantar psoriasis and cytopenias Recommended rotating injection sites, and holding medication during and for up to 1 week after resolution of a febrile illness or open skin wound (3) On colchicine therapy: Code(s): Z79.899 - Other residential property tax appraiser (current) drug therapy Plan: #Long-term use of colchicine Risks and benefits of long-term colchicine for the management of this patient's gout discussed with patient. Benefits include reduced occurrence of flares while we titrate and regulate his uric acid on allopurinol and other uric acid lowering medications. ? Risks include worsening myalgias especially if on statins and GI upset including diarrhea Plan I spent 30 minutes reviewing the record and labs, taking a history, examining the patient, discussing the treatment plan, ordering diagnostic work up and documenting in the medical record Medications: New adalimumab (Humira(CF)) 40 mg (0.4 mL) subcut Q2W 2 ea 5RF M06.9 - Rheumatoid arthritis, unspecified prednisone take 1 tablet for 7 days then 0.5 tablet for 7 days then stop 10 mg PO DIRECTED 14 tabs 0RF M06.9 - Rheumatoid arthritis, unspecified colchicine 0.6 mg PO BID 90 days 180 tabs 1RF M06.9 - Rheumatoid arthritis, unspecified Discontinued prednisone Take 2 tablets in the AM 2 tablets in the PM for 7 days then 2 tablets in the AM 1 tablet in the PM for 7 days, then 1 tablet in the AM 1 tablet in the PM for 7 days then 1 tablet in the AM 1/2 tablet in the PM for 7 days then 1/2 tablet in the AM 1/2 tablet in the PM for 7 days, then 1/2 tablet daily for 7 days then stop Discontinued Reason: Doctor's Order 10 mg PO DIRECTED 90 tabs 0RF L95.8 - Other vasculitis limited to the skin Coding Level of Care Code Est Pt Level 4 (17876) Complex EM visit Add On G2211 Diagnoses Rheumatoid arthritis involving multiple sites, unspecified whether rheumatoid factor present M06.9 Rheumatoid arthritis location: multiple sites Rheumatoid factor presence: unspecified presence Encounter for monitoring of adalimumab therapy Z51.81; Z79.620 On colchicine therapy Z79.893
[2024-12-03 12:33] VITALS: BP 120/74; PULSE 89; O2SAT 99; BMI 38.7
--- OUTSIDE RECORDS SUMMARY | 2024-12-03 14:48 | XMS_ITS | Encounter Summary ---
Author Organization [employer] Address [address] [place] [address] Care Team Providers Care Semiconductor Processor Name Role Phone Wilner Murray MD Primary Care Provider [phone] Encounter Details Date Type Department Care Team ([facility] Contact Info) Description 12/02/2024 Telephone Gastroenterology - [place] [address] [place] [phone] Amina Marte PA [address] [place] [address] Social History Tobacco Use Types Packs/Day Years [...] your loved ones. For example, child care center assistant director or elderly care for an older [...] as of this encounter Progress Notes * Adriana Lewis MA - 12/03/2024 9:33 AM EDT Pt is being seen in office today 12/03/2024 * Joyce Kruse MA - 12/02/2024 12:37 PM EDT Patient had a recent hospitalization at [facility] from 11/22/2024-11/29/2024. I scheduled her for january 01 but patient would like to be seen sooner as she is having bad abd pain. Please put on cancellation list documented in this encounter Plan of Treatment Upcoming Encounters Date Type Department Care Team (Late st Contact Info) Description 12/16/2024 2:00 PM EDT Office Visit Internal Medicine - [facility] [address] [place] [address] Freida Lazo NP [address] [place] [address] 01/31/2025 3:30 PM EDT Office Visit Vascular Surgery - [place] [address] [place] [phone] Rhona Egan PA [address] [place] [address] 10/03/2025 9:30 AM EST Appointment [facility] Ultrasound [address] [place] [address] Scheduled Procedures Name Priority Associated Diagnoses Date/Ti me REVISION SCAR Skin and subcutaneous tissue disease 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 hammer toe of right foot documented as of this encounter Visit Diagnoses Not on filedocumented in this encounter Additional Health Concerns Assessment Noted Time PHQ-9 Depression Total Score: 12 025 6:12 PM EST documented as of this encounter Care Teams Semiconductor Processor Relationship Specialty Start Date End Date Wilner Murray MD [address] [place] [address] PCP - General Internal Medicine 03/25/20 documented as of this encounter
--- OUTSIDE RECORDS SUMMARY | 2024-12-03 14:48 | XMS_ITS | Encounter Summary ---
Author Organization [facility] Address [address] [place] [address] Care Team Providers Care Manager Technology Name Role Phone Wilner Murray MD Primary Care Provider [phone] Reason for Visit * Reason Comments Medication Refill Encounter Details Date Type Department Care Team (Late st Contact Info) Description 04/14/2022 Refill [facility] Endocrinology [place] [address] [place] [address] Kelly Frost MD [address] [address] Social History Tobacco Use Types Packs/Day Years Used Date Smoking Tobacco: Never Assessed Comments Unknown Sex and Gender Information Value Date Recorded Sex Assigned at Not on file Legal Sex Female 12:08 PM EDT Gender Identity Not on file Sexual Orientation Not on file documented as of this encounter Miscellaneous Notes * Telephone Encounter - Kelly Frost MD - 04/14/2022 1:22 PM EDT Lansoprazole as prescribed by PCP I believe. documented in this encounter Plan of Treatment Not on file documented as of this encounter Visit Diagnoses Not on filedocumented in this encounter Care Teams Manager Technology Relationship Specialty Start Date End Date Wilner Murray MD PCP - General documented as of this encounter
--- OUTSIDE RECORDS SUMMARY | 2024-12-03 14:48 | XMS_ITS | Clinical Summary ---
Author Organization [facility] Address [address] [place] [address] Care Team Providers Care Dielectric Tester Name Role Phone Wilner Murray MD Primary Care Provider [phone] Allergies No known active allergies Medications Medication [...] age to complete this topic Care Teams Dielectric Tester Relationship Specialty Start Date End Date Wilner Murray MD PCP - General Internal Medicine 02/02/21
--- OUTSIDE RECORDS SUMMARY | 2024-12-03 14:48 | XMS_ITS | Encounter Summary ---
Author Organization [facility] Address [address] [place] [address] Care Team Providers Care Publications Writer Name Role Phone Wilner Murray MD Primary Care Provider [phone] Reason for Visit * Reason Comments Hospital Follow-up Encounter Details Date Type Department Care Team (Latest Contact Info) Description 12/03/2024 2:00 PM EDT Office Visit Gastroenterology - [place] [address] [place] [phone] Amina Marte PA [address] [place] [address] Ischemic colitis (CMS/HCC V24) (Primary Dx); Diarrhea, unspecified type; S/P cholecystectomy Social History Tobacco Use Types Packs/Day Years [...] your loved ones. For example, child care counselor or elderly care for an older adult? [...] Sign Reading Time Taken Comments Blood Pressure 104/64 12/03/2024 1:55 PM EDT Pulse - - Temperature - - Respiratory Rate - - Oxygen Saturation - - Inhaled Oxygen Concentration - - Weight 94.3 kg (208 lb) 12/03/2024 1:55 PM EDT Height 157.5 cm (5' 2 ) 12/03/2024 1:55 PM EDT Body Mass Index 38.04 12/03/2024 1:55 PM EDT documented in this encounter Ordered Prescriptions Prescription Sig Dispense Quantity Refills Last Filled Start Date End Date colestipoL (COLESTID) 1 gram tablet Take 1 tablet (1 g total) by mouth 2 (two) times a day. 60 each 3 12/03/2024 12/03/2025 documented in this encounter Plan of Treatment Upcoming Encounters Date Type Department Care Team (Late st Contact Info) Description 12/16/2024 2:00 PM EDT Office Visit Internal Medicine - [facility] [address] [place] [address] Freida Lazo NP [address] [place] [address] 01/31/2025 3:30 PM EDT Office Visit Vascular Surgery - [place] [address] [phone] Rhona Egan PA [address] [address] 10/03/2025 9:30 AM EST Appointment [facility] Ultrasound [address] [place] [phone] Scheduled Procedures Name Priority Associated Diagnoses Date/Ti me REVISION SCAR Skin and subcutaneous tissue disease 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 hammer toe of right foot documented as of this encounter Visit Diagnoses Diagnosis Ischemic colitis (CMS/HCC V24)- Primary Diarrhea, unspecified type S/P cholecystectomy Other acquired absence of organ documented in this encounter Additional Health Concerns Assessment Noted Time PHQ-9 Depression Total Score: 12 025 6:12 PM EST documented as of this encounter Care Teams Publications Writer Relationship Specialty Start Date End Date Wilner Murray MD [address] [place] [address] PCP - General Internal Medicine 03/25/20 documented as of this encounter
--- OUTSIDE RECORDS SUMMARY | 2024-12-03 14:48 | XMS_ITS | Clinical Summary ---
Author Organization [place] [address] Armand jules [facility] Building Address [address] [place] [address] Phone Care Team Providers Care Sas Programmer Remote Name Role Phone Wilner Murray MD Primary Care Provider [phone] Allergies No known active allergies Medications blood sugar diagnostic (FreeStyle Lite Strips) test [...] (one) time each day. 08/06/20 24 Active Ventolin HFA 90 mcg/actuation inhaler INHALE 2 PUFFS INTO THE LUNGS EVERY 6 HOURS NEEDED FOR COUGH OR WHEEZING. 18 each 1 09/24/19 25 Active calcium citrate-vitamin D3 200 mg-6.25 mcg (250 unit) tablet Take 1 tablet by mouth 1 (one) time each day. 90 tablet 1 10/01/19 25 Active metFORMIN XR (GLUCOPHAGE-XR) 500 mg 24 hr tablet Do not crush, chew, or split.TAKE 1 TABLETS TWICE DAILY WITH FOOD. 60 tablet 3 10/01/19 25 Active levothyroxine (SYNTHROID, LEVOTHROID) 150 mcg tabletIndicatio ns:Benign paroxysmal vertigo, unspecified ear TAKE 1 TABLET BY MOUTH DAILY. TAKE 2 TABLETS ON SUNDAYS. 102 tablet 1 11/22/19 25 Active colestipoL (COLESTID) 1 gram tablet Take 1 tablet (1 g total) by mouth 2 (two) times a day. 60 each 3 12/04/19 25 026 Active levothyroxine (SYNTHROID, LEVOTHROID) 150 mcg tablet Take 1 tablet (150 mcg total) by mouth 1 (one) time each day before breakfast. 02/19/20 24 025 Discontinued etanercept (ENBREL) 25 mg/0.5 mL (0.5) injection Inject 0.5 mL (25 mg total) under the skin 1 (one) time per week. 025 Discontinued(Si de effects) cephalexin (KEFLEX) 500 mg capsule Take 1 capsule (500 mg total) by mouth 4 (four) times a day for 10 days. 40 each 11/07/19 25 025 polyethylene glycol (Golytely) 236-22.74-6.74 -5.86 gram solution Take 4,000 mL by mouth 1 (one) time for 1 dose. 4000 mL 11/07/19 25 025 Active Problems Problem Noted Date Diagnosed Date Skin and subcutaneous tissue disease 10/16/2024 Contracture of joint of right foot 10/16/2024 Acquired hammer toe of right foot 10/16/2024 Post-surgical hypothyroidism 09/03/2024 Stress incontinence (female) (male) 05/31/2023 Diabetes (CMS/HCC V24, CMS/HCC V28) 08/26/2022 Rheumatoid arthritis involvi ng right hand with positive rheumatoid factor (CMS/HCC V24, CMS/HCC V28) 06/23/2021 G6PD deficiency 03/15/2021 Liver cyst 03/15/2021 [...] Right and left superior--s/p excision 12/2014 Hyperparathyroidism ([facility]/HCC V24) 09/12/2014 Migraine 08/12/2008 Fibromyalgia 08/12/2008 Sleep disturbance 08/12/2008 Tension headache 08/12/2008 Depression 08/12/2008 Obesity (BMI 30-39.9) 10/13/2006 Encounters Date Type Department Care Team Description 12/03/2024 2:00 PM EDT Office Visit Gastroenterology [facility] [address] [place] [phone] Amina Marte PA Ischemic colitis (CMS/HCC V24) (Primary Dx); Diarrhea, unspecified type; S/P cholecystectomy 12/02/2024 Telephone Gastroenterology [facility] [address] [place] [phone] Amina Marte PA 11/29/2024 Telephone Internal Medicine - [facility] [place] [phone] Wilner Murray MD Hospital Follow-up ([facility] ) 11/26/2024 Telephone Orthopedic Surgery - [place] [address] [facility] [address] [place] [address] ДмитрийJessica maldonado Lidia 11/22/2024 Telephone [facility] [address] [place] [address] Wilner Murray MD Hospitalization/ER (FYI for Freida Clifton) 11/21/2024 Telephone [facility] [address] [place] [address] Wilner Murray MD Nausea 11/20/2024 Telephone [facility] [address] [place] [address] Wilner Murray MD Results 11/18/2024 1:15 PM EDT Office [facility] [address] [place] [address] Freida Lazo, [place] Erythematous skin nodule (Primary Dx); Antibody response examination; Vasculitis ([facility] V24); Rheumatoid arthritis involving right hand with positive rheumatoid factor (CMS/HCC V24, CMS/HCC V28) 11/18/2024 Telephone [facility] [phone] Wilner Murray MD Leg Pain 11/18/2024 Telephone Vascular Surgery - [place] [address] [place] [address] Rhona Egan PA Provider Call Back 11/11/2024 7:00 AM EDT Ancillary Procedure [facility] [address] [facility] [address] [place] [address] Bilateral lower extremity edema 11/06/2024 3:20 PM EDT Office Visit Gastroenterology - [place] [address] [place] [address] Amina Marte PA Cellulitis of lower extremity, unspecified laterality (Primary Dx); Esophageal dysmotility; Gastroesophageal reflux disease, unspecified whether esophagitis present 10/30/2024 3:30 PM EDT Consult Vascular Surgery [facility] [address] [facility] [address] [place] [phone] Rhona Egan PA Bilateral lower extremity edema (Primary Dx); Peripheral venous insufficiency; Subcutaneous nodule of both lower extremities 10/30/2024 Telephone [facility] [address] [phone] Wilner Murray MD Lab orders 10/21/2024 Telephone Internal Medicine - [address] [phone] Wilner Murray MD nodules 10/16/2024 3:30 PM EST Office Visit Orthopedic Surgery [facility] [address] [facility] 250 [place] [phone] Ministerio Arora, DPM Soft tissue mass (Primary Dx); Peripheral venous insufficiency; Skin and subcutaneous tissue disease; Contracture of joint of right foot; Acquired hammer toe of right foot 10/14/2024 Telephone Internal Medicine - [address] [phone] Wilner Murray MD Migraine 10/10/2024 4:00 PM EST Evaluation [facility] [address] [facility] [address] [place] [address] Stephanie Javed PT Benign paroxysmal positional vertigo, unspecified laterality (Primary Dx) 10/01/2024 Telephone Endocrinology [address] [address] Heavenly East PA Medication Problem 10/01/2024 Telephone Internal Medicine - [address] [phone] Wilner Murray MD Referral (Ambulatory / [place] / [address] [facility]) 09/16/2024 2:27 PM EST - 09/16/2024 11:59 PM EST Hospital Encounter [facility] Xray [address] [place] [phone] Calculus of kidney Discharge Disposition: Home or Self Care 09/09/2024 3:19 PM EST - 09/09/2024 11:59 PM EST Hospital Encounter Ultrasound - [facility] [address] [place] [phone] Leg mass, left Discharge Disposition: Home or Self Care 09/07/2024 10:51 AM EST - 09/07/2024 11:59 PM EST Hospital Encounter [facility] MRI [address] [place] [phone] Soft tissue mass Discharge Disposition: Home or Self Care from Last 3 Months Immunizations Name Administration [...] TOTAL THYROIDECTOMY UPPER GASTROINTESTINAL ENDOSCOPY 03/07/2007 PROCEDURE: GA UPPER GI ENDOSCOPY PERFORMED; COMMENT: small hiatus hernia UPPER GASTROINTESTINAL ENDOSCOPY 10/29/2015 PROCEDURE: GA UPPER GI ENDOSCOPY PERFORMED; COMMENT: Hiatal hernia, ren erosions, duodenal polyp COLONOSCOPY 03/12/2010 PROCEDURE: HISTORICAL COLONOSCOPY; COMMENT: diverticulosis; repeat in 5 years OTHER SURGICAL HISTORY 02/01/2022 PROCEDURE: GA SLCTV CATH PLMT LINDA SYS 2ND ORDER/> SLCTV BRANC OTHER SURGICAL HISTORY 02/01/2022 PROCEDURE: GA INTRAVASCULAR US NONCORONARY RS&I INTIAL VESSEL OTHER SURGICAL HISTORY 02/01/2022 PROCEDURE: GA INTRAVASCULAR US NONCORONARY RS&I ADDL VESSEL; COMMENT: x3 iliocaval venogram with vascular SECTION PROCEDURE: HISTORICAL DELIVERY; COMMENT: x1 Medical History Medical History Date Comments DVT (deep venous thrombosis) ([facility] V24, [facility] V28) 01/11/2021 DX:DVT (deep venous thrombos is) ([facility]) Class 3 severe obesity due t o excess calories with serious comorbidity and body mass index (BMI) of 40.0 to 44.9 in adult DX:Class 3 severe obesity du e to excess calories with serious comorbidity and body mass index (BMI) of 40.0 to 44.9 in adult ([facility]) Acute pulmonary embolism ([facility] V24, [facility] V28) DX:Acute pulmonary embolism ([facility]) LIN (obstructive sleep apnea) DX :LIN (obstructive [...] Tension headache 08/12/2008 DX:Tension head ache Diabetes (CMS/HCC V24, CMS/HCC V28) 08/26/2022 DX:Diabetes (HCC) Hyperparathyroidism (CMS/HCC V24) 09/12/2014 DX:Hyperparathyroidism (HCC) Cholelithiasis 03/15/2021 DX:Cholelithiasi s; COMMENT: 03/2021-incidental [...] Problems Daughter 1 Multiple sclerosis Daughter 2 [place] Other: diverticulosis Daughter 2 Marquita No Known Problems Daughter 3 Cataracts Father Diabetes Father Glaucoma Father Heart attack Father Hypertension Father Cancer Maternal Grandmother Dementia Maternal Grandmother Other Dermatological Disorders Maternal Grandmother skin cancer on face x 3 ...... specifics unknown Glaucoma Mother Cancer Mother's Sister No Known Problems Sister Relation Name Status Comments Aunt jose l aunt Alive Brother Alive Daughter 1 Alive Daughter 2 Marquita Alive Daughter 3 Alive Father Maternal Grandmother [...] for your loved ones. For example, childcare director or elderly care for an older [...] Pressure 104/64 12/03/2024 1:55 PM EDT Pulse 92 11/18/2024 1:11 PM EDT Temperature 36.2 ??C (97.2 ??F) 09/03/2024 3:26 PM ES T Respiratory Rate 16 07/24/2024 2:13 PM EST Oxygen Saturation 98% 09/03/2024 3:26 PM EST Inhaled Oxygen Concentration - - Weight 94.3 kg (208 lb) 12/03/2024 1:55 PM EDT Height 157.5 cm (5' 2 ) 12/03/2024 1:55 PM EDT Body Mass Index 38.04 12/03/2024 1:55 PM EDT Plan of Treatment Upcoming Encounters Date Type Department Care Team (Late st Contact Info) Description 12/16/2024 2:00 PM EDT Office Visit Internal Medicine - [facility] [address] [place] [address] Freida Lazo NP [address] [place] [address] 01/31/2025 3:30 PM EDT Office Visit Vascular Surgery - [place] [address] [place] [address] Rhona Egan PA [address] [facility] [address] [place] [address] 10/03/2025 9:30 AM EST Appointment [facility] Ultrasound [address] [place] [phone] Scheduled Procedures Name Priority Associated Diagnoses Date/Ti [...] (2 of 2 - PCV) 09/17/2021 09/17/2020 Cervical Cancer Screening: Pap Smear 09/04/2023 09/04/2020, [...] 08/31/2026 08/31/19, 07/31/2023, 12/18/2021, Additional history exists Cholesterol Screening (Lipid Panel) 07/15/2029 07/15/2024, 01/10/2024, 01/10/2024 Colorectal Cancer Screening: Colonoscopy 11/25/2029 11/25/2024, 04/06/2022 DTaP,Tdap,and Td Vaccines (4 - Td or Tdap) 05/31/2033 05/31/2023, 02/07/2013, 03/02/2005 Influenza Vaccine Completed 06/04/2024, , 05/19/2022, Additional history exists HIV Screening Completed 11/19/2024 Hepatitis C Screening Completed 11/19/2024, 021 HIB Vaccines Aged Out No longer eligi [...] age to complete this topic Meningococcal B Vaccine Aged Out No l onger eligible based on patient's age to complete this topic RSV Immunization Patients Under 20 months Aged Out No longer eligible based on patient's age to complete this topic Varicella Vaccines Aged Out No longer eligible based on patient's age to complete this topic Procedures Procedure Name Priority Date/Time Associated Diagnosis Comments EXTERNAL CLINICAL LAB 11/29/2024 EXTERNAL COLONOSCOPY REPORT 11/25/2024 GA PROTEIN ELECTROPHORETIC FRACTIONATION & QUANTITATION SERUM Routine 11/19/2024 2:50 PM EDT Erythematous skin nodule Vasculitis (CMS/HCC V24) Rheumatoid arthritis involving right hand with positive rheumatoid factor (CMS/HCC V24, CMS/HCC V28) PROTEIN, TOTAL Routine 11/19/2024 2:50 PM EDT Erythematous skin nodule Vasculitis (CMS/HCC V24) Rheumatoid arthritis involving right hand with positive rheumatoid factor (CMS/HCC V24, CMS/HCC V28) PROTEIN ELECTROPHORESIS, SERUM Routine 11/19/2024 2:50 PM EDT Erythematous skin nodule Vasculitis (CMS/HCC V24) Rheumatoid arthritis involving right hand with positive rheumatoid factor (CMS/HCC V24, CMS/HCC V28) HIV 1, 2 ANTIBODY, P24 ANTIGEN WITH REFLEX TO DIFFERENTIATION Routine 11/19/2024 2:50 PM EDT Erythematous skin nodule Antibody response examination Vasculitis (CMS/HCC V24) HEPATITIS B SURFACE ANTIBODY Routine 11/19/2024 2:50 PM EDT Antibody response examination HEPATITIS C ANTIBODY Routine 11/19/2024 2:50 PM EDT Erythematous skin nodule Antibody response examination Vasculitis (CMS/HCC V24) CRYOGLOBULIN Routine 11/19/2024 2:50 PM EDT Erythematous skin nodule Vasculitis (CMS/HCC V24) Rheumatoid arthritis involving right hand with positive rheumatoid factor (CMS/HCC V24, CMS/HCC V28) C4 COMPLEMENT Routine 11/19/2024 2:50 PM EDT Erythematous skin nodule Vasculitis (CMS/HCC V24) Rheumatoid arthritis involving right hand with positive rheumatoid factor (CMS/HCC V24, CMS/HCC V28) C3 COMPLEMENT Routine 11/19/2024 2:50 PM EDT Erythematous skin nodule Vasculitis (CMS/HCC V24) Rheumatoid arthritis involving right hand with positive rheumatoid factor (CMS/HCC V24, CMS/HCC V28) ANTI-NEUTROPHILIC CYTOPLASMIC ANTIBODY Routine 11/19/2024 2:50 PM EDT Erythematous skin nodule Antibody response examination Vasculitis (CMS/HCC V24) Rheumatoid arthritis involving right hand with positive rheumatoid factor (CMS/HCC V24, CMS/HCC V28) SCOOBY IFA WITH TITER AND PATTERN Routine 11/19/2024 2:50 PM EDT Erythematous skin nodule Antibody response examination Vasculitis (CMS/HCC V24) Rheumatoid arthritis involving right hand with positive rheumatoid factor (CMS/HCC V24, CMS/HCC V28) VAS US DUPLEX LOWER EXT VENOUS INSUFFICIENCY BILATERAL Routine 11/11/2024 7:52 AM EDT Bilateral lower extremity edema EXTERNAL CLINICAL LAB 11/01/2024 CRYOGLOBULIN Routine 10/30/2024 2:27 PM EDT Histiocytic vasculitis of skin EXTERNAL CLINICAL LAB 10/30/2024 EXTERNAL CLINICAL LAB 10/29/2024 EXTERNAL CLINICAL LAB 10/28/2024 EXTERNAL CLINICAL LAB 10/24/2024 INJECTION TENDON OR LIGAMENT Routine 10/16/2024 3:30 PM EST Soft tissue mass XR ABDOMEN 1 VIEW Routine 09/16/2024 2:3 8 PM EST Calculus of kidney US EXTREMITY NONVASCULAR LIMITED LEFT Routine 09/09/2024 3:42 PM EST Leg mass, left MR ANKLE WO AND W CONTRAST RIGHT Routine 09/07/2024 12:54 PM EST Soft tissue mass HEMOGLOBIN A1C Routine 09/03/2024 4:12 PM EST Diabetes mellitus of other type without complication, unspecified whether ocean transportation intermediary insulin use (CMS/HCC V24, CMS/HCC V28) MG MAMMO DIGITAL SCREENING W SANTOS BILAT Routine 08/31/2024 10:50 AM EST Encounter for screening mammogram for breast cancer BASIC METABOLIC PANEL STAT 07/24/2024 10:40 AM EST MICROALBUMIN CREATININE URINE RATIO Routine 07/15/2024 10:00 AM EST Type 2 diabetes mellitus with other specified complication, without long-term current use of insulin (CMS/HCC V24, CMS/HCC V28) LIPID PANEL WITH REFLEX TO DIRECT LDL Routine 07/15/2024 10:00 AM EST Type 2 diabetes mellitus with other specified complication, without long-term current use of insulin (CMS/HCC V24, CMS/HCC V28) HM DIABETES EYE EXAM Routine 12/25/2023 HM DEPRESSION SCREENING Routine 05/31/2023 DIABETES FOOT EXAM Routine 05/31/2023 PAP SMEAR Routine 09/04/2020 from Last 3 Months or Most Recently Relevant to Health Maintenance Results * External clinical lab (11/29/2024) Only the most recent of6 resultswithin the time period is included. Provider [facility] LAB BLOOD ORDERABLES Fin al Result * External Colonoscopy Report (11/25/2024) Anatomical Region Laterality Modality Endoscopy Provider [facility] GI~PROCEDURE ORDERABLES Final Result * Hepatitis C antibody (11/19/2024 2:50 PM EDT) Hepatitis C Antibody Negative Negative LAB CHEMISTRY METHOD 11/19/2024 5:51 PM EDT [facility] Blood Venous blood specimen / Unknown Venipuncture / Unknown 11/19/2024 2:50 PM EDT 11/19/2024 3:08 PM EDT Freida Lazo ESCROW MANAGER LAB BLOOD ORDERABLES Final Resu lt [facility] [address] [place] [address], * HIV 1,2 antibody, p24 antigen with reflex to differentiation (11/19/2024 2:50 PM EDT) HIV Combo AB/AG Negative Negative LAB CHEMISTRY METHOD 11/19/2024 5:51 PM EDT [facility] Blood Venous blood specimen / Unknown Venipuncture / Unknown 11/19/2024 2:50 PM EDT 11/19/2024 3:08 PM EDT Narrative [facility] - 11/19/2024 5:51 PM EDT This assay is a 4th generation assay allowing for earlier detection of HIV infection by detecting the presence of the HIV-1 p24 antigen as well as the traditional antibodies to HIV type 1 (including group O) and type 2. ??Use of a 4th generation assay is the current CDC recommendation for HIV screening. [facility] BLOOD ORDERABLES Final Resu lt Performing Organization Address [facility]/ZIP Co de Phone Number [facility] [address] [place] [address], [place] [phone] * PATHOLOGIST REVIEW PROTEIN ELECTROPHORESIS (11/19/2024 2:50 PM EDT) Pathologist Interpretation Reviewed by Christel Moffett MD 11/21/2024 1:42 PM EDT [facility] Blood Venous blood specimen / Unknown Venipuncture / Unknown 11/19/2024 2:50 PM EDT 11/19/2024 3:08 PM EDT [facility] LAB BLOOD ORDERABLES Final Resu lt Performing Organization Address [facility]/ZIP Co de Phone Number [facility] [address] [place] [address], [place] [phone] * SCOOBY IFA with titer and pattern (11/19/2024 2:50 PM EDT) SCOOBY Negative Negative 11/20/2024 2:17 PM EDT [facility] Blood Venous blood specimen / Unknown Venipuncture / Unknown 11/19/2024 2:50 PM EDT 11/19/2024 3:08 PM EDT [facility] LAB BLOOD ORDERABLES Final Resu lt Performing Organization Address City/[facility]/ZIP Co de Phone Number [facility] [address] [place] [address], [place] [phone] * Cryoglobulin (11/19/2024 2:50 PM EDT) Only the most recent of2 resultswithin the time period is included. Cryoglobulin Absent Absent 11/29/2024 10:50 AM EDT [facility] Comment: Test performed at [facility], [address] , [place], [place] [address] ? [phone] Mary Lou Ramirez MD, PhD - [employer] Blood Venous blood specimen / Unknown Venipuncture / Unknown 11/19/2024 2:50 PM EDT 11/19/2024 3:09 PM EDT Freida Lazo NP LAB BLOOD ORDERABLES Final Resu lt [facility] [address] [place] [address] * (ABNORMAL) Hepatitis B surface antibody (11/19/2024 2:50 PM EDT) [facility] Hepatitis B Surface Ab Positive (A) Negative LAB CHEMISTRY METHOD 11/19/2024 5:12 PM EDT [facility] Hepatitis B Surface Ab Quantitative 848.2 mIU/mL LAB CHEMISTRY METHOD 11/19/2024 5:12 PM EDT [facility] Blood Venous blood specimen / Unknown Venipuncture / Unknown 11/19/2024 2:50 PM EDT 11/19/2024 3:08 PM EDT Narrative [facility] - 11/19/2024 5:12 PM EDT >=10 mIU/mL is considered to be consistent with immunity. Freida Lazo NP LAB BLOOD ORDERABLES Final Resu lt [facility] [address] [place] [address], * Anti-neutrophilic cytoplasmic antibody (11/19/2024 2:50 PM EDT) Myeloperoxidase Ab Negative Negative LAB CHEMISTRY METHOD 11/20/2024 10:35 AM EDT [facility] Myeloperoxidase Ab, Quant 1 <=20 units LAB CHEMISTRY METHOD 11/20/2024 10:35 AM EDT [facility] Proteinase-3 Ab Negative Negative LAB CHEMISTRY METHOD 11/20/2024 10:35 AM EDT [facility] Proteinase-3 Ab Quant 4 <=20 units LAB CHEMISTRY METHOD 11/20/2024 10:35 AM EDT [facility] Blood Venous blood specimen / Unknown Venipuncture / Unknown 11/19/2024 2:50 PM EDT 11/19/2024 3:08 PM EDT Freida Lazo ESCROW MANAGER LAB BLOOD ORDERABLES Final Resu lt Performing Organization Address City/[facility]/ZIP Co de Phone Number [facility] [address] [place] [address], [place] [phone] * C3 complement (11/19/2024 2:50 PM EDT) C3 Complement 183 88 - 201 mg/dL LAB CHEMISTRY METHOD 11/19/2024 4:28 PM EDT [facility] Blood Venous blood specimen / Unknown Venipuncture / Unknown 11/19/2024 2:50 PM EDT 11/19/2024 3:08 PM EDT [facility]OW [facility]NA[facility] LAB BLOOD ORDERABLES Final Resu lt [facility] [address] [place] [address], [place] [phone] * C4 complement (11/19/2024 2:50 PM EDT) C4 Complement 33 16 - 47 mg/dL LAB CHEMISTRY METHOD 11/19/2024 4:28 PM EDT [facility] Blood Venous blood specimen / Unknown Venipuncture / Unknown 11/19/2024 2:50 PM EDT 11/19/2024 3:08 PM EDT Freida Lazo NP LAB BLOOD ORDERABLES Final Resu lt [facility] [address] [place] [address], [place] [phone] * Protein electrophoresis, serum (11/19/2024 2:50 PM EDT) Total Protein 7.1 6.0 - 8.0 g/dL LAB CHEMISTRY METHOD 11/21/2024 1:42 PM EDT [facility] Albumin, Serum 3.4 2.9 - 4.1 g/dL LAB CHEMISTRY METHOD 11/21/2024 1:42 PM EDT [facility] Alpha 1 Globulin (g/dL) 0.3 0.1 - 0.5 g/dL LAB CHEMISTRY METHOD 11/21/2024 1:42 PM EDT [facility] Alpha 2 Globulin (g/dL) 1.1 0.7 - 1.5 g/dL LAB CHEMISTRY METHOD 11/21/2024 1:42 PM EDT [facility] Beta (g/dL) 1.2 0.7 - 1.5 g/dL LAB CHEMISTRY METHOD 11/21/2024 1:42 PM EDT [facility] Gamma Globulin (g/dL) 1.2 0.7 - 1.9 g/dL LAB CHEMISTRY METHOD 11/21/2024 1:42 PM EDT [facility] SPEP Interpretation No M-Tobin seen. Essentially normal pattern. LAB CHEMISTRY METHOD 11/21/2024 1:42 PM EDT [facility] Blood Venous blood specimen / Unknown Venipuncture / Unknown 11/19/2024 2:50 PM EDT 11/19/2024 3:08 PM EDT Freida Clifton ESCROW MANAGER LAB BLOOD ORDERABLES Final Resu lt [facility] [address] [place] [address], [place] [phone] * Protein, total (11/19/2024 2:50 PM EDT) Total Protein 7.1 6.0 - 8.0 g/dL LAB CHEMISTRY METHOD 11/19/2024 8:16 PM EDT [facility] Blood Venous blood specimen / Unknown Venipuncture / Unknown 11/19/2024 2:50 PM EDT 11/19/2024 3:08 PM EDT Freida Lazo ESCROW MANAGER LAB BLOOD ORDERABLES Final Resu lt Performing Organization Address City/[facility]/ZIP Co de Phone Number [facility] [address] [place] [address], [place] [phone] * Vascular US duplex lower extremity venous insufficiency bilateral (11/11/2024 7:52 AM EDT) Left GSK isiah 0.21 cm CV VAS LAB Left GSDC isiah 0.21 cm CV VAS LAB Left GSMT isiah 0.20 cm CV VAS LAB Left GSPC isiah 0.26 cm CV VAS LAB Left GSPT isiah 0.25 cm CV VAS LAB Left SFJ Diameter 0.47 cm CV VAS LAB Left SSMC isiah 0.14 cm CV VAS LAB Left SSPC isiah 0.18 cm CV VAS LAB Right GSK isiah 0.37 cm CV VAS LAB Right GSDC isiah 0.27 cm CV VAS LAB Right GSMT isiah 0.25 cm CV VAS LAB Right GSPC isiah 0.36 cm CV VAS LAB Right GSPT isiah 0.31 cm CV VAS LAB Right pop reflux 4,156 ms CV VAS LAB Right SFJ Diameter 0.50 cm CV VAS LAB Right SSMC isiah 0.12 cm CV VAS LAB Right SSPC isiah 0.08 cm CV VAS LAB Right GSMT reflux 3,806 ms CV VAS LAB Right GSPC reflux 3,633 ms CV VAS LAB Right GSDC reflux 361 ms CV VAS LAB Anatomical Region Laterality Modality Vascular, Abdomen Ultrasound Narrative 11/11/2024 9:20 AM EDT RIGHT. 1. ??No evidence of deep vein thrombosis. 2. ??The saphenofemoral junction, common femoral, and femoral veins are competent. ??There is 4.2 seconds of reflux in the popliteal vein. 3. ??No superficial venous thrombosis. 4. ??No venous reflux noted in the small saphenous vein. 5. ??Venous reflux noted in the greater saphenous vein with 3.8 seconds in the mid thigh and 3.6 seconds in the proximal below-knee. 6. ??Non-vascular, echogenic structure visualized at an area of palpable swelling. 3.80 x 0.74 x 3.69cm in the mid medial right calf. ??Correlate clinically. LEFT. 1. ??No evidence of deep vein thrombosis. 2. ??The saphenofemoral junction, common femoral, femoral, and popliteal veins are competent. 3. ??No superficial venous thrombosis. 4. ??No venous reflux noted in the small saphenous vein. 5. ??No venous reflux noted in the greater saphenous vein. 6. ??Non-vascular, echogenic structure visualized at an area of palpable swelling. 2.59 x 1.29 x 1.83cm in the upper medial left calf. Multiple similar areas seen on the left leg. Right Lower Venous No evidence of deep vein thrombosis in the common femoral, deep femoral, proximal femoral, mid femoral, distal femoral, popliteal, greater saphenous, small saphenous, posterior tibial and peroneal veins of the right leg. The vessels showed compressibility. Interrogation showed phasic and spontaneous Doppler signals. There was a non-vascular, echogenic structure visualized at an area of palpable swelling. 3.80 x 0.74 x 3.69cm in the mid medial right calf. Right Venous Insufficiency Duplex The exam was performed with the patient in reverse Trendelenburg. Left Lower Venous No evidence of deep vein thrombosis in the common femoral, deep femoral, proximal femoral, mid femoral, distal femoral, popliteal, greater saphenous, small saphenous, posterior tibial and peroneal veins of the left leg. The vessels showed compressibility. Interrogation showed phasic and spontaneous Doppler signals. There was a non-vascular, echogenic structure visualized at an area of palpable swelling. 2.59 x 1.29 x 1.83cm in the upper medial left calf. Multiple similar areas seen on the left leg. Left Venous Insufficiency Duplex The exam was performed with the patient in reverse trendelenburg. Refluxing left greater saphenous branch: 0.15cm upper calf= 2090ms Wholesale Representative Details A alexandra scale, color and doppler analysis ultrasound was performed. During the study longitudinal and transverse views were obtained. Pulsed wave doppler was performed. us Rhona FIGUEROA CV VASCULAR PROCEDURES Final R esult * Injection tendon or ligament (10/16/2024 3:30 PM EST) Ministerio Spencer DPM - 10/16/2024 3:30 PM EST Ministerio [...] EST Impression: 1 mm left renal calculus. Taisha FIGUEROA ([id number]) -------- FINAL REPORT -------- Dictated By: Reba Adrian Dictated Date: 09/16/2024 16:11 ET Assigned Physician: Reba Adrian Reviewed and Electronically Signed By: Reba Adrian Signed Date: 09/16/2024 16:13 ET Workstation ID: [id number] Transcribed By: Self Edit Transcribed Date: 09/16/2024 [...] 1 mm left renal calculus. Teleeva FIGUEROA ([id number]) -------- FINAL REPORT -------- Dictated By: Reba Adrian Dictated Date: 09/16/2024 16:11 ET Assigned Physician: Reba Adrian Reviewed and Electronically Signed By: Reba Adrian Signed Date: 09/16/2024 16:13 ET Workstation ID: [id number] Transcribed By: Self Edit Transcribed Date: 09/16/2024 [...] Signed Date: 09/09/2024 16:27 ET Workstation ID: [id number] Transcribed By: Self Edit Transcribed Date: 09/09/2024 [...] Signed Date: 09/09/2024 16:27 ET Workstation ID: [id number] Transcribed By: Self Edit Transcribed Date: 09/09/2024 16:26 ET us Freida Lazo NP IMG US PROCEDURES Final Result * MR [...] Signed Date: 09/09/2024 10:35 ET Workstation ID: [id number] Transcribed By: Self Edit Transcribed Date: 09/09/2024 [...] Signed Date: 09/09/2024 10:35 ET Workstation ID: [id number] Transcribed By: Self Edit Transcribed Date: 09/09/2024 10:19 ET Ministerio Arora DPM IM MRI PROCEDURES Final Result * Hemoglobin A1c (09/03/2024 4:12 PM EST) Hemoglobin A1C 6.4 <6.5 % LAB CHEMISTRY METHOD 09/03/2024 9:39 PM EST [facility] Mean Bld Glu Estim. 137 mg/dL LAB CHEMISTRY METHOD 09/03/2024 9:39 PM EST [facility] Blood Venous blood specimen / Unknown Venipuncture / Unknown 09/03/2024 4:12 PM EST 09/03/2024 4:12 PM EST us Heavenly FIGUEROA LAB BLOOD ORDERABLES Final Resul t [facility] ([facility] [address] [place] [address], [place] [phone] * MG Mammo Digital Screening w Santos [...] for biopsy. PQRI CPT II 3342F Code 27863, 19403 PQRI 225 CPT II 7025F TISSUE DENSITY: The breasts are almost entirely fatty. (BI-RADS ??Category A) IMPRESSION: Benign. BI-RADS CATEGORY: 2 - BENIGN RECOMMENDATION: Screening bilateral mammogram is recommended in 1 year. Mammo Location: [facility], [address] [place] [id number] -------- FINAL REPORT -------- Dictated By: Kev Olivarez Dictated Date: 09/03/2024 12:19 ET Assigned Physician: Kev Olivarez Reviewed and Electronically Signed By: Kev Olivarez Signed Date: 09/03/2024 12:28 ET Workstation ID: [id number] Transcribed By: Self Edit Transcribed Date: 09/03/2024 12:19 ET Narrative 09/03/2024 12:28 PM EST CLINICAL: The patient is a 59 years Female presenting for routine screening mammography. COMPARISON: Outside studies most recently 07/31/2023 and most remotely 11/15/2017 ?? TECHNIQUE: Full-field digital mammography of the breasts bilaterally consisting of tomosynthesis in MLO and CC projection is performed in the [employer] 2000-D unit. ??Computer aided detection utilizing the [...] MLO and CC projection is performed in the[employer]Reading[employer] 2000-D unit. Computer aided detection utilizing the [...] for biopsy. PQRI CPT II 3342F Code 54901, 46499 PQRI 225 CPT II 7025F TISSUE DENSITY: The breasts are almost entirely fatty. (BI-RADS CategoryA) IMPRESSION: Benign. BI-RADS CATEGORY: 2 - BENIGN RECOMMENDATION: Screening bilateral mammogram is recommended in 1 year. Mammo Location: [facility], [address] [facility] [facility] [address] -------- FINAL REPORT -------- Dictated By: Kev Olivarez Dictated Date: 09/03/2024 12:19 ET Assigned Physician: Kev Olivarez Reviewed and Electronically Signed By: Kev Olivarez Signed Date: 09/03/2024 12:28 ET Workstation ID: [id number] Transcribed By: Self Edit Transcribed Date: 09/03/2024 12:19 ET us Self Referral Sppl IMG BI PROCEDURES Final Resul t * (ABNORMAL) Basic metabolic panel (07/24/2024 10:40 AM EST) Sodium 139 133 - 145 mmol/L LAB CHEMISTRY METHOD 07/24/2024 11:50 AM [facility] Potassium 4.0 3.5 - 5.5 mmol/L LAB CHEMISTRY METHOD 07/24/2024 11:50 AM [facility] Chloride 105 96 - 110 mmol/L LAB CHEMISTRY METHOD 07/24/2024 11:50 AM [facility] CO2 27 21 - 32 mmol/L LAB CHEMISTRY METHOD 07/24/2024 11:50 AM [facility] Anion Gap 7 3 - 11 LAB CHEMISTRY METHOD 07/24/2024 11:50 AM [facility] Glucose 116(H) 70 - 100 mg/dL LAB CHEMISTRY METHOD 07/24/2024 11:50 AM [facility] BUN 16 5 - 25 mg/dL LAB CHEMISTRY METHOD 07/24/2024 11:50 AM [facility] Creatinine 0.67 0.50 - 1.10 mg/dL LAB CHEMISTRY METHOD 07/24/2024 11:50 AM [facility] eGFR 101 >=60 mL/min/1. 73m2 LAB CHEMISTRY METHOD 07/24/2024 11:50 AM EST [facility] Comment:Calculation based on the??Chronic Kidney Disease Epidemiology Collaboration (CKD-EPI) equation refit??without adjustment for race. BUN/Creatinine Ratio 23.9 LAB CHEMISTRY METHOD 07/24/2024 11:50 AM [facility] Calcium 9.6 8.5 - 10.5 mg/dL LAB CHEMISTRY METHOD 07/24/2024 11:50 AM [facility] Blood Venous blood specimen / Unknown Venipuncture / Unknown 07/24/2024 10:40 AM EST 07/24/2024 11:16 AM EST us Dayanna FIGUEROA LAB BLOOD ORDERABLES Final Re sult [facility] [address] [place] [address], [place] [phone] * (ABNORMAL) Lipid panel with reflex to direct LDL (07/15/2024 10:00 AM EST) Cholesterol 175 0 - 200 mg/dL LAB CHEMISTRY METHOD 07/15/2024 3:40 PM [facility] Triglycerides 154(H) 0 - 150 mg/dL LAB CHEMISTRY METHOD 07/15/2024 3:40 PM [facility] HDL 62 >=40 mg/dL LAB CHEMISTRY METHOD 07/15/2024 3:40 PM [facility] LDL Calculated 82 0 - 100 mg/dL LAB CHEMISTRY METHOD 07/15/2024 3:40 PM [facility] VLDL Cholesterol Molina 30.8 mg/dL LAB CHEMISTRY METHOD 07/15/2024 3:40 PM [facility] Non HDL Chol. (LDL+VLDL) 113 <145 mg/dL LAB CHEMISTRY METHOD 07/15/2024 3:40 PM [facility] Chol/HDL Ratio 2.8 0.0 - 4.4 LAB CHEMISTRY METHOD 07/15/2024 3:40 PM EST [facility] Blood Venous blood specimen / Unknown Venipuncture / Unknown 07/15/2024 10:00 AM EST 07/15/2024 10:00 AM EST us Wilner Murray MD LAB BLOOD ORDERABLES Final Res ult Performing Organization Address City/[facility]/ZIP Co de Phone Number [facility] [address] [place] [address], [place] [phone] * (ABNORMAL) Microalbumin creatinine urine ratio (07/15/2024 10:00 AM EST) [facility] Creatinine, Urine 138.0 mg/dL LAB CHEMISTRY METHOD 07/15/2024 3:04 PM [facility] Microalb, Ur 61.7(H) 0.0 - 29.0 mg/L LAB CHEMISTRY METHOD 07/15/2024 3:04 PM [facility] Microalb/Crea t Ratio 45(H) <30 mg/g creat LAB CHEMISTRY METHOD 07/15/2024 3:04 PM [facility] Urine Urine specimen obtained by clean catch procedure / Unknown Non-blood Collection / Unknown 07/15/2024 10:00 AM EST 07/15/2024 10:00 AM EST us Wilner Murray MD LAB URINE ORDERABLES Final Res ult Performing Organization Address City/[facility]/ZIP Co de Phone Number [facility] [address] [place] [address], [place] [phone] * Diabetes Eye Exam (12/25/2023) Pathologist [facility] Diabetes: Annual Retina Eye Exam abstracted Historical Provider HEALTH MAINTENANCE Final Result * Depression Screening (05/31/2023) Pathologist [facility] Depression Screening abstracted Historical Provider HEALTH MAINTENANCE Final Result * Diabetes Foot Exam (05/31/2023) Diabetes: Annual Foot Exam abstracted Historical Provider MD HEALTH MAINTENANCE Final Result * Pap smear (09/04/2020) 09/04/2020 Narrative HISTORICAL TESTING LAB RESULTING AGENCY - 09/08/2020 10:55 AM EST [id number] THINPREP PAP, IMAGED: NEGATIVE FOR SQUAMOUS INTRAEPITHELIAL [...] of Phone Billing Address Personal/Family Self 1965 [phone] (Work) [address] [place] [address] [facility]AN Advance Directives Documents on File Type Date Recorded 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
--- OUTSIDE RECORDS SUMMARY | 2024-12-03 14:48 | XMS_ITS | Encounter Summary ---
Author Organization [employer] Address [address] [place] [address] Care Team Providers Care Engineering Librarian Name Role Phone Wilner Murray MD Primary Care Provider [phone] Reason for Visit * Reason Onset Date Comments Leg Pain 11/18/2024 Encounter Details Date Type Department Care Team (Late st Contact Info) Description 11/18/2024 Telephone Internal Medicine - [address] [address] Wilner Murray MD [address] [place] [id number] Leg Pain Social History Tobacco Use Types Packs/Day [...] for your loved ones. For example, child life specialist or elderly care for an older adult? [...] as of this encounter Progress Notes * Petrona Hernandez, LADAN - 11/18/2024 9:20 AM EDT Spoke with pt she states bilat legs are painful with the nodules red/hot. Pt states she has seen vascular and states the issue isn't vascular. Pt wants to be seen Appt today @ 1:15 with Freida * Carmen Aleyda - 11/18/2024 8:40 AM EDT Patient call requires triage: Symptoms patient is presenting: bilateral leg pain below the knees with nodules, hot, red where nodules are, hurts to walk, hurts to sit How long has patient had these symptoms?: several months For ALL patients calling to schedule [...] traveled recently to another state outside of [place], [place], [place], [place], [place], [place], [place]? no o If yes, did you quarantine [...] not applicable PCP: Wilner Murray MD Payor: [employer] / Plan: [employer] [place] [employer] / Product Type: *No Product type* / documented in this encounter Plan of Treatment Upcoming Encounters Date Type Department Care Team (Late st Contact Info) Description 12/16/2024 2:00 PM EDT Office Visit Internal Medicine - [place] [address] [place] [address] Freida Lazo NP [address] [place] [address] 01/31/2025 3:30 PM EDT Office Visit Vascular Surgery - [place] [address] [place] [phone] Rhona Egan PA [address] [place] [address] 10/03/2025 9:30 AM EST Appointment [facility] Ultrasound [address] [place] [phone] Scheduled Procedures Name Priority Associated Diagnoses Date/Ti me REVISION SCAR Skin and subcutaneous tissue disease 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 hammer toe of right foot documented as of this encounter Visit Diagnoses Not on filedocumented in this encounter Additional Health Concerns Assessment Noted Time PHQ-9 Depression Total Score: 12 025 6:12 PM EST documented as of this encounter Care Teams Engineering Librarian Relationship Specialty Start Date End Date Wilner Murray MD [address] [place] [address] PCP - General Internal Medicine 03/25/20 documented as of this encounter
--- OUTSIDE RECORDS SUMMARY | 2024-12-03 14:48 | XMS_ITS | Encounter Summary ---
Author Organization [employer] Address [address] [place] [address] Care Team Providers Care Field Cashier Name Role Phone Wilner Murray MD Primary Care Provider [phone] Reason for Visit * Reason Onset Date Comments Nausea 11/21/2024 Encounter Details Date Type Department Care Team (Late st Contact Info) Description 11/21/[facility] [address] [place] [phone] Wilner Murray MD [address] [place] [phone] Nausea Social History Tobacco Use Types Packs/Day Years [...] your loved ones. For example, child care assistant or elderly care for an older adult? [...] as of this encounter Progress Notes * Jeannie Stout RN - 11/21/2024 9:31 AM EDT RN called and spoke to the patient who reports feeling worse than she felt when she was here on 11/18/2024. Same symptoms but worse, feeling a migraine, pain, chills, and nausea. Patent advised that freida is not in the office today and after discussion this RN advised the patient to go to the ER for further work up, evaluation and treatment and the patient agreed. This message will be sent to Freida as an FYI and patient will call after her visit at [facility]. * Maciel Lucas - 11/21/2024 8:57 AM EDT Caller requesting call back from provider: Is the caller the patient? yes If caller is not the patient, what is the callers name? Callers relationship to patient? Reason for call back: patient was seen in office 11/18 , she states her symptoms are starting to worsen. Nauseous, chills, migraines. Asking to speak with the nurse Caller offered to speak with the nurse for assistance: YES Response: Patient offered to speak with nurse for assistance and patient agreed. Message forwarded to nurse. documented in this encounter Plan of Treatment Upcoming Encounters Date Type Department Care Team (Late st Contact Info) Description 12/16/2024 2:00 PM EDT [facility] [address] [place] [address] Freida Lazo, LISSETT [address] [place] [address] 01/31/2025 3:30 PM EDT Office Visit Vascular Surgery - [place] [address] [place] [phone] Rhona Egan PA [address] [place] [address] 10/03/2025 9:30 AM EST Appointment [facility] Ultrasound [address] [place] [phone] Scheduled Procedures Name Priority Associated Diagnoses Date/Ti me REVISION SCAR Skin and subcutaneous tissue disease 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 hammer toe of right foot documented as of this encounter Visit Diagnoses Not on filedocumented in this encounter Additional Health Concerns Assessment Noted Time PHQ-9 Depression Total Score: 12 025 6:12 PM EST documented as of this encounter Care Teams Field Cashier Relationship Specialty Start Date End Date Wilner Murray MD [address] [place] [address] PCP - General Internal Medicine 03/25/20 documented as of this encounter
--- OUTSIDE RECORDS SUMMARY | 2024-12-03 14:48 | XMS_ITS | Encounter Summary ---
Author Organization [employer] Address [address] [place] [address] Care Team Providers Care Radiation Monitor Name Role Phone Wilner Murray MD Primary Care Provider [phone] Reason for Visit * Reason Onset Date Comments Hospital Follow-up 11/29/2024 [facility] Encounter Details Date Type Department Care Team (Late st Contact Info) Description [facility] [address] [place] [phone] Wilner Murray MD [address] [place] [phone] Hospital Follow-up ([facility] ) Social History Tobacco Use Types Packs/Day [...] your loved ones. For example, director of early childhood education or elderly care for an older adult? [...] as of this encounter Progress Notes * Naa Garcia MA - 11/29/2024 2:34 PM EDT Called patient and made appt. * Shashank Banuelos - 11/29/2024 2:13 PM EDT Hospital/ER follow up appointment needed Hospital patient was treated at: [facility], [facility] Was this only an ER visit or was the patient admitted to the hospital? Admitted to the hospital/kept overnight Date of visit if ER visit only: no If patient was admitted what was the date of discharge? 12/06/24 Reason/diagnosis for visit or stay: both leg pain When was the patient told to follow up? [facility] Was visit or stay related to an injury? If yes, what was the date of injury (DOI)? No If yes, was the injury due to: no documented in this encounter Plan of Treatment Upcoming Encounters Date Type Department Care Team (Late st Contact Info) Description 12/16/2024 2:00 PM EDT [facility] [address] [place] [address] Freida Lazo NP [address] [place] [address] 01/31/2025 3:30 PM EDT Office Visit Vascular Surgery - [place] [address] [place] [phone] Rhona Egan PA [address] [place] [address] 10/03/2025 9:30 AM EST Appointment [facility] Ultrasound [address] [place] [phone] Scheduled Procedures Name Priority Associated Diagnoses Date/Ti me REVISION SCAR Skin and subcutaneous tissue disease 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 hammer toe of right foot documented as of this encounter Visit Diagnoses Not on filedocumented in this encounter Additional Health Concerns Assessment Noted Time PHQ-9 Depression Total Score: 12 025 6:12 PM EST documented as of this encounter Care Teams Radiation Monitor Relationship Specialty Start Date End Date Wilner Murray MD [address] [place] [address] PCP - General Internal Medicine 03/25/20 documented as of this encounter
== END 2024-12-03 13:25 | disposition home or self-care (01) ==
LOC: HO.RHE 12:30
PROVIDERS: PCP Internal Medicine; Visit Provider Student in an Organized Health Care Education/Training Program
DX: M06.9 Rheumatoid arthritis, unspecified (principal); Z51.81 Encounter for therapeutic drug level monitoring; Z79.620 Long term (current) use of immunosuppressive biologic; Z79.899 Other long term (current) drug therapy
CPT/HCPCS: 99214; G2211

== ENCOUNTER → 2024-12-03 12:30 | Outpatient (BNVA) | payer OTHER, SELFPAY | PROVIDERS: PCP Internal Medicine; Visit Provider Student in an Organized Health Care Education/Training Program | DX: M06.9 Rheumatoid arthritis, unspecified (principal); Z51.81 Encounter for therapeutic drug level monitoring; Z79.620 Long term (current) use of immunosuppressive biologic; Z79.899 Other long term (current) drug therapy | CPT/HCPCS: 99212 ==

== ENCOUNTER 2025-03-04 15:19 | Outpatient (AMB) | payer OTHER, SELFPAY ==
--- NOTE | 2025-03-04 15:29 | A.OFFVIS_ITS ---
Vital Signs 03/04/25 15:35 Height 5 ft 2 in Weight 218 lb 4.122 oz BMI 39.9 BP 142/90 H Blood Pressure Location Lt brachial Position Sitting Pulse 84 Pulse Source Pulse Oximeter Pulse Oximetry (%) 97 Oxygen Delivery Method Room Air Intake Visit Reasons: leg nodules Intake Note: Patient presents for leg nodules follow up. Allergies No Known Allergies Allergy (Verified 03/04/25 15:35) Medication List - Last Reconciled 03/04/25 by Lindsey Onofre MD albuterol sulfate 90 mcg/actuation (ProAir HFA) 2 puffs inhalation Q6H PRN calcium citrate-vitamin D3 200 mg-6.25 mcg (250 unit) 1 tab PO DAILY colchicine 0.6 mg PO BID 90 days gabapentin 100 mg PO BEDTIME Humira(CF) Pen (adalimumab) 40 mg (0.4 mL) subcut QWEEK NS lansoprazole 30 mg PO DAILY levothyroxine 150 mcg PO DAILY HPI Comments Details: Patient is a 59-year-old female with hypothyroidism, history of DVT, fibromyalgia, polyarticular osteoarthritis and rheumatoid arthritis here today for follow up Interval History: Patient last seen 12/03/24 - continued to complain of lower extremity pain with nodules - Started Humira and colchicine Today, - Started the humira and the colchicine - Since starting those medications the nodules have improved - Now complaining of pain to the right side: shoulder and back with radiation down the limbs Rheumatologic History: Initial history: This is a 57-year-old morbidly obese female with complex past medical history including DVT and PE on warfarin who presents for evaluation of inflammatory arthritis. Condition started more than 5 years ago. Patient stated she used to see a production trainer in [place] but does not know their names. She stated that she was getting medications to treat pain and anxiety. She was most recently evaluated by Jose F Rainey last year. She used to get multiple courses of prednisone which help with joint pain. Patient mentions episodes of swelling of her wrists, knuckles, elbows which are improved with prednisone. About a month ago she had right foot bunionectomy and her right foot is currently in a cast. She develops intermittent bruising of her skin while on warfarin, she is currently taking duloxetine prescribed by Dr. Tapia for fibromyalgia which she mentions did help her symptoms. Current Rheumatology Medication(s): Colchicine 0.6mg bid Humira 40mg SC every 2 weeks PFSH Medical History Diabetes Hepatic steatosis Bunion of right foot Esophageal dysmotility Hiatal hernia Constipation Dysphagia GERD (gastroesophageal reflux disease) DJD (degenerative joint disease) BPV (benign positional vertigo) Parathyroid adenoma Hx of thyroid cancer Rheumatoid arthritis G6PD deficiency Cholelithiases Hepatomegaly Liver cyst Pulmonary embolism DVT (deep venous thrombosis) LIN (obstructive sleep apnea) Depression Tension headache Sleep disturbance Fibromyalgia Migraines Obesity (BMI 30-39.9) Diverticulosis Surgical History S/P bunionectomy Stented coronary artery Hx of endoscopy Hx of tubal ligation H/O total thyroidectomy Hx of colonoscopy Family History Mother Glaucoma Father Glaucoma Cataract Diabetes Hypertension Myocardial infarct Maternal Grandmother Skin cancer Daughter Multiple sclerosis Social History Household Members: Spouse and Children Housing: House Patient Tobacco Use Status: Never used Tobacco service: No Current occupational status: employed Review of Systems Const Details: Review of Systems Constitutional: Denies fever, chills, weight loss ENT: Denies vision changes, eye pain or eye redness, dental caries, dry mouth GI: Denies nausea, vomiting, diarrhea, abdominal pain, change in BM Pulm: Denies SOB, MOREIRA, hemoptysis, wheezing Cards: Denies chest pain, palpitations Skin: Denies Raynaud's, rash, nail changes, photosensitivity, EMAIL MARKETER: Denies headaches, weakness, paresthesias, recurrent falls MSK: as per HPI All other systems reviewed and are unremarkable except noted above Physical Exam Exam Exam: Vital signs reviewed Physical Examination CONSTITUITIONAL Patient alert and cooperative. Well appearing and in no apparent painful distress HEENT Conjunctiva and sclera clear. No lymphadenopathy. CHEST/RESPIRATORY SYSTEM Normal respiratory effort and able to speak in complete sentences. Clear to auscultation bilaterally. No crackles, rales, rhonchi, wheezes heard. CARDIAC SYSTEM Regular rate and rhythm. S1 and S2 heard no murmurs. Radial pulses intact bandar aterally MSK Hands * Right Hand: Able to make a fist. No swelling or tenderness to palpation of these joints. No deformities noted. * Left Hand: Able to make a fist. No swelling or tenderness to palpation of these joints. No deformities noted. Wrists * Right Wrist: Full ROM. 70 degrees of wrist flexion, 80 degrees of wrist extension. No swelling or TTP * Left Wrist: Full ROM. 70 degrees of wrist flexion, 80 degrees of wrist extension. No swelling or TTP Elbows * Right Elbow: Full ROM. No swelling or TTP. No TTP of the medial and lateral epicondyles * Left Elbow: Full ROM. No swelling or TTP. No TTP of the medial and lateral epicondyles Shoulders * Right shoulder: Full ROM. No swelling noted. No TTP of the AC joint, subacromial bursa or posterior shoulder * Left shoulder: Full ROM. No swelling noted. No TTP of the AC joint, subacromial bursa or posterior shoulder Hip bursa: No tenderness to palpation bilaterally Knees * Right knee: Full ROM. No swelling noted. No TTP of the knee joint lie or pes anserine bursa * Left knee: Full ROM. No swelling noted. No TTP of the knee joint lie or pes anserine bursa. Ankles * Right ankle: Good ankle dorsiflexion and plantar flexion. No swelling. No TTP of the ankle joint * Left ankle: Good ankle dorsiflexion and plantar flexion. No swelling. No TTP of the ankle joint Feet * Right foot: Negative squeeze test * Left foot: Negative squeeze test Tender points? * Tenderness to palpation of the bilateral trapezius, supraspinatus, anterior costochondral junctions, bilateral suboccipital muscle insertions SKIN Postinflammatory scaling noted to legs Rare nodules felt Vital Signs: Last Vital Signs Pulse 84 03/04/25 15:35 BP 142/90 H 03/04/25 15:35 Pulse Ox 97 03/04/25 15:35 Oxygen Delivery Method Room Air 03/04/25 15:35 BMI result Body Mass Index 39.9 Results Reviewed Results Reviewed: Laboratory Tests 05/20/24 10/23/24 15:34 16:10 WBC 12.4 H RBC 4.28 Hgb 11.5 L Hct 37.7 Plt Count 350 ESR 34 H Sodium 143 142 Potassium 3.3 3.7 Chloride 107 108 Carbon Dioxide 26 25 BUN 19 H 18 H Creatinine 0.96 0.71 Calcium 9.2 Total Bilirubin 0.2 AST 33 H ALT 34 H C-Reactive Protein 2.81 H Angiotensin Convert Enz 33 Laboratory Tests 10/23/24 16:10 IgG Total 1287 IgG Subclass 1 707 IgG Subclass 2 376 IgG Subclass 3 54 IgG Subclass 4 18.3 IgA Total 171 IgM 207 Rheumatoid Factor < 13.0 ANCA Immunofluorescen NEGATIVE Complement C3 200 H Complement C4 26 Skin, left calf, punch biopsy 11/28/24 Septal panniculitis with granulomatous inflammation consistent with erythema nodosum At the base of the biopsy is a lobular panniculitis manifested by fibrosis of the septa with adjacent fat necrosis. Within the fibrous septa are small granulomas. In the context of the clinical impression of the findings are most consistent with erythema nodosum. Changes to specifically suggest a vasculitis are not present Assessment & Plan Assessment & Plan (1) Rheumatoid arthritis: Comment: -ve RF -ve CCP dx 07/2022. Erythema nodisum started 05/2024 HCQ not tolerated Code(s): M06.9 - Rheumatoid arthritis, unspecified Category: Medical Qualifiers: Rheumatoid arthritis location: multiple sites Rheumatoid factor presence: unspecified presence Qualified Code(s): M06.9 - Rheumatoid arthritis, unspecified Plan: #Seronegative RA Patient is a 59-year-old female with seronegative rheumatoid arthritis complicated by erythema nodosum here today for follow up. Nodules improved on Humira and colchicine. Will continue same for another 3 months before we start to taper Plan - Humira 40mg SC every other week - Colchicine 0.6mg bid - RTC 3 months - Labs before visit: CBC, CMP, ESR, CRP (2) Fibromyalgia: Comment: right foot Code(s): M79.7 - Fibromyalgia Category: Medical Plan: #Fibromyalgia Patient's current symptoms seem related to fibromyalgia We will try gabapentin Plan - Gabapentin 100mg at night (3) Encounter for monitoring of adalimumab therapy: Code(s): Z51.81 - Encounter for therapeutic drug level monitoring; Z79.620 - half-way (current) use of immunosuppressive biologic Plan: #Long-term Use of TNF Inhibitors: Humira Discussed with the patient the benefits and risks of TNF inhibitors for the management of the rheumatic condition Benefits include reduce pain, maintenance of remission and reduction of flares as well as ?progression of the disease Risks include injection sites/infusion reactions, serious infections (such as bacterial infections, opportunistic infections), malignancy, delaminating syndromes, autoimmune phenomena, CHF exacerbations, palmar plantar psoriasis and cytopenias Recommended rotating injection sites, and holding medication during and for up to 1 week after resolution of a febrile illness or open skin wound (4) On colchicine therapy: Code(s): Z79.899 - 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 Benefits include reduced occurrence of flares while we titrate and regulate his uric acid on allopurinol and other uric acid lowering medications. ? Risks include worsening myalgias especially if on statins and GI upset including diarrhea Plan I spent 30 minutes reviewing the record and labs, taking a history, examining the patient, discussing the treatment plan, ordering diagnostic work up and documenting in the medical record Orders: Orders Erythrocyte Sedimentation Rate 3 Months M06.9 - Rheumatoid arthritis, unspecified Complete Blood Count Auto Diff 3 Months M06.9 - Rheumatoid arthritis, unspecified Comprehensive Met. Panel 3 Months M06.9 - Rheumatoid arthritis, unspecified C Reactive Protein 3 Months M06.9 - Rheumatoid arthritis, unspecified Medications: New gabapentin 100 mg PO BEDTIME 90 caps 1RF M79.7 - Fibromyalgia Refilled colchicine 0.6 mg PO BID 180 tabs 1RF 90 days M06.9 - Rheumatoid arthritis, unspecified Discontinued prednisone take 1 tablet for 7 days then 0.5 tablet for 7 days then stop Discontinued Reason: Doctor's Order 10 mg PO DIRECTED 14 tabs 0RF M06.9 - Rheumatoid arthritis, unspecified Coding Level of Care Code Est Pt Level 4 (02805) Complex EM visit Add On G2211 Diagnoses Rheumatoid arthritis involving multiple sites, unspecified whether rheumatoid factor present M06.9 Rheumatoid arthritis location: multiple sites Rheumatoid factor presence: unspecified presence Fibromyalgia M79.7 Encounter for monitoring of adalimumab therapy Z51.81; Z79.620 On colchicine therapy Z79.899
[2025-03-04 15:35] VITALS: BP 142/90; PULSE 84; O2SAT 97; BMI 39.9
--- OUTSIDE RECORDS SUMMARY | 2025-03-04 16:15 | XMS_ITS | Clinical Summary ---
Author Organization [facility] Address [address] [place] [address] Care Team Providers Care Painter Maintenance Name Role Phone Wilner Murray MD Primary Care Provider [phone] Allergies No known active allergies Medications Medication [...] 85 02/28/2023 3:56 PM EDT Temperature 36.5 C (97.7 F) 02/28/2023 3:56 PM EDT Respiratory Rate - - Oxygen Saturation 94% [...] season) 2024 03/02/2021, 02/05/2021 Influenza Vaccine (#1) 2025 2, 04/24/2018, 05/28/2017, Additional history exists Pneumococcal Vaccine Aged Out 09/17/2020 No long er eligible based on patient's age to complete this topic RSV Ped < 20 months Aged Out No longe r eligible based on patient's age to complete this topic Care Teams Painter Maintenance Relationship Specialty Start Date End Date Wilner Murray MD PCP - General Internal Medicine 02/02/21
--- OUTSIDE RECORDS SUMMARY | 2025-03-04 16:15 | XMS_ITS ---
Author Name [facility] Organization Unknown Care Team Organization Name Specialty Phone Email Start Date End Da te [facility] Toney Ortiz Primary Care 11/15/2022 04/01/2024 [facility] Wilner Murray Primary Care 06/21/2022 04/01/20 24
--- OUTSIDE RECORDS SUMMARY | 2025-03-04 16:15 | XMS_ITS | Clinical Summary ---
Author Organization [facility] [address] Address [address] [place] [address] Phone Care Team Providers Care Jewelry Making Instructor Name Role Phone Wilner Murray MD Primary Care Provider [phone] Allergies No known active allergies Medications blood sugar diagnostic (FreeStyle Lite Strips) test strip USE TWICE A DAY 07/04/2023 Active blood-glucose meter kit To check sugars twice daily. E11.65 08/30/2022 Active FREESTYLE LANCETS MISC To check sugars twice daily. E11.65 08/30/2022 Active blood glucose control high,low (FreeStyle Control) solution E11.65. to use with glucometer. 08/30/2022 Active predniSONE (DELTASONE) 2.5 mg tablet Take 1 tablet (2.5 mg total) by mouth 1 (one) time each day. 08/06/2024 Active Ventolin HFA 90 mcg/actuation inhaler INHALE 2 PUFFS INTO THE LUNGS EVERY 6 HOURS NEEDED FOR COUGH OR WHEEZING. 18 each 1 09/24/2024 Active calcium citrate-vitamin D3 200 mg-6.25 mcg (250 unit) tablet Take 1 tablet by mouth 1 (one) time each day. 90 tablet 1 10/01/2024 Active metFORMIN XR (GLUCOPHAGE-XR) 500 mg 24 hr tablet Do not crush, chew, or split.TAKE 1 TABLETS TWICE DAILY WITH FOOD. 60 tablet 3 10/01/2024 Active levothyroxine (SYNTHROID, LEVOTHROID) 150 mcg tabletIndication s:Benign paroxysmal vertigo, unspecified ear TAKE 1 TABLET BY MOUTH DAILY. TAKE 2 TABLETS ON SUNDAYS. 102 tablet 1 11/21/2024 Active colestipoL (COLESTID) 1 gram tablet Take 1 tablet (1 g total) by mouth 2 (two) times a day. 60 each 3 12/03/2024 12/04/19 26 Active lansoprazole (PREVACID) [address] capsule TAKE 1 CAPSULE BY MOUTH EVERY DAY 90 capsule 1 01/17/2025 Active Active Problems Problem Noted Date Diagnosed Date [...] Right and left superior--s/p excision 12/2014 Hyperparathyroidism ([facility] V24) 09/12/2014 Migraine 08/12/2008 Fibromyalgia 08/12/2008 Sleep disturbance 08/12/2008 Tension headache 08/12/2008 Depression 08/12/2008 Obesity (BMI 30-39.9) 10/13/2006 Encounters Date Type Department Care Team Description 01/31/2025 12:00 PM EDT Telemedicine Vascular Surgery - [place] [address] [facility] [address] [place] [phone] Rhona Egan PA Bilateral lower extremity edema (Primary Dx); Peripheral venous insufficiency; Subcutaneous nodule of both lower extremities 01/30/2025 Telephone Vascular Surgery - [place] [address] [facility] [address] [place] [phone] Rhona Egan PA provider call back 12/30/2024 Telephone [place] [facility] [place] [address] [place] [phone] Heavenly [place] PA Medication Problem 12/16/2024 2:00 PM EDT Office Visit Internal Medicine - [address] [phone] Freida Lazo NP Hospital discharge follow-up (Primary Dx); Colitis; Erythema nodosum; Hematuria, unspecified type; Diarrhea, unspecified type 12/03/2024 2:00 PM EDT Office Visit Gastroenterology [facility] [address] [place] [phone] Amina Marte PA Ischemic colitis ([facility] V24) (Primary Dx); Diarrhea, unspecified type; S/P cholecystectomy from Last 3 Months Immunizations Name Administration [...] TOTAL THYROIDECTOMY UPPER GASTROINTESTINAL ENDOSCOPY 03/07/2007 PROCEDURE: MD UPPER GI ENDOSCOPY PERFORMED; COMMENT: small hiatus hernia UPPER GASTROINTESTINAL ENDOSCOPY 10/29/2015 PROCEDURE: MD UPPER GI ENDOSCOPY PERFORMED; COMMENT: Hiatal hernia, ren erosions, duodenal polyp COLONOSCOPY 03/12/2010 PROCEDURE: HISTORICAL COLONOSCOPY; COMMENT: diverticulosis; repeat in 5 years OTHER SURGICAL HISTORY 02/01/2022 PROCEDURE: MD SLCTV CATH PLMT LINDA SYS 2ND ORDER/> SLCTV BRANC OTHER SURGICAL HISTORY 02/01/2022 PROCEDURE: MD INTRAVASCULAR US NONCORONARY RS&I INTIAL VESSEL OTHER SURGICAL HISTORY 02/01/2022 PROCEDURE: MD INTRAVASCULAR US NONCORONARY RS&I ADDL VESSEL; COMMENT: x3 iliocaval venogram with vascular SECTION PROCEDURE: HISTORICAL DELIVERY; COMMENT: x1 Medical History Medical History Date Comments DVT (deep venous thrombosis) ([facility] V24, [facility] V28) 01/11/2021 DX:DVT (deep venous thrombos is) ([facility]) Class 3 severe obesity due t o excess calories with serious comorbidity and body mass index (BMI) of 40.0 to 44.9 in adult ([facility] V24, [facility] V28) DX:Class 3 severe obesity due to excess calories with serious comorbidity and body mass index (BMI) of 40.0 to 44.9 in adult ([facility]) Acute pulmonary embolism ([facility] V24, [facility] V28) DX:Acute pulmonary embolism ([facility]) LIN (obstructive sleep apnea) DX :LIN (obstructive [...] V24, CMS/HCC V28) 08/26/2022 DX:Diabetes (HCC) Hyperparathyroidism ([facility] V24) 09/12/2014 DX:Hyperparathyroidism (HCC) Cholelithiasis 03/15/2021 DX:Cholelithiasi [...] for your loved ones. For example, child protection specialist or elderly care for an older [...] Sign Reading Time Taken Comments Blood Pressure 121/84 12/16/2024 2:02 PM EDT A Pulse 95 12/16/2024 2:02 PM EDT Temperature 36.2 C (97.2 F) 09/03/2024 3:26 PM EST Respiratory Rate 16 07/24/2024 2:13 PM EST Oxygen Saturation 98% 09/03/2024 3:26 PM EST Inhaled Oxygen Concentration - - Weight 96.3 kg (212 lb 6.4 oz) 12/16/2024 2:02 P M EDT Height 157.5 cm (5' 2 ) 12/16/2024 2:02 PM EDT Body Mass Index 38.85 12/16/2024 2:02 PM EDT Plan of Treatment Upcoming Encounters Date Type Department Care Team (Late st Contact Info) Description 07/08/2025 10:00 AM EST Ancillary Procedure [facility] [address] [place] [phone] 10/03/2025 9:30 AM EST Appointment [facility]ound [address] [place] [phone] Health Maintenance Due Date Last Done Comments [...] 03/03/2025 09/03/2024, 07/15/2024, 01/10/2024, Additional history exists Influenza Vaccine (#1) 2025 , 05/31/2023, 05/19/2022, Additional history exists Diabetes: Annual Urine Albumin-Creatinine Ratio (uACR) 07/15/2025 07/15/2024, 01/10/2024 Diabetes: Annual GFR (Glomerular Filtration Rate) 07/24/2025 07/24/2024, 07/15/2024, 01/10/2024, Additional history exists Social Influencers of Health Screening 08/28/2025 08/28/2024 Breast Cancer Screening 08/31/2026 08/31/19 25, 07/31/2023, 12/18/2021, Additional history exists Cholesterol Screening (Lipid Panel) 07/15/2029 07/15/2024, 01/10/2024, 01/10/2024 Colorectal Cancer Screening: Colonoscopy 11/25/2029 11/25/2024, 04/06/2022 DTaP,Tdap,and Td Vaccines (4 - Td or Tdap) 05/31/2033 05/31/2023, 02/07/2013, 03/02/2005 Depression Screening Completed 08/28/2024, 05/31/20 23 HIV Screening Completed 11/19/2024 Hepatitis C Screening [...] Name Priority Date/Time Associated Diagnosis Comments EXTERNAL COLONOSCOPY REPORT 11/25/2024 HEPATITIS C ANTIBODY Routine 11/19/2024 2:50 PM EDT Erythematous skin nodule Antibody response examination Vasculitis (CMS/HCC V24) HIV 1, 2 ANTIBODY, P24 ANTIGEN WITH REFLEX TO DIFFERENTIATION Routine 11/19/2024 2:50 PM EDT Erythematous skin nodule Antibody response examination Vasculitis ([facility] V24) HEMOGLOBIN A1C Routine 09/03/2024 4:12 PM EST Diabetes mellitus of other type without complication, unspecified whether 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 insulin use ([facility] V24, [facility] V28) MG MAMMO DIGITAL SCREENING W SANTOS BILAT Routine 08/31/2024 10:50 AM EST Encounter for screening mammogram for breast cancer BASIC METABOLIC PANEL STAT 07/24/2024 10:40 AM EST MICROALBUMIN CREATININE URINE RATIO Routine 07/15/2024 10:00 AM EST Type 2 diabetes mellitus with other specified complication, without long-term current use of insulin ([facility] V24, [facility] V28) LIPID PANEL WITH REFLEX TO DIRECT LDL Routine 07/15/2024 10:00 AM EST Type 2 diabetes mellitus with other specified complication, without long-term current use of insulin ([facility] V24, [facility] V28) DIABETES EYE EXAM Routine 12/25/2023 DEPRESSION SCREENING Routine 05/31/2023 DIABETES FOOT EXAM Routine 05/31/2023 PAP SMEAR Routine 09/04/2020 from Last 3 Months or Most Recently Relevant to Health Maintenance Results * External Colonoscopy Report (11/25/2024) Anatomical Region Laterality Modality Endoscopy us Provider [facility]~PROCEDURE ORDERABLES Final Result * Hepatitis C antibody (11/19/2024 2:50 PM EDT) Hepatitis C Antibody Negative Negative LAB CHEMISTRY METHOD 11/19/2024 5:51 PM EDT [facility] Blood Venous blood specimen / Unknown Venipuncture / Unknown 11/19/2024 2:50 PM EDT 11/19/2024 3:08 PM EDT Freida Bishoptricia GALEANA LAB BLOOD ORDERABLES Final Resu lt Performing Organization Address [facility] Co de Phone Number [facility] [address] [place] [address], * HIV 1,2 antibody, p24 antigen with reflex to differentiation (11/19/2024 2:50 PM EDT) HIV Combo AB/AG Negative Negative LAB CHEMISTRY METHOD 11/19/2024 5:51 PM EDT [facility] Blood Venous blood specimen / Unknown Venipuncture / Unknown 11/19/2024 2:50 PM EDT 11/19/2024 3:08 PM EDT Narrative [facility] - 11/19/2024 5:51 PM EDT This assay is a 4th generation assay allowing for earlier detection of HIV infection by detecting the presence of the HIV-1 p24 antigen as well as the traditional antibodies to HIV type 1 (including group O) and type 2. Use of a 4th generation assay is the current CDC recommendation for HIV screening. Freida Clifton GALEANA LAB BLOOD ORDERABLES Final Resu lt Performing Organization Address [facility] Co de Phone Number [facility] [address] [place] [address], [place] [phone] * Hemoglobin A1c (09/03/2024 4:12 PM EST) Hemoglobin A1C 6.4 <6.5 % LAB CHEMISTRY METHOD 09/03/2024 9:39 PM EST [facility] Mean Bld Glu Estim. 137 mg/dL LAB CHEMISTRY METHOD 09/03/2024 9:39 PM EST [facility] Blood Venous blood specimen / Unknown Venipuncture / Unknown 09/03/2024 4:12 PM EST 09/03/2024 4:12 PM EST us Heavenly FIGUEROA LAB BLOOD ORDERABLES Final Resul t [facility] ([facility]) [facility] [address] [place] [address], [place] [phone] * MG Mammo Digital Screening w Santos [...] for biopsy. PQRI CPT II 3342F Code 38111, 01413 PQRI 225 CPT II 7025F TISSUE DENSITY: The breasts are almost entirely fatty. (BI-RADS Category A) IMPRESSION: Benign. BI-RADS CATEGORY: 2 - BENIGN RECOMMENDATION: Screening bilateral mammogram is recommended in 1 year. Mammo Location: [facility], [address] [place] [id number] -------- FINAL REPORT -------- Dictated By: Kev Olivarez Dictated Date: 09/03/2024 12:19 ET Assigned Physician: Kev Olivarez Reviewed and Electronically Signed By: Kev Olivarez Signed Date: 09/03/2024 12:28 ET Workstation ID: [id number] Transcribed By: Self Edit Transcribed Date: 09/03/2024 12:19 ET Narrative 09/03/2024 12:28 PM EST CLINICAL: The patient is a 59 years Female presenting for routine screening mammography. COMPARISON: Outside studies most recently 07/31/2023 and most remotely 11/15/2017 TECHNIQUE: Full-field digital mammography of the breasts bilaterally consisting of tomosynthesis in MLO and CC projection is performed in the [employer]de 2000-D unit. Computer aided detection utilizing the iCAD system was utilized. FINDINGS: The breasts are again seen to be largely fatty replaced. Multiple rim calcifications in the axillae bilaterally, likely representing calcified lymph nodes, are present on previous outside mammograms dating back to 11/15/2017. A few scattered benign punctate calcifications are again seen bilaterally. An 1.3 x 0.7 cm nodular density anteriorly in the upper outer quadrant of the right breast is stable over many years and is therefore again regarded as being benign. There is no suspicious cluster of microcalcifications, suspicious [...] MLO and CC projection is performed in the[employer]ism Pharmaceuticalsographe 2000-D unit. Computer aided detection utilizing the Shutter Guardianystem was utilized. FINDINGS: The breasts are again [...] for biopsy. PQRI CPT II 3342F Code 89369, 93237 PQRI 225 CPT II 7025F TISSUE DENSITY: The breasts are almost entirely fatty. (BI-RADS CategoryA) IMPRESSION: Benign. BI-RADS CATEGORY: 2 - BENIGN RECOMMENDATION: Screening bilateral mammogram is recommended in 1 year. Mammo Location: [facility], [address] [place] [id number] -------- FINAL REPORT -------- Dictated By: Kev Olivarez Dictated Date: 09/03/2024 12:19 ET Assigned Physician: Kev Olivarez Reviewed and Electronically Signed By: Kev Olivarez Signed Date: 09/03/2024 12:28 ET Workstation ID: [id number] Transcribed By: Self Edit Transcribed Date: 09/03/2024 12:19 ET us Self Referral Sppl IMG BI PROCEDURES Final Resul t * (ABNORMAL) Basic metabolic panel (07/24/2024 10:40 AM EST) Sodium 139 133 - 145 mmol/L LAB CHEMISTRY METHOD 07/24/2024 11:50 AM [facility] Potassium 4.0 3.5 - 5.5 mmol/L LAB CHEMISTRY METHOD 07/24/2024 11:50 AM [facility] Chloride 105 96 - 110 mmol/L LAB CHEMISTRY METHOD 07/24/2024 11:50 AM [facility] CO2 27 21 - 32 mmol/L LAB CHEMISTRY METHOD 07/24/2024 11:50 AM [facility] Anion Gap 7 3 - 11 LAB CHEMISTRY METHOD 07/24/2024 11:50 AM [facility] Glucose 116(H) 70 - 100 mg/dL LAB CHEMISTRY METHOD 07/24/2024 11:50 AM [facility] BUN 16 5 - 25 mg/dL LAB CHEMISTRY METHOD 07/24/2024 11:50 AM [facility] Creatinine 0.67 0.50 - 1.10 mg/dL LAB CHEMISTRY METHOD 07/24/2024 11:50 AM [facility] eGFR 101 >=60 mL/min/1. 73m2 LAB CHEMISTRY METHOD 07/24/2024 11:50 AM [facility] Comment:Calculation based on the Chronic Kidney Disease Epidemiology Collaboration (CKD-EPI) equation refit without adjustment for race. BUN/Creatinine Ratio 23.9 LAB CHEMISTRY METHOD 07/24/2024 11:50 AM [facility] Calcium 9.6 8.5 - 10.5 mg/dL LAB CHEMISTRY METHOD 07/24/2024 11:50 AM EST [facility] Blood Venous blood specimen / Unknown Venipuncture / Unknown 07/24/2024 10:40 AM EST 07/24/2024 11:16 AM EST Dayanna FIGUEROA LAB BLOOD ORDERABLES Final Re sult [facility] [address] [place] [address], [place] [phone] * (ABNORMAL) Lipid panel with reflex to direct LDL (07/15/2024 10:00 AM EST) Cholesterol 175 0 - 200 mg/dL LAB CHEMISTRY METHOD 07/15/2024 3:40 PM [facility] Triglycerides 154(H) 0 - 150 mg/dL LAB CHEMISTRY METHOD 07/15/2024 3:40 PM [facility] HDL 62 >=40 mg/dL LAB CHEMISTRY METHOD 07/15/2024 3:40 PM [facility] LDL Calculated 82 0 - 100 mg/dL LAB CHEMISTRY METHOD 07/15/2024 3:40 PM [facility] VLDL Cholesterol Molina 30.8 mg/dL LAB CHEMISTRY METHOD 07/15/2024 3:40 PM [facility] Non HDL Chol. (LDL+VLDL) 113 <145 mg/dL LAB CHEMISTRY METHOD 07/15/2024 3:40 PM [facility] Chol/HDL Ratio 2.8 0.0 - 4.4 LAB CHEMISTRY METHOD 07/15/2024 3:40 PM [facility] Blood Venous blood specimen / Unknown Venipuncture / Unknown 07/15/2024 10:00 AM EST 07/15/2024 10:00 AM EST us Wilner Murray MD LAB BLOOD ORDERABLES Final Res ult [facility] [address] [place] [address], [place] [phone] * (ABNORMAL) Microalbumin creatinine urine ratio (07/15/2024 10:00 AM EST) [facility] Creatinine, Urine 138.0 mg/dL LAB CHEMISTRY METHOD 07/15/2024 3:04 PM EST [facility] Microalb, Ur 61.7(H) 0.0 - 29.0 mg/L LAB CHEMISTRY METHOD 07/15/2024 3:04 PM EST [facility] Microalb/Crea t Ratio 45(H) <30 mg/g creat LAB CHEMISTRY METHOD 07/15/2024 3:04 PM EST [facility] Urine Urine specimen obtained by clean catch procedure / Unknown Non-blood Collection / Unknown 07/15/2024 10:00 AM EST 07/15/2024 10:00 AM EST us Wilner Murray MD LAB URINE ORDERABLES Final Res ult [facility] [address] [place] [address], [place] [phone] * Diabetes Eye Exam (12/25/2023) Pathologist [facility] Diabetes: Annual Retina Eye Exam abstracted Historical Provider HEALTH MAINTENANCE Final Result * Depression Screening (05/31/2023) Pathologist [facility] Depression Screening abstracted Historical Provider HEALTH MAINTENANCE Final Result * Diabetes Foot Exam (05/31/2023) Pathologist [facility] Diabetes: Annual Foot Exam abstracted Historical Provider HEALTH MAINTENANCE Final Result * Pap smear (09/04/2020) 09/04/2020 Narrative HISTORICAL TESTING LAB RESULTING AGENCY - 09/08/2020 10:55 AM EST [id number] THINPREP PAP, IMAGED: NEGATIVE FOR SQUAMOUS INTRAEPITHELIAL LESION AND MALIGNANCY . ABUNDANT PARTIALLY OBSCURING ACUTE INFLAMMATORY CELLS ARE PRESENT. AHMET MOY , GAYLE(ASCP) (CASE ELECTRONICALLY SIGNED 09 08 2020) RESULT OF APTIMA HIGH RISK HPV ASSAY: HIGH RISK HPV: NEGATIVE (SEROTYPES 16,18,31,33,35,39,45,51,52,56,58,59,66,68) COMPLETED ON 2020-09-08 ADEQUACY: SATISFACTORY ENDOCERVICAL/TRANSFORMATION ZONE COMPONENT PRESENT. SOURCE: THINPREP PAP HPV ANY DX: REFLEX 16 AND 18, CERVICAL, IMAGED CLINICAL INFORMATION: HPV ANY DIAGNOSIS. HORMONES, PAP HX NEG, LMP 11/26/2008 [Z12.4, Z01.419] Trini Kennedy DO LAB CYTOLOGY ORDERABLES Final Result HISTORICAL TESTING LAB RESULTING AGENCY from Last 3 Months or Most Recently Relevant to Health Maintenance Insurance * Guarantor: Vanessa Myers Account Type Relation to Patient Date of Phone Billing Address Personal/Family Self 1965 [phone] (Work) [address] [place] [address] [facility] HEALTH PLAN Advance Directives Documents on File Type Date Recorded Patient Grinder Operator Tool Expl anation Health Care Decision (hx) 06/05/2021 AD ZHOA DIRECTIVE Health Care Decision (hx) 06/05/2021 AD [...] (hx) 06/05/2021 AD ZHAO DIRECTIVE Care Teams Jewelry Making Instructor Relationship Specialty Start Date End Date Wilner Murray MD [address] [place] [id number] PCP - General Internal Medicine 03/25/20
--- OUTSIDE RECORDS SUMMARY | 2025-03-04 16:15 | XMS_ITS | Clinical Summary ---
Author Organization [facility] Address [address] [place] [address] Care Team Providers Care Safety Counselor Name Role Phone Wilner Murray MD [...] (1 of 3 - 19+ 3-dose series) 02/12 Pneumococcal Vaccines 50+ (1 of 1 - PCV) 2016 Zoster (Shingles) Vaccine (1 of 2) 2016 COVID-19 Vaccine (1 - 2023- season) 2024 Care Teams Safety Counselor Relationship Specialty Start Date End Date Wilner Murray MD PCP - General
== END 2025-03-04 16:18 | disposition home or self-care (01) ==
LOC: HO.RHE 15:20
PROVIDERS: PCP Internal Medicine; Visit Provider Student in an Organized Health Care Education/Training Program
DX: M06.9 Rheumatoid arthritis, unspecified (principal); M79.7 Fibromyalgia; Z51.81 Encounter for therapeutic drug level monitoring; Z79.620 Long term (current) use of immunosuppressive biologic; Z79.899 Other long term (current) drug therapy
CPT/HCPCS: 99214; G2211

== ENCOUNTER → 2025-03-04 15:19 | Outpatient (BNVA) | payer OTHER, SELFPAY | PROVIDERS: PCP Internal Medicine; Visit Provider Student in an Organized Health Care Education/Training Program | DX: M79.7 Fibromyalgia (principal); L95.8 Other vasculitis limited to the skin; M06.9 Rheumatoid arthritis, unspecified; Z51.81 Encounter for therapeutic drug level monitoring; Z79.620 Long term (current) use of immunosuppressive biologic; Z79.899 Other long term (current) drug therapy | CPT/HCPCS: 99212 ==

== ENCOUNTER 2025-07-07 15:35 | Outpatient (REF) | payer OTHER, SELFPAY ==
[2025-07-07 18:19] LABS: MANUAL DIFF FLAG NO
[2025-07-07 18:37] LABS: Hematocrit 39.6 % (37.0-47.0); Hemoglobin 12.2 g/dl (12.0-16.0); Imm Gran Abs Auto 0.06 X10*3/uL (0.00-0.03); Imm Gran Pct Auto 0.5 % (0.0-0.4); Lymphocytes Absolute Auto 1.8 X10*3/uL (1.2-4.9); Mean Corpuscular HGB Conc 30.8 g/dl (31.0-35.0); Mean Corpuscular Hemoglobin 27.6 pg (27.0-33.0); Mean Corpuscular Volume 89.6 fL (80.0-98.0); NRBC Abs Auto 0.000 X10*3/uL (0.0-0.012); NRBC Pct Auto 0.0 /100WBC (0.0-0.2); Platelet Count 321 X10*3/uL (160-400); Red Blood Count 4.42 X10*6/uL (4.20-5.50); White Blood Count 10.9 X10*3/uL (4.8-10.8)
[2025-07-07 19:05] LABS: Alanine Aminotransferase 34 U/L (0-31); Albumin Level 4.1 g/dL (3.5-5.0); Alkaline Phosphatase 144 U/L (39-117); Anion Gap 13 (12-20); Aspartate Amino Transferase 42 U/L (5-31); Blood Urea Nitrogen 15 mg/dL (9-16); Calcium 9.2 mg/dL (8.4-10.2); Carbon Dioxide 26 mmol/L (22-29); Chloride 107 mmol/L (96-108); Estimated Glomerular Filt Rate > 60; Potassium 3.7 mmol/L (3.3-5.1); Sodium 142 mmol/L (135-145); Total Protein 7.5 g/dL (6.5-8.0)
--- OUTSIDE RECORDS SUMMARY | 2025-07-07 20:08 | XMS_ITS | Clinical Summary ---
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 E11.65 3 Active FREESTYLE LANCETS MISC To check sugars twice daily. E11.65 3 Active blood glucose control high,low (FreeStyle Control) solution E11.65. to use with glucometer. 3 Active predniSONE (DELTASONE) 2.5 mg tablet Take 1 tablet (2.5 mg total) by mouth 1 (one) time each day. 4 Active Ventolin HFA 90 mcg/actuation inhaler INHALE 2 PUFFS INTO THE LUNGS EVERY 6 HOURS NEEDED FOR COUGH OR WHEEZING. 18 each 1 5 Active calcium citrate-vitamin D3 200 mg-6.25 mcg (250 unit) tablet Take 1 tablet by mouth 1 (one) time each day. 90 tablet 1 5 Active metFORMIN XR (GLUCOPHAGE-XR) 500 mg 24 hr tablet Do not crush, chew, or split.TAKE 1 TABLETS TWICE DAILY WITH FOOD. 60 tablet 3 5 Active colestipoL (COLESTID) 1 gram tablet Take 1 tablet (1 g total) by mouth 2 (two) times a day. 60 each 3 5 12/04/19 26 Active Additional Information Patient not taking.Reported on 05/13/2025 lansoprazole (PREVACID) [address] capsule TAKE 1 CAPSULE BY MOUTH EVERY DAY 90 capsule 1 5 Active adalimumab-aaty 40 mg/0.4 mL auto-injector, kit Inject 1 Dose into the shoulder, thigh, or buttocks 1 (one) time per week. 5 Active colchicine (COLCRYS) 0.6 mg tablet Take 1 tablet (0.6 mg total) by mouth 1 (one) time each day. 5 Active gabapentin (NEURONTIN) 100 mg capsule Take 1 capsule (100 mg total) by mouth at bedtime. 5 Active levothyroxine (SYNTHROID, LEVOTHROID) 125 mcg tablet Take 1 tablet (125 mcg total) by mouth 1 (one) time each day. 30 each 11 5 05/13/20 26 Active Active Problems Problem Noted Date Diagnosed [...] Right and left superior--s/p excision 12/2014 Hyperparathyroidism ([facility] V24) 09/12/2014 Migraine 08/12/2008 Fibromyalgia 08/12/2008 Sleep disturbance 08/12/2008 Tension headache 08/12/2008 Depression 08/12/2008 Obesity (BMI 30-39.9) 10/13/2006 Encounters Date Type Department Care Team Description 05/13/2025 8:30 AM EDT Office Visit Internal Medicine - [address] [phone] Wilner Murray MD Adult general medical examination (Primary Dx); Morbid obesity ([facility] V24, [facility] V28); Screening for deficiency anemia; Screening for hyperlipidemia; Screening for diabetes mellitus; Screening for thyroid disorder; Type 2 diabetes mellitus with other oral complication, without long-term current use of insulin ([facility] V24, [facility] V28) 05/13/2025 Results Follow-Up Internal Medicine - [address] [place] [phone] Wilner Murray MD 05/12/2025 Telephone Internal Medicine - [address] [phone] Wilner Murray MD 04/28/2025 Telephone Internal Medicine - [facility] [address] [place], [place] [address] [phone] Wilner Murray MD 04/09/2025 Telephone Internal Medicine - [facility] [address] [place], [place] [address], [place] [phone] Wilner Murray MD 04/08/2025 Telephone Internal Medicine - [facility] [address] [place] [address] Tr[place], [place] 04/07/2025 10:00 AM EDT - 04/07/2025 11:59 PM EDT [facility] [address] [place] [address] Right hip pain Discharge Disposition: Home or Self Care 04/07/2025 10:00 AM EDT - 04/07/2025 11:59 PM EDT Hospital Encounter Xray - [facility] [address] [place] [address] Chronic right shoulder pain Discharge Disposition: Home or Self Care 04/07/2025 9:59 AM EDT - 04/07/2025 11:59 PM EDT Hospital Encounter Xray - [facility] [address] [place] [address] Arm paresthesia, right Discharge Disposition: Home or Self Care 04/07/2025 9:30 AM EDT Office Visit Internal Medicine - [facility] [address] [place], [place] [address], [place] [phone] Freida Lazo, LISSETT Chronic right shoulder pain (Primary Dx); Arm paresthesia, right; Right hip pain; Lumbar radiculopathy; Spinal stenosis at L4-L5 level from Last 3 Months Immunizations Immunization Administration Dates Next Due H1N1 Inj Preservative [...] TOTAL THYROIDECTOMY UPPER GASTROINTESTINAL ENDOSCOPY 03/07/2007 PROCEDURE: [place] UPPER GI ENDOSCOPY PERFORMED; COMMENT: small hiatus hernia UPPER GASTROINTESTINAL ENDOSCOPY 10/29/2015 PROCEDURE: [place] UPPER GI ENDOSCOPY PERFORMED; COMMENT: Hiatal hernia, ren erosions, duodenal polyp COLONOSCOPY 03/12/2010 PROCEDURE: HISTORICAL COLONOSCOPY; COMMENT: diverticulosis; repeat in 5 years OTHER SURGICAL HISTORY 02/01/2022 PROCEDURE: [place] SLCTV CATH PLMT LINDA SYS 2ND ORDER/> SLCTV BRANC OTHER SURGICAL HISTORY 02/01/2022 PROCEDURE: [place] INTRAVASCULAR US NONCORONARY RS&I INTIAL VESSEL OTHER SURGICAL HISTORY 02/01/2022 PROCEDURE: [place] INTRAVASCULAR US NONCORONARY RS&I ADDL VESSEL; COMMENT: x3 iliocaval venogram with vascular SECTION PROCEDURE: HISTORICAL DELIVERY; COMMENT: x1 Medical History Medical History Date Comments DVT (deep venous thrombosis) ([facility] V24, [facility] V28) 01/11/2021 DX:DVT (deep venous thrombos is) ([facility]) Class 3 severe obesity due t o excess calories with serious comorbidity and body mass index (BMI) of 40.0 to 44.9 in adult ([facility] V24, [facility] V28) DX:Class 3 severe obesity due to excess calories with serious comorbidity and body mass index (BMI) of 40.0 to 44.9 in adult (HCC) Acute pulmonary embolism ([facility]CC V24, [facility] V28) DX:Acute pulmonary embolism ([facility]) LIN (obstructive sleep apnea) DX :LIN (obstructive [...] V24, CMS/HCC V28) 08/26/2022 DX:Diabetes (HCC) Hyperparathyroidism ([facility] V24) 09/12/2014 DX:Hyperparathyroidism (HCC) Cholelithiasis 03/15/2021 DX:Cholelithiasi [...] Brother Alive Daughter 1 Alive Daughter 2 Arthur Alive Daughter 3 Alive Father Maternal Grandmother Mother Alive Mother's Sister Sister Alive Social History Tobacco Use Types Packs/Day Years Used Date Smoking Tobacco: Former Cigarettes 14.4 0 1996 - 08/14/2010 Smokeless Tobacco: Never [...] do you feel lonely or isolated from ose around you? Never 08/28/2024 Food Risk [...] for your loved ones. For example, childcare aide or elderly care for an older adult? [...] Date Recorded What is your living situation? Unrecognized valu e 08/28/2024 Comments No Sex and Gender Information [...] Sign Reading Time Taken Comments Blood Pressure 136/84 05/13/2025 8:29 AM EDT Pulse 72 05/13/2025 8:29 AM EDT Temperature 36.2 C (97.2 F) 09/03/2024 3:26 PM EST Respiratory Rate 16 07/24/2024 2:13 PM EST Oxygen Saturation 98% 09/03/2024 3:26 PM EST Inhaled Oxygen Concentration - - Weight 98.9 kg (218 lb) 05/13/2025 8:29 AM EDT Height 157.5 cm (5' 2 ) 04/07/2025 9:28 AM EDT Body Mass Index 39.87 04/07/2025 9:28 AM EDT Plan of Treatment Upcoming Encounters Date Type Department Care Team (Late st Contact Info) Description 07/08/2025 10:00 AM EST Ancillary Procedure [facility] - [facility] [address] [facility] [address] [place] [phone] 07/23/2025 3:00 PM EST Consult Bariatric Surgery - [place] [address] [facility] [address] [place] [phone] Kalyani Walter MD [address] [facility] [place] [address] 07/28/2025 2:30 PM EST Office Visit Vascular Surgery - [place] [address] [facility] [address] [place] [phone] Jailyn Hong PA [address] [facility] [address] [place] [address] 10/03/2025 9:30 AM EST Appointment [facility] Ultrasound [address] [place] [phone] Health Maintenance Due Date Last Done Comments Hepatitis B Vaccines (1 of 3 - 19+ 3-dose series) 1985 Zoster Vaccines (1 of 2) 1985 COVID-19 Vaccine (3 - Pfizer risk series) 03/30/2021 03/02/2021, 02/05/2021 Pneumococcal Vaccine: 50+ Years (2 of 2 - PCV) 09/17/2021 09/17/2020 Cervical Cancer Screening: Pap Smear 09/04/2023 09/04/2020, 09/04/2020 Diabetes: Annual Foot Exam 05/31/2024 05/31/2023 Diabetes: Annual Retina Eye Exam 12/24/2024 12/25/2023 Influenza Vaccine (#1) 2025 , 05/31/2023, 05/19/2022, Additional history exists Diabetes: Annual Urine Albumin-Creatinine Ratio (uACR) 07/15/2025 07/15/2024, 01/10/2024 Social Influencers of Health Screening 08/28/2025 08/28/2024 Diabetes: Blood Sugar Control Test (HGBA1C) 11/10/2025 05/13/2025, 09/03/2024, 07/15/2024, Additional history exists Diabetes: Annual GFR (Glomerular Filtration Rate) 05/13/2026 05/13/2025, 07/24/2024, 07/15/2024, Additional history exists Breast Cancer Screening 08/31/2026 08/31/19 25, 07/31/2023, 12/18/2021, Additional history exists Colorectal Cancer Screening: Colonoscopy 11/25/2029 11/25/2024, 04/06/2022 Cholesterol Screening (Lipid Panel) 05/13/2030 05/13/2025, 07/15/2024, 01/10/2024, Additional history exists DTaP,Tdap,and Td Vaccines (4 - Td or Tdap) 05/31/2033 05/31/2023, 02/07/2013, 03/02/2005 RSV Immunization Adult Patients (1 - 1-dose 75+ series) 2041 Depression Screening Completed 08/28/2024, 05/31/20 23 HIV [...] Procedure Name Priority Date/Time Associated Diagnosis Comments TRIIODOTHYRONINE FREE Routine 05/13/2025 9:28 AM EDT Screening for thyroid disorder FREE THYROXINE WITH REFLEX TO FREE TRIIODOTHYRONINE Routine 05/13/2025 9:28 AM EDT Screening for thyroid disorder COMPLETE BLOOD COUNT Routine 05/13/2025 9:28 AM EDT Screening for deficiency anemia COMPREHENSIVE METABOLIC PANEL Routine 05/13/2025 9:28 AM EDT Screening for diabetes mellitus LIPID PANEL WITH REFLEX TO DIRECT LDL Routine 05/13/2025 9:28 AM EDT Screening for hyperlipidemia THYROID STIMULATING HORMONE WITH REFLEX TO FREE T4 AND FREE T3 Routine 05/13/2025 9:28 AM EDT Screening for thyroid disorder HEMOGLOBIN A1C Routine 05/13/2025 9:28 AM EDT Type 2 diabetes mellitus with other oral complication, without long-term current use of insulin ([facility] V24, [facility] V28) XR HIP 2-3 VIEWS RIGHT Routine 10:30 AM EDT Right hip pain XR SHOULDER 2+ VIEWS RIGHT Routine 04/07/2025 10:30 AM EDT Chronic right shoulder pain XR CERVICAL SPINE 4-5 VIEWS Routine 04/07/2025 10:29 AM EDT Arm paresthesia, right EXTERNAL COLONOSCOPY REPORT 11/25/2024 HEPATITIS C ANTIBODY Routine 11/19/2024 2:50 PM EDT Erythematous skin nodule Antibody response examination Vasculitis ([facility] V24) HIV 1, 2 ANTIBODY, P24 ANTIGEN WITH REFLEX TO DIFFERENTIATION Routine 11/19/2024 2:50 PM EDT Erythematous skin nodule Antibody response examination Vasculitis ([facility] V24) MG MAMMO DIGITAL SCREENING W SANTOS BILAT Routine 08/31/2024 10:50 AM EST Encounter for screening mammogram for breast cancer MICROALBUMIN CREATININE URINE RATIO Routine 07/15/2024 10:00 AM EST Type 2 diabetes mellitus with other specified complication, without long-term current use of insulin ([facility] V24, [facility] V28) DIABETES EYE EXAM Routine 12/25/2023 DEPRESSION SCREENING Routine 05/31/2023 DIABETES FOOT EXAM Routine 05/31/2023 PAP SMEAR Routine 09/04/2020 from Last 3 Months or Most Recently Relevant to Health Maintenance Results * (ABNORMAL) Thyroid stimulating hormone with reflex to free t4 and free t3 (05/13/2025 9:28 AM EDT) Pathologist [facility] TSH 0.37(L) 0.40 - 4.00 mcIU/mL LAB CHEMISTRY METHOD 05/13/2025 1:48 PM EDT [facility] Blood Venous blood specimen / Unknown Venipuncture / Unknown 05/13/2025 9:28 AM EDT 05/13/2025 9:28 AM EDT us Wilner Murray MD LAB BLOOD ORDERABLES Final Res ult [facility]) [facility] [address] [place] [address], [place] [phone] * Free thyroxine with reflex to free triiodothyronine (05/13/2025 9:28 AM EDT) Free T4 1.27 0.70 - 1.80 ng/dL LAB CHEMISTRY METHOD 05/13/2025 2:39 PM EDT [facility] Blood Venous blood specimen / Unknown Venipuncture / Unknown 05/13/2025 9:28 AM EDT 05/13/2025 9:28 AM EDT us Wilner Murray MD LAB BLOOD ORDERABLES Final Res ult [facility] [address] [place] [address], [place] [phone] * (ABNORMAL) Lipid panel with reflex to direct LDL (05/13/2025 9:28 AM EDT) [facility] Cholesterol 180 0 - 200 mg/dL LAB CHEMISTRY METHOD 05/13/2025 12:26 PM EDT [facility] Triglycerides 172(H) 0 - 150 mg/dL LAB CHEMISTRY METHOD 05/13/2025 12:26 PM [facility] HDL 68 >=40 mg/dL LAB CHEMISTRY METHOD 05/13/2025 12:26 PM EDT [facility] LDL Calculated 78 0 - 100 mg/dL LAB CHEMISTRY METHOD 05/13/2025 12:26 PM [facility] Comment:Estimated LDL Calcul ated using equation: Total cholesterol - HDL cholesterol - (Triglycerides/5) VLDL Cholesterol [place] 34.4 mg/dL LAB CHEMISTRY METHOD 05/13/2025 12:26 PM [facility] Non HDL Chol. (LDL+VLDL) 112 <145 mg/dL LAB CHEMISTRY METHOD 05/13/2025 12:26 PM [facility] Chol/HDL Ratio 2.6 0.0 - 4.4 LAB CHEMISTRY METHOD 05/13/2025 12:26 PM [facility] Blood Venous blood specimen / Unknown Venipuncture / Unknown 05/13/2025 9:28 AM EDT 05/13/2025 9:28 AM EDT us Wilner Murray MD LAB BLOOD ORDERABLES Final Res ult [facility] [address] [place] [address], [place] [phone] * (ABNORMAL) Complete blood count (05/13/2025 9:28 AM EDT) [facility] Signature WBC 10.2 4.8 - 10.8 K/mcL LAB HEMETOLOGY METHOD 05/13/2025 11:53 AM EDT [facility] RBC 4.40 3.80 - 4.80 M/mcL LAB HEM[facility]OLOGY [facility] Hemoglobin 12.0 11.5 - 16.0 g/dL LAB HEMETOLOGY METHOD 05/13/2025 11:53 AM EDT [facility] Hematocrit 40.2 35.0 - 47.0 % LAB HEMETOLOGY METHOD 05/13/2025 11:53 AM EDT [facility] MCV 91.2 79.0 - 98.0 FL LAB HEMETOLOGY METHOD [facility]/13[facility]2025 [facility] MCH 27.2 27.0 - 32.0 pcg LAB HEMETOLOGY METHOD 05/13/2025 11:53 AM T [facility] MCHC 29.9(L) 32.0 - 37.0 g/dL LAB HEMETOLOGY METHOD 05/13/2025 11:53 AM EDT [facility] RDW 15.0 11.0 - 15.0 % LAB HEMETOLOGY METHOD 05/13/2025 11:53 AM [facility] Platelets 300 130 - 400 K/mcL LAB HEMETOLOGY METHOD 05/13/2025 11:53 AM EDT [facility] MPV 11.5(H) 7.0 - 11.0 FL LAB HEMETOLOGY METHOD 05/13/2025 11:53 AM EDT [facility] NRBC 0.0 <1.0 % LAB HEMETOLOGY METHOD 05/13/2025 11:53 AM EDT [facility] NRBC Absolute 0.00 <0.10 K/mcL LAB HEMETOLOGY METHOD 05/13/2025 11:53 AM EDT [facility] Blood Venous blood specimen / Unknown Venipuncture / Unknown 05/13/2025 9:28 AM EDT 05/13/2025 9:28 AM EDT Wilner Murrya MD LAB BLOOD ORDERABLES Final Res ult Performing Organization Address [facility]/ZIP Co de Phone Number [facility] [address] [place] [address], [place] [phone] * Triiodothyronine free (05/13/2025 9:28 AM EDT) T3, Free 256 230 - 420 pcg/dL LAB CHEMISTRY METHOD 05/13/2025 3:13 PM EDT [facility] Blood Venous blood specimen / Unknown Venipuncture / Unknown 05/13/2025 9:28 AM EDT 05/13/2025 9:28 AM EDT Wilner Murray MD LAB BLOOD ORDERABLES Final Res ult [facility] [address] [place] [address], [place] [phone] * Hemoglobin A1c (05/13/2025 9:28 AM EDT) Hemoglobin A1C 6.1 <6.5 % LAB CHEMISTRY METHOD 05/13/2025 2:36 PM EDT [facility] Mean Bld Glu Estim. 128 mg/dL LAB CHEMISTRY METHOD 05/13/2025 2:36 PM [facility] Blood Venous blood specimen / Unknown Venipuncture / Unknown 05/13/2025 9:28 AM EDT 05/13/2025 9:28 AM EDT us Wilner Murray MD LAB BLOOD ORDERABLES Final Res ult [facility] [address] [place] [address], [place] [phone] * (ABNORMAL) Comprehensive metabolic panel (05/13/2025 9:28 AM EDT) Sodium 140 133 - 145 mmol/L LAB CHEMISTRY METHOD 05/13/2025 12:26 PM [facility] Potassium 4.2 3.5 - 5.5 mmol/L LAB CHEMISTRY METHOD 05/13/2025 12:26 PM [facility] Chloride 107 96 - 110 mmol/L LAB CHEMISTRY METHOD 05/13/2025 12:26 PM [facility] CO2 26 21 - 32 mmol/L LAB CHEMISTRY METHOD 05/13/2025 12:26 PM [facility] Anion Gap 7 3 - 11 LAB CHEMISTRY METHOD 05/13/2025 12:26 PM [facility] Glucose 130(H) 70 - 100 mg/dL LAB CHEMISTRY METHOD 05/13/2025 12:26 PM [facility] BUN 16 5 - 25 mg/dL LAB CHEMISTRY METHOD 05/13/2025 12:26 PM [facility] Creatinine 0.70 0.50 - 1.10 mg/dL LAB CHEMISTRY METHOD 05/13/2025 12:26 PM [facility] eGFR 100 >=60 mL/min/1. 73m2 LAB CHEMISTRY METHOD 05/13/2025 12:26 PM [facility] Comment:Calculation based on the Chronic Kidney Disease Epidemiology Collaboration (CKD-EPI) equation refit without adjustment for race. BUN/Creatinine Ratio 22.9 LAB CHEMISTRY METHOD 05/13/2025 12:26 PM EDT [facility] Calcium 9.6 8.5 - 10.5 mg/dL LAB CHEMISTRY METHOD 05/13/2025 12:26 PM EDT [facility] AST (SGOT) 45(H) 10 - 42 unit/L LAB CHEMISTRY METHOD 05/13/2025 12:26 PM T [facility] ALT (SGPT) 48 10 - 60 unit/L LAB CHEMISTRY METHOD 05/13/2025 12:26 PM T [facility] Alkaline Phosphatase 142(H) 42 - 121 unit/L LAB CHEMISTRY METHOD 05/13/2025 12:26 PM T [facility] Total Protein 7.3 6.0 - 8.0 g/dL LAB CHEMISTRY METHOD 05/13/2025 12:26 PM EDT [facility] Albumin 3.6 3.2 - 5.0 g/dL LAB CHEMISTRY METHOD 05/13/2025 12:26 PM [facility] Total Bilirubin 0.4 0.0 - 1.4 mg/dL LAB CHEMISTRY METHOD 05/13/2025 12:26 PM T [facility] Blood Venous blood specimen / Unknown Venipuncture / Unknown 05/13/2025 9:28 AM EDT 05/13/2025 9:28 AM EDT us Wilner Murray MD LAB BLOOD ORDERABLES Final Res ult [facility] [address] [place] [address], * XR Hip 2-3 Views Right (04/07/2025 10:30 AM EDT) Anatomical Region Laterality Modality Lower Extremities, Hip Right Radiograp hic Imaging 04/07/2025 7:47 PM EDT Impressions 04/07/2025 7:50 PM EDT Very mild degenerative changes involving the right hip. POS - [id number] -------- FINAL REPORT -------- Dictated By: Patricia Estrada Dictated Date: 04/07/2025 19:47 ET Assigned Physician: Patricia Estrada Reviewed and Electronically Signed By: Patricia Estrada Signed Date: 04/07/2025 19:50 ET Workstation ID: [id number] Transcribed By: Self Edit Transcribed Date: 04/07/2025 19:47 ET Narrative 04/07/2025 7:50 PM EDT EXAM: Pelvic and right hip x-ray. HISTORY: Right hip pain. COMPARISON: 12/30/2022 VIEWS: AP view of the pelvis and AP and frog-lateral views of the right hip performed. FINDINGS: Right lateral acetabular spurring with preserved right hip joint space. No femoroacetabular impingement morphology identified involving the right hip. No evidence of an acute fracture or dislocation. Pelvic ring is intact. No destructive bone lesion. Vascular calcifications in the soft tissues. Procedure Note Patricia Estrada MD - 04/07/2025 EXAM: Pelvic and right hip x-ray. HISTORY: Right hip pain. COMPARISON: 12/30/2022 VIEWS: AP view of the pelvis and AP and frog-lateral views of the righthip performed. FINDINGS: Right lateral acetabular spurring with preserved right hip joint space. Nofemoroacetabular impingement morphology identified involving the righthip. No evidence of an acute fracture or dislocation. Pelvic ring isintact. No destructive bone lesion. Vascular calcifications in the softtissues. IMPRESSION: Very mild degenerative changes involving the right hip. POS - [id number] -------- FINAL REPORT -------- Dictated By: Patricia Estrada Dictated Date: 04/07/2025 19:47 ET Assigned Physician: Patricia Estrada Reviewed and Electronically Signed By: Patricia Estrada Signed Date: 04/07/2025 19:50 ET Workstation ID: [id number] Transcribed By: Self Edit Transcribed Date: 04/07/2025 19:47 ET us Freida Lazo PLATE MOLDER IMG XR PROCEDURES Final Result * XR Shoulder 2+ Views Right (04/07/2025 10:30 AM EDT) Anatomical Region Laterality Modality Upper Extremities, Shoulder Right Radi ographic Imaging 04/07/2025 7:41 PM EDT Impressions 04/07/2025 7:47 PM EDT Mild degenerative changes. POS - [id number] -------- FINAL REPORT -------- Dictated By: Patricia Estrada Dictated Date: 04/07/2025 19:41 ET Assigned Physician: Patricia Estrada Reviewed and Electronically Signed By: Patricia Estrada Signed Date: 04/07/2025 19:47 ET Workstation ID: [id number] Transcribed By: Self Edit Transcribed Date: 04/07/2025 19:41 ET Narrative 04/07/2025 7:47 PM EDT EXAM: Right shoulder x-ray HISTORY: Chronic right shoulder pain. COMPARISON: None FINDINGS: 4 views performed. Mild degenerative changes at the acromioclavicular and glenohumeral joints. No acute fracture or dislocation detected. No destructive bone lesion. No abnormal soft tissue calcifications. Procedure Note Patricia Estrada MD - 04/07/2025 EXAM: Right shoulder x-ray HISTORY: Chronic right shoulder pain. COMPARISON: None FINDINGS: 4 views performed. Mild degenerative changes at the acromioclavicular and glenohumeraljoints. No acute fracture or dislocation detected. No destructive bonelesion. No abnormal soft tissue calcifications. IMPRESSION: Mild degenerative changes. POS - [id number] -------- FINAL REPORT -------- Dictated By: Patricia Estrada Dictated Date: 04/07/2025 19:41 ET Assigned Physician: Patricia Estrada Reviewed and Electronically Signed By: Patricia Estrada Signed Date: 04/07/2025 19:47 ET Workstation ID: [id number] Transcribed By: Self Edit Transcribed Date: 04/07/2025 19:41 ET Freida Lazo PLATE MOLDER IMG XR PROCEDURES Final Result * XR Cervical Spine 4-5 Views (04/07/2025 10:29 AM EDT) Anatomical Region Laterality Modality Spine, C-spine Radiographic Kailey ging 04/07/2025 7:33 PM EDT Impressions 04/07/2025 7:40 PM EDT Mild degenerative changes at C5-6. POS - [id number] -------- FINAL REPORT -------- Dictated By: Patricia Estrada Dictated Date: 04/07/2025 19:33 ET Assigned Physician: Patricia Estrada Reviewed and Electronically Signed By: Patricia Estrada Signed Date: 04/07/2025 19:40 ET Workstation ID: [id number] Transcribed By: Self Edit Transcribed Date: 04/07/2025 19:33 ET Narrative 04/07/2025 7:40 PM EDT EXAM: Cervical spine x-ray HISTORY: Right arm paresthesia. No known trauma. COMPARISON: None FINDINGS: 4 views performed. Cervical spine is visualized through C6 on the lateral projection. No compression deformities. Mild disc space narrowing with anterior endplate spurring at C5-6. Mild bilateral neural foraminal narrowing C5-6 due to uncovertebral spurring. Atlantoaxial distance is within normal limits. No abnormal thickening of the prevertebral soft tissues. Multiple surgical clips in the anterior lower neck from previous thyroidectomy. Procedure Note Patricia Estrada MD - 04/07/2025 EXAM: Cervical spine x-ray HISTORY: Right arm paresthesia. No known trauma. COMPARISON: None FINDINGS: 4 views performed. Cervical spine is visualized through C6 on the lateral projection. Nocompression deformities. Mild disc space narrowing with anterior endplate spurring at C5-6. Mildbilateral neural foraminal narrowing C5-6 due to uncovertebral spurring. Atlantoaxial distance is within normal limits. No abnormal thickening ofthe prevertebral soft tissues. Multiple surgical clips in the anteriorlower neck from previous thyroidectomy. IMPRESSION: Mild degenerative changes at C5-6. POS - [id number] -------- FINAL REPORT -------- Dictated By: Patricia Estrada Dictated Date: 04/07/2025 19:33 ET Assigned Physician: Patricia Estrada Reviewed and Electronically Signed By: Patricia Estrada Signed Date: 04/07/2025 19:40 ET Workstation ID: [id number] Transcribed By: Self Edit Transcribed Date: 04/07/2025 19:33 ET Freida Lazo PLATE MOLDER IMG XR PROCEDURES Final Result * External Colonoscopy Report (11/25/2024) Anatomical Region Laterality Modality Endoscopy Provider [facility]~PROCEDURE ORDERABLES Final Result * Hepatitis C antibody (11/19/2024 2:50 PM EDT) Pathologist [facility] Hepatitis C Antibody Negative Negative LAB CHEMISTRY METHOD 11/19/2024 5:51 PM EDT [facility] Blood Venous blood specimen / Unknown Venipuncture / Unknown 11/19/2024 2:50 PM EDT 11/19/2024 3:08 PM EDT Freida Lazo NP LAB BLOOD ORDERABLES Final Resu lt [facility] [address] [place] [address], [place] [phone] * HIV 1,2 antibody, p24 antigen with reflex to differentiation (11/19/2024 2:50 PM EDT) Pathologist [facility] HIV Combo AB/AG Negative Negative LAB CHEMISTRY METHOD 11/19/2024 5:51 PM EDT [facility] Blood Venous blood specimen / Unknown Venipuncture / Unknown 11/19/2024 2:50 PM EDT 11/19/2024 3:08 PM EDT Narrative [facility] - 11/19/2024 5:51 PM EDT This assay is a 4th generation assay allowing for earlier detection of HIV infection by detecting the presence of the HIV-1 p24 antigen as well as the traditional antibodies to HIV type 1 (including group O) and type 2. Use of a 4th generation assay is the current CDC recommendation for HIV screening. Freida Lazo NP LAB BLOOD ORDERABLES Final Resu lt [facility] [address] [place] [address], * MG Mammo Digital Screening w Santos [...] for biopsy. PQRI CPT II 3342F Code 96785, 53266 PQRI 225 CPT II 7025F TISSUE DENSITY: The breasts are almost entirely fatty. (BI-RADS Category A) IMPRESSION: Benign. BI-RADS CATEGORY: 2 - BENIGN RECOMMENDATION: Screening bilateral mammogram is recommended in 1 year. Mammo Location: [facility], [address] [place] [address] -------- FINAL REPORT -------- Dictated By: Kev Olivarez Dictated Date: 09/03/2024 12:19 ET Assigned Physician: Kev Olivarez Reviewed and Electronically Signed By: Kev Olivarez Signed Date: 09/03/2024 12:28 ET Workstation ID: [id number] Transcribed By: Self Edit Transcribed Date: 09/03/2024 12:19 ET Narrative 09/03/2024 12:28 PM EST CLINICAL: The patient is a 59 years Female presenting for routine screening mammography. COMPARISON: Outside studies most recently 07/31/2023 and most remotely 11/15/2017 TECHNIQUE: Full-field digital mammography of the breasts bilaterally consisting of tomosynthesis in MLO and CC projection is performed in the [employer] 2000-D unit. Computer aided detection utilizing the [...] MLO and CC projection is performed in the[employer] 2000-D unit. Computer aided detection utilizing the [...] for biopsy. PQRI CPT II 3342F Code 98283, 01243 PQRI 225 CPT II 7025F TISSUE DENSITY: The breasts are almost entirely fatty. (BI-RADS CategoryA) IMPRESSION: Benign. BI-RADS CATEGORY: 2 - BENIGN RECOMMENDATION: Screening bilateral mammogram is recommended in 1 year. Mammo Location: [facility], [address] [place] [id number] -------- FINAL REPORT -------- Dictated By: Kev Olivarez Dictated Date: 09/03/2024 12:19 ET Assigned Physician: Kev Olivarez Reviewed and Electronically Signed By: Kev Olivarez Signed Date: 09/03/2024 12:28 ET Workstation ID: [id number] Transcribed By: Self Edit Transcribed Date: 09/03/2024 12:19 ET Self Referral Sppl IMG BI PROCEDURES Final Resul t * (ABNORMAL) Microalbumin creatinine urine ratio (07/15/2024 10:00 AM EST) Pathologist [facility] Creatinine, Urine 138.0 mg/dL LAB CHEMISTRY METHOD 07/15/2024 3:04 PM [facility] Microalb, Ur 61.7(H) 0.0 - 29.0 mg/L LAB CHEMISTRY METHOD 07/15/2024 3:04 PM EST [facility] Microalb/Crea t Ratio 45(H) <30 mg/g creat LAB CHEMISTRY METHOD 07/15/2024 3:04 PM [facility] Urine Urine specimen obtained by clean catch procedure / Unknown Non-blood Collection / Unknown 07/15/2024 10:00 AM EST 07/15/2024 10:00 AM EST Wilner Murray MD LAB URINE ORDERABLES Final Res ult [facility] [address] [place] [address], * Diabetes Eye Exam (12/25/2023) Pathologist [facility] Diabetes: Annual Retina Eye Exam abstracted Historical Provider HEALTH MAINTENANCE Final Result * Depression Screening (05/31/2023) Pathologist [facility] Depression Screening abstracted Historical Provider HEALTH MAINTENANCE Final Result * Diabetes Foot Exam (05/31/2023) Diabetes: Annual Foot Exam abstracted us Historical Provider HEALTH MAINTENANCE Final Result * Pap smear (09/04/2020) 09/04/2020 Narrative HISTORICAL TESTING LAB RESULTING AGENCY - 09/08/2020 10:55 AM EST [id number] THINPREP PAP, IMAGED: NEGATIVE FOR SQUAMOUS INTRAEPITHELIAL [...] of Phone Billing Address Personal/Family Self 1965 [phone] (Work) [address] [place] [address] [facility] Advance Directives Documents on File Type Date Recorded 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
--- OUTSIDE RECORDS SUMMARY | 2025-07-07 20:08 | XMS_ITS | Clinical Summary ---
Author Organization [facility]ly [facility] Address [address] [place] [address] Care Team Providers Care Rotor Balancer Name Role Phone Wilner Murray MD Primary Care Provider [phone] Allergies No known active allergies Medications Medication [...] Tdap) 02/07/2023 02/07/2013 COVID-19 Vaccine ( season) 2025 03/02/2021, 02/05/2021 Influenza Vaccine (#1) 2025 2, 04/24/2018, 05/28/2017, Additional history exists Pneumococcal Vaccine Aged Out 09/17/2020 No long er eligible based on patient's age to complete this topic RSV Ped < 20 months Aged Out No longe r eligible based on patient's age to complete this topic Care Teams Rotor Balancer Relationship Specialty Start Date End Date Wilner Murray MD PCP - General Internal Medicine 02/02/21
--- OUTSIDE RECORDS SUMMARY | 2025-07-07 20:08 | XMS_ITS | Encounter Summary ---
Author Organization [facility] Address [address] [place] [address] Care Team Providers Care Senior Structural Engineer Name Role Phone Wilner Murray MD Primary Care Provider [phone] Encounter Details Date Type Department Care Team (Late st Contact Info) Description 05/13/2025 [facility] [address] [place] [phone] Wilner Murray MD [address] [place] [address] Social History Tobacco Use Types Packs/Day Years [...] as of this encounter Plan of Treatment Upcoming Encounters Date Type Department Care Team (Late st Contact Info) Description 07/08/2025 10:00 AM EST Ancillary Procedure [facility] - [facility] [address] [place] [address] 07/23/2025 3:00 PM EST Consult Bariatric Surgery - [place] [address] [facility] [address] [place] [phone] Kalyani Walter MD [address] [place] [address] 07/28/2025 2:30 PM EST Office Visit Vascular Surgery - [place] [address] [place] [phone] Jailyn Hong PA [address] [facility] [address] [place] [address] 10/03/2025 9:30 AM EST Appointment [facility] Ultrasound [address] [place] [phone] documented as of this encounter Visit Diagnoses Not on filedocumented in this encounter Additional Health Concerns Assessment Noted Time PHQ-9 Depression Total Score: 12 025 6:12 PM EST documented as of this encounter Care Teams Senior Structural Engineer Relationship Specialty Start Date End Date Wilner Murray MD [address] [place] [address] PCP - General Internal Medicine 03/25/20 documented as of this encounter
== END 2025-07-07 15:36 | disposition home or self-care (01) ==
LOC: HO.HKASLDS 15:35
PROVIDERS: PCP Internal Medicine; Visit Provider Student in an Organized Health Care Education/Training Program
DX: M06.9 Rheumatoid arthritis, unspecified (principal)
CPT/HCPCS: 36415; 80053; 85025; 85652; 86140

== ENCOUNTER 2025-07-08 15:35 | Outpatient (AMB) | payer OTHER, SELFPAY ==
--- OUTSIDE RECORDS SUMMARY | 2025-07-08 10:00 | XMS_ITS | Encounter Summary ---
Author Organization [facility] Address [address] [place] [address] Care Team Providers Care Fishing Worker Name Role Phone Wilner Murray MD Primary Care Provider [phone] Reason for Visit * Imaging (Routine) - Authorized Specialty Diagnoses / Procedures Referred By Saraac rebecca Referred To Contact Radiology Diagnoses Bilateral lower extremity edema Peripheral venous insufficiency Procedures Vascular US duplex lower extremity venous insufficiency bilateral Rhona Egan PA [address] [place] [address] Phone: tel: fax: [facility] CT Scan [address] [place] [address] Phone: tel: Referral ID Status Reason Start Date Expiration Date V isits Requested Visits Authorized [id number] Authorized 02/04/2025 02/04/2026 1 1 Encounter Details Date Type Department Care Team (Latest Contact Info) Description 07/08/2025 10:00 AM EST Ancillary Procedure [facility] - [address] [place] [phone] Bilateral lower extremity edema; Peripheral venous insufficiency Social History Tobacco Use Types Packs/Day Years [...] for your loved ones. For example, child welfare caseworker or elderly care for an older adult? [...] Care Team (Late st Contact Info) Description 07/23/2025 3:00 PM EST Consult Bariatric Surgery [facility] [address] [facility] [address] [place] [phone] Kalyani Walter MD [address] [place] [address] 07/28/2025 2:30 PM EST Office Visit Vascular Surgery [facility] [address] [facility] [address] [place] [phone] Jailyn Hong PA [address] [facility] [address] [place] [address] 10/03/2025 9:30 AM EST Appointment [facility] Ultrasound [address] [place] [phone] Pending Results Name Type Priority Associated Diagnoses Date /Time Vascular US duplex lower extremity venous insufficiency bilateral Vascular Ultrasound Routine Bilateral lower extremity edema Peripheral venous insufficiency 07/08/2025 10:50 AM EST documented as of this encounter Visit Diagnoses Diagnosis Bilateral lower extremity edema Peripheral venous insufficiency Unspecified venous (peripheral) insufficiency documented in this encounter Additional Health Concerns Assessment Noted Time PHQ-9 Depression Total Score: 12 025 6:12 PM EST documented as of this encounter Care Teams Fishing Worker Relationship Specialty Start Date End Date Wilner Murray MD [address] [place] [address] PCP - General Internal Medicine 03/25/20 documented as of this encounter
--- NOTE | 2025-07-08 15:52 | MHC.OFFVIS ---
Vital Signs 07/08/25 15:58 Height 5 ft 2 in Weight 218 lb 4.122 oz BMI 39.9 BP 142/100 H Blood Pressure Location Lt brachial Position Sitting Pulse 94 Pulse Source Pulse Oximeter Pulse Oximetry (%) 98 Oxygen Delivery Method Room Air Intake Visit Reasons: leg nodules Intake Note: Patient presents for leg nodules follow up. Patient c/o of Rt shoulder pain. Allergies No Known Allergies Allergy (Verified 07/08/25 15:58) Medication List - Last Reconciled 07/08/25 by Lindsey Onofre MD albuterol sulfate 90 mcg/actuation (ProAir HFA) 2 puffs inhalation Q6H PRN calcium citrate-vitamin D3 200 mg-6.25 mcg (250 unit) 1 tab PO DAILY colchicine 0.6 mg PO BID 90 days gabapentin 100 mg PO BEDTIME Humira(CF) Pen (adalimumab) 40 mg (0.4 mL) subcut QWEEK NS lansoprazole 30 mg PO DAILY levothyroxine 150 mcg PO DAILY HPI Comments Details: Patient is a 60-year-old female with hypothyroidism, history of DVT, fibromyalgia, polyarticular osteoarthritis and rheumatoid arthritis here today for follow up Interval History: Patient last seen 03/04/25 - On Humira 40mg SC every 2 weeks and colchicine 0.6mg bid - Started the humira and the colchicine - Since starting those medications the nodules have improved - Now complaining of pain to the right side: shoulder and back with radiation down the limbs - Started on gabapentin 100mg nightly for fibromyalgia Today - On Humira 40mg SC every 2 weeks and colchicine 0.6mg bid, gabapentin 100mg nightly - Right shoulder tenderness began on a recent Monday, and movements significantly increase the pain with limited range of motion during flexion. - Previous management included Humira and colchicine for rheumatoid arthritis with nodules, with no new nodules since the last visit. - Difficulty was noted in lifting the right arm and increased pain when pressing a specific shoulder area. - Gabapentin was previously suggested for referred pain, but patient compliance and efficacy remain unclear. - The patient experiences occasional headaches upon waking, attributed to tension, with no direct correlation to shoulder pain. Rheumatologic History: Initial history: This is a 57-year-old morbidly obese female with complex past medical history including DVT and PE on warfarin who presents for evaluation of inflammatory arthritis. Condition started more than 5 years ago. Patient stated she used to see a logistics operations manager in [place] but does not know their names. She stated that she was getting medications to treat pain and anxiety. She was most recently evaluated by Jose F Rainey last year. She used to get multiple courses of prednisone which help with joint pain. Patient mentions episodes of swelling of her wrists, knuckles, elbows which are improved with prednisone. About a month ago she had right foot bunionectomy and her right foot is currently in a cast. She develops intermittent bruising of her skin while on warfarin, she is currently taking duloxetine prescribed by Dr. Tapia for fibromyalgia which she mentions did help her symptoms. Current Rheumatology Medication(s): Colchicine 0.6mg bid Humira 40mg SC every 2 weeks Gabapentin 100mg nightly PFSH Medical History Diabetes Hepatic steatosis Bunion of right foot Esophageal dysmotility Hiatal hernia Constipation Dysphagia GERD (gastroesophageal reflux disease) DJD (degenerative joint disease) BPV (benign positional vertigo) Parathyroid adenoma Hx of thyroid cancer Rheumatoid arthritis G6PD deficiency Cholelithiases Hepatomegaly Liver cyst Pulmonary embolism DVT (deep venous thrombosis) LIN (obstructive sleep apnea) Depression Tension headache Sleep disturbance Fibromyalgia Migraines Obesity (BMI 30-39.9) Diverticulosis Surgical History S/P bunionectomy Stented coronary artery Hx of endoscopy Hx of tubal ligation H/O total thyroidectomy Hx of colonoscopy Family History Mother Glaucoma Father Glaucoma Cataract Diabetes Hypertension Myocardial infarct Maternal Grandmother Skin cancer Daughter Multiple sclerosis Social History Household Members: Spouse and Children Housing: House Patient Tobacco Use Status: Never used Tobacco service: No Current occupational status: employed Review of Systems Narrative Review of Systems Constitutional: Denies fever, chills, weight loss ENT: Denies vision changes, eye pain or eye redness, dental caries, dry mouth GI: Denies nausea, vomiting, diarrhea, abdominal pain, change in BM Pulm: Denies SOB, MOREIRA, hemoptysis, wheezing Cards: Denies chest pain, palpitations Skin: Denies Raynaud's, rash, nail changes, photosensitivity, ELECTRONIC PARTS SALESPERSON: Denies headaches, weakness, paresthesias, recurrent falls MSK: as per HPI All other systems reviewed and are unremarkable except noted above Physical Exam Exam Exam: Vital signs reviewed Physical Examination CONSTITUITIONAL Patient alert and cooperative. Well appearing and in no apparent painful distress MSK Hands Right Hand: Able to make a fist. No swelling or tenderness to palpation of the MCPs, PIPs or DIPs. Left Hand: Able to make a fist. No swelling or tenderness to palpation of the MCPs, PIPs or DIPs. Herbedens nodes noted bilaterally Wrists Right Wrist: Full ROM to flexion and extension. No swelling or TTP Left Wrist: Full ROM to flexion and extension. No swelling or TTP Elbows Right Elbow: Full ROM. No swelling or TTP. No TTP of the medial epicondyle. No TTP of the lateral epicondyle Left Elbow: Full ROM. No swelling or TTP. No TTP of the medial epicondyle. No TTP of the lateral epicondyle Shoulders Right shoulder: No swelling noted. No TTP of the AC joint. No TTP of the subacromial bursa. No TTP of the posterior shoulder. Right shoulder with decreased range of motion, tenderness upon palpation, limited flexion up to 90 degrees without pain. Left shoulder: No swelling noted. No TTP of the AC joint. No TTP of the subacromial bursa. No TTP of the posterior shoulder Knees Right knee: Full ROM. No swelling noted. No TTP of the knee joint line. No TTP of pes anserine bursa Left knee: Full ROM. No swelling noted. No TTP of the knee joint line. No TTP of pes anserine bursa. Crepitations felt bilaterally Ankles Right ankle: Good ankle dorsiflexion and plantar flexion. No swelling. No TTP of the ankle joint Left ankle: Good ankle dorsiflexion and plantar flexion. No swelling. No TTP of the ankle joint Feet Right foot: Negative squeeze test Left foot: Negative squeeze test Tender points? No tenderness to palpation of the bilateral trapezius, supraspinatus, anterior costochondral junctions, bilateral suboccipital muscle insertions SKIN No rashes Vital Signs: Last Vital Signs Pulse 94 07/08/25 15:58 BP 142/100 H 07/08/25 15:58 Pulse Ox 98 07/08/25 15:58 Oxygen Delivery Method Room Air 07/08/25 15:58 BMI result Body Mass Index 39.9 Office Procedures AMB Joint Injection/Aspiration Joint Injection/Aspiration Details: Procedure was explained to the patient and informed consent was obtained. ? Risks associated with the procedure were discussed with the patient including but not limited to bleeding, infection, drug reactions and reactions to the topical anesthetic. Patient made aware of signs to look out for infectious complications. The area of interest was identified and confirmed with patient. ?This was subsequently cleaned with chlorhexidine x 2. ? The area was then anesthetized using ethyl chloride spray. 40 mg Kenalog with 1 cc 1% lidocaine was injected without issue. ?Minimal to no bleeding. ?Patient tolerated procedure. Primary Site: Right Shoulder Prep: site was prepped using aseptic technique and ethochloride spray was applied Injected: 40 mg of, Kenalog, with 1 mL of, 1% plain Lidocaine and in the subcromial space Procedure: The patient tolerated the procedure well Coding 71561 - Glenohumeral/Tronchanteric Bursa/Intraarticular Procedure code (CPT) selection complete Office Meds lidocaine (PF) 10 mg/mL (1 %) injection solution Performing Provider: Lindsey Onofre MD Performing Location: [facility] [place] [facility] Administered by: Lindsey Onofre MD on 07/08/25 17:22 Dose Route Admin Location Dispensed Lot Number Expiration Date [facility] [place]NOTE 2] Stud Beef 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 Farmer 1 mL Infiltration right subacromial bursa 2 mL [id number] 03/14/28 42034-186-67 [employer] Total Dispensed Waste 2 mL 50 % Kenalog 40 mg/mL suspension for injection Performing Provider: Lindsey Onofre MD Performing Location: [facility] [place] [facility] Administered by: Lindsey Onofre MD on 07/08/25 17:22 Dose Route Admin Location Dispensed Lot Number Expiration Date [facility] [place]NOTE 2] [employer] Be[employer] Cattle Farmer 40 mg intrabursal right subacromial bursa 1 mL [id number] 01/12/27 [address]-5 [employer] Total Dispensed Waste 1 mL 0 % Results Reviewed Results Reviewed: Laboratory Tests 10/23/24 07/07/25 16:10 15:45 WBC 10.9 H RBC 4.42 Hgb 12.2 Hct 39.6 Plt Count 321 ESR 34 H 48 H Sodium 142 Potassium 3.7 Chloride 107 Carbon Dioxide 26 BUN 15 Creatinine 0.89 AST 42 H ALT 34 H C-Reactive Protein 2.81 H 2.57 H Laboratory Tests 10/23/24 16:10 Hepatitis A IgM Ab Nonreactive Hep Bs Antigen Negative Hep Bs Antibody REACTIVE Hep B Core Total Ab Nonreactive Hepatitis C Ab (EIA) Nonreactive TB Test (T-Spot) Com Negative Assessment & Plan Assessment & Plan (1) Rheumatoid arthritis: Comment: -ve RF -ve CCP dx 07/2022. Erythema nodisum started 05/2024 HCQ not tolerated Code(s): M06.9 - Rheumatoid arthritis, unspecified Category: Medical Qualifiers: Rheumatoid arthritis location: multiple sites Rheumatoid factor presence: unspecified presence Qualified Code(s): M06.9 - Rheumatoid arthritis, unspecified Plan: #Seronegative RA Patient is a 60-year-old female with seronegative rheumatoid arthritis complicated by erythema nodosum here today for follow up. Nodules improved on Humira and colchicine. Plan - Humira 40mg SC every other week - Colchicine 0.6mg bid - Consider taper of colchicine at next visit - RTC 6 months - Labs before visit: CBC, CMP, ESR, CRP (2) Fibromyalgia: Comment: right foot Code(s): M79.7 - Fibromyalgia Category: Medical Plan: #Fibromyalgia Patient's current symptoms seem related to fibromyalgia Stopped gabapentin, fibromyalgia stable s/p right subacromial bursa steroid injection today (3) Encounter for monitoring of adalimumab therapy: Code(s): Z51.81 - Encounter for therapeutic drug level monitoring; Z79.620 - FPC (current) use of immunosuppressive biologic Plan: #Long-term Use of TNF Inhibitors: Humira Discussed with the patient the benefits and risks of TNF inhibitors for the management of the rheumatic condition Benefits include reduce pain, maintenance of remission and reduction of flares as well as ?progression of the disease Risks include injection sites/infusion reactions, serious infections (such as bacterial infections, opportunistic infections), malignancy, delaminating syndromes, autoimmune phenomena, CHF exacerbations, palmar plantar psoriasis and cytopenias Recommended rotating injection sites, and holding medication during and for up to 1 week after resolution of a febrile illness or open skin wound (4) On colchicine therapy: Code(s): Z79.899 - Other terminal gauger supervisor (current) drug therapy Plan: #Long-term use of colchicine Risks and benefits of long-term colchicine for the management of this patient's gout discussed with patient. Benefits include reduced occurrence of flares while we titrate and regulate his uric acid on allopurinol and other uric acid lowering medications. ? Risks include worsening myalgias especially if on statins and GI upset including diarrhea Plan I discussed with the patient the recent development of right shoulder pain and provided an injection to assist with improving range of motion and reducing tenderness, especially given upcoming physical activities like Thanksgiving cooking. We reviewed the continuation of the current treatment plan for rheumatoid arthritis, confirming the stability of the condition with no new nodules reported. I explained the absence of direct correlation between the patient's headaches and shoulder issues, attributing the headaches potentially to tension. The patient expressed understanding and agreement with the management plan. Follow-up for monitoring symptoms and medication adherence was advised. I spent 30 minutes reviewing the record and labs, taking a history, examining the patient, discussing the treatment plan, ordering diagnostic work up and documenting in the medical record Orders: Orders AMB Joint Injection/Aspiration Today M75.51 - Bursitis of right shoulder Coding Level of Care Code Est Pt Level 3 (13031) Complex visit Add On G2211 Diagnoses Rheumatoid arthritis involving multiple sites, unspecified whether rheumatoid factor present M06.9 Rheumatoid arthritis location: multiple sites Rheumatoid factor presence: unspecified presence Fibromyalgia M79.7 Encounter for monitoring of adalimumab therapy Z51.81; Z79.620 On colchicine therapy Z79.899 CPT Codes Coding - Joint 7: 57714 - Glenohumeral/Tronchanteric Bursa/Intraarticular ([id number])
[2025-07-08 15:58] VITALS: BP 142/100; PULSE 94; O2SAT 98; BMI 39.9
--- OUTSIDE RECORDS SUMMARY | 2025-07-08 19:04 | XMS_ITS | Clinical Summary ---
Author Organization [facility] Address [address] [place] [address] Care Team Providers Care Public Health Microbiologist Name Role Phone Wilner Murray MD Primary Care Provider [phone] Allergies No known active allergies Medications Medication [...] age to complete this topic Care Teams Public Health Microbiologist Relationship Specialty Start Date End Date Wilner Murray MD PCP - General Internal Medicine 02/02/21
--- OUTSIDE RECORDS SUMMARY | 2025-07-08 19:04 | XMS_ITS | Encounter Summary ---
Author Organization [facility] Address [address] [place] [address] Care Team Providers Care Engineer Technician Name Role Phone Wilner Murray MD Primary Care Provider [phone] Encounter Details Date Type Department Care Team (Late st Contact Info) Description 05/13/2025 [facility] [address] [place] [id number] Wilner Murray MD [address] [place] [phone] Social History Tobacco Use Types Packs/Day Years [...] your loved ones. For example, child welfare assistant or elderly care for an older [...] 3:00 PM EST Consult Bariatric Surgery - [address] [place] [address] Kalyani Walter MD [address] [facility] [place] [id number] 07/28/2025 2:30 PM EST Office Visit Vascular Surgery - [place] [address] [place] [id number] Jailyn Hong PA [address] [facility] [address] [place] [address] 10/03/2025 9:30 AM EST Appointment [facility] Ul[facility]ound [address] [place] [phone] documented as of this encounter Visit Diagnoses Not on filedocumented in this encounter Additional Health Concerns Assessment Noted Time PHQ-9 Depression Total Score: 12 025 6:12 PM EST documented as of this encounter Care Teams Engineer Technician Relationship Specialty Start Date End Date Wilner Murray MD [address] [place] [phone] PCP - General Internal Medicine 03/25/20 documented as of this encounter
--- OUTSIDE RECORDS SUMMARY | 2025-07-08 19:04 | XMS_ITS | Clinical Summary ---
Author Organization [facility] [address] Address [address] [place] [address] Phone Care Team Providers Care Media Reconciliation Specialist Name Role Phone Wilner Murray MD Primary Care Provider [phone] Allergies No known active allergies Medications blood [...] Right and left superior--s/p excision 12/2014 Hyperparathyroidism ([facility] V24) 09/12/2014 Migraine 08/12/2008 Fibromyalgia 08/12/2008 Sleep disturbance 08/12/2008 Tension headache 08/12/2008 Depression 08/12/2008 Obesity (BMI 30-39.9) 10/13/2006 Encounters Date Type Department Care Team Description 07/08/2025 10:00 AM EST Ancillary Procedure [facility] [address] [facility] [address] [place] [address] Bilateral lower extremity edema; Peripheral venous insufficiency 05/13/2025 8:30 AM EDT Office Visit Internal [facility] - [facility] [address] [place] [address] Wilner Murray MD Adult general medical examination (Primary Dx); Morbid obesity ([facility]/HCC V24, [facility] V28); Screening for deficiency anemia; Screening for hyperlipidemia; Screening for diabetes mellitus; Screening for thyroid disorder; Type 2 diabetes mellitus with other oral complication, without long-term current use of insulin (CMS/HCC V24, [facility] V28) 05/13/2025 Results Follow-Up Internal Medicine - [facility] [address] [facility] [facility] [place], [place] [phone] Wilner Murray MD 05/12/2025 Telephone Internal Medicine - [facility] [address] [facility] [place], [place] [phone] Wilner Murray MD 04/28/2025 Telephone Internal Medicine - [facility] [address] [place], [place] [address], [place] [phone] Wilner Murray MD 04/09/2025 Telephone Internal Medicine - [facility] [address] [place], [place] [address], [place] [phone] Wilner Murray MD 04/08/2025 Telephone Internal Medicine - [facility] [address] [place], [place] [address], [place] [phone] Trini Sherwood [place] 04/07/2025 10:00 AM EDT - 04/07/2025 11:59 PM EDT Hospital Encounter Xray - [facility] [address] [facility] [place], [place] [phone] Right hip pain Discharge Disposition: Home or Self Care 04/07/2025 10:00 AM EDT - 04/07/2025 11:59 PM EDT Hospital Encounter Xray - [facility] [address] [facility] [place], [place] [phone] Chronic right shoulder pain Discharge Disposition: Home or Self Care 04/07/2025 9:59 AM EDT - 04/07/2025 11:59 PM EDT Hospital Encounter Xray - [facility] [address] [facility] [place], [place] [phone] Arm paresthesia, right Discharge Disposition: Home or Self Care 04/07/2025 9:30 AM EDT Office Visit [facility] [address] [place], [place] [address] [phone] Freida Lazo NP Chronic right shoulder pain (Primary Dx); Arm [...] TOTAL THYROIDECTOMY UPPER GASTROINTESTINAL ENDOSCOPY 03/07/2007 PROCEDURE: VT UPPER GI ENDOSCOPY PERFORMED; COMMENT: small hiatus hernia UPPER GASTROINTESTINAL ENDOSCOPY 10/29/2015 PROCEDURE: VT UPPER GI ENDOSCOPY PERFORMED; COMMENT: Hiatal hernia, ren erosions, duodenal polyp COLONOSCOPY 03/12/2010 PROCEDURE: HISTORICAL COLONOSCOPY; COMMENT: diverticulosis; repeat in 5 years OTHER SURGICAL HISTORY 02/01/2022 PROCEDURE: VT SLCTV CATH PLMT LINDA SYS 2ND ORDER/> SLCTV BRANC OTHER SURGICAL HISTORY 02/01/2022 PROCEDURE: VT INTRAVASCULAR US NONCORONARY RS&I INTIAL VESSEL OTHER SURGICAL HISTORY 02/01/2022 PROCEDURE: VT INTRAVASCULAR US NONCORONARY RS&I ADDL VESSEL; COMMENT: x3 iliocaval venogram with vascular SECTION PROCEDURE: HISTORICAL DELIVERY; COMMENT: x1 Medical History Medical History Date Comments DVT (deep venous thrombosis) ([facility] V24, [facility] V28) 01/11/2021 DX:DVT (deep venous thrombos is) ([facility]) Class 3 severe obesity due t o excess calories with serious comorbidity and body mass index (BMI) of 40.0 to 44.9 in adult ([facility] V24, [facility] V28) DX:Class 3 severe obesity due to excess calories with serious comorbidity and body mass index (BMI) of 40.0 to 44.9 in adult ([facility]) Acute pulmonary embolism ([facility] V24, [facility] V28) DX:Acute pulmonary embolism ([facility]) LIN (obstructive sleep apnea) DX :LIN [...] Tension headache 08/12/2008 DX:Tension head ache Diabetes ([facility] V24, [facility] V28) 08/26/2022 DX:Diabetes (HCC) Hyperparathyroidism ([facility] V24) 09/12/2014 DX:Hyperparathyroidism (HCC) Cholelithiasis 03/15/2021 [...] Problems Daughter 1 Multiple sclerosis Daughter 2 [place] Other: diverticulosis Daughter 2 [place] No Known Problems Daughter 3 Cataracts Father Diabetes Father Glaucoma Father Heart attack Father Hypertension Father Cancer Maternal Grandmother Dementia Maternal Grandmother Other Dermatological Disorders Maternal Grandmother skin cancer on face x 3 ...... specifics unknown Glaucoma Mother Cancer Mother's Sister No Known Problems Sister Relation Name Status Comments Aunt m. aunt Alive Brother Alive Daughter 1 Alive Daughter 2 [place] Alive Daughter 3 Alive Father Maternal Grandmother [...] for your loved ones. For example, director child abuse therapy or elderly care for an older adult? [...] 07/23/2025 3:00 PM EST Consult Bariatric Surgery [facility] [address] [facility] [address] [place] [phone] Kalyani Walter MD [address] [place] [address] 07/28/2025 2:30 PM EST Office Visit Vascular Surgery [facility] [address] [facility] [address] [place] [phone] Jailyn Hong PA [address] [facility] [address] [place] [address] 10/03/2025 9:30 AM EST Appointment [facility] Ultrasound [address] [place] [phone] Health Maintenance Due Date Last Done Comments [...] Exam 12/24/2024 12/25/2023 Influenza Vaccine (#1) 2025 4, 05/31/2023, 05/19/2022, Additional history exists Diabetes: Annual [...] Date/Time Associated Diagnosis Comments EXTERNAL CLINICAL LAB 07/08/2025 TRIIODOTHYRONINE FREE Routine 05/13/2025 9:28 AM EDT [...] complication, without long-term current use of insulin ([facility] V24, [facility] V28) XR HIP 2-3 VIEWS RIGHT Routine 10:30 AM EDT Right hip pain XR SHOULDER 2+ VIEWS RIGHT Routine 04/07/2025 10:30 AM EDT Chronic right shoulder pain XR CERVICAL SPINE 4-5 VIEWS Routine 04/07/2025 10:29 AM EDT Arm paresthesia, right EXTERNAL COLONOSCOPY REPORT 11/25/2024 HEPATITIS C ANTIBODY Routine 11/19/2024 2:50 PM EDT Erythematous skin nodule Antibody response examination Vasculitis ([facility] V24) HIV 1, 2 ANTIBODY, P24 ANTIGEN WITH REFLEX TO DIFFERENTIATION Routine 11/19/2024 2:50 PM EDT Erythematous skin nodule Antibody response examination Vasculitis ([facility] V24) MG MAMMO DIGITAL SCREENING W SANTOS BILAT Routine 08/31/2024 10:50 AM EST Encounter for screening mammogram for breast cancer MICROALBUMIN CREATININE URINE RATIO Routine 07/15/2024 10:00 AM EST Type 2 diabetes mellitus with other specified complication, without long-term current use of insulin ([facility] V24, [facility] V28) DIABETES EYE EXAM Routine 12/25/2023 DEPRESSION SCREENING Routine 05/31/2023 DIABETES FOOT EXAM Routine 05/31/2023 PAP SMEAR Routine 09/04/2020 from Last 3 Months or Most Recently Relevant to Health Maintenance Results * External clinical lab (07/08/2025) Provider [facility] LAB BLOOD ORDERABLES Fin al Result * (ABNORMAL) Thyroid stimulating hormone with reflex to free t4 and free t3 (05/13/2025 9:28 AM EDT) TSH 0.37(L) 0.40 - 4.00 mcIU/mL LAB CHEMISTRY METHOD 05/13/2025 1:48 PM EDT [facility] Blood Venous blood specimen / Unknown Venipuncture / Unknown 05/13/2025 9:28 AM EDT 05/13/2025 9:28 AM EDT us Wilner Murray MD LAB BLOOD ORDERABLES Final Res ult [facility] [address] [place] [address], [place] [phone] * Free thyroxine with reflex to free triiodothyronine (05/13/2025 9:28 AM EDT) Pathologist [facility] Free T4 1.27 0.70 - 1.80 ng/dL LAB CHEMISTRY METHOD 05/13/2025 2:39 PM EDT [facility] Blood Venous blood specimen / Unknown Venipuncture / Unknown 05/13/2025 9:28 AM EDT 05/13/2025 9:28 AM EDT us Wilner Murray MD LAB BLOOD ORDERABLES Final Res ult [facility] [address] [place] [address], [place] [phone] * (ABNORMAL) Lipid panel with reflex to direct LDL (05/13/2025 9:28 AM EDT) [facility] Cholesterol 180 0 - 200 mg/dL LAB CHEMISTRY METHOD 05/13/2025 12:26 PM [facility] Triglycerides 172(H) 0 - 150 mg/dL LAB CHEMISTRY METHOD 05/13/2025 12:26 PM [facility] HDL 68 >=40 mg/dL LAB CHEMISTRY METHOD 05/13/2025 12:26 PM EDT [facility] LDL Calculated 78 0 - 100 mg/dL LAB CHEMISTRY METHOD 05/13/2025 12:26 PM T [facility] Comment:Estimated LDL Calcul ated using equation: Total cholesterol - HDL cholesterol - (Triglycerides/5) VLDL Cholesterol Molina 34.4 mg/dL LAB CHEMISTRY METHOD 05/13/2025 12:26 PM [facility] Non HDL Chol. (LDL+VLDL) 112 <145 mg/dL LAB CHEMISTRY METHOD 05/13/2025 12:26 PM EDT [facility] Chol/HDL Ratio 2.6 0.0 - 4.4 LAB CHEMISTRY METHOD 05/13/2025 12:26 PM EDT [facility] Blood Venous blood specimen / Unknown Venipuncture / Unknown 05/13/2025 9:28 AM EDT 05/13/2025 9:28 AM EDT us Wilner Murray MD LAB BLOOD ORDERABLES Final Res ult [facility] [address] [place] [address], * (ABNORMAL) Complete blood count (05/13/2025 9:28 AM EDT) WBC 10.2 4.8 - 10.8 K/mcL LAB HEMETOLOGY METHOD 05/13/2025 11:53 AM EDT [facility] RBC 4.40 3.80 - 4.80 M/[facility] LAB [facility]OLOG[facility] Hemoglobin 12.0 11.5 - 16.0 g/dL LAB HEMETOLOGY METHOD 05/13/2025 11:53 AM [facility] Hematocrit 40.2 35.0 - 47.0 % LAB HEMETOLOGY METHOD 05/13/2025 11:53 AM T [facility] MCV 91.2 79.0 - 98.0 FL LAB HEMETOLOGY METHOD 05/13/2025 11:[facility] MCH 27.2 27.0 - 32.0 pcg LAB HEMETOLOGY METHOD 05/13/2025 11:53 AM [facility] MCHC 29.9(L) 32.0 - 37.0 g/dL LAB HEMETOLOGY METHOD 05/13/2025 11:53 AM [facility] RDW 15.0 11.0 - 15.0 % LAB HEMETOLOGY METHOD 05/13/2025 11:53 AM EDT [facility] Platelets 300 130 - 400 K/mcL LAB HEMETOLOGY METHOD 05/13/2025 11:53 AM EDT [facility] MPV 11.5(H) 7.0 - 11.0 FL LAB HEMETOLOGY METHOD 05/13/2025 11:53 AM EDT [facility] NRBC 0.0 <1.0 % LAB HEMETOLOGY METHOD 05/13/2025 11:53 AM EDT [facility] NRBC Absolute 0.00 <0.10 K/mcL LAB HEMETOLOGY METHOD 05/13/2025 11:53 AM EDT [facility] Blood Venous blood specimen / Unknown Venipuncture / Unknown 05/13/2025 9:28 AM EDT 05/13/2025 9:28 AM EDT us Wilner Murray MD LAB BLOOD ORDERABLES Final Res ult Performing Organization Address City/[facility]/ZIP Co de Phone Number [facility] [address] [place] [address], [place] [phone] * Triiodothyronine free (05/13/2025 9:28 AM EDT) Pathologist [facility] T3, Free 256 230 - 420 pcg/dL LAB CHEMISTRY METHOD 05/13/2025 3:13 PM EDT [facility] Blood Venous blood specimen / Unknown Venipuncture / Unknown 05/13/2025 9:28 AM EDT 05/13/2025 9:28 AM EDT us Wilner Murray MD LAB BLOOD ORDERABLES Final Res ult Performing Organization Address City/[facility]/ZIP Co de Phone Number [facility] [address] [place] [address], [place] [phone] * Hemoglobin A1c (05/13/2025 9:28 AM EDT) [facility] Hemoglobin A1C 6.1 <6.5 % LAB CHEMISTRY METHOD 05/13/2025 2:36 PM T [facility] Mean Bld Glu Estim. 128 mg/dL LAB CHEMISTRY METHOD 05/13/2025 2:36 PM T [facility] Blood Venous blood specimen / Unknown Venipuncture / Unknown 05/13/2025 9:28 AM EDT 05/13/2025 9:28 AM EDT us Wilner Murray MD LAB BLOOD ORDERABLES Final Res ult [facility] [address] [place] [address], [place] [phone] * (ABNORMAL) Comprehensive metabolic panel (05/13/2025 9:28 AM EDT) [facility] Sodium 140 133 - 145 mmol/L LAB CHEMISTRY METHOD 05/13/2025 12:26 PM [facility] Potassium 4.2 3.5 - 5.5 mmol/L LAB CHEMISTRY METHOD 05/13/2025 12:26 PM [facility] Chloride 107 96 - 110 mmol/L LAB CHEMISTRY METHOD 05/13/2025 12:26 PM [facility] CO2 26 21 - 32 mmol/L LAB CHEMISTRY METHOD 05/13/2025 12:26 PM [facility] Anion Gap 7 3 - 11 LAB CHEMISTRY METHOD 05/13/2025 12:26 PM [facility] Glucose 130(H) 70 - 100 mg/dL LAB CHEMISTRY METHOD 05/13/2025 12:26 PM [facility] BUN 16 5 - 25 mg/dL LAB CHEMISTRY METHOD 05/13/2025 12:26 PM [facility] Creatinine 0.70 0.50 - 1.10 mg/dL LAB CHEMISTRY METHOD 05/13/2025 12:26 PM [facility] eGFR 100 >=60 mL/min/1. 73m2 LAB CHEMISTRY METHOD 05/13/2025 12:26 PM [facility] Comment:Calculation based on the Chronic Kidney Disease Epidemiology Collaboration (CKD-EPI) equation refit without adjustment for race. BUN/Creatinine Ratio 22.9 LAB CHEMISTRY METHOD 05/13/2025 12:26 PM [facility] Calcium 9.6 8.5 - 10.5 mg/dL LAB CHEMISTRY METHOD 05/13/2025 12:26 PM [facility] AST (SGOT) 45(H) 10 - 42 unit/L LAB CHEMISTRY METHOD 05/13/2025 12:26 PM [facility] ALT (SGPT) 48 10 - 60 unit/L LAB CHEMISTRY METHOD 05/13/2025 12:26 PM [facility] Alkaline Phosphatase 142(H) 42 - 121 unit/L LAB CHEMISTRY METHOD 05/13/2025 12:26 PM [facility] Total Protein 7.3 6.0 - 8.0 g/dL LAB CHEMISTRY METHOD 05/13/2025 12:26 PM [facility] Albumin 3.6 3.2 - 5.0 g/dL LAB CHEMISTRY METHOD 05/13/2025 12:26 PM [facility] Total Bilirubin 0.4 0.0 - 1.4 mg/dL LAB CHEMISTRY METHOD 05/13/2025 12:26 PM [facility] Blood Venous blood specimen / Unknown Venipuncture / Unknown 05/13/2025 9:28 AM EDT 05/13/2025 9:28 AM EDT us Wilner Murray MD LAB BLOOD ORDERABLES Final Res ult [facility] [address] [place] [address], [place] [phone] * XR Hip 2-3 Views Right (04/07/2025 10:30 AM EDT) Anatomical Region Laterality Modality Lower Extremities, Hip Right Radiograp hic Imaging 04/07/2025 7:47 PM EDT Impressions 04/07/2025 7:50 PM EDT Very mild degenerative changes involving the right hip. POS - [id number] -------- FINAL REPORT -------- Dictated By: Patricia Estrada Dictated Date: 04/07/2025 19:47 ET Assigned Physician: Patricia Estrada Reviewed and Electronically Signed By: Patricia Estrada Signed Date: 04/07/2025 19:50 ET Workstation ID: [id number] Transcribed By: Self Edit Transcribed Date: 04/07/2025 [...] changes involving the right hip. POS - [id number] -------- FINAL REPORT -------- Dictated By: Patricia Estrada Dictated Date: 04/07/2025 19:47 ET Assigned Physician: Patricia Estrada Reviewed and Electronically Signed By: Patricia Estrada Signed Date: 04/07/2025 19:50 ET Workstation ID: [id number] Transcribed By: Self Edit Transcribed Date: 04/07/2025 19:47 ET Freida Lazo BEAD INSPECTOR IMG XR PROCEDURES Final Result * XR Shoulder 2+ Views Right (04/07/2025 10:30 AM EDT) Anatomical Region Laterality Modality Upper Extremities, Shoulder Right Radi ographic Imaging 04/07/2025 7:41 PM EDT Impressions 04/07/2025 7:47 PM EDT Mild degenerative changes. POS - [id number] -------- FINAL REPORT -------- Dictated By: Patricia Estrada Dictated Date: 04/07/2025 19:41 ET Assigned Physician: Patricia Estrada Reviewed and Electronically Signed By: Patricia Estrada Signed Date: 04/07/2025 19:47 ET Workstation ID: [id number] Transcribed By: Self Edit Transcribed Date: 04/07/2025 [...] calcifications. IMPRESSION: Mild degenerative changes. POS - [id number] -------- FINAL REPORT -------- Dictated By: Patricia Estrada Dictated Date: 04/07/2025 19:41 ET Assigned Physician: Patricia Estrada Reviewed and Electronically Signed By: Patricia Estrada Signed Date: 04/07/2025 19:47 ET Workstation ID: [id number] Transcribed By: Self Edit Transcribed Date: 04/07/2025 19:41 ET Freida Lazo BEAD INSPECTOR IMG XR PROCEDURES Final Result * XR Cervical Spine 4-5 Views (04/07/2025 10:29 AM EDT) Anatomical Region Laterality Modality Spine, C-spine Radiographic Kailey ging 04/07/2025 7:33 PM EDT Impressions 04/07/2025 7:40 PM EDT Mild degenerative changes at C5-6. POS - [id number] -------- FINAL REPORT -------- Dictated By: Patricia Estrada Dictated Date: 04/07/2025 19:33 ET Assigned Physician: Patricia Estrada Reviewed and Electronically Signed By: Patricia Estrada Signed Date: 04/07/2025 19:40 ET Workstation ID: [id number] Transcribed By: Self Edit Transcribed Date: 04/07/2025 [...] Mild degenerative changes at C5-6. POS - [id number] -------- FINAL REPORT -------- Dictated By: Patricia Estrada Dictated Date: 04/07/2025 19:33 ET Assigned Physician: Patricia Estrada Reviewed and Electronically Signed By: Patricia Estrada Signed Date: 04/07/2025 19:40 ET Workstation ID: [id number] Transcribed By: Self Edit Transcribed Date: 04/07/2025 19:33 ET Freida Lazo NP IMG XR PROCEDURES Final Result * External Colonoscopy Report (11/25/2024) Anatomical Region Laterality Modality Endoscopy Provider [facility]~PROCEDURE ORDERABLES Final Result * Hepatitis C antibody (11/19/2024 2:50 PM EDT) Hepatitis C Antibody Negative Negative LAB CHEMISTRY METHOD 11/19/2024 5:51 PM EDT [facility] Blood Venous blood specimen / Unknown Venipuncture / Unknown 11/19/2024 2:50 PM EDT 11/19/2024 3:08 PM EDT Freida Lazo NP LAB BLOOD ORDERABLES Final Resu lt [facility] [address] [place] [address], [place] [phone] * HIV 1,2 antibody, p24 antigen with reflex to differentiation (11/19/2024 2:50 PM EDT) HIV Combo AB/AG Negative Negative LAB CHEMISTRY METHOD 11/19/2024 5:51 PM EDT [facility] Blood Venous blood specimen / Unknown Venipuncture / Unknown 11/19/2024 2:50 PM EDT 11/19/2024 3:08 PM EDT Narrative [facility] - 11/19/2024 5:51 PM EDT This assay is a 4th generation assay allowing for earlier detection of HIV infection by detecting the presence of the HIV-1 p24 antigen as well as the traditional antibodies to HIV type 1 (including group O) and type 2. Use of a 4th generation assay is the current CDC recommendation for HIV screening. Freida Lazo BEAD INSPECTOR LAB BLOOD ORDERABLES Final Resu lt [facility] [address] [place] [address], * MG Mammo Digital Screening w Santos [...] for biopsy. PQRI CPT II 3342F Code 64519, 56880 PQRI 225 CPT II 7025F TISSUE DENSITY: The breasts are almost entirely fatty. (BI-RADS Category A) IMPRESSION: Benign. BI-RADS CATEGORY: 2 - BENIGN RECOMMENDATION: Screening bilateral mammogram is recommended in 1 year. Mammo Location: [facility], [address] [place] [id number] -------- FINAL REPORT -------- Dictated By: Kev Olivarez Dictated Date: 09/03/2024 12:19 ET Assigned Physician: Kev Olivarez Reviewed and Electronically Signed By: Kev Olivarez Signed Date: 09/03/2024 12:28 ET Workstation ID: [id number] Transcribed By: Self Edit Transcribed Date: 09/03/2024 12:19 ET Narrative 09/03/2024 12:28 PM EST CLINICAL: The patient is a 59 years Female presenting for routine screening mammography. COMPARISON: Outside studies most recently 07/31/2023 and most remotely 11/15/2017 TECHNIQUE: Full-field digital mammography of the breasts bilaterally consisting of tomosynthesis in MLO and CC projection is performed in the Attuneographe 2000-D unit. Computer aided detection utilizing the [...] MLO and CC projection is performed in the[employer]ie 2000-D unit. Computer aided detection utilizing the [...] for biopsy. PQRI CPT II 3342F Code 27594, 65947 PQRI 225 CPT II 7025F TISSUE DENSITY: The breasts are almost entirely fatty. (BI-RADS CategoryA) IMPRESSION: Benign. BI-RADS CATEGORY: 2 - BENIGN RECOMMENDATION: Screening bilateral mammogram is recommended in 1 year. Mammo Location: [facility], [address] [place] [id number] -------- FINAL REPORT -------- Dictated By: Kev Olivarez Dictated Date: 09/03/2024 12:19 ET Assigned Physician: Kev Olivarez Reviewed and Electronically Signed By: Kev Olivarez Signed Date: 09/03/2024 12:28 ET Workstation ID: [id number] Transcribed By: Self Edit Transcribed Date: 09/03/2024 12:19 ET Self Referral Sppl IMG BI PROCEDURES Final Resul t * (ABNORMAL) Microalbumin creatinine urine ratio (07/15/2024 10:00 AM EST) Creatinine, Urine 138.0 mg/dL LAB CHEMISTRY METHOD 07/15/2024 3:04 PM EST [facility] Microalb, Ur 61.7(H) 0.0 - 29.0 mg/L LAB CHEMISTRY METHOD 07/15/2024 3:04 PM EST [facility] Microalb/Crea t Ratio 45(H) <30 mg/g creat LAB CHEMISTRY METHOD 07/15/2024 3:04 PM EST [facility] Urine Urine specimen obtained by clean catch procedure / Unknown Non-blood Collection / Unknown 07/15/2024 10:00 AM EST 07/15/2024 10:00 AM EST Wilner Murray MD LAB URINE ORDERABLES Final Res ult [facility] [address] [place] [address], [place] [phone] * Hm Diabetes Eye Exam (12/25/2023) Diabetes: Annual Retina Eye Exam abstracted Historical Provider HEALTH MAINTENANCE Final Result * Depression Screening (05/31/2023) Depression Screening abstracted Historical Provider HEALTH MAINTENANCE Final Result * Diabetes Foot Exam (05/31/2023) Diabetes: Annual Foot Exam abstracted Historical Provider HEALTH MAINTENANCE Final Result * Pap smear (09/04/2020) 09/04/2020 Narrative HISTORICAL TESTING LAB RESULTING AGENCY - 09/08/2020 10:55 AM EST [id number] THINPREP PAP, IMAGED: NEGATIVE FOR SQUAMOUS INTRAEPITHELIAL [...] of Phone Billing Address Personal/Family Self 1965 [phone] (Work) [address] [place] [address] 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
== END 2025-07-08 16:22 | disposition home or self-care (01) ==
LOC: HO.RHE 15:35
PROVIDERS: PCP Internal Medicine; Visit Provider Student in an Organized Health Care Education/Training Program
DX: M06.09 Rheumatoid arthritis without rheumatoid factor, multiple sites (principal); M79.7 Fibromyalgia; Z51.81 Encounter for therapeutic drug level monitoring; Z79.620 Long term (current) use of immunosuppressive biologic; Z79.899 Other long term (current) drug therapy; M25.511 Pain in right shoulder; M75.51 Bursitis of right shoulder
CPT/HCPCS: 20610; 99213

== ENCOUNTER → 2025-07-08 15:35 | Outpatient (BNVA) | payer OTHER, SELFPAY | PROVIDERS: PCP Internal Medicine; Visit Provider Student in an Organized Health Care Education/Training Program | DX: M06.9 Rheumatoid arthritis, unspecified (principal); M75.51 Bursitis of right shoulder; M79.7 Fibromyalgia; Z79.899 Other long term (current) drug therapy; Z79.620 Long term (current) use of immunosuppressive biologic | CPT/HCPCS: 20610; 99212; J2003; J3301 ==